=== PATIENT | male | born 1945 | race Caucasian/White ===

== ENCOUNTER 2018-11-05 07:47 | Day surgery (SDC) | payer OTHER ==
--- OUTSIDE RECORDS SUMMARY | 2018-11-05 07:50 | XMS REPORT | Clinical Summary ---
:1945 Author Organization [facility] Address [address] [place] [address] Care Team Providers Name Role Phone Provider, Unknown Primary Care Provider Allergies No Known Allergies Medications Medication Sig Dispensed Refills Start Date End Date Status aspirin (ADULT LOW Adult Low Dose 0 Active DOSE ASPIRIN) 81 MG Aspirin enteric coated tablet multivitamin with Take by mouth. 0 Active minerals tablet tamsulosin (FLOMAX) Take 0.4 mg by 1 05/06/2018 Active 0.4 mg capsule mouth daily. olmesartan-hydrochlo Take 1 tablet by 1 05/06/2018 Active rothiazide (BENICAR mouth daily. HCT) 20-12.5 mg per tablet metFORMIN Take 1,000 mg by 1 04/29/2018 Active (GLUCOPHAGE) 1,000 mouth 2 (two) mg tablet times a day. memantine (NAMENDA) Take 10 mg by 3 06/10/2018 Active 10 MG tablet mouth 2 (two) times a day. glipiZIDE glipizide 5 mg tablet 0 Active (GLUCOTROL) 5 MG Take 1 tablet twice a day by oral route. tablet finasteride finasteride 5 mg 0 Active (PROSCAR) 5 mg tablet tablet etodolac (LODINE) etodolac 500 mg 0 Active 500 MG tablet tablet donepezil (ARICEPT) Take 5 mg by mouth 0 04/16/2018 Active 5 MG tablet daily. donepezil (ARICEPT) Take 10 mg by 3 05/23/2018 Active 10 MG tablet mouth 2 (two) times a day. canagliflozin 300 mg Take 300 mg by 0 Active tablet mouth. aspirin 325 MG Take 325 mg by 0 Active tablet mouth. Ondot SystemsUCH ULTRA BLUE USE STRIPS TO 3 06/11/2018 Active TEST STRIP strip CHECK BLOOD test strips GLUCOSE 2 TIMES EVERYDAY cholecalciferol, Take 2,000 Units 0 Active vitamin D3, (VITAMIN by mouth daily. D3) 2,000 unit capsule capsule calcium acetate Take 1,334 mg by 0 Active (PHOSLO) 667 mg mouth 3 (three) capsule times a day with meals. levoFLOXacin Take 1 tablet (750 6 tablet 0 07/25/2018 07/31/2018 (LEVAQUIN) 750 MG mg total) by mouth tablet daily for 6 days. Hospital, Clinic, or Other Ordered Dose Route Frequency Start Date End Date Status Facility Administered Medication cefTRIAXone (ROCEPHIN) 1 g IM once 07/29/2018 07/29/2018 Ended injection 1 gIndications: Elevated prostate specific antigen (PSA) Active Problems No known active problems Encounters Date Type Specialty Care Team Description 08/13/2018 Telephone Urology Prasanth Gordon MD 08/12/2018 Telephone Urology Prasanht Gordon MD 08/05/2018 Telephone Urology Nimo Wilhelm 08/02/2018 Hospital Encounter Radiology Prasanth Gordon MD Gross hematuria 07/29/2018 Ancillary Procedure Urology Prasanth Gordon MD Elevated prostate specific antigen (PSA) 07/29/2018 Office Visit Urology Prasanth Gordon MD Elevated prostate specific antigen (PSA) (Primary Dx); Gross hematuria 07/25/2018 Transcribe Orders Urology Prasanth Gordon MD 07/25/2018 Telephone Prasanth Martinez MD 07/22/2018 Telephone UrologPrasanth Ibarra MD 07/01/2018 Office Visit Urology Prasanth Gordon MD Elevated prostate specific antigen (PSA) (Primary Dx) 06/26/2018 Telephone Urology Nimo Wilhelm 06/26/2018 Telephone Urology Prasanth Gordon MD after 11/04/2017 Social History Tobacco Use Types Packs/Day Years Used Date Never Assessed Sex Assigned at Date Recorded Not on file Job Start Date Occupation Industry Not on file Not on file Not on file Travel History Travel Start Travel End No recent travel history available. Last Filed Vital Signs Not on file Plan of Treatment Health Maintenance Due Date Last Done Comments COLON CANCER SCREENING 08/30/1997 SHINGLES VACCINES (#1) 08/30/1997 65+ PNEUMOCOCCAL VACCINE (2 of 2 - PPSV23) 08/30/2012 03/12/2016 PNEUMOCOCCAL POLYSACCHARIDE VACCINE AGE 65 AND OVER 08/30/2012 INFLUENZA VACCINE 01/23/2019 Procedures Procedure Name Priority Date/Time Associated Comments Diagnosis CT ABDOMEN W WO Routine 08/02/2018 12:24 PM Gross hematuria Results for this CONTRAST PELVIS W WO CRATING AND MOVING ESTIMATOR procedure are in CONTRAST the results section. ESTIMATED GFR STAT 08/02/2018 11:00 AM Results for this CRATING AND MOVING ESTIMATOR procedure are in the results section. CREATININE, WHOLE STAT 08/02/2018 11:00 AM Results for this BLOOD CRATING AND MOVING ESTIMATOR procedure are in the results section. US NEEDLE BIOPSY Routine 07/29/2018 9:36 AM Elevated prostate Results for this CRATING AND MOVING ESTIMATOR specific antigen procedure are in (PSA) the results section. POC URINALYSIS Routine 07/29/2018 9:27 AM Elevated prostate Results for this DIPSTICK CRATING AND MOVING ESTIMATOR specific antigen procedure are in (PSA) the results section. POC URINALYSIS Routine 07/01/2018 9:37 AM Elevated prostate Results for this DIPSTICK CRATING AND MOVING ESTIMATOR specific antigen procedure are in (PSA) the results section. after 11/04/[address] Abdomen W Wo Contrast Pelvis W Wo Contrast (08/02/2018 12:24 PM CRATING AND MOVING ESTIMATOR) Narrative Performed At EXAMINATION:CT ABDOMEN W WO CONTRAST PELVIS W WO CONTRAST HM RADIANT CLINICAL HISTORY:R31.0 Gross hematuria, gross hematuria TECHNIQUE:CT of the abdomen and pelvis was performed without contrast utilizing renal stone protocol. Subsequently, postcontrast CT of the abdomen and pelvis was obtained with multiphase renal mass and CT urogram protocol. CT imaging was performed with iterative reconstruction technique and/or automated exposure control to reduce radiation dose. COMPARISON:None FINDINGS: LUNG BASES: Partially visualized pacemaker lead tips in the right atrium and right ventricle. Scattered coronary calcifications. Right lower lobe subpleural well-circumscribed ovoid nodule measures 6 mm. Inferior lingular subpleural well-circumscribed ovoid nodule measures 4 mm. ABDOMEN: Liver: The liver is normal. No focal mass. Gallbladder: The gallbladder is normal. Spleen: The spleen is not enlarged. Pancreas: The pancreas is unremarkable. Adrenal Glands: The adrenal glands are unremarkable. Kidneys: No renal calculi. No hydronephrosis. There is an 8 mm hypodensity in the left interpolar region, too small to characterize but likely a cyst. Abdominal Aorta: Multifocal vascular calcifications. Nodes: No enlarged retroperitoneal or mesenteric lymphadenopathy. Bowel: No bowel obstruction or inflammatory changes. Ascites/fluid collections: No ascites or fluid collections. PELVIS: Marked hypertrophy of the median lobe of the prostate gland. Marked mass effect on the urinary bladder secondary to prostatic hypertrophy. Urinary bladder wall appears minimally circumferentially thickened, which partially resolves on delayed images, likely secondary to underdistention on the earlier images. MUSCULOSKELETAL: Mild spondylosis. IMPRESSION: 1.Marked prostatomegaly, particularly the median lobe, resulting in marked mass effect on the urinary bladder. 2.No suspicious renal abnormalities identified. 8 mm left interpolar hypodensity likely represents a cyst. 3.Bilateral pulmonary nodules measuring up to 6 mm likely represent pulmonary lymph nodes and/or granulomas. Recommend 12 month follow-up if patient has risk factors for lung cancer; otherwise, no follow-up is necessary. [facility]-[id number] Procedure Note Hm Interface, Radiology Results Incoming - 08/02/2018 1:21 PM CRATING AND MOVING ESTIMATOR EXAMINATION: CT ABDOMEN W WO CONTRAST PELVIS W WO CONTRAST CLINICAL HISTORY: R31.0 Gross hematuria, gross hematuria TECHNIQUE: CT of the abdomen and pelvis was performed without contrast utilizing renal stone protocol. Subsequently, postcontrast CT of the abdomen and pelvis was obtained with multiphase renal mass and CT urogram protocol. CT imaging was performed with iterative reconstruction technique and/or automated exposure control to reduce radiation dose. COMPARISON: None FINDINGS: LUNG BASES: Partially visualized pacemaker lead tips in the right atrium and right ventricle. Scattered coronary calcifications. Right lower lobe subpleural well- circumscribed ovoid nodule measures 6 mm. Inferior lingular subpleural well-circumscribed ovoid nodule measures 4 mm. ABDOMEN: Liver: The liver is normal. No focal mass. Gallbladder: The gallbladder is normal. Spleen: The spleen is not enlarged. Pancreas: The pancreas is unremarkable. Adrenal Glands: The adrenal glands are unremarkable. Kidneys: No renal calculi. No hydronephrosis. There is an 8 mm hypodensity in the left interpolar region, too small to characterize but likely a cyst. Abdominal Aorta: Multifocal vascular calcifications. Nodes: No enlarged retroperitoneal or mesenteric lymphadenopathy. Bowel: No bowel obstruction or inflammatory changes. Ascites/fluid collections: No ascites or fluid collections. PELVIS: Marked hypertrophy of the median lobe of the prostate gland. Marked mass effect on the urinary bladder secondary to prostatic hypertrophy. Urinary bladder wall appears minimally circumferentially thickened, which partially resolves on delayed images, likely secondary to underdistention on the earlier images. MUSCULOSKELETAL: Mild spondylosis. IMPRESSION: 1. Marked prostatomegaly, particularly the median lobe, resulting in marked mass effect on the urinary bladder. 2. No suspicious renal abnormalities identified. 8 mm left interpolar hypodensity likely represents a cyst. 3. Bilateral pulmonary nodules measuring up to 6 mm likely represent pulmonary lymph nodes and/or granulomas. Recommend 12 month follow-up if patient has risk factors for lung cancer; otherwise, no follow-up is necessary. [facility]-[id number] Performing Organization Address City/[facility]/Zipcode Phone Number [employer] [address] [place] [address] Estimated GFR (08/02/2018 11:00 AM CRATING AND MOVING ESTIMATOR) Estimated GFR 83 mL/min/1.73 m2 [facility] Comment: [facility] CatergoryUnitsInterpretation G1 >=90 Normal or high G2 60-89Mildly decreased [id number] to moderately decreased [id number] to severely decreased G4 15-29Severely decreased G5 <15Kidney failure The eGFR was calculated using the Chronic Kidney Disease Epidemiology Collaboration (CKD-EPI) equation. Interpretation is based on recommendations of the National Kidney Foundation-Kidney Disease Outcomes Quality Initiative (NKF-KDOQI) published in 2014. Specimen Plasma specimen Performing Organization Address [facility] Phone Number [facility] DEPARTMENT OF PATHOLOGY [address] [place] [address] Creatinine, whole blood (08/02/2018 11:00 AM CRATING AND MOVING ESTIMATOR) Creatinine, whole blood 0.92 0.70 - 1.20 mg/dL [facility] Specimen Plasma specimen Performing Organization Address [facility] Phone Number [facility] DEPARTMENT OF PATHOLOGY [address] [place] [address] US Needle Biopsy (07/29/2018 9:36 AM CRATING AND MOVING ESTIMATOR) Narrative Performed At Ultrasound guided Prostate Needle Biopsy [employer] DiagnosisElevated PSA PSA:7.5 PSAD:0.04 Findings: Prostate echogenicity: Heterogenous Calcifications: Small focal Measurements: Whole Gland AP Diamter:7.2 cm. Trasverse:6.7 cm. Length 8.0 cm. Total Hrahjm823 mL.With large median lobe Nodule None Ultrasound guided biopsies under local anesthesia: 12 Template Biopsies. 0 Additional Biopsies of. : Comments: U/S guided prostate needle BX was performed by and procedure was tolerated very well. Total 12 cores were taken under local anesthesia 2% lidocaine 5 cc on each side. Performing Organization Address City/State/Zipcode Phone Number [facility] [address] [place] [address] POC urinalysis dipstick (07/29/2018 9:27 AM CRATING AND MOVING ESTIMATOR)Only the most recent of2 resultswithin the time period is included. Color urine, POC Yellow Clarity urine, POC Clear Glucose urine, POC 3+ (A) Negative Bilirubin urine, POC Negative Negative Ketones urine, POC Negative Negative Specific gravity urine, POC 1.015 1.005 - 1.030 Blood urine, POC Trace (A) Negative pH urine, POC 5.5 5.0, 5.5, 6.0, 6.5, 7.0, 7.5, 8.0, 8.5 Protein urine, POC 3+ (A) Negative Urobilinogen urine, POC <2.0 <2.0 Nitrite urine, POC Negative Negative Leukocyte esterase urine, POC Negative Negative Specimen Urine after 11/04/2017 Insurance Payer Benefit Plan / Group Subscriber ID Type Phone Address AETNA MEDICARE AETNA MEDICARE HMO/PPO [facility] xxxxxxxx HMO Advance Directives Patient has advance care planning documents on file. For more information, please contact:[facility] [place] [phone]
--- OUTSIDE RECORDS SUMMARY | 2018-11-05 07:50 | XMS REPORT ---
:1945 [facility] Address [address] [place] [address] [address] [place] [address] Care Team Providers Name Role Phone Unavailable Unavailable Unavailable Problems This patient has no known problems. Allergies, Adverse Reactions, Alerts This patient has no known allergies or adverse reactions. Medications This patient has no known medications.
--- OUTSIDE RECORDS SUMMARY | 2018-11-05 07:50 | XMS REPORT | Summary of Care ---
:[address] [facility] Address [address] [place] [phone] Encounter HQ Marco A(DENG) [id number] Date(s): 01/09/17 - 01/09/[address] Discharge Disposition: Home or Self Care Attending Physician: Melania Pillai MD Referring Physician: Melania Pillai MD Vital Signs Most recent to oldest [Reference Range]: 1 Height 180.34 cm (01/09/17 11:43 AM) Blood Pressure [90-140/60-90 mmHg] 122/73 mmHg (01/09/17 11:43 AM) Respiratory Rate [14-20 BRMIN] 20 BRMIN (01/09/17 11:43 AM) Peripheral Pulse Rate [60-100 bpm] 86 bpm (01/09/17 11:43 AM) Weight 86.364 kg (01/09/17 11:43 AM) Body Mass Index 26.56 m2 (01/09/17 11:43 AM) Problem List Condition Effective Dates Status Health Status Informant BPH (benign prostatic Resolved hypertrophy)(Confirmed) CAD - Coronary artery Active disease(Confirmed) DM (diabetes mellitus)(Confirmed)1 Resolved Diabetes mellitus type 2(Confirmed) Active HTN (hypertension)(Confirmed) Resolved Sleep apnea(Confirmed)2 Resolved Syncope(Confirmed)3 Resolved 1type 22CPAP at [id number] had 3 syncopal episodes. Allergies, Adverse Reactions, Alerts Substance Reaction Severity Status iodine hives Active Medications No Known Medications Results No data available for this section Immunizations Given and Recorded Vaccine Date Status Refusal Reason pneumococcal 13-valent vaccine 03/12/16 Given Procedures Procedure Date Related Diagnosis Body Site Endoscopy1 Procedure2 Procedure3 Procedure4 1upper EF2rommx rotator cuff surgery.3Hernia repair.4removal of tumor in his right cheek.Patient states the result is benign. Social History Social History Type Response Substance Abuse Use: None. Alcohol Never Smoking Status Previous treatment: None; Ready to change: No; Concerns about tobacco use in household: No; Exposure to Tobacco Smoke None; Cigarette Smoking Last 365 Days No; Reg Smoking Cessation Counseling No; Never smoker Assessment and Plan No data available for this section
--- OUTSIDE RECORDS SUMMARY | 2018-11-05 07:50 | XMS REPORT | Summary of Care ---
:1945 Author Organization [facility] Address [address] [place] [phone] Encounter HQ Marco A(FIN) [id number] Date(s): 11/07/16 - 11/07/[address] [phone] Discharge Disposition: Home or Self Care Attending Physician: Melania Pillai MD Referring Physician: Melania Pillai MD Vital Signs Most recent to oldest [Reference Range]: 1 Height 180.34 cm (11/07/16 10:08 AM) Blood Pressure [90-140/60-90 mmHg] 133/66 mmHg (11/07/16 10:08 AM) Respiratory Rate [14-20 BRMIN] 20 BRMIN (11/07/16 10:08 AM) Peripheral Pulse Rate [60-100 bpm] 60 bpm (11/07/16 10:08 AM) Weight 86.818 kg (11/07/16 10:08 AM) Body Mass Index 26.69 m2 (11/07/16 10:08 AM) Problem List Condition Effective Dates Status Health Status Informant BPH (benign prostatic Resolved hypertrophy)(Confirmed) CAD - Coronary artery Active disease(Confirmed) DM (diabetes mellitus)(Confirmed)1 Resolved Diabetes mellitus type 2(Confirmed) Active HTN (hypertension)(Confirmed) Resolved Sleep apnea(Confirmed)2 Resolved Syncope(Confirmed)3 Resolved 1type 22CPAP at [id number] had 3 syncopal episodes. Allergies, Adverse Reactions, Alerts Substance Reaction Severity Status iodine hives Active Medications No Known Medications Results No data available for this section Immunizations Given and Recorded Vaccine Date Status Refusal Reason pneumococcal 13-valent vaccine 03/12/16 Given Procedures Procedure Date Related Diagnosis Body Site Endoscopy1 Procedure2 Procedure3 Procedure4 1upper GS3sacab rotator cuff surgery.3Hernia repair.4removal of tumor in his right cheek.Patient states the result is benign. Social History Social History Type Response Substance Abuse Use: None. Alcohol Never Smoking Status Never smoker; Previous treatment: None; Ready to change: No; Concerns about tobacco use in household: No; Exposure to Tobacco Smoke None; Cigarette Smoking Last 365 Days No; Reg Smoking Cessation Counseling No Assessment and Plan No data available for this section
--- OUTSIDE RECORDS SUMMARY | 2018-11-05 07:50 | XMS REPORT | Summary of Care ---
:[address] [facility] Address [address] [place] [phone] Encounter HQ Kit_nela(FIN) [id number] Date(s): 09/03/16 - 09/04/[address] Discharge Disposition: Home or Self Care Attending Physician: Melania Pillai MD Referring Physician: Melania Pillai MD Vital Signs No data available for this section Problem List Condition Effective Dates Status Health Status Informant BPH (benign prostatic Resolved hypertrophy)(Confirmed) CAD - Coronary artery Active disease(Confirmed) DM (diabetes mellitus)(Confirmed)1 Resolved HTN (hypertension)(Confirmed) Resolved Sleep apnea(Confirmed)2 Resolved Syncope(Confirmed)3 Resolved 1type 22CPAP at [id number] had 3 syncopal episodes. Allergies, Adverse Reactions, Alerts Substance Reaction Severity Status iodine hives Active Medications No data available for this section Results No data available for this section Immunizations Given and Recorded Vaccine Date Status Refusal Reason pneumococcal 13-valent vaccine 03/12/16 Given Procedures Procedure Date Related Diagnosis Body Site Endoscopy1 Procedure2 Procedure3 Procedure4 1upper AV3ahert rotator cuff surgery.3Hernia repair.4removal of tumor in [...]
--- OUTSIDE RECORDS SUMMARY | 2018-11-05 07:50 | XMS REPORT | Summary of Care ---
:1945 Author Organization [facility] Address [address] [place] [phone] Encounter HQ Marco A(FIN) [id number] Date(s): 08/16/16 - 08/17/[address] [address] [phone] Discharge Disposition: Home or Self Care Attending Physician: Physician, Non Associated MD Referring Physician: PCP, None MD Vital Signs No data available for this section Problem List Condition Effective Dates Status Health Status Informant BPH (benign prostatic Resolved hypertrophy)(Confirmed) CAD - Coronary artery Active disease(Confirmed) DM (diabetes mellitus)(Confirmed)1 Resolved HTN (hypertension)(Confirmed) Resolved Sleep apnea(Confirmed)2 Resolved Syncope(Confirmed)3 Resolved 1type 22CPAP at [id number] had 3 syncopal episodes. Allergies, Adverse Reactions, Alerts Substance Reaction Severity Status iodine hives Active Medications No data available for this section Results No data available for this section Immunizations Given and Recorded Vaccine Date Status Refusal Reason pneumococcal 13-valent vaccine 03/12/16 Given Procedures Procedure Date Related Diagnosis Body Site Endoscopy1 Procedure2 Procedure3 Procedure4 1upper ND1zolsy rotator cuff surgery.3Hernia repair.4removal of tumor in [...]
--- OUTSIDE RECORDS SUMMARY | 2018-11-05 07:50 | XMS REPORT | Continuity of Care Document ---
:1945 Author Organization Interface Problems Problem Status Onset Classification Date Comments Source Date Reported F/U 5 WKS Active [facility] 7 F/U 1 MONTH Active [facility] 7 MODERATE DAVID Active MH [facility] 7 DAVID Active [facility] 7 DAVID Active [facility] 7 BPH (<span Resolved Problem 01/12/2017 [facility] ID="[id number]">Confirmed</s vargas>) CAD - Coronary Active Problem 01/12/2017 [facility] artery disease DM (<span Resolved Problem 01/12/2017 type 2 [facility] ID="[id number]">Confirmed</s vargas>)<sup>1</sinclair p> Diabetes Active Problem 01/12/2017 [facility] mellitus type 2 HTN (<span Resolved Problem 01/12/2017 [facility] ID="[id number]">Confirmed</s vargas>) Sleep Resolved Problem 01/12/2017 CPAP at [facility] apnea<sup>2</sinclair bedtime p> Syncope<sup>3</ Resolved Problem 01/12/2017 recently [facility] sup> had 3 syncopal episodes. OBSTRUCTIVE Active [facility] SLEEP APNEA (ADULT) (PEDIATR Medications Medication Details Route Status Patient Ordering Order Source Instructions Provider Date Allergies, Adverse Reactions, Alerts Substance Category Reaction Severity Reaction Status Date Comments Source type Reported iodine Assertion hives Drug Active [facility] allergy Immunizations Immunization Date Given Site Status Last Comments Source Updated pneumococcal 03/12/2016 Left deltoid completed Celerio [facility] 13-valent vaccine Results Order Results Value Reference Date Interpretation Comments Source Name Range Vital Signs Vital Sign Value Date Comments Source BMI Calculated 26.56 01/09/2017 [facility] Weight 86.364 01/09/2017 [facility] Systolic (mm Hg) 122 01/09/2017 [facility] Diastolic (mm Hg) 73 01/09/2017 [facility] Heart Rate 86 01/09/2017 [facility] Respitory Rate 20 01/09/2017 [facility] Height 180.34 cm 01/09/2017 [facility] Height 180.34 cm 11/07/2016 [facility] BMI Calculated 26.69 11/07/2016 [facility] Weight 86.818 11/07/2016 [facility] Heart Rate 60 11/07/2016 [facility] Respitory Rate 20 11/07/2016 [facility] Systolic (mm Hg) 133 11/07/2016 [facility] Diastolic (mm Hg) 66 11/07/2016 [facility] Encounters Location Location Encounter Encounter Reason Attending ADM DC Status Source Details Type Number For Provider Date Date Visit Outpatient [id number] DORIE JOE 03/[address] [facility] [id number] KING 05/16 Formerly named [facility] [id number] Non 08/17 08/17 [facility]2016 [facility] [id number] [facility] 09/04 09/04 [facility] /2016 [place] [facility] [id number] [facility] 11/07 11/08 [facility]2016 [facility] Outpatient [id number] [facility] 01/09 01/10 [facility] /2016 [facility] Procedures Procedure Code Date Perfomer Comments Source Endoscopy<sup>1< [id number] upper GI [facility] /sup> Procedure<sup>2< [id number] right rotator [facility] /sup> cuff surgery. Procedure<sup>3< [id number] Hernia repair. [facility] /sup> Procedure<sup>4< [id number] removal of [facility] /sup> tumor in his right cheek.Patient states the result is benign.
[2018-11-05] MEDS ORDERED: NA CHLORIDE 0.9% 1,000 ML ONE (08:02)
[2018-11-05] MEDS ORDERED: LIDOCAINE 1% MPF 5 ML VIAL ONE (09:12)
[2018-11-05] MEDS ORDERED: PROPOFOL 200 MG/20 ML VIAL IV ONE (09:12)
--- NOTE | 2018-11-05 09:45 | ENDO RPT ---
[address], [address] COLONOSCOPY PROCEDURE REPORT EXAM DATE: 11/05/2018 PATIENT NAME: Negro Chavez MR #: [id number] BIRTHDATE: 1945 ATTENDING: Roger Sal Dr STATUS: outpatient JAVA FLEX DEVELOPER: Singh Giordano RN, Yuni Falcon RN, and Cherry Kennedy INDICATIONS: The patient is a 73 yr old Male here for a colonoscopy due to personal history of colon polyps PROCEDURE PERFORMED: Colonoscopy MEDICATIONS: Per Anesthesia. ESTIMATED BLOOD LOSS: None CONSENT: The patient understands the risks and benefits of the procedure and understands that these risks include, but are not limited to: sedation, allergic reaction, infection, perforation and/or bleeding. Alternative means of evaluation and treatment include, among others: physical exam, x-rays, and/or surgical intervention. The patient elects to proceed with this endoscopic procedure. DESCRIPTION OF PROCEDURE: During intra-op preparation period all mechanical medical equipment was checked for proper function. Hand hygiene and appropriate measures for infection prevention was taken. Procedure, possible complications, alternatives including, but not limited to possibility of bleeding, perforation, tear, infection, sepsis, need for surgery, need for blood transfusion, were explained to the patient. After the risks, benefits and alternatives of the procedure were thoroughly explained, Informed consent was verified, confirmed and timeout was successfully executed by the treatment team. The patient was placed in the left lateral position. A digital rectal exam was performed and revealed external hemorrhoids. After appropriate level of anesthesia, the scope was passed. The [id number] ([id number]) endoscope was introduced through the anus and advanced to the terminal ileum which was intubated for a short distance. The quality of the prep was good. The instrument was then slowly withdrawn as the colon was fully examined. Scope withdrawal time was 8 minutes. COLON FINDINGS: Mild diverticulosis was noted in the descending colon. No bleeding was noted from the diverticulosis. Moderate sized internal and external hemorrhoids were found. Retroflexed views revealed medium hemorrhoids. The scope was then completely withdrawn from the patient and the procedure terminated. ADVERSE EVENTS: There were no complications. IMPRESSIONS: 1. Mild diverticulosis in the descending colon 2. Moderate sized internal and external hemorrhoids 3. Intubation to terminal ileum RECOMMENDATIONS: fiber rich diet RECALL: Return in 3 year(s) for Colonoscopy. Roger Sal Dr eSigned: Roger Sal Dr 11/05/2018 9:45 AM cc: Luis King CPT CODES: ICD9 CODES: 455.5 External hemorrhoids with other complication PATIENT NAME: ChavezNegro MR#: [id number]
[2018-11-05 10:52] VITALS: BP 151/67; TEMP 98.4; O2SAT 99
== END 2018-11-05 10:18 | disposition home or self-care (01) ==
LOC: OR 07:47
PROVIDERS: ATTEND Internal Medicine Gastroenterology
PROC: 0DJD8ZZ Inspection of Lower Intestinal Tract, Via Natural or Artificial Opening Endoscopic (ICD-10-PCS; principal; 2018-11-05 10:00)
DX: Z12.11 Encounter for screening for malignant neoplasm of colon (principal); Z86.010 Personal history of colon polyps; K57.30 Diverticulosis of large intestine without perforation or abscess without bleeding; K64.8 Other hemorrhoids; K64.4 Residual hemorrhoidal skin tags; E11.9 Type 2 diabetes mellitus without complications; I10 Essential (primary) hypertension; Z79.84 Long term (current) use of oral hypoglycemic drugs; Z79.899 Other long term (current) drug therapy; Z95.0 Presence of cardiac pacemaker
CPT/HCPCS: 82962; 45378; J2704; J7030

== ENCOUNTER 2018-12-03 08:00 | Day surgery (SDC) | payer OTHER ==
--- OUTSIDE RECORDS SUMMARY | 2018-12-03 08:27 | XMS REPORT | Clinical Summary ---
:1945 Author Organization [facility] Address [address] [place] [address] Care Team Providers Name Role Phone Provider, Unknown Primary Care Provider Unavailable Allergies No Known Allergies Medications Medication Sig [...] 325 mg by 0 Active tablet mouth. ONETOUCH ULTRA BLUE USE STRIPS TO 3 06/11/2018 [...] Urology Prasanth Gordon MD 08/12/2018 Telephone Urology Prasanth Gordon MD 08/05/2018 Telephone Urology Nimo Wilhelm 08/02/2018 Hospital Encounter Radiology Prasanth Gordon MD Gross hematuria 07/29/2018 Ancillary Procedure Urology Prasanth Gordon MD Elevated prostate specific antigen (PSA) 07/29/2018 Office Visit Urology Prasanth Gordon MD Elevated prostate specific antigen (PSA) (Primary Dx); Gross hematuria 07/25/2018 Transcribe Orders UrologPrasanth Ibarra MD 07/25/2018 Telephone Prasanth Martinez MD 07/22/2018 Telephone UrologPrasanth Ibarra MD 07/01/2018 Office Visit UrologPrasanth Ibarra MD Elevated prostate specific antigen (PSA) (Primary Dx) 06/26/2018 Telephone Urology Nimo Wilhelm 06/26/2018 Telephone UrologPrasanth Ibarra MD after 12/02/2017 Social History Tobacco Use Types Packs/Day Years Used Date Never Assessed Sex Assigned at Date Recorded Not on file Job Start Date Occupation Industry Not on file Not on file Not on file Travel History Travel Start Travel End No recent travel history available. Last Filed Vital Signs Not on file Plan of Treatment Health Maintenance Due Date Last Done Comments COLONOSCOPY SCREENING 08/30/1997 SHINGLES VACCINES (#1) 08/30/1997 65+ PNEUMOCOCCAL VACCINE (2 of 2 - PPSV23) 08/30/2012 03/12/2016 INFLUENZA VACCINE 01/23/2019 Procedures Procedure Name Priority Date/Time Associated Comments Diagnosis CT ABDOMEN W WO Routine 08/02/2018 12:24 PM Gross hematuria Results for this CONTRAST PELVIS W WO TRAVELING BUYER procedure are in CONTRAST the results section. ESTIMATED GFR STAT 08/02/2018 11:00 AM Results for this TRAVELING BUYER procedure are in the results section. CREATININE, WHOLE STAT 08/02/2018 11:00 AM Results for this BLOOD TRAVELING BUYER procedure are in the results section. US NEEDLE BIOPSY Routine 07/29/2018 9:36 AM Elevated prostate Results for this TRAVELING BUYER specific antigen procedure are in (PSA) the results section. POC URINALYSIS Routine 07/29/2018 9:27 AM Elevated prostate Results for this DIPSTICK TRAVELING BUYER specific antigen procedure are in (PSA) the results section. POC URINALYSIS Routine 07/01/2018 9:37 AM Elevated prostate Results for this DIPSTICK TRAVELING BUYER specific antigen procedure are in (PSA) the results section. after 12/02/[address] Abdomen W Wo Contrast Pelvis W Wo Contrast (08/02/2018 12:24 PM TRAVELING BUYER) Specimen Narrative Performed At EXAMINATION:CT ABDOMEN W WO [...] lung cancer; otherwise, no follow-up is necessary. [facility]-[id number] Procedure Note Hm Interface, Radiology Results Incoming - 08/02/2018 1:21 PM TRAVELING BUYER EXAMINATION: CT ABDOMEN W WO CONTRAST PELVIS [...] lung cancer; otherwise, no follow-up is necessary. [facility]-[id number] Performing Organization Address City/[facility]/Zipcode Phone Number [facility] [address] [place] [address] Estimated GFR (08/02/2018 11:00 AM TRAVELING BUYER) Estimated GFR 83 mL/min/1.73 [facility] Comment: m2 GOSHEN CatergoryUnitsInterpretation [facility] G1 >=90 Normal or high G2 60-89Mildly decreased R2s26-03Ncthie to moderately decreased V4f85-95Dkdmoucjtc to severely decreased G4 15-29Severely decreased G5 <15Kidney failure The eGFR was calculated using the Chronic Kidney Disease Epidemiology Collaboration (CKD-EPI) equation. Interpretation is based on recommendations of the National Kidney Foundation-Kidney Disease Outcomes Quality Initiative (NKF-KDOQI) published in 2014. Specimen Plasma specimen Performing Organization Address [facility] Phone Number [facility] DEPARTMENT OF PATHOLOGY [phone] [place] [address] Creatinine, whole blood (08/02/2018 11:00 AM TRAVELING BUYER) Creatinine, whole 0.92 0.70 - 1.20 [facility] blood mg/dL [facility] Specimen Plasma specimen Performing Organization Address City/[facility]/Zipcode Phone Number [facility] DEPARTMENT OF PATHOLOGY [phone] [place] [address] US Needle Biopsy (07/29/2018 9:36 AM TRAVELING BUYER) Specimen Narrative Performed At Ultrasound guided Prostate Needle Biopsy [facility] DiagnosisElevated PSA PSA:7.5 PSAD:0.04 Findings: Prostate echogenicity: Heterogenous Calcifications: Small focal Measurements: Whole Gland AP Diamter:7.2 cm. Trasverse:6.7 cm. Length 8.0 cm. Total Tijwpr526 mL.With large median lobe Nodule None Ultrasound guided biopsies under local anesthesia: 12 Template Biopsies. 0 Additional Biopsies of. : Comments: U/S guided prostate needle BX was performed by and procedure was tolerated very well. Total 12 cores were taken under local anesthesia 2% lidocaine 5 cc on each side. Performing Organization Address City/State/Zipcode Phone Number [facility] [address] [place] [address] POC urinalysis dipstick (07/29/2018 9:27 AM TRAVELING BUYER)Only the most recent of2 resultswithin the time period is included. Color urine, POC Yellow Clarity urine, POC Clear Glucose urine, POC 3+ (A) Negative Bilirubin urine, POC Negative Negative Ketones urine, POC Negative Negative Specific gravity urine, 1.015 1.005 - 1.030 POC Blood urine, POC Trace (A) Negative pH urine, POC 5.5 5.0, 5.5, 6.0, 6.5, 7.0, 7.5, 8.0, 8.5 Protein urine, POC 3+ (A) Negative Urobilinogen urine, POC <2.0 <2.0 Nitrite urine, POC Negative Negative Leukocyte esterase Negative Negative urine, POC Specimen Urine after 12/02/2017 Advance Directives Patient has advance care planning documents on file. For more information, please contact:[facility] [place] [phone]
--- OUTSIDE RECORDS SUMMARY | 2018-12-03 08:28 | XMS REPORT ---
:1945 Author [facility] Address [address] [place] [address] [address]. [address] [place] [address] Care Team Providers Name Role Phone Unavailable Unavailable Unavailable Problems This patient has no known problems. Allergies, Adverse Reactions, Alerts This patient has no known allergies or adverse reactions. Medications This patient has no known medications.
--- OUTSIDE RECORDS SUMMARY | 2018-12-03 08:28 | XMS REPORT | Continuity of Care Document ---
:1945 Author Organization Interface Problems Problem Status Onset Classification Date Comments Source Date Reported F/U 5 WKS Active [facility] 7 F/U 1 MONTH Active [facility] 7 MODERATE DAVID Active MH [facility] 7 DAVID Active [facility] 7 DAVID Active [facility] 7 BPH (<span Resolved Problem 01/12/2017 [facility] ID="[id number]">Confirmed</s vargas>) CAD - Coronary Active Problem 01/12/2017 [facility] artery disease DM (<span Resolved Problem 01/12/2017 type 2 [facility] ID="[id number]">Confirmed</s vargas>)<sup>1</sinclair p> Diabetes Active Problem 01/12/2017 [facility] mellitus type 2 HTN (<span Resolved Problem 01/12/2017 [facility] ID="[id number]">Confirmed</s vargas>) Sleep Resolved Problem 01/12/2017 CPAP [...] Number For Provider Date Date Visit Outpatient [id number] DORIE JOE 03/27 [facility] [place] [facility] [id number] KING 05/16 [facility] [id number] Non 08/17 08/17 [facility] /2016 [place] [facility] Out[facility] [id number] [facility] 09/04 09/04 [facility] /2016 [place] [facility] Out[facility] [id number] [facility] 11/07 11/08 [facility] /2016 [facility] Outpatient [id number] [facility] 01/09 01/10 [facility] /2016 [facility] Procedures Procedure Code Date Perfomer Comments Source Endoscopy<sup>1< [id number] upper GI [facility] /sup> Procedure<sup>2< [id number] right rotator [facility] /sup> cuff surgery. Procedure<sup>3< [id number] Hernia repair. 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
[2018-12-03] MEDS ORDERED: NA CHLORIDE 0.9% 1,000 ML ONE (08:58)
[2018-12-03] MEDS ORDERED: LIDOCAINE 1% MPF 2 ML AMPULE ONE (10:01)
[2018-12-03] MEDS ORDERED: PROPOFOL 200 MG/20 ML VIAL IV ONE (10:01)
[2018-12-03 10:56] VITALS: TEMP 98; O2SAT 98
[2018-12-03 11:01] LABS: Absolute Lymphocytes (CBC) 1.5 K/uL (0.7-4.9); Basophils % 1.3 % (0-1.3); Eosinophils % 1.3 % (0-4.4); Hematocrit 42.8 % (39.6-49.0); Lymphocytes % 23.8 % (15.3-44.8); MPV 7.7 fL (7.6-11.3); Monocytes % 6.7 % (3.3-12.3); RBC Red Blood Cell Count 4.82 M/uL (4.33-5.43)
[2018-12-03 11:05] LABS: Protime INR 1.06
[2018-12-03 11:12] VITALS: BP 138/67
--- NOTE | 2018-12-03 11:21 | RAD REPORT ---
EXAM DESCRIPTION: RAD - Chest Pa And Lat (2 Views) - 12/03/2018 11:06 am CLINICAL HISTORY: Preprocedure chest examination, pending ETT, weight loss, pain, pacemaker COMPARISON: May 2016 TECHNIQUE: PA and lateral views of the chest were obtained. FINDINGS: The lungs are clear. Left subclavian pacemaker in place. Heart size is normal and central vasculature is within normal limits. No pleural effusion or pneumothorax seen. No acute bony findi ng noted. No aortic abnormality. No significant change from comparison. IMPRESSION: No acute cardiopulmonary process.
[2018-12-03 11:29] LABS: ALT/SGPT 15 U/L (12-78); AST/SGOT 10 U/L (15-37); Albumin 3.6 g/dL (3.4-5.0); Alkaline Phosphatase 46 U/L (45-117); BUN Blood Urea Nitrogen 15 mg/dL (7-18); Bicarbonate 31 mmol/L (21-32); Bilirubin Direct 0.2 mg/dL (0-0.2); Bilirubin Total 0.6 mg/dL (0.2-1.0); Glucose Level 118 mg/dL (74-106); Lipase 1403 U/L (73-393); Magnesium 2.1 mg/dL (1.8-2.4); Phosphorus 3.5 mg/dL (2.5-4.9); Potassium 3.9 mmol/L (3.5-5.1); Protein, Total 6.5 g/dL (6.4-8.2); Sodium Level 140 mmol/L (136-145)
[2018-12-03 11:34] LABS: Amylase Level 217 U/L (25-115)
--- NOTE | 2018-12-03 12:46 | RAD REPORT ---
EXAM DESCRIPTION: CT - Abdomen Pelvis Wo Contrast - 12/03/2018 12:32 pm CLINICAL HISTORY: Abdominal pain /weight loss COMPARISON: None TECHNIQUE: Computed axial tomography of the abdomen and pelvis was obtained. IV was not requested. O ral contrast was given. Coronal reconstructions performed. All CT scans are performed using dose optimization technique as appropriate and may include automated exposure control or mA/KV adjustment according to patient size. FINDINGS: The evaluation of solid organs and vessels is limited secondary to the lack of contrast a dministration. The liver, spleen, pancreas, adrenals and kidneys appear grossly normal. The wall of the transverse colon, left: And rectum appears mildly thickened. Pneumatosis intestinalis is not noted. No ascites. The prostate gland is markedly enlarged. Bladder wall is thickened. Small left inguinal hernia contains Normal appendix. No evidence of diverticulitis IMPRESSION: Mild thickening of the wall of the colon and rectum could either indicate colitis or be secondary to incomplete distention. Marked prostatic hypertrophy
--- NOTE | 2018-12-19 03:46 | ENDO RPT ---
[address], [address] EGD PROCEDURE REPORT EXAM DATE: 12/03/2018 PATIENT NAME: Negro Chavez MR#: [id number] BIRTHDATE: 1945 ATTENDING: Roger Sal Dr STATUS: outpatient GREASER AND OILER: Chely Bonilla RN, Cherry Kennedy, Singh Giordano RN, and Nancy Kennedy INDICATIONS: The patient is a 73 yr old Male here for an EGD due to mid epigastric abdominal pain and weight loss PROCEDURE PERFORMED: EGD with biopsy MEDICATIONS: Per Anesthesia. TOPICAL ANESTHETIC: none CONSENT: The patient understands the risks and benefits of the procedure and understands that these risks include, but are not limited to: sedation, allergic reaction, infection, perforation and/or bleeding. Alternative means of evaluation and treatment include, among others: physical exam, x-rays, and/or surgical intervention. The patient elects to proceed with this endoscopic procedure. DESCRIPTION OF PROCEDURE: During intra-op preparation period all mechanical medical equipment was checked for proper function. Hand hygiene and appropriate measures for infection prevention was taken. Procedure, possible complications, and alternatives including but not limited to the possibility of bleeding, perforation, tear, infection, sepsis, need for surgery, need for blood transfusion, and anesthesia related complications were explained to the patient. After the risks, benefits and alternatives of the procedure were thoroughly explained, Informed consent was verified, confirmed and timeout was successfully executed by the treatment team. The patient was placed in the left lateral position. The patient was anesthetized with topical anesthesia. Through the anesthetized oropharyngeal area, the scope was passed without any difficulty. The Pentax [id number] ([id number]) endoscope was introduced through the mouth and advanced to the third portion of the duodenum. Retroflexed views revealed a moderate sized hiatal hernia. The gastroscope was then slowly withdrawn and removed. A Schatzki's ring was found in the lower esophagus. A moderate sized hiatal hernia was found Mild Atrophic gastritis was found in the body and the antrum of the stomach. Multiple biopsies were obtained and sent to pathology. Duodenitis was found in the bulb of the duodenum. ADVERSE EVENTS: There were no complications. IMPRESSIONS: 1. Schatzki's ring in the lower esophagus (no history of dysphagia) 2. Moderate sized hiatal hernia 3. Mild atrophic gastritis in the body < the antrum of the stomach, s/p biopsies 4. Mild duodenitis with edema mild stenosis in the bulb of the duodenum RECOMMENDATIONS: 1. await biopsy results 2. acid suppression therapy REPEAT EXAM: Roger Sal Dr eSigned: Roger Sal Dr 12/03/2018 10:11 AM cc: Luis King CPT CODES: ICD9 CODES: PATIENT NAME: Negro Chavez MR#: [id number]
== END 2018-12-03 12:30 | disposition home or self-care (01) ==
LOC: OR 08:00
PROVIDERS: ATTEND Internal Medicine Gastroenterology
PROC: 0DB78ZX Excision of Stomach, Pylorus, Via Natural or Artificial Opening Endoscopic, Diagnostic (ICD-10-PCS; 2018-12-03)
PROC: 0DB68ZX Excision of Stomach, Via Natural or Artificial Opening Endoscopic, Diagnostic (ICD-10-PCS; principal; 2018-12-03 08:45)
DX: K29.50 Unspecified chronic gastritis without bleeding (principal); K22.2 Esophageal obstruction; K44.9 Diaphragmatic hernia without obstruction or gangrene; K29.80 Duodenitis without bleeding; K31.5 Obstruction of duodenum; E11.9 Type 2 diabetes mellitus without complications; I10 Essential (primary) hypertension; Z79.84 Long term (current) use of oral hypoglycemic drugs; Z79.899 Other long term (current) drug therapy
CPT/HCPCS: 43239; 85025; 80048; 36415; 82150; 83735; 88312; 83615; 84100; 85610; 82962; 80076; 88305; 85730; 83690; 86301; 74176; 71046; G0103; J2704; J2001; J7030; 88304

== ENCOUNTER 2022-01-20 15:22 | Emergency (ER) | payer OTHER ==
[2022-01-20] MEDS ORDERED: CEFTRIAXONE 1000 MG/VIAL ONE (16:32)
[2022-01-20] MEDS ORDERED: NA CHLORIDE 0.9% 1,000 ML ONE (16:32)
[2022-01-20 16:48] LABS: Absolute Lymphocytes (CBC) 0.6 K/uL (0.7-4.9); Lymphocytes % 11.3 % (15.3-44.8); MCV 88.3 fL (80-100); MPV 7.6 fL (7.6-11.3); RBC Red Blood Cell Count 4.53 M/uL (4.33-5.43)
[2022-01-20 16:49] LABS: Protime INR 1.05
[2022-01-20 17:00] LABS: SARS-CoV-2 Antigen Rapid Res Positive (Negative)
--- NOTE | 2022-01-20 17:07 | RAD REPORT ---
EXAM DESCRIPTION: CT - Head Brain Wo Cont - 01/20/2022 4:58 pm CLINICAL HISTORY: Mental status change, persistent or worsening COMPARISON: Ct Stroke Brain Wo Cont dated 03/11/2016; Head Brain Wo Cont dated 01/10/2016 TECHNIQUE: All CT scans are performed using dose optimization technique as appropriate and may inclu de automated exposure control or mA/KV adjustment according to patient size. FINDINGS: No intracranial hemorrhage, hydrocephalus or extra-axial fluid collection.Advanced brain a trophy.No areas of brain edema or evidence of midline shift. The paranasal sinuses and mastoids are clear. The calvarium is intact. IMPRESSION: No acute intracranial abnormality. Advanced brain atrophy.
[2022-01-20 17:08] LABS: ALT/SGPT 20 U/L (12-78); AST/SGOT 12 U/L (15-37); Albumin 3.5 g/dL (3.4-5.0); Alkaline Phosphatase 59 U/L (45-117); BUN Blood Urea Nitrogen 22 mg/dL (7-18); Bicarbonate 27 mmol/L (21-32); Bilirubin Total 0.3 mg/dL (0.2-1.0); Glomerular Filtration Rate 56 ml/min (=/>90); Glucose Level 182 mg/dL (74-106); Lipase 126 U/L (73-393); Magnesium 2.3 mg/dL (1.8-2.4); NT PRO-BNP 796 pg/mL (<125); Potassium 3.8 mmol/L (3.5-5.1); Protein, Total 6.8 g/dL (6.4-8.2); Sodium Level 138 mmol/L (136-145); Troponin High Sensitivity 10.8 pg/mL (<58.9)
--- NOTE | 2022-01-20 17:09 | RAD REPORT ---
EXAM DESCRIPTION: CT - Stone Protocol - 01/20/2022 4:58 pm CLINICAL HISTORY: Flank pain. flank pain COMPARISON: Abdomen Pelvis Wo Contrast dated 12/03/2018 TECHNIQUE: Axial images were obtained without oral or IV contrast. Lack of contrast limits solid org an and vascular assessment. The [id number] spans the entirety of the system partially obscuring uppermost abdomen and lung bases. Coronal reformatted images were obtained and reviewed. All CT scans are performed using dose optimization technique as appropriate and may include automated exposure control or mA/KV adjustment according to patient size. FINDINGS: The lower lung villalobos are clear. Pacemaker wires are noted. Imaged portions of the liver and spleen show no suspicious findings on non-contrast imaging. The panc reas and adrenal glands are normal. No pathologic lymphadenopathy in the abdomen or pelvis. No urinary tract stones or obstructive uropathy. No bowel obstruction, free air, free fluid or abscess. Nonvisualized appendix.Sigmoid diverticulosis is present without diverticulitis. Moderate stool is present throughout the colon. Moderate spondylosis L5-S1. IMPRESSION: No urinary tract stones or obstructive uropathy. Sigmoid diverticulosis coli without diverticulitis.
--- NOTE | 2022-01-20 17:10 | RAD REPORT ---
EXAM DESCRIPTION: RAD - Chest Single View - 01/20/2022 5:04 pm CLINICAL HISTORY: COUGH Chest pain. COMPARISON: Chest Pa And Lat (2 Views) dated 11/02/2020; Chest Pa And Lat (2 Views) dated 12/03/2018; Chest Pa And Lat (2 Views) dated 06/13/2016; Chest Single View dated 04/07/2016 FINDINGS: Portable technique limits examination quality. The lungs are grossly clear. The heart is normal in size. No displaced fractures.Dual lead pacer jesse ce. IMPRESSION: No acute intrathoracic process suspected.
[2022-01-20] MEDS ORDERED: FAMOTIDINE 20 MG/2 ML VIAL IV ONE (17:23)
[2022-01-20 17:24] LABS: Bilirubin Direct < 0.1 mg/dL (0-0.2)
[2022-01-20] MEDS ORDERED: BEBTELOVIMAB 175 MG/2 ML VIAL IV ONE (17:24)
[2022-01-20] MEDS ORDERED: AZITHROMYCIN 250 MG TAB ONE (17:25)
[2022-01-20 17:29] LABS: Urine Blood 2+ (Negative); Urine Glucose Trace (Negative); Urine Protein 3+ (Negative); Urine Specific Gravity >=1.030 (1.005-1.030); Urine pH 5.5 (5.0-7.0)
--- NOTE | 2022-01-20 17:53 | EDPHYS ---
Physician Documentation [facility] Name: Negro Chavez Age: 76 yrs Sex: Male : 1945 Arrival Date: 01/20/2022 Time: 15:24 Bed 7 Private MD: ED Physician Jameel Gore HPI: 01/20 16:24 This 76 yrs old Male presents to ER via Ambulatory with complaints of mary Weakness, Urinary Problem. 16:24 nausea , vomiting , diarrhea, ams. The patient presents with confusion. Onset: The mary symptoms/episode began/occurred yesterday. Possible causes: CVA or TIA, head injury, low blood sugar, sepsis. Associated signs and symptoms: Pertinent positives: diarrhea, nausea, vomiting. Onset: The symptoms/episode began/occurred 2 day(s) ago. Current symptoms: In the emergency department the patient's symptoms have improved, moderately. Patient's baseline: Neuro: alert and fully oriented. Severity of symptoms: At their worst the symptoms were mild in the emergency department the symptoms are unchanged. Historical: - Allergies: 15:52 Iodine; ll1 - PMHx: 15:52 BPH; Diabetes - NIDDM; Hypertension; ll1 - Immunization history:: Adult Immunizations up to date. - Social history:: Smoking status: Patient denies any tobacco usage or history of. - Family history:: not pertinent. ROS: 16:24 Constitutional: Negative for fever, chills, and weight loss, Eyes: Negative for injury, mary pain, redness, and discharge, ENT: Negative for injury, pain, and discharge, Neck: Negative for injury, pain, and swelling, Cardiovascular: Negative for chest pain, palpitations, and edema, Respiratory: Negative for shortness of breath, cough, wheezing, and pleuritic chest pain, Abdomen/GI: Negative for abdominal pain, nausea, vomiting, diarrhea, and constipation, Back: Negative for injury and pain, : Negative for injury, bleeding, discharge, and swelling, MS/Extremity: Negative for injury and deformity, Skin: Negative for injury, rash, and discoloration, Psych: Negative for depression, anxiety, suicide ideation, homicidal ideation, and hallucinations, Allergy/Immunology: Negative for hives, rash, and allergies, Endocrine: Negative for neck swelling, polydipsia, polyuria, polyphagia, and marked weight changes, Hematologic/Lymphatic: Negative for swollen nodes, abnormal bleeding, and unusual bruising. Exam: 16:24 Constitutional: This is a well developed, well nourished patient who is awake, alert, mary and in no acute distress. Head/Face: Normocephalic, atraumatic. Eyes: Pupils equal round and reactive to light, extra-ocular motions intact. Lids and lashes normal. Conjunctiva and sclera are non-icteric and not injected. Cornea within normal limits. Periorbital areas with no swelling, redness, or edema. ENT: Nares patent. No nasal discharge, no septal abnormalities noted. Tympanic membranes are normal and external auditory canals are clear. Oropharynx with no redness, swelling, or masses, exudates, or evidence of obstruction, uvula midline. Mucous membranes moist. Neck: Trachea midline, no thyromegaly or masses palpated, and no cervical lymphadenopathy. Supple, full range of motion without nuchal rigidity, or vertebral point tenderness. No Meningismus. Chest/axilla: Normal chest wall appearance and motion. Nontender with no deformity. No lesions are appreciated. Cardiovascular: Regular rate and rhythm with a normal S1 and S2. No gallops, murmurs, or rubs. Normal PMI, no JVD. No pulse deficits. Respiratory: Lungs have equal breath sounds bilaterally, clear to auscultation and percussion. No rales, rhonchi or wheezes noted. No increased work of breathing, no retractions or nasal flaring. Abdomen/GI: Soft, non-tender, with normal bowel sounds. No distension or tympany. No guarding or rebound. No evidence of tenderness throughout. Back: No spinal tenderness. No costovertebral tenderness. Full range of motion. Male : Normal genitalia with no discharge or lesions. Skin: Warm, dry with normal turgor. Normal color with no rashes, no lesions, and no evidence of cellulitis. MS/ Extremity: Pulses equal, no cyanosis. Neurovascular intact. Full, normal range of motion. Neuro: Awake and alert, GCS 15, oriented to person, place, time, and situation. Cranial nerves II-XII grossly intact. Motor strength 5/5 in all extremities. Sensory grossly intact. Cerebellar exam normal. Normal gait. Psych: Awake, alert, with orientation to person, place and time. Behavior, mood, and affect are within normal limits. 16:24 Neck: ROM/movement: is normal, no acute changes. 16:50 ECG was reviewed by the Attending Physician. [facility] Vital Signs: 15:51 BP 146 / 58; Pulse 67; Resp 17; Temp 98.2; Pulse Ox 99% ; ll1 17:35 BP 165 / 82; Pulse 72; Resp 16; Pulse Ox 100% on R/A; ll1 MDM: 15:56 Patient medically screened. [facility] 16:26 Differential Diagnosis altered mental status. Differential Diagnosis: electrolyte mary abnormality, hypoglycemia, intracranial bleed, meningitis, pneumonia, sepsis, TIA, UTI, volume depletion. Data reviewed: vital signs, nurses notes, lab test result(s), EKG, radiologic studies, CT scan, plain films. Data interpreted: residential monitor: rate is 67 beats/min, rhythm is regular, Pulse oximetry: on room air is 99 %. Test interpretation: by ED physician or midlevel provider: ECG, plain radiologic studies. Counseling: I had a detailed discussion with the patient and/or guardian regarding: the historical points, exam findings, and any diagnostic results supporting the discharge/admit diagnosis, lab results, radiology results. 01/20 16:00 Order name: Basic Metabolic Panel; Complete Time: 17:35 [facility] 01/20 16:00 Order name: CBC with Diff; Complete Time: 17:15 [facility] 01/20 16:00 Order name: LFT's; Complete Time: 17:35 [facility] 01/20 16:00 Order name: Magnesium; Complete Time: 17:35 [facility] 01/20 16:00 Order name: NT PRO-BNP; Complete Time: 17:35 [facility] 01/20 16:00 Order name: PT-INR; Complete Time: 16:55 [facility] 01/20 16:00 Order name: Troponin HS; Complete Time: 17:35 [facility] 01/20 16:00 Order name: XRAY Chest (1 view); Complete Time: 17:15 [facility] 01/20 16:00 Order name: Blood Culture Adult (2) [facility] 01/20 16:00 Order name: Lipase; Complete Time: 17:35 [facility] 01/20 16:00 Order name: Lactate; Complete Time: 17:35 [facility] 01/20 16:00 Order name: Urine Culture [facility] 01/20 16:00 Order name: SARS RAPID; Complete Time: 17:15 [facility] 01/20 17:29 Order name: Urine Dipstick-Ancillary; Complete Time: 17:35 [facility] 01/20 16:00 Order name: EKG; Complete Time: 16:03 [facility] 01/20 16:00 Order name: Cardiac monitoring; Complete Time: 16:44 [facility] 01/20 16:00 Order name: EKG - Nurse/Tech; Complete Time: 16:44 [facility] 01/20 16:00 Order name: IV Saline Lock; Complete Time: 16:29 [facility] 01/20 16:00 Order name: Labs collected and sent; Complete Time: 16:29 [facility] 01/20 16:00 Order name: O2 Per Protocol; Complete Time: 16:01 [facility] 01/20 16:00 Order name: O2 Sat Monitoring; Complete Time: 16:01 [facility] 01/20 16:00 Order name: Urine Dipstick-Ancillary (obtain specimen); Complete Time: 18:08 [facility] 01/20 16:17 Order name: CT Head Brain wo Cont; Complete Time: 17:15 [facility] 01/20 16:17 Order name: CT Stone Protocol; Complete Time: 17:15 [facility] 01/20 17:02 Order name: Misc. Order: bebtelovimab please; Complete Time: 17:40 [facility] 01/20 17:38 Order name: PO challenge; Complete Time: 17:41 [facility] EC:50 Rate is 63 beats/min. Rhythm is regular. QRS [place] is Normal. DC interval is normal. QRS mary interval is normal. QT interval is normal. No Q waves. T waves are Normal. No ST changes noted. Clinical impression: NSR w/ Non-specific ST/T Changes and No evidence of ischemia. Interpreted by me. Reviewed by me. Administered Medications: 16:33 Drug: NS 0.9% 1000 ml Route: IV; Rate: 1 bolus; Site: right antecubital; ll1 17:18 Follow up: Response: No adverse reaction; IV Status: Completed infusion; IV Intake: ll1 1000ml 16:40 Drug: Rocephin (cefTRIAXone) 1 grams Route: IV; Rate: per protocol; Site: right ll1 antecubital; 17:24 Follow up: Response: No adverse reaction; IV Status: Completed infusion; IV Intake: [id number] 17:23 Drug: Pepcid (famotidine) 20 mg Route: IVP; Site: right antecubital; ll1 17:41 Follow up: Response: No adverse reaction ll1 17:24 Drug: Zithromax (azithromycin) 500 mg Route: PO; ll1 17:41 Follow up: Response: No adverse reaction ll1 18:08 Not Given (Patient Refused): NS 0.9% 500 ml IV at bolus once ll1 Disposition Summary: 01/20/22 17:52 Discharge Ordered Location: Home mary Problem: new mary Symptoms: have improved mary Condition: Stable mary Diagnosis - Vomiting mary - Diarrhea, unspecified mary - Type 2 diabetes mellitus with hyperglycemia mary - Dementia in other diseases classified elsewhere without behavioral disturbance mary - Coronavirus infection, unspecified mary - SARS-associated coronavirus as the cause of diseases classified elsewhere mary - Unspecified kidney failure - renal insufficency mary Followup: mary - With: Private Physician - When: 2 - 3 days - Reason: Recheck today's complaints, Continuance of care, Re-evaluation by your physician Followup: mary - With: Iker Em MD - When: 2 - 3 days - Reason: Recheck today's complaints, Re-evaluation by your physician Discharge Instructions: - Discharge Summary Sheet mary - Food Choices to Help Relieve Diarrhea, Adult mary - Dementia mary - Diarrhea, Adult, [id number] mary - Viral Respiratory Infection, [id number] mary - Aspirin and Your Heart mary - Vomiting, Adult mary - COVID-19 mary - COVID-19 Frequently Asked Questions mary - Things to Know about the COVID-19 Pandemic - [facility] mary - 10 Things You Can Do to Manage Your COVID-19 Symptoms at Home - [facility] mary - COVID-19: Quarantine vs. Isolation - [facility] mary - Prevent the Spread of COVID-19 if You Are Sick - [facility] mary Forms: - Medication Reconciliation Form mary - Thank You Letter mary - Antibiotic Education mary - Prescription Opioid Use mary Prescriptions: - budesonide 180 mcg/actuation Inhalation aerosol powdr breath activated - inhale 1 puff by INHALATION route 2 times per day; 1 Pump; Refills: 0, Product mary Selection Permitted - Pepcid 20 mg Oral Tablet - take 1 tablet by ORAL route every 12 hours for 21 days; 42 tablet; Refills: 0, mary Product Selection Permitted - Zithromax Z-Lito 250 mg Oral Tablet - take 1 tablet by ORAL route as directed for 5 days Day 1 - take two (2) tablets mary one time. Day 2, 3, 4 , 5 take one (1) tablet once daily.; 6 tablet; Refills: 0, Product Selection Permitted Signatures: Dispatcher [employer] Jameel Francois MD MD cha Lewis, Lynsay RN RN ll1
--- NOTE | 2022-01-20 17:53 | ER ---
Nurse's Notes [facility] Name: Negro Chavez Age: 76 yrs Sex: Male : 1945 Arrival Date: 01/20/2022 Time: 15:24 Bed 7 Private MD: Diagnosis: Vomiting;Diarrhea, unspecified;Type 2 diabetes mellitus with hyperglycemia;Dementia in other diseases classified elsewhere without behavioral disturbance;Coronavirus infection, unspecified;SARS-associated coronavirus as the cause of diseases classified elsewhere;Unspecified kidney failure-renal insufficency Presentation: 01/20 15:50 Chief complaint: Spouse and/or significant other states: last night he had vomiting and iw diarrhea and he was disoriented and had strong urine smell, he has Alzheimer's. 15:51 Ebola Screen: Patient denies travel to an Ebola-affected area in the 21 days before ll1 illness onset. 15:51 Method Of Arrival: Ambulatory 1 15:51 Acuity: [id number] 3 ll1 15:54 Initial Sepsis Screen: Does the patient meet any 2 criteria? No. Patient's initial ll1 sepsis screen is negative. Does the patient have a suspected source of infection? Yes: Dysuria/Frequency/Urgency/UTI. Risk Assessment: Do you want to hurt yourself or someone else? Patient reports no desire to harm self or others. Onset of symptoms was January 19, 2022. 18:09 Coronavirus screen: Vaccine status: Patient reports receiving the 2nd dose of the covid ll1 vaccine. Client denies travel out of the [place] in the last 14 days. fatigue, headache, muscle pain, shortness of breath, Client presents with at least one sign or symptom that may indicate coronavirus-19. Standard/surgical mask placed on the client. Triage Assessment: 15:52 General: Appears uncomfortable, Behavior is calm, cooperative, appropriate for age. ll1 Pain: Denies pain. Neuro: Level of Consciousness is awake, alert, obeys commands, Weakness Gait is steady, Speech is normal, Facial symmetry appears normal. GI: Reports cramping, diarrhea, nausea, vomiting. Historical: - Allergies: 15:52 Iodine; ll1 - PMHx: 15:52 BPH; Diabetes - NIDDM; Hypertension; ll1 - Immunization history:: Adult Immunizations up to date. - Social history:: Smoking status: Patient denies any tobacco usage or history of. - Family history:: not pertinent. Screenin:53 Abuse screen: Denies threats or abuse. Nutritional screening: No deficits noted. ll1 Tuberculosis screening: No symptoms or risk factors identified. Fall Risk IV access (20 points). Gait- Weak (10 pts.). Total Sandhu Fall Scale indicates Low Risk Score (25-44 pts). Fall prevention measures have been instituted. Side Rails Up X 2 Placed close to Nursing Station Frequent Obs/Assesments occuring Family Present and informed to notify staff if they need to leave bedside As available Patient and Family Educated on Fall Prevention Program and strategies. Assessment: 16:45 Reassessment: No changes from previously documented assessment. Patient and/or family ll1 updated on plan of care and expected duration. Pain level reassessed. 17:35 Reassessment: No changes from previously documented assessment. Patient and/or family ll1 updated on plan of care and expected duration. Pain level reassessed. 18:08 Reassessment: No changes from previously documented assessment. Patient and/or family ll1 updated on plan of care and expected duration. Pain level reassessed. Vital Signs: 15:51 BP 146 / 58; Pulse 67; Resp 17; Temp 98.2; Pulse Ox 99% ; ll1 17:35 BP 165 / 82; Pulse 72; Resp 16; Pulse Ox 100% on R/A; ll1 ED Course: 15:24 Patient arrived in ED. rg4 15:45 Fidencio Sumner, RN is Primary Nurse. ll1 15:45 Arm band placed on Patient placed in an exam room, on a stretcher. ll1 15:45 Inserted saline lock: 20 gauge in right antecubital area, using aseptic technique. ll1 Blood collected. 15:52 Triage completed. ll1 15:54 Jameel Gore MD is Attending Physician. [facility] 15:54 Patient has correct armband on for positive identification. Bed in low position. Call ll1 light in reach. Side rails up X2. Client placed on continuous cardiac and pulse oximetry monitoring. NIBP monitoring applied. 16:59 CT Head Brain wo Cont In Process Unspecified. EDMS 16:59 CT Stone Protocol In Process Unspecified. EDMS 17:06 XRAY Chest (1 view) In Process Unspecified. EDMS 17:52 Iker Em MD is Referral Physician. mary 18:08 IV discontinued, intact, bleeding controlled, No redness/swelling at site. Pressure ll1 dressing applied. 18:09 No provider procedures requiring assistance completed. ll1 Administered Medications: 16:33 Drug: NS 0.9% 1000 ml Route: IV; Rate: 1 bolus; Site: right antecubital; ll1 17:18 Follow up: Response: No adverse reaction; IV Status: Completed infusion; IV Intake: ll1 1000ml 16:40 Drug: Rocephin (cefTRIAXone) 1 grams Route: IV; Rate: per protocol; Site: right ll1 antecubital; 17:24 Follow up: Response: No adverse reaction; IV Status: Completed infusion; IV Intake: [id number] 17:23 Drug: Pepcid (famotidine) 20 mg Route: IVP; Site: right antecubital; ll1 17:41 Follow up: Response: No adverse reaction ll1 17:24 Drug: Zithromax (azithromycin) 500 mg Route: PO; ll1 17:41 Follow up: Response: No adverse reaction ll1 18:08 Not Given (Patient Refused): NS 0.9% 500 ml IV at bolus once ll1 Medication: 17:36 VIS not applicable for this client. ll1 Intake: 17:18 IV: 1000ml; Total: 1000ml. ll1 17:24 IV: 20ml; Total: 1020ml. ll1 Outcome: 17:52 Discharge ordered by . mary 18:09 Discharged to home ambulatory. ll1 18:09 Condition: stable 18:09 Discharge instructions given to patient, family, Instructed on discharge instructions, follow up and referral plans. medication usage, Demonstrated understanding of instructions, follow-up care, medications, Prescriptions given X 3. 18:15 Patient left the ED. ll1 Signatures: Dispatcher [employer] Jameel Francois MD MD cha Williams, Irene, RN Kacie Wadsworth 4 Fidencio Sumner RN RN ll1
[2022-01-20 19:12] VITALS: TEMP 98.2
[2022-01-20 19:14] VITALS: BP 165/82; O2SAT 100
--- NOTE | 2022-01-22 16:58 | EKG ---
Test Date: 2022-01-20 Test Time: 16:44:24 Bilingual Interpreter: LASHAY MEASUREMENT RESULTS: Intervals: Rate: 63 MA: 166 QRSD: 86 QT: 378 QTc: 386 [place]: P: 50 MA: 166 QRS: -16 T: 6 INTERPRETIVE STATEMENTS: Normal sinus rhythm Cannot rule out Anterior infarct, age undetermined Abnormal ECG Compared to ECG 04/08/2016 06:40:59 Myocardial infarct finding now present Atrial-paced complex(es) or rhythm no longer present Electronically Signed On 01-22-22 16:57:15 CDT by Thai Chan
== END 2022-01-20 18:15 | disposition home or self-care (01) ==
LOC: ER 15:22
DX: U07.1 COVID-19 (principal); E11.65 Type 2 diabetes mellitus with hyperglycemia; N28.9 Disorder of kidney and ureter, unspecified; R19.7 Diarrhea, unspecified; F03.90 Unspecified dementia, unspecified severity, without behavioral disturbance, psychotic disturbance, mood disturbance, and anxiety; I10 Essential (primary) hypertension; Z91.048 Other nonmedicinal substance allergy status
CPT/HCPCS: 87040 ×2; 87088; 85025; 87086; 80048; 36415; 83735; 85610; 80076; 83605; 81003; 84484; 83690; 83880; 70450; 76377; 74176; 71045; 87811; J7030; J3490; 93005; 96365; 96375; 99284

== ENCOUNTER 2022-04-17 12:48 | Inpatient (IN) | payer OTHER ==
--- OUTSIDE RECORDS SUMMARY | 2022-04-17 12:52 | XMS REPORT | Continuity of Care Document ---
:1945 Author Organization [facility] t Address [address] [place] [address] Dr. Gardner [address] [place] [address] Care Team Providers Name Role Phone Luis King MD Primary Care Physician Casi Gordon MD Attending Clinician Monique Johnson MA Attending Clinician Unavailable Berna Bob MA Attending Clinician Unavailable Clarita JIMENEZ, Prosper Harrison Attending Clinician [phone] Lyndsay Kerr MD Attending Clinician CHASE GALLAGHER Attending Clinician Unavailable All Gomez MD Attending Clinician ALL GOMEZ Attending Clinician Unavailable MARY HONG Attending Clinician Unavailable Melania Pillai Attending Clinician Physician, Non Associated Attending Clinician Unavailable Payers Payer Name Policy Type Policy Number Effective Date Expiration Date S kim MEDICARE PLAN PPO [id number] - AETNA AETNA MEDICARE HMO [id number] 2020 POS PPO 00:00:00 Problems Condition Condition Condition Status Onset Resolution Last Treating Co mments Source Name Details Category Date Date Treatment Clinician Date Late onset Late onset Disease Active B yeimi Alzheimer' Alzheimer' 9-13 Co llege s disease s disease 00:00: of without without 00 Medicin behavioral behavioral e disturbanc disturbanc e (HCCode) e (HCCode) F/U 5 WKS F/U 5 WKS Diagnosis Active 2017-01-09 Memoria Active 11-13 11:00:00 l 11/13/2016 00:00: Paul snowden [facility] 00 F/U 1 F/U 1 Diagnosis Active 2016-11-07 Me moria MONTH MONTH 09-19 10:02:00 l Active 00:00: Wayne 09/19/2016 00 MH [facility] MODERATE MODERATE Diagnosis Active 2016-09-04 Memoria DAVID DAVID Active 08-24 09:00:00 l 08/24/2016 00:00: Paul snowden [facility] 00 DAVID DAVID Diagnosis Active 2016-08-17 Mem oria Active 08-08 08:28:00 l 08/08/2016 00:00: Paul snowden [facility] 00 No known No known Disease Metho di active active st problems problems Hospit a l Diabetes Diabetes Problem Resolve 2017-01-12 Memoria mellitus mellitus d 00:14:12 l (disorder) (disorder) He rmann Resolved Problem 01/12/2017 type 2 [facility] Hypertensi Hypertens Problem Resolve 2017-01-12 Memoria ve renate d 00:14:12 l disorder, disorder, Herm seth systemic systemic arterial arterial (disorder) (disorder) Resolved Problem 01/12/2017 [facility] Sleep Sleep Problem Resolve 2017-01-12 Yoav erasmo apnea apnea d 00:14:12 l (finding) (finding) Herm seth Resolved Problem 01/12/2017 CPAP at bedtime [facility] Syncope Syncope Problem Resolve 2017-01-12 M emoria (disorder) (disorder) d 00:14:12 l Resolved Axson Problem 01/12/2017 recently had 3 syncopal episodes. 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 00:14:12 l erosis erosis Ax[place] (disorder) (disorder) Active Problem 01/12/2017 MH [facility] Diabetes Diabetes Problem Active 2017-01-12 Memoria mellitus mellitus 00:14:12 l type 2 type 2 [place] (disorder) (disorder) Active Problem 01/12/2017 [facility] OBSTRUCTIV OBSTRUCTI Diagnosis Active 2016-11-07 Memoria E SLEEP VE SLEEP 10:02:00 l APNEA APNEA [place] (ADULT) (ADULT) (PEDIATR (PEDIATR Active [facility] Benign Benign Problem Resolve 2017-01-12 Mem oria prostatic prostatic d 00:14:12 l hyperplasi hyperplasi He rmann a a (disorder) (disorder) Resolved Problem 01/12/2017 [facility] Allergies, Adverse Reactions, Alerts Allergy Allergy Status Severity Reaction(s) Onset Inactive Treating Comm ents Source Name Type Date Date Clinician Statins- Drug Active Other [facility] All[facility] 6-15 reaction( [facility] Inhibito (Muscle rs Pain) STATINS- Allergy Active [facility] HMG-COA 6-15 REDUCTAS 00:00: E 00 INHIBITO RS Sulfa Drug Active Other [facility] (Sulfona Allergy 5-19 reaction( Luke s mide 00:00: s): Medical Antibiot [facility] ics) (Muscle Pain) SULFA Allergy Active SLE (SULFONA 5-19 MIDE 00:00: ANTIBIOT 00 ICS) Sulfa Propensi Active Other [facility] Antibiot ty to 5-19 reaction( Colle ge ics adverse 00:00: s): of reaction 00 Myalgias Medici n s to (Muscle e drug Pain) Iodine Drug Active Hives IV Iodine [facility] 10-13 - [facility] 00 [facility] Center allergic to shrimp but has had tests with iodine in the past without issues - 12/07/20 [place], RN IODINE Allergy Active High Hives [facility] 10-13 00:00: 00 Iodine Propensi Active [facility] ty to 10-13 College adverse 00:00: of reaction 00 Medicin s to e drug iodine iodine Active Memoria l Wayne NO KNOWN Allergy Active SLE ALLERGIE S Social History Social Habit Start Date Stop Date Quantity Comments Source Tobacco use and 2021-08-10 2021-08-10 Smokeless tobacco Me thodist exposure 00:00:00 00:00:00 non-user Hospital Alcohol intake 2021-03-07 2021-03-07 Current [facility] lege of 00:00:00 00:00:00 non-drinker of Medicine alcohol (finding) Social History 2016-03-12 2016-03-12 [facility] Elly hall 08:02:05 08:02:05 Sex [birth year] At [birth year] [facility] 00:[facility] 00:00:00 Hospital Smoking Status Start Date Stop Date Source Never smoked tobacco [facility] Medications Ordered Filled Start Stop Current Ordering Indication Dosage Frequency Signature Comments Components Source Medication Medication Date Date Medication? Clinician (SIG) Name Name gentamicin Yes [id number] 80mg Me thodi (GARAMYCIN) 02-14 st injection 20:15: Hospita 80 mg 00 l cefTRIAXone 2021- No [id number] 1g Methodi (ROCEPHIN) 02-14 st injection 1 20:15: 20:14 Hospi ta g 00 :00 l levoFLOXaci 2021- No 750mg QD Take 1 Me thodi n 02-10- tablet st (Levaquin) 00:00: 04:59 (750 mg Hos lauren 750 MG 00 :00 total) by l tablet mouth daily for 5 days. levoFLOXaci 2021- No 750mg QD Take 1 Me thodi n -17 11-[address] (Levaquin) 00:00: 04:59 (750 mg Hos lauren 750 MG 00 :00 total) by l tablet mouth daily for 5 days. cefTRIAXone 2021- No [id number] 1g Methodi (ROCEPHIN) 09-05-09 st injection 1 17:15: 17:14 Hospi ta g 00 :00 l sulfamethox 2021- No 1{tbl} Q.5D Take 1 M ethodi azole-trime 08-[address] thoprim 00:00: 05:59 mouth 2 Hospit a (BACTRIM 00 :00 (two) l DS) 800-160 times a mg per day for 5 tablet days. Start the day prior to biopsy. levoFLOXaci 2021- No 750mg QD Take 1 Me thodi n 2-15 08- tablet st (Levaquin) 00:00: 05:59 (750 mg Hos lauren 750 MG 00 :00 total) by l tablet mouth daily for 5 days. Take one tablet the night before procedure, then morning of procedure until gone. aspirin Yes Adult Low Metho di (ADULT LOW 2-[address] DOSE 13:29: Aspirin Hospita ASPIRIN) 81 13 l MG enteric coated tablet multivitami Yes Take by Met yasemin n with 2-[address] minerals 13:29: Hospita tablet 13 l glipiZIDE Yes glipizide Met hodi (GLUCOTROL) 2-[address] 5 MG tablet 13:29: tablet Hosp cleopatra 13 Take 1 l tablet twice a day by oral route. finasteride Yes finasterid Methodi (PROSCAR) 5 2-[address] mg tablet 13:29: tablet Hospit a 13 l etodolac Yes etodolac Metho di (LODINE) 2-[address] 500 MG 13:29: tablet Hospita tablet 13 l canaglifloz Yes 300mg Take 300 M ethodi in 300 mg 2-[address] tablet 13:29: mouth. Hospita 13 l aspirin 325 Yes 325mg Take 325 M ethodi MG tablet 2-[address] 13:29: mouth. Hospita 13 l cholecalcif Yes 2000U QD Take 2,000 Methodi leigh ann, 2-[address] vitamin D3, 13:29: mouth Hospi ta (VITAMIN 13 daily. l D3) 2,000 unit capsule capsule calcium Yes 1334mg Q.[id number] Take 1,334 Methodi acetate 2-[id number] (PHOSLO) 13:29: 3D mouth 3 Hospit a 667 mg 13 (three) l capsule times a day with meals. Red Yeast Yes Take by Renelo r Rice 500 9-13 mouth. College MG/0.5GM 09:27: of POWD 38 Medicin e Winslow-3 Yes Take by [facility] 1000 MG 9-13 mouth. College CAPS 09:27: of 38 Medicin e donepezil Yes 10mg Take 10 mg Ba ylor (ARICEPT) 9-13 by mouth Colleg e 10 MG 09:27: two times of tablet 38 daily. Medicin e memantine 0 Yes 10mg Take 10 mg Ba ylor (NAMENDA) 13 by mouth Colleg e 10 MG 09:27: two times of tablet 38 daily. Medicin e metformin 2020-0 Yes 1000mg Take 1,000 [facility] (GLUCOPHAGE 9-13 mg by [place] ) 1000 MG 09:27: mouth 2 of tablet 38 times Medicin daily e (with meals). olmesartan 2020-0 Yes 40mg Take 40 mg B aylor (BENICAR) 03-07 by mouth Colleg e 40 MG 09:27: daily. of tablet 38 Medicin e Insulin 0 Yes Inject [facility] NPH, 03-07 into the College Human,, 09:27: skin. of Isophane, 38 Medicin (NOVOLIN N e FLEXPEN) 100 UNIT/ML SUPN aspirin 325 0 Yes 325mg Take 325 B aylor mg tablet - mg by [place] 09:27: mouth of 38 daily. Medicin e Tamsulosin Yes Take by [facility] or HCl 0.4 MG 03-07 mouth. [place] CAPS 09:27: of 38 Medicin e Multiple Yes Take by [facility] Vitamins-Mi - mouth. Ricki e nerals 09:27: of (CARY MULTI 38 Medicin MEN OR) e Cyanocobala 0 Yes Take by [place] julius min 03-07 mouth. [place] (VITAMIN B 09:27: of 12 OR) 38 Medicin e Turmeric Yes Take by [facility] (QC TUMERIC - mouth. Colleg e COMPLEX) 09:27: of 500 MG CAPS 38 Medicin e Red Yeast 0 Yes Take by [facility] r Rice 500 - mouth. [place] MG/0.5GM 09:27: of POWD 38 Medicin e Winslow-3 0 Yes Take by [facility] 1000 MG - mouth. [place] CAPS 09:27: of 38 Medicin e donepezil 0 Yes 10mg Take 10 mg Ba [facility] (ARICEPT) 03-07 by mouth Colleg e 10 MG 09:27: two times of tablet 38 daily. Medicin e memantine 0 Yes 10mg Take 10 mg Ba ylor (NAMENDA) -13 by mouth Colleg e 10 MG 09:27: two times of tablet 38 daily. Medicin e metformin Yes 1000mg Take 1,000 [facility] (GLUCOPHAGE 9-13 mg by [place] ) 1000 MG 09:27: mouth 2 of tablet 38 times Medicin daily e (with meals). olmesartan Yes 40mg Take 40 mg B [facility] (BENICAR) 03-07 by mouth Colleg e 40 MG 09:27: daily. of tablet 38 Medicin e Insulin Yes Inject [facility] NPH, 03-07 into the [place] Human,, 09:27: skin. of Isophane, 38 Medicin (NOVOLIN N e FLEXPEN) 100 UNIT/ML SUPN aspirin 325 Yes 325mg Take 325 B a[facility]or mg tablet - mg by [place] 09:27: mouth of 38 daily. Medicin e Tamsulosin Yes Take by [facility] or HCl 0.4 MG 03-07 mouth. [place] CAPS 09:27: of 38 Medicin e Multiple Yes Take by [facility] Vitamins-Mi - mouth. Colleg e nerals 09:27: of (CARY MULTI 38 Medicin MEN OR) e Cyanocobala Yes Take by [facility] min 03-07 mouth. [place] (VITAMIN B 09:27: of 12 OR) 38 Medicin e Turmeric Yes Take by [facility] (QC TUMERIC 03-07 mouth. Colleg e COMPLEX) 09:27: of 500 MG CAPS 38 Medicin e sertraline Yes 1/2 tab PO B aylor (ZOLOFT) 50 9-13 daily x 2 Col lege MG tablet 00:00: weeks then of 00 increase Medicin to one tab e daily and continue sertraline Yes 1/2 tab PO B aylor (ZOLOFT) 50 9-13 daily x 2 Col lege MG tablet 00:00: weeks then of 00 increase Medicin to one tab e daily and continue ONETOUCH 2017-06 Yes USE STRIPS Met hodi ULTRA BLUE 2-[address] TEST STRIP 00:00: BLOOD Hospit a strip test 00 GLUCOSE 2 l strips TIMES EVERYDAY memantine 2017-06 Yes 10mg Q.5D Take 10 mg Me thodi (NAMENDA) 2-[address] 10 MG 00:00: (two) Hospita tablet 00 times a l day. donepezil 2017-06 Yes 10mg Q.5D Take 10 mg Me thodi (ARICEPT) 1-[address] 10 MG 00:00: (two) Hospita tablet 00 times a l day. tamsulosin 2017-06 Yes .4mg QD Take 0.4 Met hodi (FLOMAX) 1-[address] 0.4 mg 00:00: mouth Hospita capsule 00 daily. l olmesartan- 2017-06 Yes 1{tbl} QD Take 1 Me thodi hydrochloro 1-[address] thiazide 00:00: mouth Hospita (BENICAR 00 daily. l HCT) 20-12.5 mg per tablet metFORMIN 2017-06 Yes 1000mg Q.5D Take 1,000 Methodi (GLUCOPHAGE 1-[address] ) 1,000 mg 00:00: mouth 2 Hosp cleopatra tablet 00 (two) l times a day. donepezil 2017-06 Yes 5mg QD Take 5 mg Met hodi (ARICEPT) 5 0-[address] MG tablet 00:00: daily. Hospit a 00 l Immunizations Ordered Immunization Filled Immunization Date Status Commen ts Source Name Name pneumococcal 2016-03-12 Completed [facility] 13-valent vaccine 22:35:00 [facility] pneumococcal 2016-03-12 Completed [facility] 13-valent vaccine 22:35:00 [place] Vital Signs Vital Name Observation Time Observation Value Comments Source Systolic blood 2021-03-07 14:30:00 162 mm[Hg] [facility] of pressure Medicine Diastolic blood 2021-03-07 14:30:00 73 mm[Hg] [facility] of pressure Medicine Heart rate 2021-03-07 14:30:00 65 /min [facility] Body height 2021-03-07 14:26:00 180.3 cm [facility] Body weight 2021-03-07 14:26:00 85.276 kg [facility] BMI 2021-03-07 14:26:00 26.22 kg/m2 [facility] BMI Calculated 2017-01-09 16:43:00 Memori al [place] Weight 2017-01-09 16:43:00 [facility] [place] Systolic (mm Hg) 2017-01-09 16:43:00 Yoav rial [place] Diastolic (mm Hg) 2017-01-09 16:43:00 Mem orial [place] Heart Rate 2017-01-09 16:43:00 [facility] [place] Respitory Rate 2017-01-09 16:43:00 Memori al [place] Height 2017-01-09 16:43:00 180.34 cm [facility] Height 2016-11-07 15:08:00 180.34 cm [facility] BMI Calculated 2016-11-07 15:08:00 Memori al [place] Weight 2016-11-07 15:08:00 [facility] [place] Heart Rate 2016-11-07 15:08:00 [facility] [place] Respitory Rate 2016-11-07 15:08:00 Memori al [place] Systolic (mm Hg) 2016-11-07 15:08:00 Yoav rial [place] Diastolic (mm Hg) 2016-11-07 15:08:00 Mem orial [place] Procedures Procedure Date / Time Performed Performing Clinician [facility] e BIOPSY PROSTATE 2022-02-16 00:00:00 Casi Gordon spital POC URINALYSIS DIPSTICK 2022-02-14 20:09:25 Casi Gordon [facility] CYTOLOGY 2021-09-07 04:00:00 Casi Gordontal (NON-GYNECOLOGICAL) REQUEST POC URINALYSIS DIPSTICK 2021-09-05 17:19:00 Casi Gordon [facility] CT ABDOMEN W WO 2021-08-27 19:36:34 Prosper Otto spital CONTRAST PELVIS W WO Christy CONTRAST POC CREATININE 2021-08-27 18:39:00 Casi Gordon spital ESTIMATED GFR 2021-08-27 18:39:00 Casi Gordon spital 4K PSA TOTAL + FREE 2021-08-19 00:00:00 Prosper Otto [facility] REFLEX > 3.0 TO 4KSCORE Christy URINALYSIS SCREEN AND 2021-08-10 20:20:00 ClaritaProsper [facility]dr[facility] MICROSCOPY, WITH REFLEX Christy TO CULTURE [id number] 2021-08-10 20:19:00 Prosper Otto [facility] PROSTATE SCORE 4K 2021-08-10 20:15:00 Lydnsay Cheng [facility] (SERUM) URINE CULTURE 2021-08-10 20:09:00 [facility] URINALYS[facility] DIPSTICK 2021-08-10 20:08:00 [facility] Endoscopy<sup>1</sup> [facility] Procedure<sup>4</sup> [facility] Plan of Care Planned Activity Planned Date Details Comments Source Future Scheduled 2022-04-17 HEPATITIS B VACCINES Met [facility] Test 08:58:53 (1 of 3 - 3-dose series) [code = HEPATITIS B VACCINES (1 of 3 - 3-dose series)] Future Scheduled 2022-04-17 Hepatitis C screening [facility] Test 08:58:53 (procedure) [code = 817480391] Future Scheduled 2022-04-17 COLONOSCOPY SCREENING [facility] Test 08:58:53 [code = COLONOSCOPY SCREENING] Future Scheduled 2022-04-17 SHINGLES VACCINES (1 [facility] Test 08:58:53 of 2) [code = SHINGLES VACCINES (1 of 2)] Future Scheduled 2022-04-17 65+ P[facility]UMOCOCCAL [facility] Test 08:58:53 VACCINE (2 - PPSV23 if available, else PCV20) [code = 65+ PNEUMOCOCCAL VACCINE (2 - PPSV23 if available, else PCV20)] Future Scheduled 2022-04-17 COVID-19 VACCINE (3 - [facility] Test 08:58:53 Booster for Moderna series) [code = COVID-19 VACCINE (3 - Booster for Moderna series)] Future Scheduled 2022-04-17 INFLUENZA VACCINE Method [facility] Hospital Test 08:58:53 [code = INFLUENZA VACCINE] Future Scheduled 2022-02-23 INFLUENZA VACCINE (#1[facility] Test 00:[facility]00 [code = INFLUENZA Medical Ce nter VACCINE (#1)] Future Scheduled 2021-06-[address] [facility] Test 00:00:00 (12+) [code = Medical Center DEPRESSION SCREENING (12+)] Future Scheduled 2021-06-[address]K SCREENING [facility] Test 00:00:00 [code = FALLS RISK Medical C enter SCREENING] Future Scheduled 2021-03-07 Screening for [facility] Col lege of Test 09:26:59 malignant neoplasm of Medici ne colon (procedure) [code = 068480569] Future Scheduled 2021-03-07 COVID-19 Vaccine (1) [facility] of Test 09:26:59 [code = COVID-19 Medicine Vaccine (1)] Future Scheduled 2021-03-07 TETANUS SHOT (ADULT) [facility] of Test 09:26:59 [code = TETANUS SHOT Medicin e (ADULT)] Future Scheduled 2021-03-07 BMI FOLLOW UP PLAN [facility] of Test 09:26:59 [code = BMI FOLLOW UP Medici ne PLAN] Future Scheduled 2021-03-07 Hepatitis C screening [facility] of Test 09:26:59 (procedure) [code = Medicine [id number]] Future Scheduled 2021-03-07 ZOSTER VACCINE (1 of [facility] of Test 09:26:59 2) [code = ZOSTER Medicine VACCINE (1 of 2)] Future Scheduled 2021-03-07 FALL SCREEN [code = [facility] of Test 09:26:59 FALL SCREEN] Medicine Future Scheduled 2021-03-07 PNEUMOVAX >=65 [facility] Co llege of Test 09:26:59 (PPSV23) [code = Medicine PNEUMOVAX >=65 (PPSV23)] Future Scheduled 2021-03-07 MEDICARE AWV (Initial) [facility] of Test 09:26:59 [code = MEDICARE AWV Medicin e (Initial)] Future Scheduled 2021-03-07 FLU VACCINE > 6 MONTHS B [facility] of Test 09:26:59 [code = FLU VACCINE > Medici ne 6 MONTHS] Future Scheduled 2021-03-07 Screening for [facility] Col lege of Test 09:26:59 malignant neoplasm of Medici ne colon (procedure) [code = 356961911] Future Scheduled 2021-03-07 COVID-19 Vaccine (1) [facility] of Test 09:26:59 [code = COVID-19 Medicine Vaccine (1)] Future Scheduled 2021-03-07 TETANUS SHOT (ADULT) [facility] of Test 09:26:59 [code = TETANUS SHOT Medicin e (ADULT)] Future Scheduled 2021-03-[address] UP PLAN [facility] of Test 09:26:59 [code = BMI FOLLOW UP Medici ne PLAN] Future Scheduled 2021-03-07 Hepatitis C screening [facility] Test 09:26:59 (procedure) [code = Medicine [id number]] Future Scheduled 2021-03-07 ZOSTER VACCINE (1 of [facility] of Test 09:26:59 2) [code = ZOSTER Medicine VACCINE (1 of 2)] Future Scheduled 2021-03-07 FALL SCREEN [code = [facility] of Test 09:26:59 FALL SCREEN] Medicine Future Scheduled 2021-03-07 PNEUMOVAX >=65 [facility] llege of Test 09:26:59 (PPSV23) [code = Medicine PNEUMOVAX >=65 (PPSV23)] Future Scheduled 2021-03-07 MEDICARE AWV (Initial) B [facility] of Test 09:26:59 [code = MEDICARE AWV Medicin e (Initial)] Future Scheduled 2021-03-07 FLU VACCINE > 6 MONTHS B [facility] of Test 09:26:59 [code = FLU VACCINE > Medici ne 6 MONTHS] Future Scheduled 2014-06-[address] [facility] [facility] Test 00:00:00 WELLNESS (YEAR 2 or Medical Center FIRST YEAR if no IPPE) [code = MEDICARE ANNUAL WELLNESS (YEAR 2 or FIRST YEAR if no IPPE)] Future Scheduled 2012-08-30 PNEUMOCOCCAL 65+ YRS [facility] Test 00:00:00 (1 - PCV) [code = Medical Ce nter PNEUMOCOCCAL 65+ YRS (1 - PCV)] Future Scheduled 1997-08-30 SHINGLES VACCINES ([address] [facility] Test 00:00:00 of 2) [code = SHINGLES Medic al Center VACCINES (1 of 2)] Future Scheduled 1966-08-30 DTAP/TDAP/TD VACCINES [facility] Test 00:00:00 (1 - Tdap) [code = Medical C enter DTAP/TDAP/TD VACCINES (1 - Tdap)] Future Scheduled 1965-08-30 HEPATITIS C [facility]CREENING [facility] Test 00:00:00 [code = HEPATITIS C Medical Center SCREENING] Future Scheduled 1948-03-02 COVID-19 VACCINE (#1) [facility] Test 00:00:00 [code = COVID-[address] VACCINE (#1)] Future Scheduled [address] [facility] Test 00:[facility]:00 malignant neoplasm of Medica l Center colon (procedure) [code = 124697780] Future Scheduled 1945 Sigmoidoscopy [code = [facility] Test 00:00:00 Sigmoidoscopy] Medical Cente r Future Scheduled [address] [facility] Test 00:00:00 (combo) [code = CT Medical C enter Colonography (combo)] Future Scheduled [address] [facility] Test 00:00:00 malignant neoplasm of Medica l Center colon (procedure) [code = 106524879] Future Scheduled [address] [facility] Test 00:00:00 malignant neoplasm of Medica l Center colon (procedure) [code = 581622552] Future Scheduled [address] [facility] Test 00:00:00 malignant neoplasm of Medica l Center colon (procedure) [code = 111755588] Encounters Start End Encounter Admission Attending Care Care Encounter Source Date/Time Date/Time Type Type Clinicians Facility Department ID 2022-04-17 2022-04-17 Telephone Miles, 1.2.840.1 [id number] Methodi 00:00:00 00:00:[address] Casi [id number] 3.430.2.7 Hospit a .3.007554 l .8 2022-02-18 2022-02-18 Orders Miles, 1.2.840.1 [id number] Methodi 00:00:00 00:00:00 Only Casi Romero 89828.1.[address] 3.430.2.7 Hospit a .3.694137 l .8 2022-02-17 2022-02-17 Telephone Miles, 1.2.840.1 [id number] Methodi 00:00:00 00:00:[address] Casi Rom[address] 3.430.2.7 Hospit a .3.749274 l .8 2022-02-15 2022-02-15 Telephone Miles, 1.2.840.1 [id number] Methodi 00:00:00 00:00:[address] Casi [address] 3.430.2.7 Hospit a .3.879689 l .8 2022-02-14 2022-02-14 Office Miles, 1.2.840.1 [id number] Methodi 14:45:00 15:15:00 Visit Casi Romero 51818.1.[address] 3.430.2.7 Hospit a .3.318876 l .8 2022-02-14 2022-02-14 Travel 1.2.840.1 1.2.296.261 [id number] Methodi 00:00:00 00:00:[address] 3.430.2.7 0.2.7.3.698 Ho spita .3.426687 084.8 l .8 2022-02-14 2022-02-14 Outpatient MILES, [facility] [id number] [address] [place] [address] 00:00:00 00:00:[address] CASI [address] 2022-02-14 2022-02-14 Outpatient MILES, [facility] [id number] [address] [place] [address] 00:00:00 00:00:[address] CASI [address] 2022-02-10 2022-02-10 Orders Alex, 1.2.840.1 [id number] Methodi 00:00:00 00:00:00 Only Monique 60426.1.[address] 3.430.2.7 Hospit a .3.409084 l .8 2022-02-09 2022-02-09 Telephone Miles, 1.2.840.1 [id number] Methodi 00:00:00 00:00:00 Casi Romero [address].1.[address] 3.430.2.7 Hospit a .3.434523 l .8 2021-12-19 2021-12-19 Telephone Miles, 1.2.840.1 [id number] Methodi 00:00:00 00:00:00 Casi Romero [address] 3.430.2.7 Hospit a .3.384646 l .8 2021-12-06 2021-12-06 Telephone Miles, 1.2.840.1 [id number] Methodi 00:00:00 00:00:00 Casi [address] 3.430.2.7 Hospit a .3.367685 l .8 2021-10-18 2021-10-18 Telephone Johnson, 1.2.840.1 [id number] Methodi 00:00:00 00:00:[address] 3.430.2.7 Hospit a .3.228040 l .8 2021-10-10 2021-10-10 Ancillary Miles, 1.2.840.1 [id number] Methodi 11:00:00 11:30:00 Procedure Casi Romero 45456.1.1 [address] 3.430.2.7 Hospit a .3.697500 l .8 2021-10-10 2021-10-10 Outpatient MILES, [facility] [id number] [place] 00:00:00 00:00:00 CSAI [address] 2021-10-10 2021-10-10 Outpatient MILES, [facility] [id number] [place] 00:00:00 00:00:[address] CASI [address] 2021-10-10 2021-10-10 Travel 1.2.840.1 1.2.816.519 [id number] Methodi 00:00:00 00:00:[address] 3.430.2.7 0.2.7.3.698 Ho spita .3.535965 084.8 l .8 2021-09-05 2021-09-13 Procedure Miles, 1.2.840.1 [id number] Methodi 10:15:00 10:43:48 visit Casi Romero 56402.1.[address] 3.430.2.7 Hospit a .3.848956 l .8 2021-09-06 2021-09-06 [facility], 1.2.840.1 [id number] Methodi 14:55:00 15:00:00 Casi Romero [address] 3.430.2.7 Hospit a .3.013928 l .8 2021-09-06 2021-09-06 [facility] [id number] [place] 00:00:00 00:00:00 CASI [address] 2021-09-05 2021-09-05 Travel 1.2.840.1 1.2.266.997 [id number] Methodi 00:00:00 00:00:[address] 3.430.2.7 0.2.7.3.698 spita .3.371497 084.8 l .8 2021-09-05 2021-09-05 [facility] [id number] [place] 00:00:00 00:00:00 CASI [address] 2021 2021 Telephone Paulino, 1.2.840.1 [id number] Methodi 00:00:00 00:00:[address] 3.430.2.7 Hospit a .3.377342 l .8 2021-08-30 2021-08-30 Telephone Paulino 1.2.840.1 [id number] Methodi 00:00:00 00:00:[address] 3.430.2.7 Hospit a .3.655023 l .8 2021-08-27 2021-08-27 [facility], 1.2.840.1 [id number] Methodi 11:45:26 23:59:00 Encounter Casi Romero 35800.1.1 388 s t 3.430.2.7 Hospit a .3.891589 l .8 2021-08-27 2021-08-27 Travel 1.2.840.1 1.2.095.618 [id number] Methodi 00:00:00 00:00:[address] 3.430.2.7 0.2.7.3.698 Ho spita .3.832611 084.8 l .8 2021-08-27 2021-08-27 [facility] [id number] [place] 00:00:00 00:00:00 CASI [address] [facility] 2021-08-10 2021-08-19 Office EvanCasi. 1.2.840.1 [id number] Methodi 13:30:00 11:55:24 Visit Prosper Otto 38997.1.[address] 3.430.2.7 Hospit a .3.942909 l .8 2021-08-19 2021-08-19 Orders Clarita, 1.2.840.1 [id number] Methodi 00:00:00 00:00:00 Only Prosper 36818.1.[address] Christy 3.430.2.7 Hospit a .3.849841 l .8 2021-08-15 2021-08-15 Travel 1.2.840.1 1.2.222.948 [id number] Methodi 00:00:00 00:00:[address] 3.430.2.7 0.2.7.3.698 Ho spita .3.738651 084.8 l .8 2021-08-15 2021-08-15 Transcribe Evan, 1.2.840.1 [id number] Methodi 00:00:00 00:00:[address] 3.430.2.7 Hospit a .3.118771 l .8 2021-08-15 2021-08-15 Orders Clarita, 1.2.840.1 [id number] Methodi 00:00:00 00:00:00 Only Prosper 33724.1.[address] Christy 3.430.2.7 Hospit a .3.123299 l .8 2021-08-11 2021-08-11 Telephone Miles, 1.2.840.1 [id number] Methodi 00:00:00 00:00:[address] C[address] 3.430.2.7 Hospit a .3.488506 l .8 2021-08-10 2021-08-10 Orders Prosper, 1.2.840.1 [id number] Methodi 00:00:00 00:00:00 Only Lyndsay [address]286.1.[address] 3.430.2.7 Hospit a .3.162444 l .8 2021-08-10 2021-08-10 Travel 1.2.840.1 1.2.005.298 [id number] Methodi 00:00:00 00:00:[address] 3.430.2.7 0.2.7.3.698 Ho spita .3.753835 084.8 l .8 2021-08-10 2021-08-10 Outpatient [facility] [id number] [place] 00:00:00 00:00:[address] [facility] [address] 2021-07-28 2021-07-28 Telephone Miles, 1.2.840.1 [id number] Methodi 00:00:00 00:00:[address] 3.430.2.7 Hospit a .3.817965 l .8 2021-03-07 2021-03-07 Outpatient [facility] [id number] [facility] 09:23:05 16:11:08 Michelle Medicamanda israel 2021-03-07 2021-03-07 Office All Gomez [facility] 1.2.840.114 [id number] [facility] 09:22:13 09:52:13 Visit AMBULATOR 350.1.13.21 College Y 0.2.7.2.686 of [id number] Medi lia 850 e 2020-12-07 2020-12-07 Outpatient ALL ROSEN [facility] [id number] [facility] 00:00:00 00:00:00 2020-12-07 2020-12-07 Outpatient HAL [facility] [id number] SLE 00:00:00 00:00:00 MARY 2017-01-09 2017-01-10 Outpatient nullFlavo T[facility]R [id number] Memoria 15:53:00 04:59:00 r [facility] 03 [facility] 2017-01-09 2017-01-10 Outpatient nullFlavo [facility] [id number] Memoria 15:53:00 04:59:00 r [facility] 03 [facility] 2017-01-09 2017-01-09 Outpatient [facility] MHT[facility]R [id number] 10:53:00 23:59:00 a, Melania 03 Dain 2016-11-07 2016-11-08 Outpatient nullFlavo [facility] [id number] Memoria 14:54:00 04:59:00 r [facility] 02 [facility] 2016-11-07 2016-11-08 Outpatient nullFlavo [facility] [id number] Memoria 14:54:00 04:59:00 r [facility] 02 [facility] 2016-11-07 2016-11-07 Outpatient [facility] MHTIRR MHTIRR [id number] 09:54:00 23:59:00 a, Melania 02 Dain 2016-09-04 2016-09-04 Outpatient nullFlavo [facility] [id number] Memoria 01:00:00 13:00:00 r [facility] 01 [facility] 2016-09-04 2016-09-04 Outpatient nullFlavo [facility] [id number] Memoria 01:00:00 13:00:00 r [facility] 01 [facility] 2016-09-03 2016-09-04 Outpatient [facility] MHTIRR MHTIRR [id number] 20:00:00 08:00:00 a, Melania Dain 2016-08-17 2016-08-17 Outpatient nullFlavo [facility] [id number] Memoria 02:00:00 14:00:00 r [facility] 00 [facility] 2016-08-17 2016-08-17 Outpatient nullFlavo [facility] [id number] Memoria 02:00:00 14:00:00 r [facility] 00 gita Black [place] 2016-08-16 2016-08-17 Outpatient Physician, TIRR TIRR [id number] 20:00:00 08:00:00 Non 00 Associated 2016-05-16 2016-05-16 [facility] [id number] Memoria 14:00:00 14:00:00 01 l Axson 2016-05-16 2016-05-16 Outpatient [facility] [id number] Memoria 14:00:00 14:00:00 01 l [place] 2016-03-27 2016-03-27 Outpatient [facility] [id number] Memoria 14:15:00 14:15:00 00 gita [place] 2016-03-27 2016-03-27 Outpatient [facility] [id number] Memoria 14:15:00 14:15:00 00 gita Wayne Results Test Description Test Time Test Comments Results Result Comments Source POC urinalysis dipstick 2022-02-14 20:09:25 Test Item Value Reference Range Interpretation Comme nts Color urine, POC (test code = Yellow 0038317) Clarity urine, POC (test code = Clear 9702899) Glucose urine, POC (test code = Negative Negative 0095306) Bilirubin urine, POC (test code = Negative Negative 6104049) Ketones urine, POC (test code = Negative Negative 6930038) Specific gravity urine, POC (test >/=1.030 1.005-1.030 code = 3843830) Blood urine, POC (test code = Trace Negative A 1670921) pH urine, POC (test code = See_Comment [Automated message] The 8986730) system which ge nerated this result transmit imani reference range: 5.0, 5.5 , 6.0, 6.5, 7.0, 7.5, 8.0, 8.5. The reference range was not used to interpret th is result as normal/abnormal . Protein urine, POC (test code = 3+ Negative A >=781 4072529) Urobilinogen urine, POC (test <2.0 See_Comment [Automated message] The code = 9919602) system which generated this result transmit imani reference range: <=2.0. T he reference range was not u sed to interpret this result as normal/abnormal . Nitrite urine, POC (test code = Negative Negative 7147935) Leukocyte esterase urine, POC Negative Negative (test code = 2167676) Lab Interpretation (test code = Abnormal 18841-0) [facility] [id number] 19:37:24 Test Item Value Reference Range Interpretation Comments Case number (test code = [id number]) Cytology See link below for (non-gynecological) PDF Lab Report report (test code = 1178) Result status (test code This is Final Report = [id number]) for [id number] [facility] Prostate [facility] (Serum)2021-08-12 22:32:00 Test Item Value Reference Interpretation Comments Range PSA, total (test 16.73 ng/mL See_Comment H NOTE: NCCN code = 4197) Guidelines(2.20 21)recommend repeat testing every 2-4 years if PSA is <1 ng/mL and every 1-2 y ears if PSA is 1-3 ng/mL in men aged 45 to 75 years. A PSA value of 1.00 ng/mL sharon cts for the upper range of PSA values. Men who have a PSA above the median for their age group are at a higher risk for prostate ca ncer and for the aggressive form of the disease. The hi gher above the median, the greater the risk. NOTE: The PSA assay should not be t he only test used for diagno stic purposes. Addit ional evaluation usin g JORGE ALBERTO, ultrasound, TUR or similar procedures may be used for this purpose. P redictions of disease recu rrence should not be b ased solely upon values obt ained from serial PSA valu es obtained on the patient. NOTE: Values obtained with d ifferent assay methods o r kits cannot be used interchangeably .NOTE: Results cannot be interpreted as absolute evidence of the presence or absence of danial gnant disease. ASSAY INFORMATION: Method Electrochemilum inescence Immunoassay ([employer]) NO TE: This assay has no bi otin interference in serum concentrations up to 1200 ng/mL. [employer] kinetic studies have sh own that serum concentra tions of biotin can reac h up to 355 ng/mL within th e first hour after biotin in gestion for subjects consum ing supplements of 20 mg biotin per day and up to 1160 ng/mL for subje cts after a single dose of 300 mg biotin. [Automa imani message] The system [employer] generated this result tra nsmitted reference range : <=4.00. The reference r aric was not used to interpr et this result as mona l/abnormal. PSA, free (test 3.29 ng/mL Not Estab. NOTE: Result s cannot be code = 88724-5) interpreted as absolute evidence of the presence or absence of danial gnant disease. Values obtained with different assay methods or kits cannot be used interchang eably. ASSAY INFORMATION: Me thod Electrochemilum inescence Immunoassay ([employer]). N OTE: This assay has no bi otin interference in serum concentrations up to 1200 ng/mL. [employer] kinetic studies have sh own that serum concentra tions of biotin can reac h up to 355 ng/mL within th e first hour after biotin in gestion for subjects consum ing supplements of 20 mg biotin per day and up to 1160 ng/mL for subje cts after a single dose of 300 mg biotin. Free PSA BRLI 20 % See Below FREE PSA RISK ASSESSMENT (test code = 6005) The proba bility of prostate cancer for men with non-suspiciousD RE results, by age group, u sing PSA values between 4.000 and10.000 ng/mL and percent FREE PSA values is summarized in t hetable below: PROBABIL ITY OF CANCER* %free P SA (50-59 yrs) (60-69 yrs ) (>or=70 yrs) <or=10 49. 2% 57.5% 64.5% 11-18 26. 9% 33.9% 40.8% 19-25 18. 3% 23.9% 29.7% >25 9.1% 12.2% 15.8% *probability of finding prostate cancer by needle biopsy NOTE: Ca lculation of percent FREE PS A may not be possible when t he value for TOTAL PSA is in the low normal range. These guidelines are for assays performed using the youcalc E602 immunoassa y system.(01/2015; V8.0) 4K score (test 26 % A Evaluation: E LEVATED RISK code = 5999) This test was d eveloped and its performance characteristics were determined byPorphyrio. I t has not been cleared by the U.S.Food and Dr ug Administration. The FDA has determined that such clearance or ap proval is not necessary. This test isused for clin ical purposes. It sh ould not be regarded as inv estigational or for research .This lab has been approv ed by [facility] as a high complexity laboratoryand i s qualified to perform this test. NOTE: Results cannot be interpreted as absolute evidence of the presence or absence of danial gnant disease. NOTE: Biotin supplementation (>5 mg/day) may cause inter ference with assays that are components of the 4Kscore Test, and may impact the 4Kscore result.Digital Rectal Exam (JORGE ALBERTO): NO NODUL EPrior Biopsy Status: YES, NEGATIVE Lab Interpretation Abnormal (test code = 72308-1) [facility] HospitalUrine [id number] 00:51:35 Test Item Value Reference Range Interpretation Comments Urine culture (test SEE COMMENT Bacteriu erasmo screen code = 7846558) negative. [facility] BLADDER SCAN/[id number] 20:19:00 Test Item Value Reference Range Interpretation Comments PVR volume (test code = 5766) 3 ml [facility]MR, BRAIN, WITH IV [id number] 17:09:00Unlisted Reason for Exam - Click Yes and Enter Reason Below->YesUnlisted Reason for Exam- >B12 deficiency,Late onset Alzheimer's disease without behavioral [facility] : 1945 Sex: MFINAL REPORT Examination: MRI of the brain without contrast History: 75-year-old male with late onset Alzheimer disease without behavioral disturbance, B12 deficiency Comparison studies: None Technique: 3-D hernandez T1; axial DWI, T2 fat sat, T2 FLAIR, SWI. Intravenous contrast: None Findings: Structural lesions:No intra-or extra-axial masses. No hematomas. Brain sulci: Moderately prominent. Ventricles: Moderate compensatory dilatation. No hydrocephalus. Brain volume: There is moderategeneralized cerebral volume loss with moderate volume loss along the bilateral anteromedial temporallobes and volume loss and mild bilateral hippocampi. No other significant focal disproportionate lobar, brainstem or cerebellar atrophy. Jimenes matter: Cortex: No signal abnormalities. No encephalomalacia.Basal ganglia: No atrophy or signal abnormalities.Thalami: Chronic lacunar infarct present in the left paramedian thalamus. White matter signal intensity: A few scattered T2 FLAIR hyperintense foci inthe supratentorial white matter are nonspecific but are most compatible with chronic microvascular ischemic changes. Mild T2 FLAIR capping-containing present on the ventricular margins. Developmental venous anomaly is in the left frontal lobe.No acute or chronic cortical ischemic insults. Micro hemorrh ages:None. Extra axial spaces:No mass or fluid collection. Other:Calvarium: No bone marrow abnormalities.Suprasellar region: No abnormalities.Craniocervical junction: No abnormalities. Patent foramen magnum. No Chiari one malformation.Vessels: Normal flow-voids in the arteries and sinuses. Calcified atherosclerosis present in the carotid siphons and left intradural vertebral artery. Incidental: Bilateral intraocular lens replacementsSmall bilateral maxillary sinus retention cyst is as well as nonspecific T2 hyperintense inflammatory changes with mucosal thickening in the left middle and posterior et hmoid air cells. IMPRESSION: 1.Moderate generalized parenchymal volume loss with moderate volume loss along the bilateral anteromedial temporal lobes which can be seen with Alzheimer's dementia in the appropriate clinical setting. 2.Mild chronic microvascular ischemic changes with chronic left thalamic lacunar infarct Signed: [facility] Verified Date/Time: 12/08/2020 17:09:05 RAD, CHEST, 2 [id number] 14:30:00Reason for Exam:->Vitamin b12 deficiency (non anemic)Reason for Exam:->Late onset alzheimers disease without behavioral disturbanceNOR[facility]RID[facility] : 1945 Sex: MFINAL REPORT EXAMINATION: RAD, CHEST, 2 VIEWS INDICATION: Vitamin B12 deficiency, late onset Alzheimer's disease without behavioral disturbance COMPARISON: None FINDINGS: PA and lateral views TUBES and LINES: Left chest wall cardiac device with dual leads overlying the right atrium and right ventricle. LUNGS: Lungs are well inflated. Lungs are clear. There is no evidence of pneumoniaor pulmonary edema. PLEURA: No pleural effusion or pneumothorax. HEART AND MEDIASTINUM: The cardiomediastinal silhouette is unremarkable. BONES AND SOFT TISSUES: No acute osseous lesion. Soft tissues are unremarkable. UPPER ABDOMEN: No free air under the diaphragm. IMPRESSION: No acute thoracic radiogr aphic abnormality. Signed: Vannessa Wu Verified Date/Time: 12/07/2020 14:30:55 Reading Location: [facility] Reading Room [address] [place] [address] Electronically signed by: VANNESSA WU MD on12/07/2020 02:30 PM
[2022-04-17 13:50] LABS: Absolute Lymphocytes (CBC) 1.2 K/uL (0.7-4.9); Hematocrit 37.5 % (39.6-49.0); Lymphocytes % 14.4 % (15.3-44.8); MCV 88.2 fL (80-100); MPV 7.3 fL (7.6-11.3); RBC Red Blood Cell Count 4.26 M/uL (4.33-5.43)
[2022-04-17 13:58] LABS: Albumin 3.2 g/dL (3.4-5.0); Bilirubin Total 0.3 mg/dL (0.2-1.0); Potassium 3.9 mmol/L (3.5-5.1); Protein, Total 6.5 g/dL (6.4-8.2)
--- NOTE | 2022-04-17 14:05 | RAD REPORT ---
EXAM DESCRIPTION: CT - Abdomen Pelvis Wo Contrast - 04/17/2022 1:45 pm CLINICAL HISTORY: Hematuria COMPARISON: December 1021 TECHNIQUE: Computed axial tomography of the abdomen and pelvis was obtained. IV and oral contrast we re not requested. All CT scans are performed using dose optimization technique as appropriate and may include automated exposure control or mA/KV adjustment according to patient size. FINDINGS: The evaluation of solid organs, vessels and bowel is limited secondary to the lack of con trast administration. The liver, spleen, pancreas, adrenals and kidneys appear grossly normal. The appendix is normal. There is no evidence of diverticulitis. Marked prostatic enlargement. Duron catheter within the bladder. Small amount of increased density wi thin the bladder IMPRESSION: Marked prostatic enlargement Small amount of increased density within the bladder could either represent blood or IV contrast excr eted into the genitourinary system from a recent exam
[2022-04-17 14:09] LABS: Urine Blood 3+ (Negative); Urine Glucose Trace (Negative); Urine Protein 3+ (Negative)
[2022-04-17] MEDS ORDERED: NA CHLORIDE 0.9% 1,000 ML ONE (14:34)
[2022-04-17] MEDS ORDERED: CEFTRIAXONE 1000 MG/VIAL ONE (14:34)
[2022-04-17 14:37] LABS: Urine Bacteria <20 /HPF (<20); Urine Mucus 3+ /HPF (None Seen); Urine RBC >50 /HPF (None Seen)
[2022-04-17] MEDS ORDERED: LORazepam 2 MG/ML VIAL ONE (14:48)
--- NOTE | 2022-04-17 15:39 | ER ---
Nurse's Notes [facility] Name: Negro Chavez Age: 76 yrs Sex: Male : 1945 Arrival Date: 04/17/2022 Time: 12:50 Bed 8 Private MD: Luis King Diagnosis: UTI/ Urinary tract infection, site not specified Presentation: 04/17 13:17 Chief complaint: Spouse and/or significant other states: "We were at [facility] yesterday and they put a catheter in because he couldn't pee and ever since last night, now there is blood in it. I've been trying to get ahold of his Urologist at [facility], but Dr. King finally said to just come here.". Coronavirus screen: Client denies travel out of the [place] in the last 14 days. Ebola Screen: Patient denies exposure to infectious person. Patient denies travel to an Ebola-affected area in the 21 days before illness onset. Initial Sepsis Screen: Does the patient meet any 2 criteria? No. Patient's initial sepsis screen is negative. Does the patient have a suspected source of infection? No. Patient's initial sepsis screen is negative. Risk Assessment: Do you want to hurt yourself or someone else? Patient reports no desire to harm self or others. Onset of symptoms was April 16, 2022. 13:17 Method Of Arrival: Ambulatory ss 13:17 Acuity: YUSUF 3 ss Triage Assessment: 13:30 General: Appears distressed, unkempt, Behavior is agitated, anxious. Pain: Unable to bp use pain scale. Does not appear to understand pain scale. EENT: No deficits noted. Neuro: Level of Consciousness is confused, Oriented to none. Cardiovascular: No deficits noted. Respiratory: No deficits noted. GI: No signs and/or symptoms were reported involving the gastrointestinal system. : Low in place dyan blood. Derm: No deficits noted. Musculoskeletal: No deficits noted. Historical: - Allergies: 13:21 Iodine; ss - PMHx: 13:21 BPH; Diabetes - NIDDM; Hypertension; Dementia; ss - Immunization history:: Client reports receiving the 2nd dose of the Covid vaccine. - Social history:: Smoking status: Patient denies any tobacco usage or history of. Screenin:30 Abuse screen: Denies threats or abuse. Denies injuries from another. Nutritional bp screening: No deficits noted. Tuberculosis screening: No symptoms or risk factors identified. Fall Risk Fall in past 12 months (25 points). Secondary diagnosis (15 points) Alzheimer's, IV access (20 points). Ambulatory Aid- Crutches/Cane/Walker (15 pts). Gait- Weak (10 pts.). Mental Status- Overestimates/Forgets Limitations (15 pts.). Total Sandhu Fall Scale indicates High Risk Score (45 or more points). Fall prevention measures have been instituted. Side Rails Up X 2 Placed Close to Nursing Station Frequent Obs/Assessments Occuring Family Present and informed to notify staff if the need to leave the bedside As available patient and family educated on Fall Prevention Program and Strategies. Assessment: 13:30 General: SEE TRIAGE NOTE. bp 14:40 Reassessment: Walked into pt's room to answer call light, found pt sitting up at the aa5 foot of the bed, agitated and attempting to get out of bed, pt is confused. Pt's states "I had to hold him down because he was trying to leave and he has Alzheimer's". Verbal reassurance given to patient and pt assisted back in bed, pt now lying down in bed. Pt's remains at bedside. Provider at bedside, pt's asking for medication "to calm him down". . 15:04 Reassessment: Pt awake and appears less agitated than previous assessment, no longer aa5 attempting to get out of bed, equal and unlabored respirations, skin is pink/warm/dry. Pt's remains at bedside. . 15:30 Reassessment: PT PULLING MONITORING EQUIPMENT, ATTEMPTING TO EXIT BED AND ATTEMPTING TO bp PULL LOW CATH. PT NO RESPONDING TO VERBAL DIRECTION. PT AOx0, POOR SAFETY AWARENESS. RESTRAINTS PLACED FOR PT AND STAFF SAFETY. PT UNABLE TO ARTICULATE RESTRAINT RELEASE CRITERIA. Vital Signs: 13:17 BP 147 / 54; Pulse 67; Resp 17; Temp 98.3(O); Pulse Ox 98% on R/A; Weight 77.11 kg; ss Height 5 ft. 11 in. (180.34 cm); Pain 0/10; 14:40 BP 191 / 96; Pulse 72; Resp 22 S; Pulse Ox 99% on R/A; aa5 15:03 BP 173 / 70; Pulse 70; Resp 18 S; Pulse Ox 97% on R/A; aa5 16:00 BP 182 / 79; Pulse 82; Resp 21; Pulse Ox 100% ; bp 13:17 Body Mass Index 23.71 (77.11 kg, 180.34 cm) ED Course: 12:50 Patient arrived in ED. am2 12:51 Luis King MD is Private Physician. am2 12:56 Khoi Ramirez is PHCP. jl9 12:56 Jefferson Parada MD is Attending Physician. jl9 13:21 Triage completed. ss 13:21 Arm band placed on left wrist. ss 13:30 Patient has correct armband on for positive identification. Bed in low position. Call bp light in reach. Side rails up X2. Adult w/ patient. 13:34 Prasanth Magana, RN is Primary Nurse. bp 13:36 CBC with Diff Sent. mb9 13:36 CMP Sent. mb9 13:36 Lipase Sent. mb9 13:36 Inserted saline lock: 20 gauge in right forearm, using aseptic technique. Blood mb9 collected. 13:47 Abdomen In Process Unspecified. EDMS 15:38 Niko Harvey is Hospitalizing Provider. jl9 15:39 Hospitalizing Provider role handed off by Niko Harvey jl9 15:39 Yefri Robert MD is Hospitalizing Provider. jl9 17:27 No provider procedures requiring assistance completed. Patient admitted, IV remains in bp place. Restraints: 15:30 Non-Violent Restraint: Order obtained. Initiated on April 17, 2022 at 15:30 Unable to bp provide Restraint education. PT AOx0. Actions/Behavior observed: Confused/disoriented, has difficulty remembering/follow instructions, has impaired decision making, repeated attempts to get up from bed/chair w/o assistance, unable to follow instructions, repeated attempts to remove/tamper lines/tubes/IV med devices \\T\\ wound dressing, Less restrictive alternatives attempted: decrease environmental stimuli, 1:1 patient care, placed near Nurse station, reoriented to location, family at bedside, medications evaluated, medicated for pain/anxiety, lines/tubes covered, verbal de-escalation performed, Alternative interventions: Ineffective. Clinical justification for use: line protection, patient safety, Mental status: agitated/restless, confused, Cognition: poor judgement, poor safety awareness, impulsive, poor attention/concentration, unable to follow commands, Circulation: Within defined parameters (based on Cardiovascular assessment) Skin integrity: Within defined parameters (based on Integumentary assessment) Signs of injury related to restraint: No injuries noted. Range of Motion (ROM): declined. Hydration/Food: patient declined. Elimination/Hygiene: with urinary catheter, Restraint status: Soft wrist restraint (Right) Started. Soft wrist restraint (Left) Started. Criteria to discontinue Restraint not met. Restraint continued. Administered Medications: 14:30 Drug: NS 0.9% 1000 ml Route: IV; Rate: 1000 ml; Site: right forearm; bp 16:23 Follow up: IV Status: Completed infusion; IV Intake: 1000ml bp 14:30 Drug: Rocephin (cefTRIAXone) 1 grams Route: IV; Rate: calculated rate; Site: right bp forearm; 16:23 Follow up: IV Status: Completed infusion; IV Intake: 100ml bp 14:50 Drug: Ativan (LORazepam) 1 mg Route: IVP; Site: right forearm; aa5 16:23 Follow up: Response: No adverse reaction bp Intake: 16:23 IV: 100ml; Total: 100ml. bp 16:23 IV: 1000ml; Total: 1100ml. bp Outcome: 15:38 Decision to Hospitalize by Provider. milton 17:27 Admitted to Med/surg accompanied by tech, family with patient, via stretcher, room 403, bp with chart, Report called to KATHRYN CARBAJAL 17:27 Condition: stable 17:27 Instructed on the need for admit. 18:03 Patient left the ED. bp Signatures: Dispatcher [employer] EDPA Nathaly Flores, RN RN aa5 Fouzia Cano RN RN Kelly Bo Brian, RN RN Khoi Hartley9 Munira Lion, RN RN mb9
--- NOTE | 2022-04-17 15:39 | EDPHYS ---
Physician Documentation [facility] Name: Negro Chavez Age: 76 yrs Sex: Male : 1945 Arrival Date: 04/17/2022 Time: 12:50 Bed 8 Private MD: Lusi King ED Physician Jefferson Parada HPI: 04/17 15:29 This 76 yrs old Male presents to ER via Ambulatory with complaints of dysuria jl9 and hematuria. Patient was seen at [facility] yesterday and had a catheter placed. Patient was supposed to follow up with urology today but was unable to get in. . 15:29 Onset: The symptoms/episode began/occurred yesterday. Associated signs and symptoms: jl9 Pertinent positives: dysuria. Modifying factors: The patient symptoms are alleviated by nothing, the patient symptoms are aggravated by nothing. The patient has been recently seen by a physician:. Historical: - Allergies: 13:21 Iodine; ss - PMHx: 13:21 BPH; Diabetes - NIDDM; Hypertension; Dementia; ss - Immunization history:: Client reports receiving the 2nd dose of the Covid vaccine. - Social history:: Smoking status: Patient denies any tobacco usage or history of. ROS: 15:30 Constitutional: Negative for fever, chills, and weight loss, Eyes: Negative for injury, jl9 pain, redness, and discharge, ENT: Negative for injury, pain, and discharge, Neck: Negative for injury, pain, and swelling, Cardiovascular: Negative for chest pain, palpitations, and edema, Respiratory: Negative for shortness of breath, cough, wheezing, and pleuritic chest pain, Abdomen/GI: Negative for abdominal pain, nausea, vomiting, diarrhea, and constipation, Back: Negative for injury and pain. 15:30 MS/Extremity: Negative for injury and deformity, Skin: Negative for injury, rash, and discoloration, Neuro: Negative for headache, weakness, numbness, tingling, and seizure, Psych: Negative for depression, anxiety, suicide ideation, homicidal ideation, and hallucinations, Allergy/Immunology: Negative for hives, rash, and allergies, Endocrine: Negative for neck swelling, polydipsia, polyuria, polyphagia, and marked weight changes, Hematologic/Lymphatic: Negative for swollen nodes, abnormal bleeding, and unusual bruising. 15:30 : Positive for urinary symptoms, hematuria. Exam: 15:30 Constitutional: This is a well developed, well nourished patient who is awake, alert, jl9 and in no acute distress. Head/Face: Normocephalic, atraumatic. Eyes: Pupils equal round and reactive to light, extra-ocular motions intact. Lids and lashes normal. Conjunctiva and sclera are non-icteric and not injected. Cornea within normal limits. Periorbital areas with no swelling, redness, or edema. ENT: Mucous membranes moist. Neck: Trachea midline, no thyromegaly or masses palpated, and no cervical lymphadenopathy. Supple, full range of motion without nuchal rigidity, or vertebral point tenderness. No Meningismus. Chest/axilla: Normal chest wall appearance and motion. Nontender with no deformity. No lesions are appreciated. Cardiovascular: Regular rate and rhythm with a normal S1 and S2. No gallops, murmurs, or rubs. Normal PMI, no JVD. No pulse deficits. Respiratory: Lungs have equal breath sounds bilaterally, clear to auscultation and percussion. No rales, rhonchi or wheezes noted. No increased work of breathing, no retractions or nasal flaring. Abdomen/GI: Soft, non-tender, with normal bowel sounds. No distension or tympany. No guarding or rebound. No evidence of tenderness throughout. Back: No spinal tenderness. No costovertebral tenderness. Full range of motion. Skin: Warm, dry with normal turgor. Normal color with no rashes, no lesions, and no evidence of cellulitis. MS/ Extremity: Pulses equal, no cyanosis. Neurovascular intact. Full, normal range of motion. Neuro: Awake and alert, GCS 15, oriented to person, place, time, and situation. Cranial nerves II-XII grossly intact. Motor strength 5/5 in all extremities. Sensory grossly intact. Cerebellar exam normal. Normal gait. Psych: Awake, alert, with orientation to person, place and time. Behavior, mood, and affect are within normal limits. 15:30 : CVA tenderness, is absent, Male external genitalia: Bladder: is normal, a herron is noted. Vital Signs: 13:17 BP 147 / 54; Pulse 67; Resp 17; Temp 98.3(O); Pulse Ox 98% on R/A; Weight 77.11 kg; ss Height 5 ft. 11 in. (180.34 cm); Pain 0/10; 14:40 BP 191 / 96; Pulse 72; Resp 22 S; Pulse Ox 99% on R/A; aa5 15:03 BP 173 / 70; Pulse 70; Resp 18 S; Pulse Ox 97% on R/A; aa5 16:00 BP 182 / 79; Pulse 82; Resp 21; Pulse Ox 100% ; bp 13:17 Body Mass Index 23.71 (77.11 kg, 180.34 cm) ss MDM: 13:09 Patient medically screened. [facility] 15:31 Data reviewed: vital signs, nurses notes. Counseling: I had a detailed discussion with milton the patient and/or guardian regarding: the historical points, exam findings, and any diagnostic results supporting the discharge/admit diagnosis, lab results, radiology results, the need for further work-up and treatment in the hospital. 15:38 Physician consultation: Hospitalist to see patient. . 9 16:59 Physician consultation: Spoke to Dr. Rankin- Urology as per Dr. Robert request. Dr. milton Rankin states that this is not an emergent consult and that patient can follow up when he is discharged from the hospital. Dr. Rankin made aware of suspicion of bladder tumor per Dr. Robert. . 04/17 13:21 Order name: CBC with Diff; Complete Time: 14:02 04/17 13:21 Order name: CMP; Complete Time: 14:02 04/17 13:21 Order name: Lipase; Complete Time: 14:02 04/17 14:09 Order name: Urine Culture 04/17 14:09 Order name: Urine Microscopic Only; Complete Time: 14:40 04/17 14:10 Order name: Urine Dipstick-Ancillary; Complete Time: 14:10 EDHI 04/17 13:36 Order name: Abdomen ; Complete Time: 14:08 EDMS 04/17 15:28 Order name: SARS RAPID; Complete Time: 16:33 04/17 17:29 Order name: Phosphorus EDMS 04/17 17:29 Order name: NT PRO-BNP EDHI 04/17 17:29 Order name: Magnesium EDMS 04/17 13:16 Order name: Urine Dipstick-Ancillary (obtain specimen); Complete Time: 14:09 jl9 04/17 13:21 Order name: IV Saline Lock; Complete Time: 13:36 jl9 04/17 13:21 Order name: Labs collected and sent; Complete Time: 13:36 jl9 04/17 16:24 Order name: Restraint:Non-Violent; Complete Time: 16:24 bp 04/17 16:25 Order name: 60g Consistent Carbohydrate (ADA 1800/1999) EDMS Administered Medications: 14:30 Drug: NS 0.9% 1000 ml Route: IV; Rate: 1000 ml; Site: right forearm; bp 16:23 Follow up: IV Status: Completed infusion; IV Intake: 1000ml bp 14:30 Drug: Rocephin (cefTRIAXone) 1 grams Route: IV; Rate: calculated rate; Site: right bp forearm; 16:23 Follow up: IV Status: Completed infusion; IV Intake: 100ml bp 14:50 Drug: Ativan (LORazepam) 1 mg Route: IVP; Site: right forearm; aa5 16:23 Follow up: Response: No adverse reaction bp Disposition Summary: 04/17/22 15:38 Hospitalization Ordered Hospitalization Status: Observation jl9 Location: Telemetry/MedSurg (observation) jl9 Condition: Fair jl9 Problem: new jl9 Symptoms: are unchanged jl9 Bed/Room Type: Standard jl9 Provider: Yefri Robert(04/17/22 15:39) jl9 Room Assignment: 403(04/17/22 17:14) Diagnosis - UTI/ Urinary tract infection, site not specified jl9 Forms: - Medication Reconciliation Form jl9 - SBAR form jl9 Addendum: 04/20/2022 07:03 Co-signature as Attending Physician, Jefferson Parada MD. r n Signatures: Dispatcher [employer] EDMS Mirna Martel Diana, RN RN dw Jefferson Parada MD MD rn Calderon, Audri RN RN aa5 Fouzia Cano RN RN ss Peltier, Brian, RN RN Khoi Hartley jl9 Corrections: (The following items were deleted from the chart) 04/17 13:21 13:16 Bladder Scanner ordered. 9 9 13:36 13:25 Abdomen Pelvis W Con+CT.RAD.BRZ ordered. EDMS EDMS 15:39 15:38 Niko Harvey jl9 jl9 16:53 15:38 jl9 bd 17:14 16:53 424 bd dw
[2022-04-17 16:20] LABS: SARS-CoV-2 Antigen Rapid Res Negative (Negative)
[2022-04-17] MEDS ORDERED: HYDROCODONE/APAP 5/325 MG TAB PO PRN (16:23)
[2022-04-17] MEDS ORDERED: LORazepam 2 MG/ML VIAL IV PRN (16:25)
[2022-04-17] MEDS ORDERED: ACETAMINOPHEN 325 MG TABLET PO PRN (16:25)
[2022-04-17] MEDS: INSULIN -REGULAR HUMAN 50 UNIT/0.5 ML ML SQ SCH ×2 (16:38→21:00)
[2022-04-17] MEDS ORDERED: ONDANSETRON 4 MG/2 ML VIAL IV PRN (16:39)
--- NOTE | 2022-04-17 16:52 | P.HP ---
Certification for Inpatient Patient admitted to: Observation With expected LOS: <2 Midnights Patient will require the following post-hospital care: None Practitioner: I am a practitioner with admitting privileges, knowledge of patient current condition, hospital course, and medical plan of care. Services: Services provided to patient in accordance with Admission requirements found in Title 42 Section 412.3 of the Code of Federal Regulations <Silvina Hernandez Leatha - Last Filed: 04/18/22 02:27> Patient History Date of Service: 04/18/22 Reason for admission: Hematuria and Dysuria History of Present Illness: Patient is a 76-year-old male with a past medical history significant for BPH, DM 2, hypertension, Alzheimer's dementia who presents with complaint of hematuria and dysuria. Patient is disoriented x3 and unable to provide any history. Spouse reported that patient was unable to urinate yesterday and patient was seen at [facility] where he had a catheter placed. Spouse reported that patient initially started having blood clots after the catheter was placed but no further blood clots noted thereafter. Patient continued having hematuria and patient was discharged from [facility] to follow-up with his outpatient urologist. On getting home patient continued having dysuria and hematuria. Spouse attempted to call urologist multiple times but was not able to reach the urologists office staff to set up an appointment. Spouse called patient's PCP who advised patient to come to the hospital for medical evaluation. No other signs or symptoms reported. Symptoms are aggravated or relieved by nothing. Spouse decided to bring patient to the hospital as directed by his PCP. - Past Medical/Surgical History Diabetic: Yes -: htn -: bph/enlarged prostate -: dm -: Hx of mild strokes -: hernia repair -: right shoulder surgery - Family History Father -: Heart disease, Hypertension, Diabetes Notes: Mother -: Hypertension, Diabetes, Kidney disease - Social History Smoking Status: Never smoker Alcohol use: No CD- Drugs: No Caffeine use: Yes Place of Residence: Home <Silvina Hernandez - Last Filed: 04/18/22 02:27> Date of Service: 04/18/22 <Yefri Robert - Last Filed: 04/18/22 06:30> Allergies iodine Allergy (Unknown, Verified 01/10/16 10:08) UNKNOWN Home Medications: Donepezil HCl [Aricept] 10 mg PO BID 04/17/22 Insulin Aspart [Novolog Flexpen] 6 unit SQ TID 04/17/22 Memantine HCl [Namenda*] 10 mg PO BID 04/17/22 Quetiapine [Seroquel*] 25 mg PO DAILY 04/17/22 RX: Metformin HCl 1,000 mg PO BID 04/17/22 RX: Olmesartan/Hydrochlorothiazide [Benicar Hct 40-12.5 mg Tablet] 1 tab PO DAILY 04/17/22 RX: Tamsulosin [Flomax*] 0.4 mg PO BID 04/17/22 Review of Systems is unable to be obtained (Unable to assess. Demented) <Silvina Hernandez - Last Filed: 04/18/22 02:27> Physical Examination - Physical Exam General: Demented, Confused, Delirious HEENT: Atraumatic, Normocephalic, PERRLA, Sclerae nonicteric Neck: Supple, 2+ carotid pulse no bruit, JVD not distended, Without JVD or thyroid abnormality Respiratory: Clear to auscultation bilaterally, Normal air movement Cardiovascular: No edema, Normal pulses Capillary refill: <2 Seconds Gastrointestinal: Normal bowel sounds, Soft and benign Musculoskeletal: No clubbing, No swelling, No contractures, No erythema Integumentary: No rashes, No breakdown, No tenderness/swelling Neurological: Normal speech, Normal strength at 5/5 x4 extr, Sensation intact, Normal affect Lymphatics: No axilla or inguinal lymphadenopathy Urinary: Duron catheter - Studies Laboratory Data (last 24 hrs) 04/17/22 13:33: Sodium 140, Potassium 3.9, BUN 23 H, Creatinine 1.17, Glucose 161 H, Total Bilirubin 0.3, AST 10 L, ALT 18, Alkaline Phosphatase 58, Lipase 103 04/17/22 13:33: WBC 8.30, Hgb 12.3 L, Hct 37.5 L, Plt Count 320 <Silvina Hernandez - Last Filed: 04/18/22 02:27> - Studies Laboratory Data (last 24 hrs) 04/17/22 13:33: Phosphorus 7.8 H, Magnesium 2.4 04/17/22 13:33: Sodium 140, Potassium 3.9, BUN 23 H, Creatinine 1.17, Glucose 161 H, Total Bilirubin 0.3, AST 10 L, ALT 18, Alkaline Phosphatase 58, Lipase 103 04/17/22 13:33: WBC 8.30, Hgb 12.3 L, Hct 37.5 L, Plt Count 320 <Yefri Robert - Last Filed: 04/18/22 06:30> Assessment and Plan - Plan --Hematuria. CT imaging indicates marked prostatic enlargement with small amount of increased density within the bladder. Urology consulted. Spouse reported patient's allergy to iodine. H&H stable. We will continue to monitor hemoglobin. Will await further recommendations. --UTI POA. Continue antibiotics. Urine cultures pending. --Urinary retention. Continue Duron catheter care. Further management per urologist. --DM2. BS monitoring with sliding scale insulin. --Alzheimers Dementia. With superimposed delirium secondary to UTI. Continue home medications and supportive care. --Hypertension. Poorly controlled. Continue home medications and hydralazine prn --BPH. Continue Flomax. --CKD 2. Stable. Will continue to monitor renal functions --Blood loss Anemia. H\H stable. Will continue to monitor H\H and transfuse if less than 7.0 -- DVT prophylaxis with SCDs. Discharge Plan: Home Plan to discharge in: 48 Hours - Advance Directives Does patient have a Living Will: No Does patient have a Durable POA for Healthcare: No - Code Status/Comfort Care Code Status Assessed: Yes Physician Review: Patient Assessed, Agree with Above Assessment and Plan Critical Care: No <Silvina Hernandez - Last Filed: 04/18/22 02:27> Physician Review: Patient Assessed, Agree with Above Assessment and Plan <Yefri Robert - Last Filed: 04/18/22 06:30>
[2022-04-17 17:28] LABS: Magnesium 2.4 mg/dL (1.8-2.4); Phosphorus 7.8 mg/dL (2.5-4.9)
[2022-04-17 18:40] VITALS: BMI 23.7
[2022-04-17] MEDS ORDERED: WATER FOR INJ,STERILE 10 ML IM PRN (20:02)
[2022-04-17] MEDS ORDERED: ZIPRASIDONE MESYLA 20 MG/VIAL IM ONE (20:02)
[2022-04-17] MEDS: TAMSULOSIN 0.4 MG SR CAP PO SCH (20:35)
[2022-04-17] MEDS: MEMANTINE HCL 10 MG TABLET PO SCH (20:35)
[2022-04-17] MEDS: HOME MED 1 EA UNK (Donepezil Hcl [Aricept] 10 MG Tablet) PO SCH (21:00)
[2022-04-17 22:35] LABS: Hematocrit 33.3 % (39.6-49.0)
[2022-04-18] MEDS: MELATONIN 5 MG TABLET PO PRN ×2 (00:27→20:49)
[2022-04-18] MEDS ORDERED: WATER FOR INJ,STERILE 10 ML IM PRN ×2 (02:20→22:35)
[2022-04-18] MEDS ORDERED: ZIPRASIDONE MESYLA 20 MG/VIAL IM ONE ×2 (02:20→22:35)
[2022-04-18 06:41] LABS: Absolute Lymphocytes (CBC) 1.5 K/uL (0.7-4.9); Hematocrit 34.8 % (39.6-49.0); Lymphocytes % 19.8 % (15.3-44.8); MCV 86.6 fL (80-100); MPV 7.5 fL (7.6-11.3); RBC Red Blood Cell Count 4.02 M/uL (4.33-5.43)
[2022-04-18 06:57] LABS: Potassium 3.6 mmol/L (3.5-5.1)
[2022-04-18] MEDS: INSULIN -REGULAR HUMAN 50 UNIT/0.5 ML ML SQ SCH ×4 (07:30→20:55)
[2022-04-18] MEDS ORDERED: POTASSIUM CL SA 10 MEQ TAB PO ONE (07:44)
[2022-04-18] MEDS ORDERED: INFLUENZA VACCINE (for 6+ mo) 0.5 ML DOSE IMVAC ONE (08:00)
[2022-04-18] MEDS: TAMSULOSIN 0.4 MG SR CAP PO SCH ×2 (08:54→20:49)
[2022-04-18] MEDS: VALSARTAN 160 MG TAB PO SCH (08:54)
[2022-04-18] MEDS: MEMANTINE HCL 10 MG TABLET PO SCH ×2 (08:54→20:49)
[2022-04-18] MEDS ORDERED: ASPIRIN 325 MG TAB PO SCH (09:00)
[2022-04-18] MEDS ORDERED: hydroCHLOROthiazide 25 MG TAB PO SCH (09:00)
[2022-04-18] MEDS ORDERED: QUETIAPINE 25 MG TAB PO SCH (09:00)
[2022-04-18] MEDS: HOME MED 1 EA UNK (Donepezil Hcl [Aricept] 10 MG Tablet) PO SCH (09:00)
[2022-04-18] MEDS ORDERED: HOME MED 1 EA UNK (Valsartan/Hydrochlorothiazide [Valsartan-Hctz 320-25 Mg Tab] 1 EACH Tab PO SCH (09:00)
[2022-04-18] MEDS ORDERED: CEFTRIAXONE 1000 MG/VIAL ONE (09:04)
[2022-04-18] MEDS ORDERED: NA CHLORIDE 0.9% 50 ML ONE (09:05)
[2022-04-18] MEDS: CEFTRIAXONE 1,000 MG in NA CHLORIDE 0.9% 50 ML IVPB SCH (09:06)
--- NOTE | 2022-04-18 11:40 | RAD REPORT ---
EXAM DESCRIPTION: CT - Ct Stroke Brain Wo Cont - 04/18/2022 11:29 am CLINICAL HISTORY: code stroke, slurred speech COMPARISON: Head Brain Wo Cont dated 01/20/2022 TECHNIQUE: Axial 5 millimeter thick images of the head were obtained without IV contrast. All CT scans are performed using dose optimization technique as appropriate and may include automated exposure control or mA/KV adjustment according to patient size. FINDINGS: No intracranial hemorrhage, mass, or cerebral edema. No acute cortical based infarction id entifiable. There is no cortical edema or sulcal effacement. Patient has moderate severity atrophy pa ttern is not clearly different from December 2021 comparison. Ventricles are in proportion to the volume loss. Scattered cerebral white matter chronic ischemic change also matches the comparison. No extra-a xial fluid collections. Jimenes matter-white matter differentiation is preserved Visualized portions of the mastoid air cells, paranasal sinuses, and orbits are unremarkable. Findings telephoned to Michela 11:36 a.m. IMPRESSION: No CT evidence of acute intracranial process. Atrophy and chronic ischemic pattern match the December 2021 study.
[2022-04-18 11:59] LABS: Protime INR 0.87
[2022-04-18] MEDS ORDERED: NA CHLORIDE 0.9% 1,000 ML IV SCH (12:00)
[2022-04-18 12:01] LABS: Potassium 3.8 mmol/L (3.5-5.1)
--- NOTE | 2022-04-18 12:55 | P.PN ---
Subjective Date of Service: 04/18/22 Chief Complaint: Hematuria and Dysuria Overnight, he was agitated, requiring ziprasidone and restraints. This morning, he remains confused. Per his , this is not far from his baseline. She states that he has had progressively worsening Alzheimer's dementia, and that this is a progression of his baseline dementia. Review of Systems is unable to be obtained Physical Examination - Vital Signs Temperature: 98.5 F Blood Pressure: 159/72 Pulse: 59 Respirations: 18 Pulse Ox (%): 96 - Physical Exam General: Alert, Mild distress, Other (Oriented x 0) HEENT: Atraumatic, Mucous membr. moist/pink, Sclerae nonicteric Neck: Supple, JVD not distended Respiratory: Clear to auscultation bilaterally, Normal air movement Cardiovascular: No edema, Regular rate/rhythm, Normal S1 S2, No gallops, No rubs, No murmurs Capillary refill: <2 Seconds Gastrointestinal: Normal bowel sounds, Soft and benign, Non-distended, No tenderness, No rebound, No guarding Musculoskeletal: No clubbing Integumentary: No rashes Neurological: Dementia Urinary: Duron catheter (with gross hematuria) - Studies Laboratory Data (last 24 hrs) 04/17/22 13:33: Phosphorus 7.8 H, Magnesium 2.4 04/17/22 13:33: Sodium 140, Potassium 3.9, BUN 23 H, Creatinine 1.17, Glucose 161 H, Total Bilirubin 0.3, AST 10 L, ALT 18, Alkaline Phosphatase 58, Lipase 103 04/17/22 13:33: WBC 8.30, Hgb 12.3 L, Hct 37.5 L, Plt Count 320 Assessment And Plan - Plan # Urinary Tract Infection with Gross Hematuria # Benign Prostatic Hyperplasia complicated by Urinary Retention - Does not meet sepsis criteria - Consulted Urology and spoke with Dr. Rankin - he recommended outpatient follow-up with his primary urologist, Dr. Gordon. - commissioned sales associate Ginger, scheduled him an appointment with Prosper Otto NP on 04/24/2022 @ 10:00 AM - He will be discharged with Duron catheter - CT abdomen/pelvis = "Marked prostatic enlargement. Small amount of increased density within the bladder could either represent blood or IV contrast excreted into the genitourinary system from a recent exam." - Unable to obtain CT urogram given iodine allergy - Continue ceftriaxone - Continue tamsulosin # Alzheimer's Dementia with superimposed Delirium - He is agitated and combative with staff - For his and our staff's safety, he was placed in soft restraints - Consulted Psychiatry and spoke with Dr. Hernandez - recommendations appreciated - He has been started on quetiapine - Continue donepezil, memantine # Hypertension - Continue valsartan # Type II Diabetes Mellitus - Continue correction scale insulin Yefri Robert M.D.
--- NOTE | 2022-04-18 13:03 | P.PN ---
Date of Service: 04/18/22 Code Stroke called at 11:13 AM due to concern for slurred speech. I arrived at bedside shortly after. He displayed minimal slurring in his speech, but nothing extremely noticable. His neurologic examination is difficult to accurately assess given that he has advanced dementia, inability to follow commands reliably, and appears to be intermittently delirious. STAT CT head obtained per stroke protocol. Attempted to obtain CT angiogram head/neck, but was unable to complete due to iodine allergy. Per Dr. Em, MRA head/neck ordered. CT head returned with, "No CT evidence of acute intracranial process. Atrophy and chronic ischemic pattern match the December 2021 study." Reviewed case with Dr. Em (Neurology), who advised against tenecteplase given gross hematuria. PT/OT, Hgb A1c, TSH, and lipid panel ordered per stroke protocol. Initial NIH Stroke Scale (Extremely limited due to Dementia and baseline mental status) 1a. Level of consciousness: 1 - arouses to minor stimulation 1b. LOC questions: 1 - 1 question right 1c. LOC commands: 2 - performs 0 tasks 2. Best Gaze: 0 - Normal 3. Visual: 0 - unable to assess 4. Facial Palsy: 0 - Normal symmetry 5a. Motor left arm: 0 - unable to assess 5b. Motor right arm: 0 - unable to assess 6a. Motor left le - unable to assess 6b. Motor right le - unable to assess 7. Limb ataxia: 0 - unable to assess 8. Sensory: 0 - unable to assess 9. Best Language: 1 - mild-moderate aphasia: some obvious changes, without significant limitation 10. Dysarthria: 1 - mild-moderate dysarthria: slurring but can be understood 11. Extinction and Inattention: 0 - unable to assess 12. Distal motor function: 0 - No abnormality Total Score: 6 On follow-up, was notified by bedside RN, Gris, that his slurred speech had completely resolved and that he had returned to baseline per family. Yefri Robert M.D.
[2022-04-18] MEDS: HYDRALAZINE HCL 20 MG/ML VIAL IV PRN ×2 (17:15→23:45)
[2022-04-18] MEDS ORDERED: TRAZODONE 50 MG TABLET PO PRN (17:27)
--- NOTE | 2022-04-18 18:50 | CON ---
Reason For Consultation: Gross hematuria. History Of Present Illness: Mr. Chavez is a 76-year-old gentleman with Alzheimer dementia along with type 2 diabetes and hypertension, who presents with a medical history significant for a prostate biop sy performed presumably for elevated PSA. His speaking on behalf of the patient described that this occurred about 2 months ago, but about 5-6 months ago, he had a cystoscopy which apparently iden tified a suspicious lesion within his bladder. His urologist in [place], Dr. Prasanth Gordon, has perfor med the cystoscopy and the diagnostic prostate biopsy. Those results were not available for my revie w today. Unfortunately, despite apparently her attempt to seek follow up of the lesions seen cystosc opically, the described they were hold for that. He did not document in his note any abnormal f indings; so followup of the bladder lesion of suspicion has not been performed. This was a remnant i ssue in the back of her mind. On Sunday, the patient developed significant increase urinary frequenc y before going into dyan urinary retention and developing suprapubic discomfort as a result. He neo t to the Emergency Department at [facility] where a urethral catheter was placed, and at the [facility], some small clots did admit from within his bladder. He subsequently had further deterioration of his mental status after being discharged home that resulted in their presentation to [facility] Emergency Department yesterday. At that point, the gross hematuria was noted and a CT scan w as obtained as below. The patient is more now back to his baseline according to his , though he is always a degree altered due to his dementia. Past Medical History: Diabetes type 2, hypertension, Alzheimer disease, and BPH. Past Surgical History: Hernia repair, right shoulder surgery. Family History: Significant for heart disease, hypertension, and diabetes along with chronic kidney disease. Physical Examination: The patient is alert and awake, but clearly disoriented in no acute distress. There was no dyspnea o r sign of respiratory distress. He was secured to the bed using wrist straps, but able to move all e xtremities. He was communicative, but inappropriately so. His abdomen was soft, nontender, and nond istended. No masses were palpable. A urethral Duron catheter was in place and draining translucent light pink urine without any significant clots noted. He was circumcised with an orthotopic meatus. There were no Davis signs or calf tenderness noted. Laboratory Data: Review of his laboratory analyses was relatively unremarkable. CT abdomen and pelv is without contrast performed was found to be marked prostatic enlargement as well as a small amount of increased density within the bladder suspicious for either blood or IV contrast excreted from a re cent exam. Otherwise the liver, spleen, pancreas, adrenals, and kidneys appear grossly normal. Assessment And Recommendations: This is a 76-year-old gentleman with type 2 diabetes, hypertension, and Alzheimer dementia associated with a history of mild strokes apparently, who has undergone a rece nt prostate biopsy 2 months ago and prior cystoscopic evaluation with the region of suspicion seen in his bladder 6 months ago, now with acute urinary retention, gross hematuria, and radiographic change s within the bladder suspicious. I counseled the patient and his family that in the absence of significant gross hematuria requiring e mergency surgical intervention for bladder irrigation via CBI, outpatient evaluation via cystoscopy a long with upper tract imaging within the next 3 weeks is what would be recommended. His expressed that he had been cared for the last [address] Prasanth Gordon, and they h ad an appointment to see his PA or nurse practitioner this Sunday. They were hoping to see him back in followup. They did express that if they had excessive difficulty getting in to see him if they co uld, and be seen by me. I provided them with my contact information should that become a necessity a nd we would endeavor to get him in certainly within 3 weeks for cystoscopy and evaluation of his arian s hematuria. He also would benefit from at least voided cytology and fluorescence in situ hybridizat ion studies of his urine to rule out suspicion for upper tract urothelial malignancy if no bladder tu mor is noted. Given his allergy to iodinated contrast, this is what limited the administration of IV contrast at the time of his [place] [facility] admission. WR/MODL Voice ID: [id number] Report ID: [id number]
[2022-04-18] MEDS: DONEPEZIL HCL 5 MG TAB PO SCH (20:48)
[2022-04-18 23:09] VITALS: O2SAT 97
[2022-04-19 04:43] LABS: Absolute Lymphocytes (CBC) 1.5 K/uL (0.7-4.9); Hematocrit 39.5 % (39.6-49.0); Lymphocytes % 20.7 % (15.3-44.8); MCV 86.6 fL (80-100); MPV 7.4 fL (7.6-11.3); RBC Red Blood Cell Count 4.56 M/uL (4.33-5.43)
[2022-04-19 04:53] LABS: Potassium 3.5 mmol/L (3.5-5.1)
[2022-04-19 05:50] LABS: Phosphorus 3.1 mg/dL (2.5-4.9)
[2022-04-19] MEDS: HYDRALAZINE HCL 20 MG/ML VIAL IV PRN (07:00)
[2022-04-19] MEDS: INSULIN -REGULAR HUMAN 50 UNIT/0.5 ML ML SQ SCH ×2 (07:30→11:30)
[2022-04-19] MEDS ORDERED: CEFTRIAXONE 1000 MG/VIAL ONE (08:30)
[2022-04-19] MEDS ORDERED: NA CHLORIDE 0.9% 50 ML ONE (08:56)
[2022-04-19] MEDS ORDERED: POTASSIUM CL SA 10 MEQ TAB PO ONE (09:00)
[2022-04-19] MEDS: CEFTRIAXONE 1,000 MG in NA CHLORIDE 0.9% 50 ML IVPB SCH (09:16)
[2022-04-19] MEDS: DONEPEZIL HCL 5 MG TAB PO SCH (09:16)
[2022-04-19] MEDS: VALSARTAN 160 MG TAB PO SCH (09:16)
[2022-04-19] MEDS: MEMANTINE HCL 10 MG TABLET PO SCH (09:17)
[2022-04-19] MEDS: TAMSULOSIN 0.4 MG SR CAP PO SCH (09:17)
[2022-04-19 12:54] VITALS: BP 146/68; TEMP 97.9
--- NOTE | 2022-04-19 13:10 | EKG ---
Test Date: 2022-04-17 Test Time: 20:19:41 [place]: DEENA MEASUREMENT RESULTS: Intervals: Rate: 71 DC: 162 QRSD: 84 QT: 396 QTc: 430 [place]: P: 62 DC: 162 QRS: -14 T: 40 INTERPRETIVE STATEMENTS: Sinus rhythm with occasional premature ventricular complexes Septal infarct, age undetermined Abnormal ECG Compared to ECG 01/20/2022 16:44:24 Ventricular premature complex(es) now present Myocardial infarct finding still present Electronically Signed On 04-19-22 13:07:30 CDT by Thai Chan
--- NOTE | 2022-04-19 14:17 | CON ---
Date of Consultation: 04/18/2022 Reason For Psychiatric Consultation: Evaluate the patient with agitation and make recommendations. Chief Complaint: Agitation and combativeness. History Of Present Illness: Mr. Chavez is a 76-year-old male, who was seen on the medical u nit today with the present and also his two daughters. The patient is evaluated for severe agit ation and being combative. History was provided mostly by the , as the patient was unable to par ticipate in interview. History indicates a male with no psychiatric history of Alzheimer d ementia, was admitted via the ER and consulted for worsening confusion and agitation. On presentati on in the ER he was diagnosed with urinary tract infection, benign prostatic hyperplasia, diabetes me llitus type 2, and also has a history of hypertension. states that the patient was diagnosed wi th dementia approximately 5 years ago, he continued to decline in cognition. states that over t he years the patient was unable to perform his ADLs as his cognition declined, and hence he was alisha imani by her and his 2 daughters who live close by. A few days ago prior to his presentation the patie nt could not do that, he used the restroom almost 24 times and became . He was then brought to the ER due to . As stated, the patient has . The patient tends to be more active in the evening than during the day. . There is a history of dementia in patient's family as mom and dad both had dementia. No history of Parkinson like symptoms, such as s huffling gait or tremors. No history of head injuries. The patient worked as an executive in ____. Objective: Vital Signs: Blood pressure 194/93, pulse rate is 68, respiratory rate is 18, temperatur e is 98.3, O2 saturation is 99% on room air. Laboratory Data: Indicate evidence of UTI, also . Mental Status Examination: The patient is a very well-nourished male, . Impression: The patient is a 76-year-old male with diagnosis of dementia, also has comorbi dities such as benign prostatic hyperplasia, diabetes mellitus type 2, and hypertension, a nd altered mental status and urinary retention. . Diagnoses: 1. . 2.Dementia. 3.Anxiety, unspecified. Plan: 1.We will discontinue Ativan, and recommend the patient. 2.We will discontinue Seroquel. 3.We will start the patient on Haldol 2 mg p.o. b.i.d. for agitation. 4.We will trazodone 50 mg p.o. p.r.n. for sleep. . ENMA/NEREYDA Voice ID: [id number] Report ID: [id number]
--- NOTE | 2022-04-19 16:19 | P.DS ---
Admission Date: 04/17/22 Discharge Date: 04/19/22 Disposition: DC HOME/HOME HEALTH CARE Discharge Condition: GOOD Reason for Admission: Hematuria and Dysuria Consultations: 1. Urology 2. Neurology 3. Psychiatry Hospital Course: DIAGNOSES: # Urinary Tract Infection with Gross Hematuria # Benign Prostatic Hyperplasia complicated by Urinary Retention # Alzheimer's Dementia with superimposed Delirium # Hypertension # Type II Diabetes Mellitus HOSPITAL COURSE: Mr. Negro Chavez is a 76 year old male with a past medical history significant for Alzheimer's dementia, hypertension, benign prostatic hyperplasia with urinary retention, and type II diabetes mellitus who was admitted to the [facility] on 04/17/2022 for hematuria and dysuria. He was admitted to the Medicine service. Upon presentation, he displayed intermittent episodes of agitation and worsening confusion. The initial thought was worsening mental status due to a urinary tract infection; however, despite treatment with IV antibiotics, his episodes persisted. It seems more likely that he has delirium superimposed on his Alzheimer's dementia. I had an extensive dis cussion with his regarding home safety and recommended that he may benefit from placement in a memory care unit. She agreed to speak with a social media marketing manager regarding placement. After their meeting, his decided that she would rather go home with Home Health. She assured us that she has a lot of support at home and that he will be well taken care of at home. With the assistance of case management, this was arranged. In regards to his hematuria, Urology was consulted and he was seen by Dr. Rankin. Dr. Rankin recommended outpatient evaluation. On 04/19/2022, he was seen on morning rounds and deemed medically stable for discharge. He was discharged with instructions to schedule follow-up appointments with his PCP in 3-5 days, with Urology (Dr. Rankin) in 5-7 days, with Psychiatry (Dr. Hernandez), and with Neurology (Dr. Em). He was provided prescriptions for haloperidol, trazodone, and cefdinir. He and his family members were given the opportunity to ask questions and reported no further questions. Furthermore, all questions were answered to the best of my ability. A copy of this discharge summary will be sent to the above providers to facilitate continuity of care. Today, I personally spent 40 minutes on his case, of which greater than 50% of the time was spent in patient education, counseling, and coordination of care as described above. - Physical Exam General: Alert, Mild distress, Other (Oriented x 0) HEENT: Atraumatic, Mucous membr. moist/pink, Sclerae nonicteric Neck: Supple, JVD not distended Respiratory: Clear to auscultation bilaterally, Normal air movement Cardiovascular: No edema, Regular rate/rhythm, Normal S1 S2, No gallops, No rubs, No murmurs Capillary refill: <2 Seconds Gastrointestinal: Normal bowel sounds, Soft and benign, Non-distended, No tender ness, No rebound, No guarding Musculoskeletal: No clubbing Integumentary: No rashes Neurological: Dementia Urinary: Duron catheter (with gross hematuria) Vital Signs/Physical Exam: Temp Pulse Resp BP Pulse Ox 97.9 F 71 14 146/68 H 99 04/19/22 12:00 04/19/22 12:00 04/19/22 12:00 04/19/22 12:00 04/19/22 12:00 Laboratory Data at Discharge: WBC 7.10 K/uL (4.3-10.9) 04/19/22 04:13 Hgb 13.2 g/dL (13.6-17.9) L D 04/19/22 04:13 Hct 39.5 % (39.6-49.0) L 04/19/22 04:13 Plt Count 338 K/uL (152-406) 04/19/22 04:13 PT 10.4 SECONDS (9.2-12.8) 04/18/22 11:35 INR 0.87 04/18/22 11:35 APTT 32.7 SECONDS (21.7-34.4) 04/18/22 11:35 Sodium 138 mmol/L (136-145) 04/19/22 04:13 Potassium 3.5 mmol/L (3.5-5.1) 04/19/22 04:13 BUN 12 mg/dL (7-18) 04/19/22 04:13 Creatinine 0.94 mg/dL (0.55-1.3) 04/19/22 04:13 Glucose 152 mg/dL (74-106) H 04/19/22 04:13 Phosphorus 3.1 mg/dL (2.5-4.9) 04/19/22 04:13 Magnesium 2.0 mg/dL (1.8-2.4) 04/19/22 04:13 Total Bilirubin 0.3 mg/dL (0.2-1.0) 04/17/22 13:33 AST 10 U/L (15-37) L 04/17/22 13:33 ALT 18 U/L (12-78) 04/17/22 13:33 Alkaline Phosphatase 58 U/L (45-117) 04/17/22 13:33 Triglycerides 125 mg/dL (<150) 04/18/22 Unknown Cholesterol 202 mg/dL (<200) H 04/18/22 Unknown HDL Cholesterol 64 mg/dL (40-60) H 04/18/22 Unknown Cholesterol/HDL Ratio 3.16 04/18/22 Unknown Lipase 103 U/L (73-393) 04/17/22 13:33 Home Medications: Donepezil HCl [Aricept] 10 mg PO BID 04/17/22 Insulin Aspart [Novolog Flexpen] 6 unit SQ TID 04/17/22 Memantine HCl [Namenda*] 10 mg PO BID 04/17/22 Metformin HCl 1,000 mg PO BID 04/17/22 Olmesartan/Hydrochlorothiazide [Benicar Hct 40-12.5 mg Tablet] 1 tab PO DAILY 04/17/22 Tamsulosin [Flomax*] 0.4 mg PO BID 04/17/22 Cefdinir [Cefdinir*] 300 mg PO BID 7 Days #14 cap 04/19/22 Trazodone [Desyrel*] 50 mg PO BEDTIME PRN PRN #30 tab 04/19/22 haloperidoL [Haldol] 2 mg PO BID #120 tab 04/19/22 New Medications: Cefdinir [Cefdinir*] 300 mg PO BID 7 Days #14 cap Trazodone [Desyrel*] 50 mg PO BEDTIME PRN PRN #30 tab PRN Reason: Insomnia haloperidoL [Haldol] 2 mg PO BID #120 tab Physician Discharge Instructions: 1. Please schedule a follow-up with your PCP in 3-5 days 2. Please schedule a follow-up with Urology (Dr. Rankin) in 5-7 days - You will need to have the blood in your urine evaluated at this appointment - Your urinary catheter will likely be exchanged at this time 3. Please schedule a follow-up with Neurology (Dr. Em) in 1-2 weeks 4. Please schedule a follow-up with Psychiatrist (Dr. Hernandez) in 1-2 weeks Diet: Regular Activity: Fall precautions Followup: Iker Em MD [ASSOCIATE-ACTIVE - CAN ADMIT] - NONE,NONE [Primary Care Provider] - Jose Hernandez MD [OUTSIDE PHYSICIAN] - Rodo Rnakin [ACTIVE - CAN ADMIT] - Time spent managing pt's care (in minutes): 40
--- NOTE | 2022-04-19 21:05 | CON ---
Reason For Consultation: Consultation called because of a possible stroke after a code stroke was ca lled. History Of Present Illness: Mr. Negro Chavez is a 76-year-old right-handed patient with a dvanced Alzheimer disease, benign prostatic hypertrophy, diabetes mellitus type 2, and hypertension w ho comes to [facility] with dysuria and hematuria. His actually brought him because he had been unable to urinate as well. He does voluntarily. He was seen at [facility] prior to coming to [facility] where a catheter was placed and at that point, he started having blood clots and after the catheter was placed, no additional blood clots appeared, but later was discharged from [facility] to follow up outpatient, but he continued having more dysuria and hematuria. The patie nt was brought, after that by his to [facility] after his primary care physician advise d them come to the hospital for further evaluation. He has received his x-ray and blood work, which showed no significant abnormalities. BUN slightly elevated, glucose around 160. Liver function stud ies were unremarkable. No signs of infection with normal white blood cell count and hemoglobin is st able around 12-13. His urinalysis did show greater than 50 white blood cells, greater than 50 red bl ood cells, 3+ esterase, 3+ blood, budding yeast and protein. COVID testing was negative. A head CT scan showed no evidence of an acute intracranial process. He did have moderate severity atrophy thro ughout the brain with scattered white matter ischemic changes. The ventricles were expanded in propo rtion to the cerebral volume loss. His volume loss matched a brain CT scan done on January 20, 2022. T he patient's notes that he apparently seemed more disoriented than usual and a code stroke was c alled. The CT scan as mentioned, was done at the time of the code stroke; however, the patient did n ot have any apparent focal deficits. He was seen by the Urology Service and Psychiatric Services as well. Past Medical History: As noted, in addition to benign prostatic hypertrophy, lacunar strokes, right shoulder surgery, and hernia repair. Family History: Heart disease, hypertension, and diabetes in father who is and hypertension , diabetes, kidney disease in mother who is also . Social History: No alcohol, tobacco, or IV drug use. Patient lives with his , who is essentiall y the primary belt maker helper. Medications: At home are donepezil 10 mg twice daily, Namenda 10 mg twice daily, NovoLog FlexPen 6 u nits subcutaneous 3 times daily, Seroquel 25 mg daily, metformin 1000 mg twice daily, Flomax 0.4 mg t wice daily, and Benicar 40/12.5 daily. Review of Systems: Not reliable. The patient himself is unable to provide review of systems. His notes symptoms i ncluding the hematuria and dysuria; however, the patient is unable to articulate a consistent review of systems. Physical Examination: Vital Signs: Blood pressure 146/68, pulse 71, respiratory rate 14, temperature 97.9, oxygen saturati on 99%. Weight 170 pounds, height 5 feet 11 inches, BMI 23.7. General: Mr. Chavez is resting comfortably in bed. He appeared to recognize me when I walked in the room, extended his right hand for handshake. HEENT: He appears normocephalic, atraumatic. Sclerae anicteric. Oropharynx is pink and moist. Neck: Supple. Chest: Clear. Heart: Regular. Extremities: No significant edema, cyanosis, or clubbing. Neurological: He is alert and oriented to person, but not to place, situation, and time. He does fo llow simple commands with encouragement. On cranial nerves, no focal deficits noted there. On motor , no focal weakness in upper and lower extremities. Sensory exam difficult to assess, but appears to be symmetric. Coordination appears to be smooth in both upper and lower extremities. He was able t o move legs out of bed, but was max assist to go from supine to sit. He did become agitated when the physical therapist attempted to get him out of bed. He was able to actually ambulate later independ ently with no assistive device and did not lose his balance. He did then later ambulate over 250 fee t with a rolling walker, but because of his cognitive impairment he has poor judgment and requires sinclair pervision. Assessment: Mr. Chavez is a 76-year-old patient with advanced Alzheimer disease, diabetes mellitus, a nd hypertension who comes with a urinary tract infection and has been treated with antibiotics per Pr imary Team. He did receive Rocephin. He is on donepezil and Aricept for his dementia and Haldol for behavioral disturbances. He is on Flomax for prostate hypertrophy and Diovan for hypertension. He may be discharged home and follow up with Dr. Em as scheduled. Follow up with his other physic ians as appropriate. KAYLEE/NEREYDA Voice ID: [id number] Report ID: [id number]
== END 2022-04-19 16:33 | disposition home health service (06) | DRG 690 ==
LOC: ER 12:48 → ERHOLD 16:20 → 4TH 17:31 → OBSVTOIN 04-19 08:56
PROVIDERS: ADMIT Internal Medicine; ATTEND Internal Medicine
DX: N39.0 Urinary tract infection, site not specified (principal); F05 Delirium due to known physiological condition; G30.9 Alzheimer's disease, unspecified; I12.9 Hypertensive chronic kidney disease with stage 1 through stage 4 chronic kidney disease, or unspecified chronic kidney disease; N18.2 Chronic kidney disease, stage 2 (mild); E11.22 Type 2 diabetes mellitus with diabetic chronic kidney disease; D63.1 Anemia in chronic kidney disease; D50.0 Iron deficiency anemia secondary to blood loss (chronic); F02.80 Dementia in other diseases classified elsewhere, unspecified severity, without behavioral disturbance, psychotic disturbance, mood disturbance, and anxiety; N40.1 Benign prostatic hyperplasia with lower urinary tract symptoms; R33.8 Other retention of urine; R31.0 Gross hematuria; R47.81 Slurred speech; Z23 Encounter for immunization; Z78.1 Physical restraint status; Z88.8 Allergy status to other drugs, medicaments and biological substances; Z79.4 Long term (current) use of insulin; Z79.84 Long term (current) use of oral hypoglycemic drugs; Z79.899 Other long term (current) drug therapy; Z20.822 Contact with and (suspected) exposure to COVID-19
CPT/HCPCS: 36415; 70450; 74176; 80048; 80053; 80061; 81003; 81015; 82947; 83036; 83690; 83735; 83880; 84100; 84443; 85014; 85018; 85025; 85610; 85730; 87086; 87088; 87811; 90471; 93005; 94760; 96365; 96366; 96375; 97165; 97530; 99285; G0378; J0360; J3486; J7030; Q2035

== ENCOUNTER 2022-05-09 10:48 | Day surgery (SDC) | payer OTHER ==
[2022-05-09] MEDS ORDERED: NA CHLORIDE 0.9% 1,000 ML ONE (11:11)
[2022-05-09] MEDS ORDERED: CEFAZOLIN SODIUM 2 GM/VIAL ONE (11:11)
[2022-05-09] MEDS ORDERED: MIDAZOLAM HCL 2 MG/2 ML INJ ONE ×2 (14:31→15:04)
[2022-05-09] MEDS ORDERED: propofoL 200 MG/20 ML VIAL IV ONE (15:14)
[2022-05-09] MEDS ORDERED: FENTANYL CITR 100 MCG/2 ML ONE ×2 (15:14→16:40)
[2022-05-09] MEDS ORDERED: LIDOCAINE 1% MPF 5 ML VIAL ONE (15:15)
[2022-05-09] MEDS ORDERED: ONDANSETRON 4 MG/2 ML VIAL ONE (15:15)
[2022-05-09] MEDS ORDERED: GENTAMICIN 100 MG/100 ML BAG 200 ML IV ONE (15:48)
[2022-05-09 18:58] VITALS: O2SAT 100
[2022-05-09] MEDS ORDERED: PHENAZOPYRIDINE 100MG TAB PO ONE (19:32)
[2022-05-09] MEDS ORDERED: CODEINE 30MG/APAP 300MG TAB PO PRN (19:32)
[2022-05-09 20:07] VITALS: BP 170/82; TEMP 97.2
--- NOTE | 2022-05-10 08:30 | OP ---
Surgeon: ETHAN OCHOA Preoperative Diagnoses: 1.Acute urinary retention. 2.Gross hematuria. 3.Bladder mass. Postoperative Diagnoses: 1.Acute urinary retention. 2.Gross hematuria. 3.Bladder mass. 4.BPH with lower urinary obstruction. Principal Procedures: 1.Cystoscopy with bladder irrigation/washout and clot evacuation. 2.Channel transurethral resection of prostate/transurethral resection of bladder tumor. 3.Bilateral retrograde pyelography. Indication For Procedure: Mr. Chavez originally was admitted to [facility] for another condition with history of CVA and had associated acute urinary retention. He had an outside urologist in [place] that he was seeing and had previously undergone a biopsy of his prost ate. Those results were not available for my review. However, since his admission, a catheter had b een placed due to large volume retention. He underwent outpatient attempted cystoscopic evaluation, but we were unable to visualize things within his bladder sufficiently to make a diagnostic assessmen t due to the cloudiness of the urine and presence of gross hematuria. As a result, because of the im aging suspicious for a bladder mass, operative evaluation was recommended. Procedure In Detail: The patient via his family, because the patient has Alzheimer dementia and is l acking in capacity, was consented before being transferred to the operative suite where general anest hesia was induced. He was given Ancef 2 g and gentamicin 200 mg IV antimicrobial prophylaxis in tea tion to Levaquin oral antimicrobial therapy prescribed and started this morning. Pneumoboots were pr ovided for DVT prophylaxis. He was placed in the lithotomy position, padded and secured to the table appropriately. His genitalia were prepped with Hibiclens and draped in standard fashion. The case was begun using urethral sounds to dilate the meatus and fossa navicularis to 30-[place]er. Then, using the 26-[place]er resectoscope, I was able to use a visual obturator to navigate the urethra and into th e bladder with some difficulty encountered due to significant prostatic urethral obstruction that mad e identification of the true lumen difficult. Ultimately, the lumen was identified between massive i ntraluminally projecting lateral lobes that were interdigitating along with a significantly elevated median bar to identify a channel high anteriorly into his bladder. There was significant gross hemat uria and cloudiness of the urine and so this was irrigated using an Ellik evacuator and some clot was removed. Then with ongoing continuous bladder irrigation via the scope in place, I was able to surv ey the entirety of the bladder. No concerning papillary mucosal lesions were noted throughout. Ther e was some posterior erythematous mucosal change consistent with catheter trauma, but no suspicious r egions of mucosa were noted suspicious for the bladder mass or tumor seen on imaging. Instead, there was this massive intraluminally projecting median lobe of the prostate that was likely more than 6 o r 7 cm in diameter, completely obscuring any visualization of the ureteral orifices or the trigone an d in fact occupying approximately a fifth of the bladder volume. As a result, with no bladder tumor seen and inability to access the ureteral orifices to perform a retrograde pyelogram and rule out the upper tracts from having urothelial lesions, I broke scrub to go out and speak with the family, who provided consent for his procedure, and discuss with them the anatomy of what was observed. I explai romi that there was no bladder tumor seen and that the mass seen in the bladder was in fact coming fro m his prostate. As a result, I explained that given the difficulties we encountered just with bringелена alatorre him in through day surgery in terms of his dementia, to avoid having to go through that a second o ccasion, I recommended we go ahead and proceed today with a resection of that intraluminally projecti ng prostatic growth/median lobe and perform a channel TURP to the best of my ability. They agreed an d consented to the procedure and I then returned to the operative suite. Then, using the bipolar res ectoscope large loop, I began resecting this massive intravesical projecting median lobe/posterior bl adder mass. Nearly an hour of resection was required just to safely whittle this growth down to wher e the ureteral orifices were visible. Then with them in direct visualization, I continued the resect ion until the median lobe was even with the level of the bladder neck. I then continued resecting th e elevated median bar in parts, because the prostatic urethral length itself was about 6 or 7 cm in l ength, and resected this median bar all the way down to the level of the verumontanum. While there w as significant and massive lateral lobar intraluminal projection within the prostatic urethra and it was in fact interdigitating, while a small component of it needed to be resected at the bladder neck and posteriorly, I avoided trying to do a completion TURP on this occasion, recognizing his prostate was of such a large volume that he would likely have been better served with a suprapubic prostatecto my and had I had a sense of the extent of his anatomy preoperatively. So, my goal was to simply comp lete the channel TURP to give him the best opportunity to be able to void when the catheter was remov ed. Over 2 hours of resection was required to remove a significant volume of tissue and complete the channel TURP. Multiple rounds of irrigation and clot evacuation as well as prostatic chips were per formed before fulguration could be extensively completed and hemostasis achieved. I then turned my a ttention to the ureteral orifices, which were now visible easily upon entry into the bladder and clarisa ulated the right one to start using the tip of the Sensor wire and a 5-[place]er ureteral access cathete r. Because of the massive intraluminal projection of the prostate, there was some kinking at the lev el of the UVJ, which necessitated the Sensor wire just to gain access into the ureteral orifice on paulino th sides. Right retrograde pyelography: Using a 70:30 mixture of Omnipaque and saline, contrast was injected v ia the lumen of the 5-[place]er ureteral access catheter and did propagate up a slightly tortuous, but n ot ureteronephrotic ureter without evidence of filling defect before entering a nondilated renal pelv is with sharp calyces. Again, no filling defects were noted along the entirety of the course of the right ureter or within the collecting system. As a result, I removed the 5-[place]er ureteral access ca theter and again cannulated the left ureteral orifice using the tip of the Sensor wire and the 5-Fren ch ureteral access catheter. Left retrograde pyelography: Again, using that 70:30 mixture of Omnipaque and saline, contrast was i njected via the lumen of the 5-[place]er ureteral access catheter and did propagate up a nondilated dist al into the mid and proximal ureter on the left before entering a nondilated renal pelvis with sharp calyces. No filling defects were noted along the entirety of the course of the ureter or within the collecting system. There was no evidence of obstruction. As a result, I removed the 5-[place]er ureter al access cathete, having identified that the source of the gross hematuria definitively was simply c oming from the prostate itself and not from the bladder or the upper tracts. As a result, I again sinclair rveyed the prostatic fossa, which was hemostatic with the bladder decompressed and no fluid inflow; s o I removed the resectoscope and placed a 24-[place] 3-way Duron catheter into his bladder with ease a nd with 30 cc of sterile water in the balloon. The catheter was placed to moderate traction and a sl ow drip CBI and the efflux was very light pink. The patient was then taken out of the lithotomy posi tion, awakened from general anesthesia, transferred to a stretcher, and then transferred to the [facility] room in good condition. Complications: None. Discharge Disposition: He will be standard postoperative bipolar TURP pathway with anticipated disch arge tonight. He has a prescription for Levaquin that was sent yesterday evening for the next 7 days . An additional prescription for Tylenol with codeine will be sent for some pain control. Subsequen t followup should be established for next Sunday for catheter removal and voiding trial. Followup be yond that should be within the next 3 months to discuss the pathology of the resection and reassess h is PSA at that time. LORETTA/NEREYDA Voice ID: [id number] Report ID: [id number]
== END 2022-05-09 21:50 | disposition home or self-care (01) ==
LOC: OR 10:48
PROVIDERS: ATTEND Urology
PROC: 0VB08ZZ Excision of Prostate, Via Natural or Artificial Opening Endoscopic (ICD-10-PCS; principal; 2022-05-09 13:00)
DX: R33.9 Retention of urine, unspecified (principal); R31.0 Gross hematuria; N32.9 Bladder disorder, unspecified
CPT/HCPCS: 87088; 87086; 82947 ×2; 88305; 87077 ×2; 87186 ×2; 52601; J2704; J2001; J2250 ×2; J3010 ×2; J1580; J7030; J2405

== ENCOUNTER 2022-06-02 14:02 | Inpatient (IN) | payer OTHER ==
--- OUTSIDE RECORDS SUMMARY | 2022-06-02 14:07 | XMS REPORT | Continuity of Care Document ---
:1945 Author Organization [facility] t Address [address] [place] [address] [address] [place] [address] [place] [address] Care Team Providers Name Role Phone Luis King MD Primary Care Physician Luis King Attending Clinician Unavailable Casi Gordon MD Attending Clinician Monique Johnson MA Attending Clinician Unavailable Berna Bob MA Attending Clinician Unavailable Clarita JIMENEZ, Prosper Harrison Attending Clinician [phone] Lyndsay Cheng MD Attending Clinician CHASE GALLAGHER Attending Clinician Unavailable All Gomez MD Attending Clinician ALL GOMEZ Attending Clinician Unavailable MARY HONG Attending Clinician Unavailable Melania Pillai Attending Clinician [phone] Physician, Non Associated Attending Clinician Unavailable Payers Payer Name Policy Type Policy Number Effective Date Expiration Date S ource AETNA MEDICARE 53 [id number] Common S pirit PPO - [facility] MEDICARE PLAN [id number] PPO - AETNA AETNA MEDICARE [id number] HMO POS PPO 00:00:00 Problems Condition Condition Condition Status Onset Resolution Last Treating Co mments Source Name Details Category Date Date Treatment Clinician Date Late onset Late onset Disease Active [facility] Alzheimer' Alzheimer' 9-13 Co llege s disease s disease 00:00: of without without 00 Medicin behavioral behavioral e disturbanc disturbanc e (HCCode) e (HCCode) F/U 5 WKS F/U 5 WKS Diagnosis Active 2017-01-09 Memoria Active 11-13 11:00:00 l 11/13/2016 00:00: Pual snowden [facility] 00 F/U 1 F/U 1 Diagnosis Active 2016-11-07 Mem oria MONTH MONTH 09-19 10:02:00 l Active 00:00: Wayne 09/19/2016 00 MH [facility] MODERATE MODERATE Diagnosis Active 2016-09-04 Memoria DAVID DAVID Active 08-24 09:00:00 l 08/24/2016 00:00: Paul snowden [facility] 00 DAVID DAVID Diagnosis Active 2016-08-17 Mem oria Active 08-08 08:28:00 l 08/08/2016 00:00: Paul snowden T[facility] 00 [id number] Lesion of Problem Com mon bladder [facility] Disorder Bladder Problem Common of urinary disorder Spir it bladder [facility] [id number] S/P TURP Problem Comm on [facility] [id number] OAB Problem Common (overactiv Spirit e bladder) [facility] [id number] BPH loc w Problem Com mon urin Spirit obs/LUTS [facility] [id number] Gross Problem Common hematuria [facility] [id number] Postproced Problem C ommon 214[address] ural male Spirit urethral [facility] meatal [facility] [id number] Incomplete Problem Co mmon emptying Spirit of bladder [facility] [id number] Urinary Problem Commo n retention [facility] Diabetes Diabetes Problem Resolve 2017-01-12 Memoria mellitus mellitus d 00:14:12 l (disorder) (disorder) He rmann Resolved Problem 01/12/2017 type 2 MH [facility] Hypertensi Hypertens Problem Resolve 2017-01-12 Memoria ve renate d 00:14:12 l disorder, disorder, Herm seth systemic systemic arterial arterial (disorder) (disorder) Resolved Problem 01/12/2017 MH [facility] Sleep Sleep Problem Resolve 2017-01-12 Yoav erasmo apnea apnea d 00:14:12 l (finding) (finding) Herm seth Resolved Problem 01/12/2017 CPAP at bedtime MH [facility] No known No known Disease Metho di active active st problems problems Hospit a l Syncope Syncope Problem Resolve 2017-01-12 Memoria (disorder) (disorder) d 00:14:12 l Resolved [place] Problem 01/12/2017 recently had 3 syncopal episodes. 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 00:14:12 l erosis erosis [place] (disorder) (disorder) Active Problem 01/12/2017 MH [facility] Diabetes Diabetes Problem Active 2017-01-12 Memoria mellitus mellitus 00:14:12 l type 2 type 2 [place] (disorder) (disorder) Active Problem 01/12/2017 [facility] OBSTRUCTIV OBSTRUCTI Diagnosis Active 2016-11-07 Memoria E SLEEP VE SLEEP 10:02:00 l APNEA APNEA [place] (ADULT) (ADULT) (PEDIATR (PEDIATR Active [facility] Benign [...] [facility] Inhibito (Muscle rs Pain) Statins- Drug Active Other [facility] Allergy 6-15 reaction( [facility] Reductas [facility] s[facility] Medical e [facility] Inhibito (Muscle rs Pain) STATINS- Allergy Active [facility] HMG-COA 6-15 REDUCTAS 00:00: E 00 INHIBITO RS SULFA Allergy Active [facility] (SULFONA 5-19 MIDE 00:00: ANTIBIOT 00 ICS) Sulfa Drug Active Other [facility] (Sulfona Allergy 5-19 reaction( Luke s mide 00:00: s): Medical Antibiot [facility] ics) (Muscle Pain) Sulfa Propensi Active Other [facility] Antibiot ty to 5-19 reaction( Colle ge ics adverse 00:00: s): of reaction 00 Myalgias Medici n s to (Muscle e drug Pain) Sulfa Drug Active Other [facility] (Sulfona Allergy 5-19 reaction( Luke s mide 00:00: s): Medical Antibiot [facility] ics) (Muscle Pain) IODINE Allergy Active High Hives [facility] 10-13 00:00: 00 Iodine Drug Active Hives IV Iodine [facility] 10[facility]13 [facility] 00 [facility] Center allergic to shrimp but has had tests with iodine in the past without issues - 12/07/20 [place], RN Iodine Propensi Active [facility] ty to 10-13 College adverse 00:00: of reaction 00 Medicin s to e drug NO KNOWN Allergy Active [facility] ALLERGIE S 463 Drug Active Unknown Common allergy [facility] iodine iodine Active Keila Black Social History Social Habit Start Date Stop Date Quantity Comments Source History of Common Spirit - Tobacco Use [facility] Tobacco use and 2021-08-10 2021-08-10 Smokeless tobacco [facility] exposure 00:00:00 00:00:00 non-user Hospital Alcohol intake 2021-03-07 2021-03-07 Current [facility] Col lege of 00:00:00 00:00:00 non-drinker of Medicine alcohol (finding) Social History 2016-03-12 2016-03-12 Bria hall 08:02:05 08:02:05 Sex [birth year] At [birth year] [facility] 00:00:00 00:00:00 Hospital Smoking Status Start Date Stop Date Source Never Smoker [facility] Medications Ordered Filled Start Stop Current Ordering Indication Dosage Frequency Signature Comments Components Source Medication Medication Date Date Medication? Clinician (SIG) Name Name levoFLOXaci levoFLOXedgar 2021-06- No 1{table QD levoFLOXac n 500 MG n 500 MG 14 1121 t} in 500 MG 00:00: 00:00 00 :00 Trospium Trospium 2021-06- No 1{table BID Trospium Chloride 20 Chloride 20 008-22 t} Chloride MG MG 00:00: 00:00 20 MG 00 :00 Trospium Trospium 2021-06- No 1{table BID Trospium Chloride 20 Chloride 20 008-22 t} Chloride MG MG 00:00: 00:00 20 MG 00 :00 Trospium Trospium 2021-06- No 1{table BID Trospium Chloride 20 Chloride 20 008-22 t} Chloride MG MG 00:00: 00:00 20 MG 00 :00 Trospium Trospium 2021-06- No 1{table BID Trospium Chloride 20 Chloride 20 08-22 t} Chloride MG MG 00:00: 00:00 20 MG 00 :00 Trospium Trospium 2021-06- No 1{table BID Trospium Chloride 20 Chloride 20 008-22 t} Chloride MG MG 00:00: 00:00 20 MG 00 :00 Trospium Trospium 2021-06- No 1{table QD Trospium Chloride 20 Chloride 20 0-30 t_at_be Chloride MG MG 00:00: 00:00 dtime_o 20 MG 00 :00 n_an_em pty_sto mach} Trospium Trospium 2021-06- No 1{table QD Trospium Chloride 20 Chloride 20 0-30 t_at_be Chloride MG MG 00:00: 00:00 dtime_o 20 MG 00 :00 n_an_em pty_sto mach} gentamicin Yes [id number] 80mg Me thodi (GARAMYCIN) 8-23 st injection 20:15: Hospita 80 mg 00 l gentamicin Yes [id number] 80mg Me thodi (GARAMYCIN) 8-23 st injection 20:15: Hospita 80 mg 00 l cefTRIAXone 2021- No [id number] 1g [facility] (ROCEPHIN) 02-14 st injection 1 20:15: 20:14 Hospi ta g 00 :00 l cefTRIAXone 2021- No [id number] 1g [facility] (ROCEPHIN) 02-14 st injection 1 20:15: 20:14 Hospi ta g 00 :00 l levoFLOXaci 2021- No 750mg QD Take 1 Mt thodi n -10 02-[address] (Levaquin) 00:00: 04:59 (750 mg Hos lauren 750 MG 00 :00 total) by l tablet mouth daily for 5 days. levoFLOXaci 2021- No 750mg QD Take 1 Me thodi n -10 02- tablet st (Levaquin) 00:00: 04:59 (750 mg Hos lauren 750 MG 00 :00 total) by l tablet mouth daily for 5 days. levoFLOXaci 2021- No 750mg QD Take 1 Mt thodi n 10-18- tablet st (Levaquin) 00:00: 04:59 (750 mg Hos lauren 750 MG 00 :00 total) by l tablet mouth daily for 5 days. levoFLOXaci 2021- No 750mg QD Take 1 Mt thodi n -17 11- tablet st (Levaquin) 00:00: 04:59 (750 mg Hos lauren 750 MG 00 :00 total) by l tablet mouth daily for 5 days. cefTRIAXone 2021- No [id number] 1g [facility] (ROCEPHIN) 09-05 st injection 1 17:15: 17:14 Hospi ta g 00 :00 l cefTRIAXone 2021- No [id number] 1g [facility] (ROCEPHIN) 09-05- st injection 1 17:15: 17:14 Hospi ta g 00 :00 l sulfamethox 2021- No 1{tbl} Q.5D Take 1 M ethodi azole-trime 08-[address] thoprim 00:00: 05:59 mouth 2 Hospit a (BACTRIM 00 :00 (two) l DS) 800-160 times a mg per day for 5 tablet days. Start the day prior to biopsy. levoFLOXaci No 750mg QD Take 1 Me thodi n 08-[address] (Levaquin) 00:00: 05:59 (750 mg Hos lauren 750 MG 00 :00 total) by l tablet mouth daily for 5 days. Take one tablet the night before procedure, then morning of procedure until gone. sulfamethox 2021- No 1{tbl} Q.5D Take 1 M ethodi azole-trime 08-[address] thoprim 00:00: 05:59 mouth 2 Hospit a (BACTRIM 00 :00 (two) l DS) 800-160 times a mg per day for 5 tablet days. Start the day prior to biopsy. levoFLOXaci No 750mg QD Take 1 Me thodi n 08-[address] (Levaquin) 00:00: 05:59 (750 mg [...] tablet multivitami Yes Take by Met yasemin snowden with 2-[address] minerals 13:29: Hospita [...] st 13:29: mouth. Hospita 13 l cholecalcif 0 Yes 2000U QD Take 2,000 Methodi leigh ann, 2-[address] vitamin D3, 13:29: mouth Hospi ta (VITAMIN 13 daily. l D3) 2,000 unit capsule capsule calcium 0 Yes 1334mg Q.[id number] Take 1,334 [facility] acetate 2-[id number] (PHOSLO) 13:29: 3D mouth 3 Hospit a 667 mg 13 (three) l capsule times a day with meals. aspirin 0 Yes Adult Low Metho di (ADULT LOW 2-[address] DOSE 13:29: Aspirin Hospita ASPIRIN) 81 13 l MG enteric coated tablet multivitami Yes Take by Met hodi n with 2-[address] minerals 13:29: Hospita tablet 13 l glipiZIDE Yes glipizide Met hodi (GLUCOTROL) 2-[address] 5 MG tablet 13:29: tablet Hosp cleopatra 13 Take 1 l tablet twice a day by oral route. finasteride Yes finasterid [facility] (PROSCAR) 5 2-[address] mg tablet 13:29: tablet Hospit a 13 l etodolac 0 Yes etodolac Metho di (LODINE) 2-[address] 500 MG 13:29: tablet Hospita tablet 13 l canaglifloz 0 Yes 300mg Take 300 M ethodi in 300 mg 2-[address] tablet 13:29: mouth. Hospita 13 l aspirin 325 2021-0 Yes 325mg Take 325 M ethodi MG tablet 2-[address] 13:29: mouth. Hospita 13 l cholecalcif 0 Yes 2000U QD Take 2,000 Methodi leigh ann, 2-[address] vitamin D3, 13:29: mouth Hospi ta (VITAMIN 13 daily. l D3) 2,000 unit capsule capsule calcium 0 Yes 1334mg Q.[id number] Take 1,334 [facility] acetate 2-[id number] (PHOSLO) 13:29: 3D mouth 3 Hospit a 667 mg 13 (three) l capsule times a day with meals. Cyanocobala Yes Take by [facility] julius min 9-13 mouth. [place] (VITAMIN B 09:27: of 12 OR) 38 Medicin e Turmeric Yes Take by [facility] (QC TUMERIC - mouth. Colleg e COMPLEX) 09:27: of 500 MG CAPS 38 Medicin e Red Yeast 0 Yes Take by [facility] r [place] 500 - mouth. [place] MG/0.5GM 09:27: of POWD 38 Medicin e [place]-3 Yes Take by [facility] 1000 MG - mouth. [place] CAPS 09:27: of 38 Medicin e donepezil Yes 10mg Take 10 mg [facility] (ARICEPT) -13 by mouth Colleg e 10 MG 09:27: two times of tablet 38 daily. Medicin e memantine Yes 10mg Take 10 mg [facility] (NAMENDA) 03-07 by mouth Colleg e 10 MG 09:27: two times of tablet 38 daily. Medicin e metformin Yes 1000mg Take 1,000 [facility] (GLUCOPHAGE 9-13 mg by [place] ) 1000 MG 09:27: mouth 2 of tablet 38 times Medicin daily e (with meals). olmesartan Yes 40mg Take 40 mg [facility] (BENICAR) 03-07 by mouth Colleg e 40 MG 09:27: daily. of tablet 38 Medicin e Insulin Yes Inject [facility] NPH, 03-07 into the [place] Human,, 09:27: skin. of Isophane, 38 Medicin (NOVOLIN N e FLEXPEN) 100 UNIT/ML SUPN aspirin 325 Yes 325mg Take 325 B [facility]or mg tablet -13 mg by [place] 09:27: mouth of 38 daily. Medicin e Tamsulosin Yes Take by [facility] or HCl 0.4 MG - mouth. [place] CAPS 09:27: of 38 Medicin e Multiple 0 Yes Take by [facility] Vitamins-Mi - mouth. Colleg e nerals 09:27: of (CARY MULTI 38 Medicin MEN OR) e Cyanocobala 0 Yes Take by [facility] julius min -13 mouth. [place] (VITAMIN B 09:27: of 12 OR) 38 Medicin e Turmeric 2021-0 Yes Take by [facility] (QC TUMERIC - mouth. Colleg e COMPLEX) 09:27: of 500 MG CAPS 38 Medicin e Red Yeast Yes Take by [facility] r Rice 500 03-07 mouth. College MG/0.5GM 09:27: of POWD 38 Medicin e [place]-3 Yes Take by [facility] 1000 MG 03-07 mouth. [place] CAPS 09:27: of 38 Medicin e donepezil Yes 10mg Take 10 mg [facility] (ARICEPT) 03-07 by mouth Colleg e 10 MG 09:27: two times of tablet 38 daily. Medicin e memantine Yes 10mg Take 10 mg [facility] (NAMENDA) 03-07 by mouth Colleg e 10 MG 09:27: two times of tablet 38 daily. Medicin e metformin Yes 1000mg Take 1,000 [facility] (GLUCOPHAGE 9- mg by [place] ) 1000 MG 09:27: mouth 2 of tablet 38 times Medicin daily e (with meals). olmesartan Yes 40mg Take 40 mg [facility] (BENICAR) 03-07 by mouth Colleg e 40 MG 09:27: daily. of tablet 38 Medicin e Insulin Yes Inject [facility] NPH, 03-07 into the [place] Human,, 09:27: skin. of Isophane, 38 Medicin (NOVOLIN N e FLEXPEN) 100 UNIT/ML SUPN aspirin 325 Yes 325mg Take 325 [facility] mg tablet - mg by [place] 09:27: mouth of 38 daily. Medicin e Tamsulosin Yes Take by [facility] or HCl 0.4 MG 03-07 mouth. [place] CAPS 09:27: of 38 Medicin e Multiple Yes Take by [facility] Vitamins-Mi - mouth. [place] e nerals 09:27: of (CARY MULTI 38 Medicin MEN OR) e sertraline 0 Yes 1/2 tab PO [facility] (ZOLOFT) 50 9-13 daily x 2 Col lege MG tablet 00:00: weeks then of 00 increase Medicin to one tab e daily and continue sertraline 0 Yes 1/2 tab PO [facility] (ZOLOFT) 50 9-13 daily x 2 Col lege MG tablet 00:00: weeks increase Medicin to one tab e daily and continue ONETOUCH 2017-06 Yes USE STRIPS Met hodi ULTRA BLUE 2-[address] TEST STRIP 00:00: BLOOD Hospit a strip test 00 GLUCOSE 2 l strips TIMES EVERYDAY ONETOUCH 2017-06 Yes USE STRIPS Met hodi ULTRA BLUE 2-[address] TEST STRIP 00:00: BLOOD Hospit a strip test 00 GLUCOSE 2 l strips TIMES EVERYDAY memantine 2017-06 Yes 10mg Q.5D Take 10 mg Me thodi (NAMENDA) 2-[address] 10 MG 00:00: (two) Hospita tablet 00 times a l day. memantine 2017-06 Yes 10mg Q.5D Take 10 [...] daily. l HCT) 20-12.5 mg per tablet tamsulosin 2017-06 Yes .4mg QD Take 0.4 [...] tablet 00 (two) l times a day. metFORMIN 2017-06 Yes 1000mg Q.5D Take 1,000 [facility] (GLUCOPHAGE 1-[address] ) 1,000 mg 00:00: mouth 2 Hosp cleopatra tablet 00 (two) l times a day. donepezil 2017-06 Yes 5mg QD Take 5 mg Met hodi (ARICEPT) 5 0-[address] MG tablet 00:00: daily. Hospit a 00 l donepezil 2017-06 Yes 5mg QD Take 5 mg Met hodi (ARICEPT) 5 0-[address] MG tablet 00:00: daily. Hospit a 00 l Tamsulosin Tamsulosin No 1{capsu QD Tamsulosin HCl 0.4 MG HCl 0.4 MG le} HCl 0.4 MG Aspirin 325 Aspirin 325 No 1{table QD Aspirin MG MG t} 325 MG Memantine Memantine No 1{table QD Memantine HCl 10 MG HCl 10 MG t} HCl 10 MG Olmesartan Olmesartan No 1{table QD Olmesartan Medoxomil-H Medoxomil-H t} Medoxomil- CTZ 40-12.5 CTZ 40-12.5 HCTZ MG MG 40-12.5 MG Donepezil Donepezil No 1{table QD Donepezil HCl 23 MG HCl 23 MG t_at_be HCl 23 MG dtime} NovoLOG NovoLOG No NovoLOG Tamsulosin Tamsulosin No 1{capsu QD Tamsulosin HCl 0.4 MG HCl 0.4 MG le} HCl 0.4 MG Memantine Memantine No 1{table QD Memantine HCl 10 MG HCl 10 MG t} HCl 10 MG Olmesartan Olmesartan No 1{table QD Olmesartan Medoxomil-H Medoxomil-H t} Medoxomil- CTZ 40-12.5 CTZ 40-12.5 HCTZ MG MG 40-12.5 MG NovoLOG NovoLOG No NovoLOG Donepezil Donepezil No 1{table QD Donepezil HCl 23 MG HCl 23 MG t_at_be HCl 23 MG dtime} Aspirin 325 Aspirin 325 No 1{table QD Aspirin MG MG t} 325 MG Donepezil Donepezil No 1{table QD Donepezil HCl 23 MG HCl 23 MG t_at_be HCl 23 MG dtime} NovoLOG NovoLOG No NovoLOG Olmesartan Olmesartan No 1{table QD Olmesartan Medoxomil-H Medoxomil-H t} Medoxomil- CTZ 40-12.5 CTZ 40-12.5 HCTZ MG MG 40-12.5 MG Aspirin 325 Aspirin 325 No 1{table QD Aspirin MG MG t} 325 MG Memantine Memantine No 1{table QD Memantine HCl 10 MG HCl 10 MG t} HCl 10 MG Tamsulosin Tamsulosin No 1{capsu QD Tamsulosin HCl 0.4 MG HCl 0.4 MG le} HCl 0.4 MG Olmesartan Olmesartan No 1{table QD Olmesartan Medoxomil-H Medoxomil-H t} Medoxomil- CTZ 40-12.5 CTZ 40-12.5 HCTZ MG MG 40-12.5 MG Tamsulosin Tamsulosin No 1{capsu QD Tamsulosin HCl 0.4 MG HCl 0.4 MG le} HCl 0.4 MG Donepezil Donepezil No 1{table QD Donepezil HCl 23 MG HCl 23 MG t_at_be HCl 23 MG dtime} Memantine Memantine No 1{table QD Memantine HCl 10 MG HCl 10 MG t} HCl 10 MG Aspirin 325 Aspirin 325 No 1{table QD Aspirin MG MG t} 325 MG NovoLOG NovoLOG No NovoLOG Olmesartan Olmesartan No 1{table QD Olmesartan Medoxomil-H Medoxomil-H t} Medoxomil- CTZ 40-12.5 CTZ 40-12.5 HCTZ MG MG 40-12.5 MG Aspirin 325 Aspirin 325 No 1{table QD Aspirin MG MG t} 325 MG Donepezil Donepezil No 1{table QD Donepezil HCl 23 MG HCl 23 MG t_at_be HCl 23 MG dtime} Tamsulosin Tamsulosin No 1{capsu QD Tamsulosin HCl 0.4 MG HCl 0.4 MG le} HCl 0.4 MG NovoLOG NovoLOG No NovoLOG Memantine Memantine No 1{table QD Memantine HCl 10 MG HCl 10 MG t} HCl 10 MG Olmesartan Olmesartan No 1{table QD Olmesartan Medoxomil-H Medoxomil-H t} Medoxomil- CTZ 40-12.5 CTZ 40-12.5 HCTZ MG MG 40-12.5 MG Memantine Memantine No 1{table QD Memantine HCl 10 MG HCl 10 MG t} HCl 10 MG Aspirin 325 Aspirin 325 No 1{table QD Aspirin MG MG t} 325 MG Tamsulosin Tamsulosin No 1{capsu QD Tamsulosin HCl 0.4 MG HCl 0.4 MG le} HCl 0.4 MG Donepezil Donepezil No 1{table QD Donepezil HCl 23 MG HCl 23 MG t_at_be HCl 23 MG dtime} NovoLOG NovoLOG No NovoLOG Olmesartan Olmesartan No 1{table QD Olmesartan Medoxomil-H Medoxomil-H t} Medoxomil- CTZ 40-12.5 CTZ 40-12.5 HCTZ MG MG 40-12.5 MG Memantine Memantine No 1{table QD Memantine HCl 10 MG HCl 10 MG t} HCl 10 MG Aspirin 325 Aspirin 325 No 1{table QD Aspirin MG MG t} 325 MG Tamsulosin Tamsulosin No 1{capsu QD Tamsulosin HCl 0.4 MG HCl 0.4 MG le} HCl 0.4 MG Donepezil Donepezil No 1{table QD Donepezil HCl 23 MG HCl 23 MG t_at_be HCl 23 MG dtime} NovoLOG NovoLOG No NovoLOG Tamsulosin Tamsulosin No 1{capsu QD Tamsulosin HCl 0.4 MG HCl 0.4 MG le} HCl 0.4 MG Aspirin 325 Aspirin 325 No 1{table QD Aspirin MG MG t} 325 MG Memantine Memantine No 1{table QD Memantine HCl 10 MG HCl 10 MG t} HCl 10 MG Olmesartan Olmesartan No 1{table QD Olmesartan Medoxomil-H Medoxomil-H t} Medoxomil- CTZ 40-12.5 CTZ 40-12.5 HCTZ MG MG 40-12.5 MG Donepezil Donepezil No 1{table QD Donepezil HCl 23 MG HCl 23 MG t_at_be HCl 23 MG dtime} NovoLOG NovoLOG No NovoLOG Immunizations Ordered Immunization Filled Immunization Date Status Commen ts Source Name Name pneumococcal 2016-03-12 Completed [facility] 13-valent vaccine 22:35:00 [place] pneumococcal 2016-03-12 Completed [facility] 13-valent vaccine 22:35:00 [place] Vital Signs Vital Name Observation Time Observation Value Comments Source height 2022-05-26 12:45:00 71 [in_i] Common [facility] weight 2022-05-26 12:45:00 172.4 [lb_av] Common [facility] temperature 2022-05-26 12:45:00 98 [degF] [facility] bmi 2022-05-26 12:45:00 24.04 kg/m2 [facility] oximetry 2022-05-26 12:45:00 98 % [facility] respiratory rate 2022-05-26 12:45:00 16 /min Comm on [facility] blood pressure 2022-05-26 12:45:00 184 mm[Hg] Common [facility] - systolic [facility] blood pressure 2022-05-26 12:45:00 88 mm[Hg] [facility] diastolic [facility] height 2022-05-24 13:45:00 71 [in_i] Common [facility] weight 2022-05-24 13:45:00 171 [lb_av] Common [facility] temperature 2022-05-24 13:45:00 97.9 [degF] Common [facility] bmi 2022-05-24 13:45:00 23.85 kg/m2 [facility] oximetry 2022-05-24 13:45:00 99 % [facility] respiratory rate 2022-05-24 13:45:00 18 /min Comm on [facility] blood pressure 2022-05-24 13:45:00 181 mm[Hg] Common [facility] - systolic [facility] blood pressure 2022-05-24 13:45:00 77 mm[Hg] [facility] - diastolic [facility] height 2022-04-21 10:45:00 71 [in_i] [facility] weight 2022-04-21 10:45:00 177.4 [lb_av] Common [facility] - [facility] temperature 2022-04-21 10:45:00 98 [degF] Common [facility] bmi 2022-04-21 10:45:00 24.74 kg/m2 [facility] oximetry 2022-04-21 10:45:00 96 % [facility] respiratory rate 2022-04-21 10:45:00 18 /min Comm on [facility] blood pressure 2022-04-21 10:45:00 145 mm[Hg] Common [facility] - systolic [facility] blood pressure 2022-04-21 10:45:00 65 mm[Hg] Common [facility] - diastolic [facility] Systolic blood 2021-03-07 14:30:00 162 mm[Hg] [facility] pressure Medicine Diastolic blood 2021-03-07 14:30:00 73 mm[Hg] [facility] pressure Medicine Heart rate 2021-03-07 14:30:00 65 /min [facility] Body height 2021-03-07 14:26:00 180.3 cm [facility] Body weight 2021-03-07 14:26:00 85.276 kg [facility] BMI 2021-03-07 14:26:00 26.22 kg/m2 [facility] BMI Calculated 2017-01-09 16:43:00 Andrés Padilla Weight 2017-01-09 16:43:00 Bria Black Systolic (mm Hg) 2017-01-09 16:43:00 Yoav Black Diastolic (mm Hg) 2017-01-09 16:43:00 Hong Black Heart Rate 2017-01-09 16:43:00 Bria Black Respitory Rate 2017-01-09 16:43:00 Andrés Padilla Height 2017-01-09 16:43:00 180.34 cm [facility] Height 2016-11-07 15:08:00 180.34 cm [facility] BMI Calculated 2016-11-07 15:08:00 Andrés Padilla Weight 2016-11-07 15:08:00 [facility] Heart Rate 2016-11-07 15:08:00 [facility] Respitory Rate 2016-11-07 15:08:00 Andrés wharton [place] Systolic (mm Hg) 2016-11-07 15:08:00 Yoav guevara [place] Diastolic (mm Hg) 2016-11-07 15:08:00 Mem orial [place] Procedures Procedure Date / Time Performed Performing Clinician [facility] e BIOPSY PROSTATE 2022-02-16 00:00:00 Casi Gordon POC URINALYSIS DIPSTICK 2022-02-14 20:09:25 Casi Gordon [facility] CYTOLOGY 2021-09-07 04:00:00 Casi Gordon (NON-GYNECOLOGICAL) REQUEST POC URINALYSIS DIPSTICK 2021-09-05 17:19:00 Casi Gordon [facility] CT ABDOMEN W WO 2021-08-27 19:36:34 Prosper Otto CONTRAST PELVIS W WO Christy CONTRAST POC CREATININE 2021-08-27 18:39:00 Casi Gordon ESTIMATED GFR 2021-08-27 18:39:00 Casi Gordontal 4K PSA TOTAL + FREE 2021-08-19 00:00:[address] [place] [facility] REFLEX > 3.0 TO 4KSCORE Christy URINALYSIS SCREEN AND 2021-08-10 20:20:00 [facility] MICROSCOPY, WITH REFLEX Christy TO CULTURE [id number] 2021-08-10 20:19:00 Prosper Otto PROSTATE SCORE 4K 2021-08-10 20:15:[address] [place] [facility] (SERUM) URINE CULTURE 2021-08-10 20:09:00 Prosper Otto Christy POC URINALYSIS DIPSTICK 2021-08-10 20:08:[address] [facility] Endoscopy<sup>1</sup> [facility] isabel Procedure<sup>4</sup> [facility] Plan of Care Planned Activity Planned Date Details Comments Source Future Scheduled 2022-04-28 HEPATITIS B VACCINES Met [facility] Test 12:49:32 (1 of 3 - 3-dose series) [code = HEPATITIS B VACCINES (1 of 3 - 3-dose series)] Future Scheduled 2022-04-28 Hepatitis C screening [facility] Test 12:49:32 (procedure) [code = [id number]] Future Scheduled 2022-04-28 COLONOSCOPY SCREENING [facility] Test 12:49:32 [code = COLONOSCOPY SCREENING] Future Scheduled 2022-04-28 SHINGLES VACCINES (1 Met [facility] Test 12:49:32 of 2) [code = SHINGLES VACCINES (1 of 2)] Future Scheduled 2022-04-28 65[facility] VACCINE (2 - PPSV23 if available, else PCV20) [code = 65+ PNEUMOCOCCAL VACCINE (2 - PPSV23 if available, else PCV20)] Future Scheduled 2022-04-28 COVID-19 VACCINE (3 - [facility] Test 12:49:32 Booster for Moderna series) [code = COVID-19 VACCINE (3 - Booster for Moderna series)] Future Scheduled 2022-04-28 INFLUENZA VACCINE Method [facility] Test 12:49:32 [code = INFLUENZA VACCINE] Future Scheduled 2022-04-17 HEPATITIS B VACCINES Met [facility] Test 08:58:53 (1 of 3 - 3-dose series) [code = HEPATITIS B VACCINES (1 of 3 - 3-dose series)] Future Scheduled 2022-04-17 Hepatitis C screening [facility] Test 08:58:53 (procedure) [code = [id number]] Future Scheduled 2022-04-17 COLONOSCOPY SCREENING [facility] Test 08:58:53 [code = COLONOSCOPY SCREENING] Future Scheduled 2022-04-17 SHINGLES VACCINES (1 Met [facility] Test 08:58:53 of 2) [code = SHINGLES VACCINES (1 of 2)] Future Scheduled 2022-04-17 65[facility] 08:58:53 VACCINE (2 - PPSV23 if available, else PCV20) [code = 65+ PNEUMOCOCCAL VACCINE (2 - PPSV23 if available, else PCV20)] Future Scheduled 2022-04-17 COVID-19 VACCINE ([facility] - [facility] Test 08:58:53 Booster for Moderna series) [code = COVID-19 VACCINE (3 - Booster for Moderna series)] Future Scheduled 2022-04-17 INFLUENZA VACCINE [facility] Test 08:58:53 [code = INFLUENZA VACCINE] Future Scheduled 2022-02-23 INFLUENZA VACCINE (#1) [facility] 00:[facility]00 [code = INFLUENZA Medical Ce nter VACCINE (#1)] Future Scheduled 2022-02-23 INFLUENZA VACCINE (#1) [facility] Test 00:00:00 [code = INFLUENZA Medical Ce nter VACCINE (#1)] Future Scheduled 2021-06-[address] [facility] Test 00:00:00 (12+) [code = Medical Center DEPRESSION SCREENING (12+)] Future Scheduled 2021-06-25 FALLS RISK SCREENING [facility] Test 00:00:00 [code = FALLS RISK Medical C enter SCREENING] Future Scheduled 2021-06-[address] [facility] Test 00:00:00 (12+) [code = Medical Center DEPRESSION SCREENING (12+)] Future Scheduled 2021-06-25 FALLS RISK SCREENING [facility] Test 00:00:00 [code = FALLS RISK Medical C enter SCREENING] Future Scheduled 2021-03-07 Screening for [facility] of Test 09:26:59 malignant neoplasm of Medici ne colon (procedure) [code = [id number]] Future Scheduled 2021-03-07 COVID-19 Vaccine (1) [facility] of Test 09:26:59 [code = COVID-19 Medicine Vaccine (1)] Future Scheduled 2021-03-07 TETANUS SHOT (ADULT) [facility] Test 09:26:59 [code = TETANUS SHOT Medicin e (ADULT)] Future Scheduled 2021-03-07 BMI FOLLOW UP PLAN [facility] of Test 09:26:59 [code = BMI FOLLOW UP Medici ne PLAN] Future Scheduled 2021-03-07 Hepatitis C screening [facility] of Test 09:26:59 (procedure) [code = Medicine [id number]] Future Scheduled 2021-03-07 ZOSTER VACCINE (1 of [facility] of Test 09:26:59 2) [code = ZOSTER Medicine VACCINE (1 of 2)] Future Scheduled 2021-03-07 FALL SCREEN [code = [facility] of Test 09:26:59 FALL SCREEN] Medicine Future Scheduled 2021-03-07 PNEUMOVAX >=65 [facility] Test 09:26:59 (PPSV23) [code = Medicine PNEUMOVAX >=65 (PPSV23)] Future Scheduled 2021-03-07 MEDICARE AWV (Initial) B [facility] of Test 09:26:59 [code = MEDICARE AWV Medicin e (Initial)] Future Scheduled 2021-03-07 FLU VACCINE > 6 MONTHS B [facility] of Test 09:26:59 [code = FLU VACCINE > Medici ne 6 MONTHS] Future Scheduled 2021-03-07 Screening for [facility] of Test 09:26:59 malignant neoplasm of Medici ne colon (procedure) [code = [id number]] Future Scheduled 2021-03-07 COVID-19 Vaccine (1) [facility] of Test 09:26:59 [code = COVID-19 Medicine Vaccine (1)] Future Scheduled 2021-03-07 TETANUS SHOT (ADULT) [facility] Test 09:26:59 [code = TETANUS SHOT Medicin e (ADULT)] Future Scheduled 2021-03-07 BMI FOLLOW UP PLAN [facility] of Test 09:26:59 [code = BMI FOLLOW UP Medici ne PLAN] Future Scheduled 2021-03-07 Hepatitis C screening [facility] of Test 09:26:59 (procedure) [code = Medicine [id number]] Future Scheduled 2021-03-07 ZOSTER VACCINE (1 of [facility] of Test 09:26:59 2) [code = ZOSTER Medicine VACCINE (1 of 2)] Future Scheduled 2021-03-07 FALL SCREEN [code = [facility] of Test 09:26:59 FALL SCREEN] Medicine Future Scheduled 2021-03-07 PNEUMOVAX >=65 [facility] Test 09:26:59 (PPSV23) [code = Medicine PNEUMOVAX >=65 (PPSV23)] Future Scheduled 2021-03-07 MEDICARE AWV (Initial) B [facility] Test 09:26:59 [code = MEDICARE AWV Medicin e (Initial)] Future Scheduled 2021-03-07 FLU VACCINE > 6 MONTHS B [facility] Test 09:26:59 [code = FLU VACCINE > Medici ne 6 MONTHS] Future Scheduled 2014-06-[address] [facility] Test 00:00:00 WELLNESS (YEAR 2 or Medical Center FIRST YEAR if no IPPE) [code = MEDICARE ANNUAL WELLNESS (YEAR 2 or FIRST YEAR if no IPPE)] Future Scheduled 2014-06-[address] [facility] Test 00:00:00 WELLNESS (YEAR 2 or Medical Center FIRST YEAR if no IPPE) [code = MEDICARE ANNUAL WELLNESS (YEAR 2 or FIRST YEAR if no IPPE)] Future Scheduled 2012-08-30 PNEUMOCOCCAL 65+ YRS [facility] Test 00:00:00 (1 - PCV) [code = Medical Ce nter PNEUMOCOCCAL 65+ YRS (1 - PCV)] Future Scheduled 2012-08-30 PNEUMOCOCCAL 65+ YRS [facility] Test 00:00:00 (1 - PCV) [code = Medical Ce nter PNEUMOCOCCAL 65+ YRS (1 - PCV)] Future Scheduled 1997-08-30 SHINGLES VACCINES ([address] [facility] Test 00:00:00 of 2) [code = SHINGLES Medic al Center VACCINES (1 of 2)] Future Scheduled 1997-08-30 SHINGLES VACCINES ([address] [facility] Test 00:00:00 of 2) [code = SHINGLES Medic al Center VACCINES (1 of 2)] Future Scheduled 1966-08-30 DTAP/TDAP/TD [facility]ACCINES [facility] Test 00:00:00 (1 - Tdap) [code = Medical C enter DTAP/TDAP/TD VACCINES (1 - Tdap)] Future Scheduled 1966-08-30 DTAP/TDAP/TD [facility]ACCINES [facility] Test 00:00:00 (1 - Tdap) [code = Medical C enter DTAP/TDAP/TD VACCINES (1 - Tdap)] Future Scheduled 1965-08-30 HEPATITIS C [facility]CRE[facility]ING [facility] Test 00:00:00 [code = HEPATITIS C Medical Center SCREENING] Future Scheduled 1965-08-30 HEPATITIS C [facility]CRE[facility]ING [facility] Test 00:00:00 [code = HEPATITIS C Medical Center SCREENING] Future Scheduled [address] [facility] Test 00:00:00 Counseling and Medical Cente r Screening (12+) [code = Tobacco Cessation Counseling and Screening (12+)] Future Scheduled 1948-03-02 COVID-19 VACCINE (#1) [facility] Test 00:00:00 [code = COVID-[address] VACCINE (#1)] Future Scheduled 1948-03-02 COVID-19 VACCINE (#1) [facility] Test 00:00:00 [code = COVID-[address] VACCINE (#1)] Future Scheduled [address] [facility] Test 00:[facility]:00 malignant neoplasm of Medica l Center colon (procedure) [code = [id number]] Future Scheduled [address] [facility] Test 00:00:00 malignant neoplasm of Medica l Center colon (procedure) [code = 006423516] Future Scheduled [address] [facility] Test 00:00:00 malignant neoplasm of Medica l Center colon (procedure) [code = 586065721] Future Scheduled [address] [facility] Test 00:00:00 malignant neoplasm of Medica l Center colon (procedure) [code = 922532565] Future Scheduled 1947 Sigmoidoscopy [code = [facility] S[facility]oscopy] Medical Cente r Future Scheduled [address] [facility] Test 00:00:00 (combo) [code = CT Medical C enter Colonography (combo)] Future Scheduled [address] [facility] Test 00:00:00 malignant neoplasm of Medica l Center colon (procedure) [code = 294407315] Future Scheduled [address] [facility] Test 00:00:00 malignant neoplasm of Medica l Center colon (procedure) [code = 825619210] Future Scheduled [address] [facility] Test 00:00:00 malignant neoplasm of Medica l Center colon (procedure) [code = 549178204] Future Scheduled 1947 Sigmoidoscopy [facility]code = [facility] Test 00:[facility] Sigmoidoscopy] Medical Cente r Future Scheduled [address] [facility] Test 00:00:00 (combo) [code = CT Medical C enter Colonography (combo)] Future Scheduled [address] [facility] Test 00:00:00 malignant neoplasm of Medica l Center colon (procedure) [code = 768098251] Encounters Start End Encounter Admission Attending Care Care Encounter Source Date/Time Date/Time Type Type Clinicians Facility Department ID 2022-06-01 Outpatient Christine, STLMLC STLMLC [id number] 2 Common 10:39:08 Luis [facility] 2022-05-09 Outpatient Christine, STLMLC STLMLC [id number] 2 Common 08:34:02 Luis [facility] 2022-04-21 Outpatient Christine, STLMLC STLMLC [id number] 2 Common 10:14:04 Luis [facility] 2022-05-31 2022-05-31 OFFICE STLMLC STLMLC [id number] Co mmon 00:00:00 00:00:00 VISIT Spirit ESTAB PT - [facility] LEVEL 1 [facility] 2022-05-26 2022-05-26 OFFICE STLMLC STLMLC [id number] Co mmon 00:00:00 00:00:00 VISIT EST Spir it PT LEVEL 3 - [facility] 2022-05-24 2022-05-24 Postop STLMLC STLMLC [id number] Co mmon 00:00:00 00:00:00 visit Spirit - [facility] 2022-05-24 2022-05-24 (TEL) STLMLC STLMLC [id number] Co mmon 00:00:00 00:00:00 [facility] 2022-05-15 2022-05-15 Postop STLMLC STLMLC [id number] Co mmon 00:00:00 00:00:00 visit [facility] 2022-05-08 2022-05-08 (TEL) STLMLC STLMLC [id number] Co mmon 00:00:00 00:00:00 Spirit - [facility] 2022-04-24 2022-04-24 (TEL) STLMLC STLMLC [id number] Co mmon 00:00:00 00:00:00 Spirit - [facility] 2022-04-21 2022-04-21 OFFICE STLMLC STLMLC [id number] Co mmon 00:00:00 00:00:00 VISIT [facility] LEVEL 4 [facility] 2022-04-17 2022-04-17 Telephone Miles, 1.2.840.1 [id number] 2100 [id number] Methodi 00:00:00 00:00:[address] 3.430.2.7 Hospit a .3.641189 l .8 2022-04-17 2022-04-17 Telephone Miles, 1.2.840.1 [id number] 2100 871503 Methodi 00:00:00 00:00:[address] 3.430.2.7 Hospit a .3.050961 l .8 2022-02-18 2022-02-18 Orders Miles, 1.2.840.1 684504057 523735 6161 Methodi 00:00:00 00:00:00 Only Casi Romero 14890.1.[address] 3.430.2.7 Hospit a .3.886376 l .8 2022-02-18 2022-02-18 Orders Miles, 1.2.840.1 [id number] 836993 7928 Methodi 00:00:00 00:00:00 Only Casi Romero 69176.1.[address] 3.430.2.7 Hospit a .3.525129 l .8 2022-02-17 2022-02-17 Telephone Miles, 1.2.840.1 [id number] 2100 548601 Methodi 00:00:00 00:00:[address] 3.430.2.7 Hospit a .3.841307 l .8 2022-02-17 2022-02-17 Telephone Miles, 1.2.840.1 514626998 2100 201343 Methodi 00:00:00 00:00:[address] 3.430.2.7 Hospit a .3.828239 l .8 2022-02-15 2022-02-15 Telephone Miles, 1.2.840.1 [id number] 2099 967108 Methodi 00:00:00 00:00:[address] 3.430.2.7 Hospit a .3.873885 l .8 2022-02-15 2022-02-15 Telephone Miles, 1.2.840.1 [id number] 2099 009190 Methodi 00:00:00 00:00:[address] 3.430.2.7 Hospit a .3.418700 l .8 2022-02-14 2022-02-14 Office Miles, 1.2.840.1 [id number] 469869 5312 Methodi 14:45:00 15:15:00 Visit Casi Romero 47368.1.[address] 3.430.2.7 Hospit a .3.858873 l .8 2022-02-14 2022-02-14 Office Miles, 1.2.840.1 157050069 706533 5476 Methodi 14:45:00 15:15:00 Visit Casi Romero 77119.1.[address] 3.430.2.7 Hospit a .3.618574 l .8 2022-02-14 2022-02-14 Travel 1.2.840.1 1.2.661.648 5598 634448 Methodi 00:00:00 00:00:[address] 3.430.2.7 0.2.7.3.698 Ho spita .3.117711 084.8 l .8 2022-02-14 2022-02-14 Outpatient MILES, [facility] [id number] [address] [place] [address] 00:00:00 00:00:00 CASI Bernal Method i st 2022-02-14 2022-02-14 Travel 1.2.840.1 1.2.381.633 2384 480699 Methodi 00:00:00 00:00:[address] 3.430.2.7 0.2.7.3.698 Ho spita .3.059893 084.8 l .8 2022-02-10 2022-02-10 Orders Johnson, 1.2.840.1 [id number] 08523 Methodi 00:00:00 00:00:00 Only Monique 94387.1.[address] 3.430.2.7 Hospit a .3.475963 l .8 2022-02-10 2022-02-10 Orders Johnson, 1.2.840.1 [id number] 22041 Methodi 00:00:00 00:00:00 Only Monique 70166.1.[address] 3.430.2.7 Hospit a .3.374913 l .8 2022-02-09 2022-02-09 Telephone Miles, 1.2.840.1 [id number] 2099 631570 Methodi 00:00:00 00:00:[address] 3.430.2.7 Hospit a .3.781470 l .8 2022-02-09 2022-02-09 Telephone Miles, 1.2.840.1 [id number] 2099 574993 Methodi 00:00:00 00:00:[address] C[address] 3.430.2.7 Hospit a .3.749675 l .8 2021-12-19 2021-12-19 Telephone Miles, 1.2.840.1 109113684 2099 076668 Methodi 00:00:00 00:00:[address] 3.430.2.7 Hospit a .3.206438 l .8 2021-12-19 2021-12-19 Telephone Miles, 1.2.840.1 [id number] 2099 722838 Methodi 00:00:00 00:00:[address] 3.430.2.7 Hospit a .3.155563 l .8 2021-12-06 2021-12-06 Telephone Miles, 1.2.840.1 [id number] 2099 284616 Methodi 00:00:00 00:00:[address] 3.430.2.7 Hospit a .3.026753 l .8 2021-12-06 2021-12-06 Telephone Miles, 1.2.840.1 [id number] 2099 964876 Methodi 00:00:00 00:00:[address] 3.430.2.7 Hospit a .3.858653 l .8 2021-10-18 2021-10-18 Telephone Johnson, 1.2.840.1 [id number] 717 [id number] Methodi 00:00:00 00:00:[address] 3.430.2.7 Hospit a .3.806160 l .8 2021-10-18 2021-10-18 Telephone Johnson, 1.2.840.1 [id number] 567 [id number] Methodi 00:00:00 00:00:[address] 3.430.2.7 Hospit a .3.838584 l .8 2021-10-10 2021-10-10 Ancillary Miles, 1.2.840.1 [id number] 2099 839770 Methodi 11:00:00 11:30:00 Procedure Casi Romero 36961.1.1 268 [address] t 3.430.2.7 Hospit a .3.050044 l .8 2021-10-10 2021-10-10 Ancillary Miles, 1.2.840.1 [id number] 2099 568918 Methodi 11:00:00 11:30:00 Procedure Casi Romero 22257.1.1 268 s t 3.430.2.7 Hospit a .3.338741 l .8 2021-10-10 2021-10-10 [facility] [id number] [address] [place] [address] 00:00:00 00:00:00 CASI Fitzgerald Method i st 2021-10-10 2021-10-10 Travel 1.2.840.1 1.2.406.127 0197 584776 Methodi 00:00:00 00:00:[address] 3.430.2.7 0.2.7.3.698 Ho spita .3.068501 084.8 l .8 2021-10-10 2021-10-10 Travel 1.2.840.1 1.2.708.281 8203 755422 Methodi 00:00:00 00:00:[address] 3.430.2.7 0.2.7.3.698 Ho spita .3.290639 084.8 l .8 2021-09-05 2021-09-13 Procedure Miles, 1.2.840.1 [id number] 2099 315691 Methodi 10:15:00 10:43:48 visit Casi Romero 36464.1.[address] 3.430.2.7 Hospit a .3.282409 l .8 2021-09-05 2021-09-13 Procedure Miles, 1.2.840.1 563791569 2099 626327 Methodi 10:15:00 10:43:48 visit Casi Romero 19763.1.[address] 3.430.2.7 Hospit a .3.447472 l .8 2021-09-06 2021-09-06 Lab Miles, 1.2.840.1 488346951 447237 3078 Methodi 14:55:00 15:00:00 C[address] 3.430.2.7 Hospit a .3.306367 l .8 2021-09-06 2021-09-06 Lab Miles, 1.2.840.1 783642883 492722 0125 Methodi 14:55:00 15:00:[address] 3.430.2.7 Hospit a .3.643112 l .8 2021-09-05 2021-09-05 Travel 1.2.840.1 1.2.099.265 4103 058873 Methodi 00:00:00 00:00:[address] 3.430.2.7 0.2.7.3.698 Ho spita .3.970422 084.8 l .8 2021-09-05 2021-09-05 Travel 1.2.840.1 1.2.691.757 7614 969135 Methodi 00:00:00 00:00:[address] 3.430.2.7 0.2.7.3.698 Ho spita .3.774953 084.8 l .8 2021 2021 Telephone Paulino, 1.2.840.1 [id number] 842 8587834 Methodi 00:00:00 00:00:[address] 3.430.2.7 Hospit a .3.431916 l .8 2021 2021 Telephone Paulino, 1.2.840.1 [id number] 127 [id number] Methodi 00:00:00 00:00:[address] 3.430.2.7 Hospit a .3.720065 l .8 2021-08-30 2021-08-30 Telephone Paulino, 1.2.840.1 [id number] 087 8464545 Methodi 00:00:00 00:00:[address] 3.430.2.7 Hospit a .3.353007 l .8 2021-08-30 2021-08-30 Telephone Paulino, 1.2.840.1 [id number] 295 [id number] Methodi 00:00:00 00:00:[address] 3.430.2.7 Hospit a .3.577335 l .8 2021-08-27 2021-08-27 [facility] 1.2.840.1 [id number] Methodi 11:45:26 23:59:00 Encounter Casi Romero 98263.1.1 388 [address] t 3.430.2.7 Hospit a .3.290947 l .8 2021-08-27 2021-08-27 [facility], 1.2.840.1 [id number] Methodi 11:45:26 23:59:00 Encounter Casi Romero 02266.1.1 388 s t 3.430.2.7 Hospit a .3.313638 l .8 2021-08-27 2021-08-27 Travel 1.2.840.1 1.2.568.121 4293 348032 Methodi 00:00:00 00:00:[address] 3.430.2.7 0.2.7.3.698 Ho spita .3.310528 084.8 l .8 2021-08-27 2021-08-27 Travel 1.2.840.1 1.2.058.255 8239 862855 Methodi 00:00:00 00:00:[address] 3.430.2.7 0.2.7.3.698 Ho spita .3.664379 084.8 l .8 2021-08-10 2021-08-19 [facility] Casi Gordon 1.2.840.1 [id number] 4 [id number] Methodi 13:30:00 11:55:24 Visit Prosper Otto 21446.1.[address] 3.430.2.7 Hospit a .3.048904 l .8 2021-08-10 2021-08-19 [facility] Casi Gordon 1.2.840.1 76392767 4 [id number] Methodi 13:30:00 11:55:24 Visit Prosper Otto 04053.1.[address] 3.430.2.7 Hospit a .3.445403 l .8 2021-08-19 2021-08-19 [facility] Chencho Otto.2.840.1 [id number] Methodi 00:00:00 00:00:00 Only Prosper 52068.1.[address] Christy 3.430.2.7 Hospit a .3.527516 l .8 2021-08-19 2021-08-19 Orders [place], 1.2.840.1 [id number] Methodi 00:00:00 00:00:00 Only Prosper 04502.1.[address] Chirsty 3.430.2.7 Hospit a .3.420968 l .8 2021-08-15 2021-08-15 Travel 1.2.840.1 1.2.867.349 9416 762239 Methodi 00:00:00 00:00:[address] 3.430.2.7 0.2.7.3.698 Ho spita .3.194954 084.8 l .8 2021-08-15 2021-08-15 Transcribe Ferris, 1.2.840.1 [id number] 499 5449232 Methodi 00:00:00 00:00:00 Orders Casi Romero 72831.1.[address] 3.430.2.7 Hospit a .3.381367 l .8 2021-08-15 2021-08-15 Orders [place], 1.2.840.1 [id number] Methodi 00:00:00 00:00:00 Only Prosper 57751.1.[address] Christy 3.430.2.7 Hospit a .3.735379 l .8 2021-08-15 2021-08-15 Travel 1.2.840.1 1.2.917.479 8942 056433 Methodi 00:00:00 00:00:[address] 3.430.2.7 0.2.7.3.698 Ho spita .3.885103 084.8 l .8 2021-08-15 2021-08-15 Transcribe [place]is, 1.2.840.1 [id number] 924 [id number] Methodi 00:00:00 00:00:00 Orders Casi Romero 21009.1.[address] 3.430.2.7 Hospit a .3.668545 l .8 2021-08-15 2021-08-15 Orders [place], 1.2.840.1 [id number] Methodi 00:00:00 00:00:00 Only Prosper 36390.1.[address] Christy 3.430.2.7 Hospit a .3.055769 l .8 2021-08-11 2021-08-11 Telephone Miles, 1.2.840.1 [id number] 2099 334745 Methodi 00:00:00 00:00:00 Casi Romero [address].1.[address] 3.430.2.7 Hospit a .3.617660 l .8 2021-08-11 2021-08-11 Telephone Miles, 1.2.840.1 [id number] 2099 602479 Methodi 00:00:00 00:00:00 Casi Romero [address].1.[address] 3.430.2.7 Hospit a .3.862883 l .8 2021-08-10 2021-08-10 Murtaza Cheng, 1.2.840.1 [id number] 629722 0395 Methodi 00:00:00 00:00:00 Only Lyndsay 68909.1.[address] 3.430.2.7 Hospit a .3.824755 l .8 2021-08-10 2021-08-10 Travel 1.2.840.1 1.2.058.836 3795 766338 Methodi 00:00:00 00:00:[address] 3.430.2.7 0.2.7.3.698 Ho spita .3.198779 084.8 l .8 2021-08-10 2021-08-10 Murtaza Cheng, 1.2.840.1 [id number] 639470 3722 Methodi 00:00:00 00:00:00 Only Lyndsay 73793.1.[address] 3.430.2.7 Hospit a .3.875468 l .8 2021-08-10 2021-08-10 Travel 1.2.840.1 1.2.754.540 1232 586891 Methodi 00:00:00 00:00:[address] 3.430.2.7 0.2.7.3.698 Ho spita .3.345106 084.8 l .8 2021-07-28 2021-07-28 Telephone Miles, 1.2.840.1 [id number] 2100 757629 Methodi 00:00:00 00:00:[address] 3.430.2.7 Hospit a .3.639678 l .8 2021-07-28 2021-07-28 Telephone Miles, 1.2.840.1 [id number] 2100 801753 Methodi 00:00:00 00:00:[address] C[address]iz[address] 02302.1.[address] 3.430.2.7 Hospit a .3.743250 l .8 2021-03-07 2021-03-07 Outpatient CHASE GALLAGHER [facility] [id number] [facility] 09:23:05 16:11:08 Ole 2021-03-07 2021-03-07 Office All Gomez [facility] 1.2.840.114 [id number] [facility] 09:22:13 09:52:13 Visit AMBULATOR [id number] College Y [id number] [facility] lia 850 e 2020-12-07 2020-12-07 Outpatient ALL ROSEN [facility] [id number] [facility] 00:00:00 00:00:00 2020-12-07 2020-12-07 Outpatient JANES HONG [id number] [facility] 00:00:00 00:00:00 MARY 2017-01-09 2017-01-10 Outpatient nullFlavo [facility] [id number] [facility] 15:53:00 04:59:00 coni Lopez l [facility] 2017-01-09 2017-01-10 Outpatient nullFlavo [facility] [id number] [facility] 15:53:00 04:59:00 r [facility] 03 [facility] 2017-01-09 2017-01-09 [facility] [id number] 10:53:00 23:59:00 a, Melania 03 Dain 2016-11-07 2016-11-08 Outpatient nullFlavo [facility] [id number] [facility] 14:54:00 04:59:00 r [facility] 02 [facility] 2016-11-07 2016-11-08 Outpatient nullFlavo [facility] [id number] [facility] 14:54:00 04:59:00 r [facility] 02 [facility] 2016-11-07 2016-11-07 [id number] 09:54:00 23:59:00 a, Melaina 02 Dain 2016-09-04 2016-09-04 Outpatient nullFlavo [facility] [id number] [facility] 01:00:00 13:00:00 r [facility] [address] [facility] 2016-09-04 2016-09-04 Outpatient nullFlavo [facility] [id number] [facility] 01:00:00 13:00:00 r [facility] [address] [facility] 2016-09-03 2016-09-04 [facility] [id number] 20:00:00 08:00:00 a, Melania Dain 2016-08-17 2016-08-17 Outpatient nullFlavo [facility] [id number] [facility] 02:00:00 14:00:00 r [facility] [address] [facility] 2016-08-17 2016-08-17 Outpatient nullFlavo [facility] [id number] [facility] 02:00:00 14:00:00 r [facility] [address] [facility] 2016-08-16 2016-08-17 Outpatient Physician, MHTIRR MHT[facility]R [id number] 20:00:00 08:00:00 Non 00 Associated 2016-05-16 2016-05-16 Outpatient [facility] [id number] [facility] 14:00:00 14:00:00 Josep Black 2016-05-16 2016-05-16 Outpatient [facility] MHIE [id number] [facility] 14:00:00 14:00:00 01 gita Wayne 2016-03-27 2016-03-27 Outpatient [facility] [id number] [facility] 14:15:00 14:15:00 00 gita Wayne 2016-03-27 2016-03-27 Outpatient [facility] [id number] [facility] 14:15:00 14:15:00 00 gita Wayne Results Test Description Test Time Test Comments Results Result Comments Source POC urinalysis dipstick 2022-02-14 20:09:25 Test Item Value Reference Range Interpretation Comme nts Color urine, POC (test code = Yellow 0160317) Clarity urine, POC (test code = Clear 5326959) Glucose urine, POC (test code = Negative Negative 7580255) Bilirubin urine, POC (test code = Negative Negative 0647023) Ketones urine, POC (test code = Negative Negative 3938852) Specific gravity urine, POC (test >/=1.030 1.005-1.030 code = 2520951) Blood urine, POC (test code = Trace Negative A 3272046) pH urine, POC (test code = See_Comment [Automated message] The 9250065) system which ge nerated this result transmit imani reference range: 5.0, 5.5 , 6.0, 6.5, 7.0, 7.5, 8.0, 8.5. The reference range was not used to interpret th is result as normal/abnormal . Protein urine, POC (test code = 3+ Negative A >=312 9142042) Urobilinogen urine, POC (test <2.0 See_Comment [Automated message] The code = 4981731) system which generated this result transmit imani reference range: <=2.0. T he reference range was not u sed to interpret this result as normal/abnormal . Nitrite urine, POC (test code = Negative Negative 9650811) Leukocyte esterase urine, POC Negative Negative (test code = 3187231) Lab Interpretation (test code = Abnormal 31030-5) [facility] urinalysis [id number] 20:09:25 Test Item Value Reference Range Interpretation Comments Color urine, POC (test Yellow code = 4935963) Clarity urine, POC (test Clear code = 6602670) Glucose urine, POC (test Negative Negative code = 1837018) Bilirubin urine, POC Negative Negative (test code = 9660868) Ketones urine, POC (test Negative Negative code = 1560370) Specific gravity urine, >/=1.030 1.005-1.030 POC (test code = 9960771) Blood urine, POC (test Trace Negative A code = 7652223) pH urine, POC (test code See_Comment [A utomated message] = 2586880) The system Estify h generated this result transmitted ref erence range: 5.0, 5.5 , 6.0, 6.5, 7.0, 7.5, 8.0, 8.5. The refere nce range was not u sed to interpret this result as normal/abnor mal. Protein urine, POC (test 3+ Negative A >=3 00 code = 6765685) Urobilinogen urine, POC <2.0 See_Comment [Au tomated message] (test code = 2168483) The sy stem which generated this result transmitted ref erence range: <=2.0. T he reference range was not used to int erpret this result as normal/abnormal . Nitrite urine, POC (test Negative Negative code = 2003407) Leukocyte esterase Negative Negative urine, POC (test code = 8277332) Lab Interpretation (test Abnormal code = 21112-8) [facility] [id number] 19:37:24 Test Item Value Reference Range Interpretation Comments Case number (test code = [id number]) Cytology See link below for (non-gynecological) PDF Lab Report report (test code = 1178) Result status (test code This is Final Report = [id number]) for [id number] [facility] [id number] 19:37:24 Test Item Value Reference Range Interpretation Comments Case number (test code = [id number]) Cytology See link below for (non-gynecological) PDF Lab Report report (test code = 1178) Result status (test code This is Final Report = [id number]) for [id number] Prostate Score (Serum)2021-08-12 22:32:00 Test Item Value [...] disease. ASSAY INFORMATION: Method Electrochemilum inescence Immunoassay (Wickr) NO TE: This assay has no bi [...] mg biotin. [Automa imani message] The system When You Wish generated this result tra nsmitted reference range : <=4.00. The reference r aric was not used to interpr et this result as mona l/abnormal. PSA, free (test 3.29 ng/mL Not Estab. NOTE: Result s cannot be code = 00671-0) interpreted as absolute evidence of the presence or absence of danial gnant disease. Values obtained with different assay methods or kits cannot be used interchan geably. ASSAY INFORMATI ON: Method Electrochemilum inescence Immunoassay (Wickr). N OTE: This assay has no bi [...] PSA is in the low normal range. T hese guidelines are for assays performed using the Marty E602 immunoassa y system.(01/2015; V8.0) 4K score (test 26 % A Evaluation: E LEVATED RISK code = 5999) This test was d eveloped and its performance characteristics were determined byRegenesis Biomedical. I t has not been cleared by the U.S.Food and Dr ug Administration. The FDA has determined that such clearance or ap proval is not necessary. This test isused for clin ical purposes. It sh ould not be regarded as inv estigational or for research .This lab has been approv ed by [facility] and justin diallo as a high complexity laboratoryand i [...] NEGATIVE Lab Interpretation Abnormal (test code = 75782-2) [facility] Prostate Score (Serum)2021-08-12 22:32:00 Test Item Value [...] disease. ASSAY INFORMATION: Method Electrochemilum inescence Immunoassay ([facility] [employer]) NO TE: This assay has no [...] mg biotin. [Automa imani message] The system When You Wish generated this result tra nsmitted reference range : <=4.00. The reference r aric was not used to interpr et this result as mona l/abnormal. PSA, free (test 3.29 ng/mL Not Estab. NOTE: Result s cannot be code = 84451-1) interpreted as absolute evidence of the presence or absence of danial gnant disease. Values obtained with different assay methods or kits cannot be used interchang eably. ASSAY INFORMATION: Me thod Electrochemilum inescence Immunoassay (Wickr). N OTE: This assay has no bi [...] PSA is in the low normal range. T hese guidelines are for assays performed using the Marty E602 immunoassa y system.(01/2015; V8.0) 4K score (test 26 % A Evaluation: E LEVATED RISK code = 5999) This test was d baronoped and its performance characteristics were determined byRegenesis [employer]. I t has not been cleared by the U.S.Food and Dr ug Administration. The FDA has determined that such clearance or ap proval is not necessary. This test isused for clin ical purposes. It sh ould not be regarded as inv estigational or for research .This lab has been approv ed by [facility] and justin diallo as a high complexity laboratoryand i [...] NEGATIVE Lab Interpretation Abnormal (test code = 55759-5) [facility] [id number] 00:51:35 Test Item Value Reference Range Interpretation Comments Urine culture (test SEE COMMENT Bacteriu erasmo screen code = 0664011) negative. [facility] [id number] 00:51:35 Test Item Value Reference Range Interpretation Comments Urine culture (test SEE COMMENT Bacteriu erasmo screen code = 3891117) negative. [facility] BLADDER SCAN/[id number] 20:19:00 Test Item Value Reference Range Interpretation Comments PVR volume (test code = 5766) 3 ml [facility] BLADDER SCAN/[id number] 20:19:00 Test Item Value Reference Range Interpretation Comments PVR volume (test code = 5766) 3 ml [facility], BRAIN, WITH IV [id number] 17:09:00Unlisted Reason for Exam - Click Yes and Enter Reason Below->YesUnlisted Reason for Exam- >B12 deficiency,Late onset Alzheimer's disease without behavioral [facility] : 1945 Sex: MFINAL REPORT Examination: MRI [...] left thalamic lacunar infarct Signed: Mary Hong [facility] ([place], [place]) Verified Date/Time: 12/08/2020 17:09:05 RAD, CHEST, 2 [id number] 14:30:00Reason for Exam:->Vitamin b12 deficiency (non anemic)Reason for Exam:->Late onset alzheimers disease without behavioral disturbanceS[facility]: [facility] : 1945 Sex: MFINAL [...] thoracic radiogr aphic abnormality. Signed: Vannessa Wu [facility] ([place], [place]) Verified Date/Time: 12/07/2020 14:30:55 Reading Location: [facility] Reading Room [address] [place] [address] Electronically signed by: VANNESSA WU MD on12/07/2020 02:30 PM
[2022-06-02] MEDS ORDERED: ZIPRASIDONE MESYLA 20 MG/VIAL IM ONE (14:16)
[2022-06-02] MEDS ORDERED: WATER FOR INJ,STERILE 10 ML ONE (14:17)
[2022-06-02 14:50] LABS: Protime INR 0.96
[2022-06-02 15:01] LABS: Absolute Lymphocytes (CBC) 2.7 K/uL (0.7-4.9); Hematocrit 31.7 % (39.6-49.0); Lymphocytes % 28.4 % (15.3-44.8); MCV 85.3 fL (80-100); MPV 7.9 fL (7.6-11.3); RBC Red Blood Cell Count 3.72 M/uL (4.33-5.43)
[2022-06-02 15:05] LABS: Albumin 3.2 g/dL (3.4-5.0); Bilirubin Total 0.3 mg/dL (0.2-1.0); Potassium 3.7 mmol/L (3.5-5.1); Protein, Total 6.9 g/dL (6.4-8.2)
[2022-06-02] MEDS ORDERED: LIDOCAINE JELLY 2% 5 ML SYRINGE TOP ONE (15:07)
[2022-06-02] MEDS ORDERED: NACL 0.9% IRR SOLN 2,000 ML IRR ONE ×2 (15:27→17:00)
[2022-06-02] MEDS ORDERED: NACL 0.9% IRR SOLN 4,000 ML IRR ONE ×2 (15:45→18:22)
[2022-06-02] MEDS: Gentamicin Inj 160 MG in NA CHLORIDE 0.9% 100 ML IVPB SCH (18:00)
[2022-06-02] MEDS: AMPICILLIN SODIUM 2 GM in NA CHLORIDE 0.9% 100 ML IVPB SCH (18:00)
[2022-06-02] MEDS ORDERED: LIDOCAINE 1% MPF 5 ML VIAL ONE (18:15)
[2022-06-02] MEDS ORDERED: propofoL 200 MG/20 ML VIAL IV ONE (18:15)
--- NOTE | 2022-06-02 18:24 | EDPHYS ---
Physician Documentation [facility] Name: Negro Chavez Age: 76 yrs Sex: Male : 1945 Arrival Date: 06/02/2022 Time: 14:04 Bed 19 Private MD: ED Physician Gideon Mendoza HPI: 06/02 17:04 This 76 yrs old Male presents to ER via Ambulatory with complaints of Urinary Problem. rt 17:04 Onset: The symptoms/episode began/occurred this morning. Context: the patient is post rt surgical. Modifying factors:. Patient had a prostate surgery performed on Sunday. The catheter was subsequently removed. The patient developed bleeding today. History is limited due to the patient's baseline dementia, history most obtained per patient's family. The patient large amount of clots. Denies other acute complaints at this time, symptoms are moderate severity, no other aggravating or alleviating factors.. Historical: - Allergies: 14:35 Iodine; in shrimp; no reaction with IV iodine; jl7 - PMHx: 14:35 BPH; Dementia; Diabetes - NIDDM; Hypertension; jl7 - Immunization history:: Adult Immunizations unknown. - Social history:: Smoking status: Patient denies any tobacco usage or history of. ROS: 17:04 Unable to obtain ROS due to baseline dementia. rt Exam: 15:29 ECG was reviewed by the Attending Physician. rt 17:04 Constitutional: This is a well developed, well nourished patient who is awake, alert, rt and in no acute distress. Head/Face: Normocephalic, atraumatic. Eyes: Pupils equal round and reactive to light, extra-ocular motions intact. Lids and lashes normal. Conjunctiva and sclera are non-icteric and not injected. Cornea within normal limits. Periorbital areas with no swelling, redness, or edema. Chest/axilla: Normal chest wall appearance and motion. Nontender with no deformity. No lesions are appreciated. Cardiovascular: Regular rate and rhythm with a normal S1 and S2. No gallops, murmurs, or rubs. Normal PMI, no JVD. No pulse deficits. Respiratory: Lungs have equal breath sounds bilaterally, clear to auscultation and percussion. No rales, rhonchi or wheezes noted. No increased work of breathing, no retractions or nasal flaring. Abdomen/GI: Soft, non-tender, with normal bowel sounds. No distension or tympany. No guarding or rebound. No evidence of tenderness throughout. MS/ Extremity: Pulses equal, no cyanosis. Neurovascular intact. Full, normal range of motion. 17:04 : Large amount of clot at the urethral meatus, moderate amount of active bleeding.. Vital Signs: 14:04 BP 144 / 89; Pulse 103; Resp 19; Temp 97.9; Pulse Ox 100% ; jl7 15:15 BP 162 / 77; Pulse 83; Resp 15; Pulse Ox 100% ; Weight 78.02 kg; Height 5 ft. 10 in. jl7 (177.80 cm); 15:45 BP 108 / 51; Pulse 60; Resp 14; Pulse Ox 100% ; jl7 16:45 BP 145 / 72; Pulse 89; Resp 16; Pulse Ox 100% ; jl7 17:15 BP 160 / 80; Pulse 84; Resp 15; Pulse Ox 100% ; jl7 18:00 BP 144 / 106; Pulse 111; Resp 19; Pulse Ox 99% ; jl7 15:15 Body Mass Index 24.68 (78.02 kg, 177.80 cm) jl7 MDM: 14:07 Patient medically screened. rt 17:04 Differential diagnosis: Active bleeding, arterial bleed, urinary retention. Data rt reviewed: vital signs, nurses notes, old medical records, lab test result(s). ED course: She presents to the ED with postsurgical bleeding. The patient was somewhat agitated, received Geodon. I discussed case with Dr. Rankin who placed a three-way catheter, recommend CBI as well as admission to the hospital. He states that he will be available to manage the patient's urologic issues over the weekend.. 06/02 14:21 Order name: CBC with Diff; Complete Time: 16:03 rt 06/02 14:21 Order name: CMP; Complete Time: 16:03 rt 06/02 14:21 Order name: PT-INR; Complete Time: 16:03 rt 06/02 14:21 Order name: Ptt, Activated; Complete Time: 16:03 rt 06/02 14:22 Order name: Type And Screen; Complete Time: 16:03 rt 06/02 16:26 Order name: BUN Blood Urea Nitrogen EDMS 06/02 16:26 Order name: BUN Blood Urea Nitrogen EDMS 06/02 16:26 Order name: Creatinine EDMS 06/02 16:26 Order name: Creatinine EDMS 06/02 17:37 Order name: Gentamicin Level, Trough EDMS 06/02 17:38 Order name: Gentamicin Level, Peak EDMS 06/02 17:46 Order name: Gentamicin Level, Peak EDMS 06/02 18:03 Order name: SARS RAPID eb 06/02 14:36 Order name: EKG - Nurse/Tech; Complete Time: 14:36 jl7 06/02 14:36 Order name: EKG; Complete Time: 14:36 jl7 EC:29 Rate is 110 beats/min. Rhythm is regular, Sinus tachycardia with Occasional PVCs. DC rt interval is normal. QRS interval is normal. QT interval is normal. No Q waves. Interpreted by me. Administered Medications: 14:25 Drug: Geodon (ziprasidone) 10 mg Route: IM; Site: right deltoid; [facility] 14:50 Follow up: Response: No adverse reaction; No change in condition jl7 18:31 Not Given (pt to OR): Geodon (ziprasidone) 10 mg IM once jl7 Disposition Summary: 06/02/22 18:23 Hospitalization Ordered Hospitalization Status: Inpatient Admission rt Provider: Hira Barker rt Location: Operating Room rt Condition: Serious rt Problem: an ongoing problem rt Symptoms: are unchanged rt Bed/Room Type: Standard rt Room Assignment: rt Diagnosis - Gross hematuria rt Discharge Instructions: - Discharge Summary Sheet eb Forms: - SBAR form eb - Medication Reconciliation Form rt Signatures: Dispatcher [employer] EDND Jameel Hanson PA PA cp Leal, Jahala, RN RN jl7 Gideon Mendoza MD MD rt
--- NOTE | 2022-06-02 18:24 | ER ---
Nurse's Notes [facility] Name: Negro Chavez Age: 76 yrs Sex: Male : 1945 Arrival Date: 06/02/2022 Time: 14:04 Bed 19 Private MD: Diagnosis: Gross hematuria Presentation: 06/02 14:04 Chief complaint: Patient's son or daughter states: Proctectomy 2 weeks ago, bleeding jl7 with large blood clots today. 14:04 Coronavirus screen: At this time, the client does not indicate any symptoms associated jl7 with coronavirus-19. Ebola Screen: No symptoms or risks identified at this time. Initial Sepsis Screen: Does the patient meet any 2 criteria? No. Patient's initial sepsis screen is negative. Does the patient have a suspected source of infection? No. Patient's initial sepsis screen is negative. Risk Assessment: Do you want to hurt yourself or someone else? Patient reports no desire to harm self or others. Onset of symptoms was June 02, 2022. 14:04 Method Of Arrival: Ambulatory jl7 14:04 Acuity: YUSUF 2 jl7 Historical: - Allergies: 14:35 Iodine; in shrimp; no reaction with IV iodine; jl7 - PMHx: 14:35 BPH; Dementia; Diabetes - NIDDM; Hypertension; jl7 - Immunization history:: Adult Immunizations unknown. - Social history:: Smoking status: Patient denies any tobacco usage or history of. Screenin:00 Abuse screen: Denies threats or abuse. Denies injuries from another. Nutritional jl7 screening: No deficits noted. Tuberculosis screening: No symptoms or risk factors identified. Fall Risk Total Sandhu Fall Scale indicates High Risk Score (45 or more points). Fall prevention measures have been instituted. Side Rails Up X 2 Placed Close to Nursing Station Frequent Obs/Assessments Occuring Family Present and informed to notify staff if the need to leave the bedside As available patient and family educated on Fall Prevention Program and Strategies. Assessment: 14:10 General: Pt agitated and attempting to get out of bed; Vineet blood and large clots jl7 noted from meat, Dr. Mendoza at bedside and notified Dr. Rankin, VO to hold Duron until Dr. Rankin arrives.. 14:45 General: Dr. Rankin at bedside for 3 way Duron insertion and bladder irrigation. jl7 Vital Signs: 14:04 BP 144 / 89; Pulse 103; Resp 19; Temp 97.9; Pulse Ox 100% ; jl7 15:15 BP 162 / 77; Pulse 83; Resp 15; Pulse Ox 100% ; Weight 78.02 kg; Height 5 ft. 10 in. jl7 (177.80 cm); 15:45 BP 108 / 51; Pulse 60; Resp 14; Pulse Ox 100% ; jl7 16:45 BP 145 / 72; Pulse 89; Resp 16; Pulse Ox 100% ; jl7 17:15 BP 160 / 80; Pulse 84; Resp 15; Pulse Ox 100% ; jl7 18:00 BP 144 / 106; Pulse 111; Resp 19; Pulse Ox 99% ; jl7 15:15 Body Mass Index 24.68 (78.02 kg, 177.80 cm) jl7 ED Course: 14:04 Patient arrived in ED. jl7 14:05 Gideon Mendoza MD is Attending Physician. rt 14:32 Type And Screen Sent. em1 14:32 PT-INR Sent. em1 14:32 Ptt, Activated Sent. em1 14:32 CMP Sent. em1 14:32 CBC with Diff Sent. em1 14:33 Ramona Ruggiero, SOLOMON is Primary Nurse. jl7 14:33 Initial lab(s) drawn, by me, sent to lab. Inserted saline lock: 20 gauge in right em1 antecubital area, using aseptic technique. Blood collected. 14:35 Triage completed. jl7 14:35 Arm band placed on right wrist. jl7 14:45 Dr. Asif at bedside, placed 3 way Duron and bladder irrigation with NS. jl7 15:00 Patient has correct armband on for positive identification. Bed in low position. Call [facility] light in reach. Side rails up X2. Adult w/ patient. Client placed on continuous cardiac and pulse oximetry monitoring. NIBP monitoring applied. 18:21 Hira Barker MD is Hospitalizing Provider. rt 18:36 Patient admitted, IV remains in place. intact, No redness/swelling at site. jl7 Administered Medications: 14:25 Drug: Geodon (ziprasidone) 10 mg Route: IM; Site: right deltoid; jl7 14:50 Follow up: Response: No adverse reaction; No change in condition jl7 18:31 Not Given (pt to OR): Geodon (ziprasidone) 10 mg IM once jl7 Medication: 18:00 VIS not applicable for this client. jl7 Outcome: 18:23 Decision to Hospitalize by Provider. rt 18:33 Admitted to OR accompanied by nurse, family with patient, via stretcher. jl7 18:33 Condition: stable 18:33 Discharge instructions given to family, Instructed on the need for admit, Demonstrated understanding of instructions. 18:36 Patient left the ED. jl7 Signatures: Bryon Sanchez em1 Ramona Ruggiero, RN RN jl7 Gideon Mendoza MD MD rt
[2022-06-02] MEDS ORDERED: NA CHLORIDE 0.9% 1,000 ML ONE (18:29)
[2022-06-02] MEDS: AMPICILLIN SODIUM 2 GM/VIAL VIAL ONE ×2 (18:50→18:52)
[2022-06-02 18:53] LABS: SARS-CoV-2 Antigen Rapid Res Negative (Negative)
[2022-06-02] MEDS ORDERED: dexAMETHasone 10 MG/ML VIAL ONE (19:01)
[2022-06-02] MEDS ORDERED: ONDANSETRON 4 MG/2 ML VIAL ONE (19:01)
[2022-06-02] MEDS ORDERED: KETOROLAC 30 MG/ML INJ ONE (19:01)
[2022-06-02] MEDS ORDERED: FENTANYL CITR 100 MCG/2 ML ONE ×2 (19:03→19:58)
[2022-06-02] MEDS ORDERED: Phenylephrine HCl 10 MG/ML 1 ML VIAL ONE (19:46)
[2022-06-02] MEDS: NA CHLORIDE 0.9% 1,000 ML ONE ×2 (20:01→20:17)
--- NOTE | 2022-06-02 20:12 | CON ---
Reason For Consultation: Gross urethral bleeding/gross hematuria. History Of Present Illness: Mr. Chavez is a 76-year-old gentleman with Alzheimer dementia, who presen imani initially to the Urology Clinic for outpatient evaluation, having been seen previously in the [facility] with acute urinary retention requiring a catheter. A bladder mass was observed on an imaging p erformed with that initial admission and inability to visualize within his bladder cystoscopically as an outpatient, necessitated operative evaluation. This was performed on 05/09/2022, and upon operat renate evaluation and clot evacuation, we realized that there was a massive intravesically projecting me kimberly lobe, which was causing obstruction and likely the gross hematuria as no other bladder tumors or stones were identified. As a result, he underwent simultaneous bipolar transurethral resection of t he intraluminally projecting bladder tumor/prostate median lobe, and postoperatively had the urethral Duron catheter removed. He was able to void initially well, but was having some urinary frequency. He subsequently became more agitated, unable to communicate the nature of the problem, and his brought him in for outpatient evaluation, where I discovered the degree of meatal stenosis, complicat ion from the prior TURP procedure, and dilated the meatus and placed a urethral Duron catheter. The catheter was subsequently removed several days later the following week, and the patient was able to void. He was since discharged home in good condition, but over the past 2-3 days, his has notic ed him to become more agitated again. Today, she found him in the bathroom and there was significant bloody fluid and blood all over the toilet and the shelley of the bathroom. They thus brought the pat ient to the emergency room for evaluation. Physical Examination: The patient was seen to be very agitated, consistent with prior episodes of acute urinary retention. His bladder was palpably distended in the infrapubic midline. There was a gross urethral bleeding ob served with clot and bloody hematuria emanating from the urethra in a manner consistent with overflow incontinence. As a result, I began promptly setting in up for placement of a 24-Maldivian urethral Duron catheter. Urethral catheterization, bladder irrigation/clot evacuation, and CBI initiation. Procedure Note: While supine on the procedure table with the nurses assisting by holding the patient 's arms and keeping him supine, I prepped the patient's genitalia and draped them in standard fashion before applying a lidocaine Uro-Jet for local anesthesia. There was no significant meatal stenosis observed at this point with easy passage of the Uro-Jet tip into the meatus. The meatus was at least 22-Maldivian. I then had some difficulty passing the 24-Maldivian very blunt-tipped catheter into the zayra tus and fossa navicularis, but was able to do so with significant pressure applied. I was then able to navigate the catheter all the way into his bladder with ease, at which point, some bloody urine di d admit into the catheter tubing. I then irrigated his bladder copiously with a liter of normal sali ne using a 60 cc catheter tip syringe and was able to remove a modest volume of clot burden from with in. The urine remained light pink at this point; so I connected the catheter to CBI using normal lazaro ine and observed it. At this point, the patient was much more calm, with his bladder having been dec ompressed, and I was able to titrate down the CBI to slow drip with the urine remaining light pink to clear. Laboratory Analysis: 06/02/2022, WBC 9.5, H/H 10.6/31.7, platelets 437, INR 0.96, creatinine 1.21, s odium 130, albumin 3.2. Assessment And Recommendations: This is a 76-year-old gentleman with Alzheimer dementia and history of gross hematuria and bladder mass found to be secondary to massive intravesical projecting median l obe of his prostate, benign prostate tissue only identified pathology pathologically, status post TUR P 04/08/2022 with a postprocedural meatal stenosis developing causing retention of urine, now voiding , but with recurrent gross hematuria and clot retention on CBI with normal saline. We will observe him over the next several hours on CBI, attempting to titrate the CBI to off. If we are able to successfully discontinue the CBI, the patient may be discharged home with a prescription for an antimicrobial, either Bactrim or Cipro would be perfectly reasonable for the next 5-7 days, wh ile he is home with the catheter. Subsequent follow up will be established in the Urology Clinic to perform urodynamics evaluation and assess his bladder function and determine the underlying cause of his voiding dysfunction and recurrent episodes of urinary retention. LORETTA/JIMMYL Voice ID: [id number] Report ID: [id number]
[2022-06-02] MEDS ORDERED: ACETAMINOPHEN 325 MG TABLET PO PRN (20:53)
[2022-06-02] MEDS ORDERED: ONDANSETRON 4 MG/2 ML VIAL IV PRN (20:53)
[2022-06-02] MEDS: INSULIN -REGULAR HUMAN 50 UNIT/0.5 ML ML SQ SCH (21:00)
--- NOTE | 2022-06-02 21:01 | P.HP ---
Certification for Inpatient Patient admitted to: Inpatient Practitioner: I am a practitioner with admitting privileges, knowledge of patient current condition, hospital course, and medical plan of care. Services: Services provided to patient in accordance with Admission requirements found in Title 42 Section 412.3 of the Code of Federal Regulations Patient History Date of Service: 06/03/22 Reason for admission: Hematuria History of Present Illness: 76-year-old male patient with medical history significant for dementia, hypertension, hyperlipidemia, diabetes type 2, who was evaluated in the ER for episode of bleeding from the the private part and he does have a history of BPH. He was evaluated by urology and was deemed to be in need of urgent intervention and he was taken to the OR. Approximately 80 mL of clot was evacuated from the bladder and he also had fulguration of the vascular bed in the prostate done. He is on bladder irrigation presently and he has been admitted for inpatient care. Allergies iodine Allergy (Verified 06/03/22 00:39) Hives shrimp Allergy (Verified 05/09/22 11:54) Hives/Throat Swelling Home Medications: Donepezil HCl [Aricept] 10 mg PO BID 04/17/22 Insulin Aspart [Novolog Flexpen] 6 unit SQ TID 04/17/22 Memantine HCl [Namenda*] 10 mg PO BID 04/17/22 Metformin HCl 1,000 mg PO BID 04/17/22 Olmesartan/Hydrochlorothiazide [Benicar Hct 40-12.5 mg Tablet] 1 tab PO DAILY 04/17/22 Tamsulosin [Flomax*] 0.4 mg PO BID 04/17/22 Trazodone [Desyrel*] 50 mg PO BEDTIME PRN PRN #30 tab 04/19/22 Aspirin [Aspirin EC 325 MG] 325 mg PO DAILY 05/02/22 Codeine/APAP [Tylenol W/Codeine #3 tab] 1 tab PO Q6HR PRN 06/03/22 - Past Medical/Surgical History Diabetic: Yes -: htn -: bph/enlarged prostate -: dm -: Hx of mild strokes -: hernia repair -: right shoulder surgery - Family History Father -: Heart disease, Hypertension, Diabetes Notes: Mother -: Hypertension, Diabetes, Kidney disease Notes: Alzheimers - Social History Alcohol use: No CD- Drugs: No Caffeine use: Yes Review of Systems is unable to be obtained (dementia.) Physical Examination - Physical Exam General: Alert HEENT: Atraumatic, Normocephalic Neck: Supple Respiratory: Normal air movement Cardiovascular: Regular rate/rhythm, Normal S1 S2 Gastrointestinal: Soft and benign Musculoskeletal: No swelling Neurological: Normal strength at 5/5 x4 extr - Studies Laboratory Data (last 24 hrs) 06/02/22 14:30: PT 10.6, INR 0.96, APTT 31.9 06/02/22 14:30: Sodium 130 L, Potassium 3.7, BUN 17, Creatinine 1.21, Glucose 166 H, Total Bilirubin 0.3, AST 13 L, ALT 19, Alkaline Phosphatase 83 06/02/22 14:30: WBC 9.50, Hgb 10.6 L, Hct 31.7 L, Plt Count 437 H Assessment and Plan - Plan Hematuria: Deemed secondary to bleed from prostate. Urology has evaluated patient and has done prostate fulguration. Will continue bladder irrigation as per urology recommendation. Will monitor H&H closely. Dementia: Continue supportive care and antidementia meds. Hypertension: Monitor vital signs per unit protocol and continue antihypertensive medications as prescribed outpatient. Diabetes type 2: Will monitor blood sugar before meals and at bedtime and continue patient on carb restricted diet. We will continue sliding scale insulin for glucose control. Prophylaxis: SCDs for DVT prophylaxis due to present urogenital bleed. CODE STATUS: Full code. Disposition: Patient to be discharged once bladder pathology and hematuria is in fully stabilized. - Advance Directives Does patient have a Living Will: No Does patient have a Durable POA for Healthcare: No
[2022-06-02 21:10] LABS: Absolute Lymphocytes (CBC) 0.6 K/uL (0.7-4.9); Hematocrit 24.2 % (39.6-49.0); Lymphocytes % 4.5 % (15.3-44.8); MCV 84.7 fL (80-100); MPV 7.5 fL (7.6-11.3); RBC Red Blood Cell Count 2.86 M/uL (4.33-5.43)
[2022-06-02 21:48] LABS: Blood Morphology Comment NOT SEEN (NOT SEEN); Platelet Estimate ADEQ
[2022-06-02 22:22] LABS: Potassium 4.9 mmol/L (3.5-5.1)
[2022-06-02] MEDS ORDERED: CODEINE 30MG/APAP 300MG TAB PO PRN (22:42)
[2022-06-02] MEDS ORDERED: NACL 0.9% IRR PRN (22:42)
[2022-06-02] MEDS ORDERED: IRR IRR PRN (22:42)
[2022-06-02] MEDS: NA CHLORIDE 0.9% 1,000 ML IV SCH (23:23)
[2022-06-03 00:07] VITALS: BMI 24.7
[2022-06-03] MEDS: AMPICILLIN SODIUM 2 GM in NA CHLORIDE 0.9% 100 ML IVPB SCH ×4 (01:23→18:25)
[2022-06-03] MEDS ORDERED: NACL 0.9% IRR SOLN 4,000 ML IRR ONE (01:33)
[2022-06-03] MEDS: Gentamicin Inj 160 MG in NA CHLORIDE 0.9% 100 ML IVPB SCH ×3 (02:06→18:00)
[2022-06-03] MEDS ORDERED: NACL 0.9% IRR SOLN 6,000 ML IRR ONE (02:16)
[2022-06-03] MEDS ORDERED: NACL 0.9% IRR SOLN 2,000 ML IRR ONE ×5 (03:16→14:35)
[2022-06-03] MEDS ORDERED: LORazepam 2 MG/ML VIAL IV ONE (04:35)
[2022-06-03] MEDS ORDERED: WATER FOR INJ,STERILE 10 ML IM PRN (04:51)
[2022-06-03] MEDS ORDERED: ZIPRASIDONE MESYLA 20 MG/VIAL IM ONE (04:51)
[2022-06-03 04:58] LABS: Absolute Lymphocytes (CBC) 0.6 K/uL (0.7-4.9); Lymphocytes % 4.3 % (15.3-44.8); MCV 85.1 fL (80-100); MPV 7.7 fL (7.6-11.3); RBC Red Blood Cell Count 3.05 M/uL (4.33-5.43)
[2022-06-03] MEDS ORDERED: NA CHLORIDE 0.9% 100 ML ONE (06:23)
[2022-06-03] MEDS: NA CHLORIDE 0.9% 1,000 ML IV SCH ×2 (07:00→17:00)
[2022-06-03] MEDS: INSULIN -REGULAR HUMAN 50 UNIT/0.5 ML ML SQ SCH ×3 (10:32→16:30)
[2022-06-03 12:15] VITALS: O2SAT 94
[2022-06-03] MEDS ORDERED: HALOPERIDOL LACT 5 MG/ML INJ IV PRN (15:08)
--- NOTE | 2022-06-03 15:36 | P.PN ---
Date of Service: 06/03/22 76-year-old gentleman type II diabetic with pacemaker and Alzheimer's dementia, agitated, POD#1 following operative cystoscopy with clot evacuation and bipolar TURP with fulguration to stop prostatic urethral bleeding and relieve obstruction due to large volume clot urinary retention and severely enlarged BPH. He has been maintained/treated currently with ampicillin, for Enterococcus previously seen on urine culture, and gentamicin, for Pseudomonas seen on prior urine culture. After several 100 cc of clot removed from his bladder and a decline in his hematocrit, his hematocrit has stabilized and increased with subsequent assessments. CBI was discontinued overnight, and the urine drainage from the catheter was light pink. The patient remained quite agitated, trying to climb out of the bed, and he had to be restrained. Bladder irrigation procedure note: I the catheter from the floor bag and utilized a 60 cc catheter tip syringe and normal saline to irrigate the catheter with ease. I irrigated with approximately 250 cc of fluid, and no clots were identified, and the catheter did irrigate nicely. In the end, the fluid drainage was light pink to clear. Recommendation: -Discharge patient with Augmentin 875 mg tablets twice daily for the next 7 days -Follow-up in the urology clinic on Sunday for voiding trial -Catheter care and maintenance in the meantime -If he fails voiding trial, urodynamics evaluation will be required -Social work consult in place for family support given his agitated dementia
[2022-06-03 16:53] VITALS: BP 163/76; TEMP 99
--- NOTE | 2022-06-03 17:00 | P.DS ---
Admission Date: 06/02/22 Discharge Date: 06/03/22 Disposition: ROUTINE DISCHARGE Discharge Condition: GOOD Reason for Admission: Hematuria Consultations: Urology - Dr. Rankin Brief History of Present Illness: 76-year-old male patient with medical history significant for dementia, hypertension, hyperlipidemia, diabetes type 2, who was evaluated in the ER for episode of bleeding from the the private part and he does have a history of BPH. He was evaluated by urology and was deemed to be in need of urgent intervention and he was taken to the OR. Approximately 80 mL of clot was evacuated from the bladder and he also had fulguration of the vascular bed in the prostate done. He is on bladder irrigation presently and he has been admitted for inpatient care. Hospital Course: Problem List Hematuria secondary to intravesically projecting lobe of prostate, now s/p TURP & fulguration HTN NIDDM2 Benign Prostatic Hyperplasia complicated by Urinary Retention Alzheimer's Dementia with superimposed Delirium Patient was seen by Urology in the ED and taken to OR for cystoscopy and bladder irrigation, where a large intravesically projecting median lobe of the prostate was noted to be causing obstruction. Patient underwent TURP and fulguration of the prostate by Dr. Rankin. Patient was continued on bladder irrigation and herron with improvement of hematuria. Patient was seen on day of discharge by Urology and deemed stable for discharge home. Family reported difficulty managing patient's confusion and occasional outbursts. manager of creative services / Case management were consulted and discussed different potential options with family at length. Ultimately, the patient's decided it would be best for the patient to be discharged home, where patient is more comfortable and hopefully he will calm down. They will discuss further with his PCP to work on possible placement vs further assistance at home if needed. Discharged with antibiotics by Dr. Rankin. Vital Signs/Physical Exam: Temp Pulse Resp BP Pulse Ox 99.0 F 82 16 163/76 H 94 06/03/22 16:00 06/03/22 16:00 06/03/22 16:00 06/03/22 16:00 06/03/22 16:00 General: Oriented x1, Demented, Confused HEENT: EOMI, Sclerae nonicteric Respiratory: Clear to auscultation bilaterally, Normal air movement Cardiovascular: No edema, Regular rate/rhythm Gastrointestinal: Soft and benign, No tenderness Musculoskeletal: No contractures, No tenderness Integumentary: No rashes, No significant lesion Neurological: Normal strength at 5/5 x4 extr, Dementia Urinary: Herron catheter Laboratory Data at Discharge: WBC 12.90 K/uL (4.3-10.9) H 06/03/22 04:22 Hgb 8.7 g/dL (13.6-17.9) L D 06/03/22 04:22 Hct 26.0 % (39.6-49.0) L 06/03/22 04:22 Plt Count 329 K/uL (152-406) 06/03/22 04:22 PT 10.6 SECONDS (9.5-12.5) 06/02/22 14:30 INR 0.96 06/02/22 14:30 APTT 31.9 SECONDS (24.3-36.9) 06/02/22 14:30 Sodium 134 mmol/L (136-145) L D 06/02/22 21:50 Potassium 4.2 mmol/L (3.5-5.1) D 06/03/22 04:26 BUN 19 mg/dL (7-18) H 06/03/22 04:22 Creatinine 1.12 mg/dL (0.70-1.30) 06/03/22 04:22 Glucose 244 mg/dL (74-106) H 06/02/22 21:50 Magnesium 2.0 mg/dL (1.6-2.4) 06/03/22 04:22 Total Bilirubin 0.3 mg/dL (0.2-1.0) 06/02/22 14:30 AST 13 U/L (15-37) L 06/02/22 14:30 ALT 19 U/L (16-61) 06/02/22 14:30 Alkaline Phosphatase 83 U/L (45-117) 06/02/22 14:30 Home Medications: Donepezil HCl [Aricept] 10 mg PO BID 04/17/22 Insulin Aspart [Novolog Flexpen] 6 unit SQ TID 04/17/22 Memantine HCl [Namenda*] 10 mg PO BID 04/17/22 Metformin HCl 1,000 mg PO BID 04/17/22 Olmesartan/Hydrochlorothiazide [Benicar Hct 40-12.5 mg Tablet] 1 tab PO DAILY 04/17/22 Tamsulosin [Flomax*] 0.4 mg PO BID 04/17/22 Trazodone [Desyrel*] 50 mg PO BEDTIME PRN PRN #30 tab 04/19/22 Aspirin [Aspirin EC 325 MG] 325 mg PO DAILY 05/02/22 Acetaminophen [Tylenol*] 650 mg PO Q4HP PRN tab 06/03/22 Amox/Clavulanate [Augmentin 875-125 Tab] 875 mg PO BID #14 tab 06/03/22 Codeine/APAP [Tylenol #3*] 1 tab PO Q4H PRN tab 06/03/22 Codeine/APAP [Tylenol #3*] 1 tab PO Q6HR PRN 06/03/22 New Medications: Amox/Clavulanate [Augmentin 875-125 Tab] 875 mg PO BID #14 tab Physician Discharge Instructions: Patient may ambulate with the urethral Herron catheter secured to his thigh using a leg bag, but when sleeping at night, recommend the catheter be connected to a floor bag. Cleanse the connection sites using alcohol or soap and water between exchanges. Cleanse around the catheter insertion site into the penis meatus (pee hole) twice daily using hydrogen peroxide or gentle soap and water. Afterward, apply Neosporin/bacitracin/triple antibiotic ointment right around the pee hole where the catheter goes in to keep it nicely lubricated. This will decrease the risk of scar formation after the catheter comes out. I have sent a prescription for amoxicillin clavulanic acid/Augmentin to your pharmacy for him to take for the next 7 days. Contact my office Sunday to arrange a time to come in and have us remove the catheter and ensure he is able to urinate normally. If he is unable to urinate normally at this point, additional testing will be required via urodynamic studies, as I previously mentioned to you in the emergency department. You may also take plain Tylenol (up to 1000 mg every 6 hours maximum) every 4 hours with Motrin/ibuprofen (up to 800 mg every 8 hours maximum) if he complains of pain. Plan to go ahead and take a dose of a baby aspirin (81 mg) on Sunday prior to the catheter being removed. Notify me if he develops any fever (temperature greater than 100.4 Fahrenheit), intractable nausea or vomiting, signs of increasing pain uncontrolled by pain medications, or failure for the catheter to routinely drain urine into the bag suggestive of obstruction of the catheter drainage. Also notify me if he develops bright red and thick/nontranslucent blood in the urine that appears like tomato juice, especially if with clots. All the best! WBR Diet: ADA Activity: Ad chris Followup: Rodo Rankin [Primary Care Provider] - (call sunday to arrange for a time to have them remove the catheter. ) Time spent managing pt's care (in minutes): 45
--- NOTE | 2022-06-05 14:28 | OP ---
Surgeon: ETHAN OCHOA Preoperative Diagnoses: 1.Gross hematuria. 2.Clot urinary retention. 3.Status post cystoscopy and resection of intravesically projecting mass/median lobe of the prostate . Postoperative Diagnoses: 1.Gross hematuria. 2.Clot urinary retention. 3.Status post cystoscopy and resection of intravesically projecting mass/median lobe of the prostate . 4.Chronic prostatitis. Procedures: 1.Cystoscopy with clot evacuation and bladder irrigation. 2.Bipolar transurethral resection of the prostate. 3.Bipolar fulguration of the prostate. Indication For Procedure: Mr. Chavez underwent operative cystoscopy, clot evacuation on 05/09/2022 be cause of gross hematuria and urinary retention. A bladder mass had been identified on CT and because of the gross hematuria, we were unable to assess adequately in an outpatient cystoscopic session. A s a result, he underwent operative cystoscopic evaluation, which did not reveal a bladder tumor, but instead a massively intravesically projecting median lobe of the prostate amidst significant residual lateral lobar hypertrophy causing obstruction. As a result, at that time, instead of aborting the p rocedure simply with the diagnostic information, I spoke to the family who then gave permission to pr oceed with resection of the intraluminally projecting bladder mass/median lobe of the prostate. This was done successfully and the patient was discharged home and eventually had the catheter removed. He subsequently experienced urinary retention a few days later and presented to the Urology Clinic mo re agitated in the setting of his Alzheimer dementia. At that time, a catheter was placed and it was discovered he had some meatal stenosis, which occurred as a complication of the prior transurethral procedure. This was dilated and a catheter was placed and he was discharged with the catheter for ab out a week. The catheter was removed subsequently and he was able to void. He then became agitated again at home with his and this morning, they found him in the bathroom with bloody urine all ov er the bathroom and the shelley. As a result, he was brought to the Emergency Department where I evalu ated him and placed a catheter and evacuated a significant quantity of clot, placing him on CBI with continued pink urine. He remained consistently agitated despite what appeared to be adequate irrigat ion with CBI and his urine would become progressively pink with his agitation so because he had a neville p in his hematocrit associated with the initial bleeding episode from 11 to 12 down to 10, I recommen ded operative evaluation and management. Procedure In Detail: The patient's family rather consented on his behalf before he was taken to the operating room and placed under general anesthesia. Ampicillin 2 g and gentamicin 160 mg IV antimicr obial therapy was provided given his prior history of enterococcus in the urine sensitive to ampicill in and pseudomonas sensitive to gentamicin. The case was begun by dilating the meatus and fossa terrell cularis to 30[place] and then I placed the 26[place] resectoscope via his urethra into his bladder wi th ease using the visual obturator. Upon entry into the prostatic urethra and bladder, there was sig nificant clot burden, which required multiple rounds of Ellik evacuation to remove. Over 500 to 750 cc of clot easily was removed from within his bladder. Once this was done, it was clear that there w as significant oozing from all surfaces of the prostate, from the posterior trough that was initially resected in the process of resecting the median lobe as well as from the lateral lobar tissue. It w as clear that there was fibrinous change to the tissue, potentially associated with the bleeding, but also likely associated with a degree of chronic prostatitis that may have been resistant to the Bact rim antimicrobial that he had been given. As a result, efforts to fulgurate the base of the resectio n site alone after removal of the clot was unsuccessful at coiling the bleeding. As a result, I had to resect deeper into the tissues in order to get to fresh non fibrinous/necrotic tissue such that I would identify a discrete vessel to fulgurate. This was required throughout the base as well as the lateral lobes of the prostate occupying the entire region from the 3 o'clock position on the prostate face to the 9 o'clock position. However, with resection of that tissue to get to the base in order to fulgurate, additional significant lateral lobar hypertrophy and intrusion of the tissue of course did occur and made it impossible to discretely fulgurate the vessel and achieve complete hemostasis. As a result, I had to continue resecting the lateral lobar tissue until a virtual complete TURP was performed in order to achieve a modicum of success fulgurating. Continued resection as necessary was performed until I was able to fulgurate each vessel distinctly and achieve near complete hemostasis. Because there was still ongoing ooze at this point, I switched from the bipolar loop that I had bee n using throughout the entirety of the initial 2 hours of resection to a bipolar rolling ball to cont inue full duration of the remaining tissue. At this point, I inquired of our anesthesiologist berto newberry there were any concerns about the patient's condition from an anesthetic perspective, and he expres sed that there may have been some subtle ST changes. As a result, I spent the remainder of the time with the roller ball, carefully fulgurating and ensuring complete hemostasis before completing the ca se about 15 minutes later. In the end, with the bladder decompressed and all prostate chips and bloo d removed from within, the prostatic fossa was completely hemostatic; so I backfilled the bladder and removed the scope before placing a 24-[place] 3-way Duron catheter with ease. 30 cc of sterile water was placed into the balloon and the catheter was placed to moderate traction. Slow drip CBI was ini tiated and the efflux was completely clear. The patient was then transferred to a stretcher and then transferred to the recovery room in guarded condition. EKG obtained in the recovery room showed no acute ST changes. There may have been [address] elevation in lead 1 and T-wave inversion in lead 3 of uncertain significance. CBC checked after the majority of the bleeding had been stopped, during the point of the rollerball fulguration, revealed a hemoglobin in the 8 range reflective of a 2 point drop in his hemoglobin consistent with the amount of blood removed from within his bladder. As a re sult, the patient was given continuous IV fluids in order to provide added resuscitation having been given 1400 cc of crystalloid during the procedure. Complications: None. Discharge Disposition: He will be admitted and observed overnight on the Hospitalist Service and we will request Cardiology consultation to determine if any concerns with the EKG changes seen potential ly associated with a degree of ischemia. Troponins will also be sent to rule out ischemia. He shoul d be managed overnight and continued on IV ampicillin and gentamicin 1-2 mg/kg q.8 hours overnight fo r presumptive infection with the enterococcus and pseudomonas previously observed during preoperative evaluation before his first surgery back on May 09. CBI may be weaned and clamped, discontin ued tomorrow morning if the urine remains essentially clear or light pink. Discharge antimicrobial will be Augmentin. WR/MODL Voice ID: [id number] Report ID: [id number]
--- NOTE | 2022-06-05 15:03 | EKG ---
Test Date: 2022-06-02 Test Time: 21:20:33 Hospice Educator: PORTER MEASUREMENT RESULTS: Intervals: Rate: 60 [place]: 126 QRSD: 84 QT: 470 QTc: 470 [place]: P: 53 [place]: 126 QRS: -10 T: 12 INTERPRETIVE STATEMENTS: Electronic atrial pacemaker ST & Marked T wave abnormality, consider anterolateral ischemia Prolonged QT Abnormal ECG Compared to ECG 06/02/2022 14:20:29 T-wave abnormality now present Possible ischemia now present Prolonged QT interval now present Sinus tachycardia no longer present Fusion complex(es) no longer present Ventricular premature complex(es) no longer present Myocardial infarct finding no longer present Electronically Signed On 06-05-22 14:57:42 WELDER EXPLOSION by Thai Chan
--- NOTE | 2022-06-05 15:05 | EKG ---
Test Date: 2022-06-02 Test Time: 14:20:29 Spring Former Machine: HIMA MEASUREMENT RESULTS: Intervals: Rate: 110 DC: 142 QRSD: 82 QT: 328 QTc: 443 [place]: P: 52 DC: 142 QRS: -25 T: 58 INTERPRETIVE STATEMENTS: Sinus tachycardia Cannot rule out Anterior infarct, age undetermined Abnormal ECG Compared to ECG 04/17/2022 20:19:41 Sinus rhythm no longer present Myocardial infarct finding still present Electronically Signed On 06-05-22 14:58:33 SHADE CLOTH FINISHER by Thai Chan
== END 2022-06-03 18:46 | disposition home or self-care (01) | DRG 988 ==
LOC: ER 14:02 → ERHOLD 20:53 → 4TH 22:55
PROVIDERS: ADMIT Internal Medicine Nephrology; ATTEND Hospitalist
PROC: 0V508ZZ Destruction of Prostate, Via Natural or Artificial Opening Endoscopic (ICD-10-PCS; 2022-06-02)
PROC: 0T9B8ZZ Drainage of Bladder, Via Natural or Artificial Opening Endoscopic (ICD-10-PCS; 2022-06-02)
PROC: 0VT08ZZ Resection of Prostate, Via Natural or Artificial Opening Endoscopic (ICD-10-PCS; principal; 2022-06-02 18:00)
DX: N99.820 Postprocedural hemorrhage of a genitourinary system organ or structure following a genitourinary system procedure (principal); F05 Delirium due to known physiological condition; E11.9 Type 2 diabetes mellitus without complications; I10 Essential (primary) hypertension; G30.9 Alzheimer's disease, unspecified; F02.80 Dementia in other diseases classified elsewhere, unspecified severity, without behavioral disturbance, psychotic disturbance, mood disturbance, and anxiety; E78.5 Hyperlipidemia, unspecified; N41.1 Chronic prostatitis; N40.1 Benign prostatic hyperplasia with lower urinary tract symptoms; R33.8 Other retention of urine; R31.9 Hematuria, unspecified; Z79.4 Long term (current) use of insulin; Z78.1 Physical restraint status; Z95.0 Presence of cardiac pacemaker; Z79.84 Long term (current) use of oral hypoglycemic drugs; Z86.73 Personal history of transient ischemic attack (TIA), and cerebral infarction without residual deficits; Z79.82 Long term (current) use of aspirin; Z79.899 Other long term (current) drug therapy; Z91.048 Other nonmedicinal substance allergy status; Z20.822 Contact with and (suspected) exposure to COVID-19
CPT/HCPCS: 36415; 80048; 80053; 80170; 82565; 82947; 83735; 84132; 84484; 84520; 85025; 85610; 85730; 86850; 86900; 86901; 87811; 88305; 93005; 96372; 99285; J0290; J1100; J1580; J1630; J1815; J2001; J2370; J2405; J2704; J3010; J3486; J7030

== ENCOUNTER 2022-07-27 15:57 | Emergency (ER) | payer OTHER ==
--- OUTSIDE RECORDS SUMMARY | 2022-07-27 16:04 | XMS REPORT | Continuity of Care Document ---
:1945 Author Organization [facility] t Address [address] [place] [address] Care Team Providers Name Role Phone Luis King MD Primary Care Physician Luis King Attending Clinician Unavailable Casi Gordon MD Attending Clinician Monique Johnson MA Attending Clinician Unavailable Berna Bob MA Attending Clinician Unavailable Prosper Otto NP Attending Clinician [phone] Lyndsay Kerr MD Attending Clinician CHASE GALLAGHER Attending Clinician Unavailable All Gomez MD Attending Clinician ALL GOMEZ Attending Clinician Unavailable MARY HONG Attending Clinician Unavailable Melania Pillai Attending Clinician Physician, Non Associated Attending Clinician Unavailable Payers Payer Name Policy Type Policy Number Effective Date Expiration Date S ource AETNA MEDICARE 53 [id number] 2021 Common S pirit 00:00:00 - [facility] AETNA MEDICARE 53 [id number] Common S pirit PPO - [facility] MEDICARE PLAN [id number] PPO - AETNA AETNA MEDICARE [id number] 2020 HMO POS PPO 00:00:00 Problems Condition Condition Condition Status Onset Resolution Last Treating Co mments Source Name Details Category Date Date Treatment Clinician Date Late onset Late onset Disease Active B [facility] Alzheimer' Alzheimer' 9[facility] [employer] l[employer] s disease s disease 00:00: of without without 00 Medicin behavioral behavioral e disturbanc disturbanc e (HCCode) e (HCCode) F/U 5 WKS F/U 5 WKS Diagnosis Active 2017-01-09 Memoria Active 11-13 11:00:00 l 11/13/2016 00:00: Paul snowden [facility] 00 F/U 1 F/U 1 Diagnosis Active 2016-11-07 Mem oria MONTH MONTH - 10:02:00 l Active 00:00: [place] 09/19/2016 00 MH [facility] MODERATE MODERATE Diagnosis Active 2016-09-04 Memoria DAVID DAVID Active 08-24 09:00:00 l 08/24/2016 00:00: Paul snowden [facility] 00 DAVID DAVID Diagnosis Active 2016-08-17 Mem oria Active 08-08 08:28:00 l 08/08/2016 00:00: Paul RUSH [facility] 00 Diabetes Diabetes Problem Resolve 2017-01-12 Memoria mellitus mellitus d 00:14:12 l (disorder) (disorder) He rmann Resolved Problem 01/12/2017 type 2 MH [facility] Hypertensi Hypertens Problem Resolve 2017-01-12 Memoria ve renate d 00:14:12 l disorder, disorder, Herm seth systemic systemic arterial arterial (disorder) (disorder) Resolved Problem 01/12/2017 MH [facility] No known No known Disease Metho di active active st problems problems Hospit a l Sleep Sleep Problem Resolve 2017-01-12 Yoav erasmo apnea apnea d 00:14:12 l (finding) (finding) Sosa ann Resolved Problem 01/12/2017 CPAP at bedtime MH [facility] Syncope Syncope Problem Resolve 2017-01-12 M emoria (disorder) (disorder) d 00:14:12 l Resolved [place] Problem 01/12/2017 recently had 3 syncopal episodes. 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 00:14:12 l erosis erosis [place] (disorder) (disorder) Active Problem 01/12/2017 [facility] Diabetes Diabetes Problem Active 2017-01-12 Memoria mellitus mellitus 00:14:12 l type 2 type 2 [place] (disorder) (disorder) Active Problem 01/12/2017 [facility] OBSTRUCTIV OBSTRUCTI Diagnosis Active 2016-11-07 Memoria E SLEEP VE SLEEP 10:02:00 l APNEA APNEA [place] (ADULT) (ADULT) (PEDIATR (PEDIATR Active [facility] Benign Benign Problem Resolve 2017-01-12 Mem oria prostatic prostatic d 00:14:12 l hyperplasi hyperplasi He rmann a a (disorder) (disorder) Resolved Problem 01/12/2017 [facility] [id number] Lesion of Problem Com mon bladder [facility] [id number] Acute Problem Common cystitis [facility] with [facility] hematuria [facility] Disorder Bladder Problem Common of urinary disorder Spir it bladder [facility] [id number] Postproced Problem Co mmon ural male Spirit fossa [facility] naviculari [facility] [id number] S/P TURP Problem Comm on [facility] [id number] OAB Problem Common (overactiv Spirit e bladder) [facility] [id number] BPH loc w Problem Com mon urin Spirit obs/LUTS [facility] [id number] Gross Problem Common hematuria [facility] [id number] Postproced Problem C ommon 37737 ural male Spirit urethral [facility] meatal [facility] [id number] Incomplete Problem Co mmon emptying Spirit of bladder [facility] [id number] Urinary Problem Commo n retention [facility] Allergies, Adverse Reactions, Alerts Allergy Allergy Status Severity Reaction(s) Onset Inactive Treating Comm ents Source Name Type Date Date Clinician STATINS- Allergy Active [facility] HMG-COA 6-15 REDUCTAS 00:00: E 00 INHIBITO RS Statins- Drug Active Other [facility] Allergy 6-15 reaction( [facility] Inhibito (Muscle rs Pain) Statins- Drug Active [facility] Allergy 6-15 reaction( [facility] Reductas 00:00: s): Medical e [facility] Inhibito (Muscle rs Pain) SULFA Allergy Active [facility] (SULFONA 5-19 MIDE 00:00: ANTIBIOT 00 ICS) Sulfa Drug Active Other [facility] (Sulfona Allergy 5-19 reaction( Luke s mide 00:00: s): Medical Antibiot [facility] ics) (Muscle Pain) Sulfa Drug Active Other [facility] (Sulfona Allergy 5-19 reaction( Luke s mide 00:00: s): Medical Antibiot [facility] ics) (Muscle Pain) Sulfa Propensi Active Other [facility] Antibiot ty to 5-19 reaction( Colle ge ics adverse 00:00: s): of reaction 00 Myalgias Medici n s to (Muscle e drug Pain) IODINE Allergy Active High Hives [facility] 10-13 00:00: 00 Iodine Drug Active Hives IV Iodine [facility] 10-13 - [facility] 00 [facility] Center allergic to shrimp but has had tests with iodine in the past without issues - 12/07/20 [place], RN Iodine Propensi Active [facility] ty to 10-13 College adverse 00:00: of reaction 00 Medicin s to e drug NO KNOWN Allergy Active [facility] ALLERGIE S 463 Drug Active Unknown Common allergy Spirit - [facility] iodine iodine Active Keila Black Social History Social Habit Start Date Stop Date Quantity Comments Source History of Common Spirit - Tobacco Use [facility] Tobacco use and 2021-08-10 2021-08-10 Smokeless tobacco Me thodist exposure 00:00:00 00:00:00 non-user Hospital Alcohol intake 2021-03-07 2021-03-07 Current [facility] Col lege of 00:00:00 00:00:00 non-drinker of Medicine alcohol (finding) Social History 2016-03-12 2016-03-12 [facility] Elly hall 08:02:05 08:02:05 Sex [birth year] At [birth year] Caodaism 00:00:00 00:00:00 Hospital Smoking Status Start Date Stop Date Source Never Smoker [facility] Medications Ordered Filled Start Stop Current Ordering Indication Dosage Frequency Signature Comments Components Source Medication Medication Date Date Medication? Clinician (SIG) Name Name Cefpodoxime Cefpodoxime 2021-06- No 1{table BID Cefpodoxim Proxetil Proxetil 2-30 06-30 t_with_ e Proxetil 200 MG 200 MG 00:00: 00:00 food} 200 MG 00 :00 Cefpodoxime Cefpodoxime 2021-06- No 1{table BID Cefpodoxim Proxetil Proxetil 2-06-30 t_with_ e Proxetil 200 MG 200 MG 00:00: 00:00 food} 200 MG 00 :00 Cefpodoxime Cefpodoxime 2021-06- No 1{table BID Cefpodoxim Proxetil Proxetil -06-30 t_with_ e Proxetil 200 MG 200 MG 00:00: 00:00 food} 200 MG 00 :00 Cefpodoxime Cefpodoxime 2021-06- No 1{table BID Cefpodoxim Proxetil Proxetil 2-30 06-30 t_with_ e Proxetil 200 MG 200 MG 00:00: 00:00 food} 200 MG 00 :00 Cefpodoxime Cefpodoxime 2021-06- No 1{table BID Cefpodoxim Proxetil Proxetil 2-06-30 t_with_ e Proxetil 200 MG 200 MG 00:00: 00:00 food} 200 MG 00 :00 levoFLOXaci levoFLOXaci 2021-06- No 1{table QD levoFLOXac n 500 MG n 500 MG 07-08 t} in 500 MG 00:00: 00:00 00 :00 Trospium Trospium 2021-06- No 1{table BID Trospium Chloride 20 Chloride 20 08-22 t} Chloride MG MG 00:00: 00:00 20 MG 00 :00 Trospium Trospium 2022-1 2023- No 1{table BID Trospium Chloride 20 Chloride 20 0-31 -28 t} Chloride MG MG 00:00: 00:00 20 MG 00 :00 Trospium Trospium 2022-1 2023- No 1{table BID Trospium Chloride 20 Chloride 20 0-31 -28 t} Chloride MG MG 00:00: 00:00 20 MG 00 :00 Trospium Trospium 2022-1 2023- No 1{table BID Trospium Chloride 20 Chloride 20 0-31 -28 t} Chloride MG MG 00:00: 00:00 20 MG 00 :00 Trospium Trospium 2022-1 2023- No 1{table BID Trospium Chloride 20 Chloride 20 0--28 t} Chloride MG MG 00:00: 00:00 20 MG 00 :00 Trospium Trospium 2022-1 2023- No 1{table BID Trospium Chloride 20 Chloride 20 0-28 t} Chloride MG MG 00:00: 00:00 20 MG 00 :00 Trospium Trospium 2022-1 2023- No 1{table BID Trospium Chloride 20 Chloride 20 0-28 t} Chloride MG MG 00:00: 00:00 20 MG 00 :00 Trospium Trospium 2022-1 2023- No 1{table BID Trospium Chloride 20 Chloride 20 0-31 -28 t} Chloride MG MG 00:00: 00:00 20 MG 00 :00 Trospium Trospium 2022-1 2023- No 1{table BID Trospium Chloride 20 Chloride 20 0-31 -28 t} Chloride MG MG 00:00: 00:00 20 MG 00 :00 Trospium Trospium 2022-1 2023- No 1{table BID Trospium Chloride 20 Chloride 20 0-31 -28 t} Chloride MG MG 00:00: 00:00 20 MG 00 :00 Trospium Trospium 2022-1 2022- No 1{table QD Trospium Chloride 20 Chloride 20 0-31 12-30 t_at_be Chloride MG MG 00:00: 00:00 dtime_o 20 MG 00 :00 n_an_em pty_sto mach} Trospium Trospium 2021-06- No 1{table QD Trospium Chloride 20 Chloride 20 0-31 12-30 t_at_be Chloride MG MG 00:00: 00:00 dtime_o 20 MG 00 :00 n_an_em pty_sto mach} gentamicin Yes [id number] 80mg Me [facility] (GARAMYCIN) 02-14 st injection 20:15: Hospita 80 mg 00 l gentamicin Yes [id number] 80mg Me [facility]odi (GARAMYCIN) 02-14 st injection 20:15: Hospita 80 mg 00 l gentamicin Yes [id number] 80mg Me [facility]odi (GARAMYCIN) 02-14 st injection 20:15: Hospita 80 mg 00 l cefTRIAXone 2021- No [id number] 1g [facility] (ROCEPHIN) 02-1418 st injection 1 20:15: 20:14 Hospi ta g 00 :00 l cefTRIAXone 2021- No [id number] 1g [facility] (ROCEPHIN) 02-1418 st injection 1 20:15: 20:14 Hospi ta g 00 :00 l cefTRIAXone 2021- No [id number] 1g [facility] (ROCEPHIN) 02-14 st injection 1 20:15: 20:14 Hospi ta g 00 :00 l levoFLOXaci 2021- No 750mg QD Take 1 Me thodi n 02-[address] (Levaquin) 00:00: 04:59 (750 mg Hos lauren 750 MG 00 :00 total) by l tablet mouth daily for 5 days. levoFLOXaci 2021- No 750mg QD Take 1 Me thodi n 02-10 08-[address] (Levaquin) 00:00: 04:59 (750 mg Hos lauren 750 MG 00 :00 total) by l tablet mouth daily for 5 days. levoFLOXaci 2021- No 750mg QD Take 1 Me thodi n 02-10-[address] (Levaquin) 00:00: 04:59 (750 mg Hos lauren 750 MG 00 :00 total) by l tablet mouth daily for 5 days. levoFLOXaci 2021- No 750mg QD Take 1 Me thodi n 4-17 11- tablet st (Levaquin) 00:00: 04:59 (750 mg Hos lauren 750 MG 00 :00 total) by l tablet mouth daily for 5 days. levoFLOXaci 2021- No 750mg QD Take 1 Me thodi n -17 11- tablet st (Levaquin) 00:00: 04:59 (750 mg Hos lauren 750 MG 00 :00 total) by l tablet mouth daily for 5 days. levoFLOXaci No 750mg QD Take 1 Me thodi n -10-[address] (Levaquin) 00:00: 04:59 (750 mg Hos lauren 750 MG 00 :00 total) by l tablet mouth daily for 5 days. cefTRIAXone 2021- No [id number] 1g [facility] (ROCEPHIN) 09-05 st injection 1 17:15: 17:14 Hospi ta g 00 :00 l cefTRIAXone 2021- No [id number] 1g [facility] (ROCEPHIN) 09-05 st injection 1 17:15: 17:14 Hospi ta g 00 :00 l cefTRIAXone 2021- No [id number] 1g [facility] (ROCEPHIN) 09-05 st injection 1 [...] 750mg QD Take 1 Me thodi n -08-[address] (Levaquin) 00:00: 05:59 (750 mg [...] then morning of procedure until gone. sulfamethox No 1{tbl} Q.5D Take 1 M ethodi [...] 13:29: tablet Hospita tablet 13 l canaglifloz 2022-0 Yes 300mg Take 300 M ethodi in [...] unit capsule capsule calcium 0 Yes 1334mg Q.[id number] Take 1,334 [facility] acetate 2-[id number] (PHOSLO) 13:29: 3D mouth 3 Hospit a 667 mg 13 (three) l capsule times a day with meals. aspirin 0 Yes Adult Low Metho di (ADULT LOW 2-[address] DOSE 13:29: Aspirin Hospita ASPIRIN) 81 13 l MG enteric coated tablet multivitami Yes Take by Met hodi n with 2-[address] minerals 13:29: Hospita tablet 13 l glipiZIDE 0 Yes glipizide Met hodi (GLUCOTROL) 2-16 5 [...] st 13:29: mouth. Hospita 13 l cholecalcif 2021-0 Yes 2000U QD Take 2,000 Methodi leigh ann, 2-[address] vitamin D3, 13:29: mouth Hospi ta (VITAMIN 13 daily. l D3) 2,000 unit capsule capsule calcium 2021-0 Yes 1334mg Q.[id number] Take 1,334 [facility] acetate 2-[id number] (PHOSLO) 13:29: 3D mouth [...] 13:29: mouth. Hospita 13 l aspirin 325 0 Yes 325mg Take 325 M ethodi MG tablet 2-[address] 13:29: mouth. Hospita 13 l cholecalcif 0 Yes 2000U QD Take 2,000 Methodi leigh ann, 2-[address] vitamin D3, 13:29: mouth Hospi ta (VITAMIN 13 daily. l D3) 2,000 unit capsule capsule calcium 0 Yes 1334mg Q.[id number] Take 1,334 [facility] acetate 2-[id number] (PHOSLO) 13:29: 3D mouth 3 Hospit a 667 mg 13 (three) l capsule times a day with meals. Insulin Yes Inject [facility] NPH, 9-13 into the [employer],, 09:27: skin. of [place], 38 Medicin (NOVOLIN N e FLEXPEN) 100 UNIT/ML SUPN aspirin 325 0 Yes 325mg Take 325 B aylor mg tablet 9-13 mg by [place] 09:27: mouth of 38 daily. Medicin e Tamsulosin Yes Take by [place] or HCl 0.4 MG - mouth. [place] CAPS 09:27: of 38 Medicin e Multiple Yes Take by [facility] Vitamins-Mi - mouth. Colleg e nerals 09:27: of (CARY MULTI 38 Medicin MEN OR) e Cyanocobala 0 Yes Take by [place] julius min - mouth. [place] (VITAMIN B 09:27: of 12 OR) 38 Medicin e Turmeric 0 Yes Take by [facility] (QC TUMERIC - mouth. Colleg e COMPLEX) 09:27: of 500 MG CAPS 38 Medicin e Red Yeast Yes Take by [facility] r [place] 500 - mouth. [place] MG/0.5GM 09:27: of POWD 38 Medicin e [place]-3 Yes Take by [facility] 1000 MG - mouth. [place] CAPS 09:27: of 38 Medicin e donepezil 0 Yes 10mg Take 10 mg Ba ylor (ARICEPT) 13 by mouth Colleg e 10 MG 09:27: two times of tablet 38 daily. Medicin e memantine 0 Yes 10mg Take 10 mg [facility] (NAMENDA) - by mouth Colleg e 10 MG 09:27: two times of tablet 38 daily. Medicin e metformin 0 Yes 1000mg Take 1,000 Dougie (GLUCOPHAGE 9-13 mg by [place] ) 1000 MG 09:27: mouth 2 of tablet 38 times Medicin daily e (with meals). olmesartan 0 Yes 40mg Take 40 mg B [facility] (BENICAR) -13 by mouth Colleg e 40 MG 09:27: daily. of tablet 38 Medicin e Insulin 0 Yes Inject [facility] NPH, - into the [place] Human,, 09:27: skin. of [place], 38 Medicin (NOVOLIN N e FLEXPEN) 100 UNIT/ML SUPN aspirin 325 0 Yes 325mg Take 325 B aylor mg tablet 9-13 mg by [place] 09:27: mouth of 38 daily. Medicin e Tamsulosin 0 Yes Take by [place] or HCl 0.4 MG -13 mouth. [place] CAPS 09:27: of 38 Medicin e Multiple Yes Take by [facility] Vitamins-Mi 9-13 mouth. Colleg e nerals 09:27: of (CARY MULTI 38 Medicin MEN OR) e Cyanocobala Yes Take by [place] julius min - mouth. [place] (VITAMIN B 09:27: of 12 OR) 38 Medicin e Turmeric Yes Take by [facility] (QC TUMERIC 9-13 mouth. Colleg e COMPLEX) 09:27: of 500 MG CAPS 38 Medicin e Red Yeast Yes Take by [facility] r [place] 500 -13 mouth. [place] MG/0.5GM 09:27: of POWD 38 Medicin e [place]-3 Yes Take by [facility] 1000 MG - mouth. [place] CAPS 09:27: of 38 Medicin e donepezil Yes 10mg Take 10 mg [facility] (ARICEPT) 9-13 by mouth Colleg e 10 MG 09:27: two times of tablet 38 daily. Medicin e memantine Yes 10mg Take 10 mg [facility] (NAMENDA) 9-13 by mouth Colleg e 10 MG 09:27: two times of tablet 38 daily. Medicin e metformin Yes 1000mg Take 1,000 [facility] (GLUCOPHAGE 9-13 mg by [place] ) 1000 MG 09:27: mouth 2 of tablet 38 times Medicin daily e (with meals). olmesartan Yes 40mg Take 40 mg [facility] (BENICAR) 9-13 by mouth Colleg e 40 MG 09:27: daily. of tablet 38 Medicin e sertraline Yes 1/2 tab PO B aylor (ZOLOFT) 50 9-13 daily x 2 Col lege MG tablet 00:00: weeks then increase Medicin to one tab e daily and continue sertraline 0 Yes 1/2 tab PO B aylor (ZOLOFT) 50 9-13 daily x 2 Col lege MG tablet 00:00: weeks then increase Medicin to one tab e daily [...] 23 MG t_at_be HCl 23 MG dtime} Donepezil Donepezil No 1{table QD Donepezil HCl 23 MG HCl 23 MG t_at_be HCl 23 MG dtime} NovoLOG NovoLOG No NovoLOG Olmesartan Olmesartan No 1{table QD Olmesartan Medoxomil-H Medoxomil-H t} Medoxomil- CTZ 40-12.5 CTZ 40-12.5 HCTZ MG MG 40-12.5 MG Aspirin 325 Aspirin 325 No 1{table QD Aspirin MG MG t} 325 MG NovoLOG NovoLOG No NovoLOG Memantine Memantine [...] QD Aspirin MG MG t} 325 MG Olmesartan Olmesartan No 1{table QD Olmesartan [...] QD Aspirin MG MG t} 325 MG Aspirin 325 Aspirin 325 No 1{table [...] MG 40-12.5 MG NovoLOG NovoLOG No NovoLOG Aspirin 325 Aspirin 325 No 1{table QD [...] pneumococcal 2016-03-12 Completed [facility] 13-valent vaccine 22:35:00 [place] pneumococcal 2016-03-12 Completed [facility] 13-valent vaccine 22:35:00 [place] Vital Signs Vital Name Observation Time Observation Value Comments Source height 2022-06-28 13:30:00 71 [in_i] [facility] weight 2022-06-28 13:30:00 171 [lb_av] [facility] temperature 2022-06-28 13:30:00 98.0 [degF] [facility] bmi 2022-06-28 13:30:00 23.85 kg/m2 [facility] oximetry 2022-06-28 13:30:00 96 % [facility] respiratory rate 2022-06-28 13:30:00 18 /min Comm on [facility] blood pressure 2022-06-28 13:30:00 142 mm[Hg] Common [facility] - systolic [facility] blood pressure 2022-06-28 13:30:00 68 mm[Hg] Common [facility] - diastolic [facility] height 2022-05-26 12:45:00 71 [in_i] Common [facility] weight 2022-05-26 12:45:00 172.4 [lb_av] [facility] temperature 2022-05-26 12:45:00 98 [degF] Common S pirit - [facility] bmi 2022-05-26 12:45:00 24.04 kg/m2 Common S pirit [facility] oximetry 2022-05-26 12:45:00 98 % [facility] rate 2022-05-26 12:45:00 16 /min Comm on [facility] blood pressure 2022-05-26 12:45:00 184 mm[Hg] Common [facility] - systolic [facility] blood pressure 2022-05-26 12:45:00 88 mm[Hg] [facility] - diastolic [facility] height 2022-05-24 13:45:00 71 [in_i] [facility] weight 2022-05-24 13:45:00 171 [facility] temperature 2022-05-24 13:45:00 97.9 [degF] Common S pirit [facility] bmi 2022-05-24 13:45:00 23.85 kg/m2 [facility] S [facility] oximetry 2022-05-24 13:45:00 99 % Common [facility] respiratory rate 2022-05-24 13:45:00 18 /min Comm on [facility] blood pressure 2022-05-24 13:45:00 181 mm[Hg] Common [facility] - systolic [facility] blood pressure 2022-05-24 13:45:00 77 mm[Hg] [facility] - diastolic [facility] height 2022-04-21 10:45:00 71 [in_i] [facility] weight 2022-04-21 10:45:00 177.4 [lb_av] Common [facility] temperature 2022-04-21 10:45:00 98 [degF] Common S pirit [facility] bmi 2022-04-21 10:45:00 24.74 kg/m2 [facility] oximetry 2022-04-21 10:45:00 96 % Common S pirit - [facility] respiratory rate 2022-04-21 10:45:00 18 /min Comm on [facility] blood pressure 2022-04-21 10:45:00 145 mm[Hg] [facility] - systolic [facility] blood pressure 2022-04-21 10:45:00 65 mm[Hg] [facility] - diastolic [facility] Systolic blood 2021-03-07 14:30:00 162 mm[Hg] [facility] Medicine Diastolic blood 2021-03-07 14:30:00 73 mm[Hg] [facility] Medicine Heart rate 2021-03-07 14:30:00 65 /min [facility] Body height 2021-03-07 14:26:00 180.3 cm [facility] Body weight 2021-03-07 14:26:00 85.276 kg [facility] BMI 2021-03-07 14:26:00 26.22 kg/m2 [facility] Weight 2017-01-09 16:43:00 [facility] [place] Systolic (mm Hg) 2017-01-09 16:43:00 Yoav rial [place] Diastolic (mm Hg) 2017-01-09 16:43:00 Mem orial [place] Heart Rate 2017-01-09 16:43:00 [facility] [place] Respitory Rate 2017-01-09 16:43:00 Memori al [place] Height 2017-01-09 16:43:00 180.34 cm [facility] [place] BMI Calculated 2017-01-09 16:43:00 Memori al [place] Height 2016-11-07 15:08:00 180.34 cm [facility] [place] BMI Calculated 2016-11-07 15:08:00 Memori al [place] Weight 2016-11-07 15:08:00 [facility] [place] Heart Rate 2016-11-07 15:08:00 [facility] [place] Respitory Rate 2016-11-07 15:08:00 Memori al [place] Systolic (mm Hg) 2016-11-07 15:08:00 Yoav rial [place] Diastolic (mm Hg) 2016-11-07 15:08:00 Mem orial [place] Procedures Procedure Date / Time Performed Performing Clinician [facility] e BIOPSY PROSTATE 2022-02-16 00:00:00 Casi Gordon spicristi POC URINALYSIS DIPSTICK 2022-02-14 20:09:25 Casi Gordon [facility] CYTOLOGY 2021-09-07 04:00:00 Casi Gordontal (NON-GYNECOLOGICAL) REQUEST POC URINALYSIS DIPSTICK 2021-09-05 17:19:00 Casi Gordon [facility] CT ABDOMEN W WO 2021-08-27 19:36:34 SayreProspertal CONTRAST PELVIS W WO Christy CONTRAST POC CREATININE 2021-08-27 18:39:00 Casi Gordon spital ESTIMATED GFR 2021-08-27 18:39:00 Casi Gordon spital 4K PSA TOTAL + FREE 2021-08-19 00:00:00 [facility] REFLEX > 3.0 TO 4KSCORE Christy URINALYSIS SCREEN AND 2021-08-10 20:20:00 [facility] MICROSCOPY, WITH REFLEX Christy TO CULTURE [id number] 2021-08-10 20:19:00 [facility] omar Christy PROSTATE SCORE 4K 2021-08-10 20:15:00 [facility] (SERUM) URINE CULTURE 2021-08-10 20:09:00 [facility] spital Christy POC URINALYSIS DIPSTICK 2021-08-10 20:08:00 [facility] Christy Endoscopy<sup>1</sup> [facility] Procedure<sup>4</sup> [facility] Plan of Care Planned Activity Planned Date Details Comments Source Future Scheduled 2022-07-27 Hepatitis C screening [facility] Test 16:01:09 (procedure) [code = [id number]] Future Scheduled 2022-07-27 COLONOSCOPY SCREENING [facility] Test 16:01:09 [code = COLONOSCOPY SCREENING] Future Scheduled 2022-07-27 SHINGLES VACCINES (1 [facility] Test 16:01:09 of 2) [code = SHINGLES VACCINES (1 of 2)] Future Scheduled 2022-07-27 65+ P[facility]OCOCCAL [facility] Test 16:01:09 VACCINE (2 - PPSV23 if available, else PCV20) [code = 65+ PNEUMOCOCCAL VACCINE (2 - PPSV23 if available, else PCV20)] Future Scheduled 2022-07-27 COVID-19 VACCINE (3 - [facility] Hospital Test 16:01:09 Booster for Moderna series) [code = COVID-19 VACCINE (3 - Booster for Moderna series)] Future Scheduled 2022-07-27 INFLUENZA VACCINE [facility] Hospital Test 16:01:09 [code = INFLUENZA VACCINE] Future Scheduled 2022-06-[address] [facility] Test 00:00:00 (12+) [code = Medical Center DEPRESSION SCREENING (12+)] Future Scheduled 2022-06-25 FALLS RISK SCREENING [facility] Test 00:00:00 [code = FALLS RISK Medical C enter SCREENING] Future Scheduled 2022-04-28 HEPATITIS B VACCINES Met [facility] Test 12:49:32 (1 of 3 - 3-dose series) [code = HEPATITIS B VACCINES (1 of 3 - 3-dose series)] Future Scheduled 2022-04-28 Hepatitis C screening [facility] Test 12:49:32 (procedure) [code = [id number]] Future Scheduled 2022-04-28 COLONOSCOPY SCREENING [facility] Test 12:49:32 [code = COLONOSCOPY SCREENING] Future Scheduled 2022-04-28 SHINGLES VACCINES (1 Met [facility] Test 12:49:32 of 2) [code = SHINGLES VACCINES (1 of 2)] Future Scheduled 2022-04-28 65+ [facility] 12:[facility]:32 VACCINE (2 - PPSV23 if available, else PCV20) [code = 65+ PNEUMOCOCCAL VACCINE (2 - PPSV23 if available, else PCV20)] Future Scheduled 2022-04-28 COVID-19 VACCINE (3 - [facility] Hospital Test 12:49:32 Booster for Moderna series) [code = COVID-19 VACCINE (3 - Booster for Moderna series)] Future Scheduled 2022-04-28 INFLUENZA VACCINE Method [facility] Hospital Test 12:49:32 [code = INFLUENZA VACCINE] Future Scheduled 2022-04-17 HEPATITIS B VACCINES Met [facility] Test 08:58:53 (1 of 3 - 3-dose series) [code = HEPATITIS B VACCINES (1 of 3 - 3-dose series)] Future Scheduled 2022-04-17 Hepatitis C screening [facility] Test 08:58:53 (procedure) [code = 161088518] Future Scheduled 2022-04-17 COLONOSCOPY SCREENING [facility] Test 08:58:53 [code = COLONOSCOPY SCREENING] Future Scheduled 2022-04-17 SHINGLES VACCINES (1 Met [facility] Hospital Test 08:58:53 of 2) [code = SHINGLES VACCINES (1 of 2)] Future Scheduled 2022-04-17 65+ [facility] 08:58:53 VACCINE (2 - PPSV23 if available, else PCV20) [code = 65+ PNEUMOCOCCAL VACCINE (2 - PPSV23 if available, else PCV20)] Future Scheduled 2022-04-17 COVID-19 VACCINE (3 - [facility] Test 08:58:53 Booster for Moderna series) [...] enter SCREENING] Future Scheduled 2021-03-07 Screening for [facility] of Test 09:26:59 malignant neoplasm of Medici ne colon (procedure) [code = 856839861] Future Scheduled 2021-03-07 COVID-19 Vaccine (1) [facility] of Test 09:26:59 [code = COVID-19 Medicine Vaccine (1)] Future Scheduled 2021-03-07 TETANUS SHOT (ADULT) [facility] of Test 09:26:59 [code = TETANUS SHOT Medicin e (ADULT)] Future Scheduled 2021-03-07 BMI FOLLOW UP PLAN [facility] of Test 09:26:59 [code = BMI FOLLOW UP Medici ne PLAN] Future Scheduled 2021-03-07 Hepatitis C screening [facility] of Test 09:26:59 (procedure) [code = Medicine 760958073] Future Scheduled 2021-03-07 ZOSTER VACCINE (1 of [facility] of Test 09:26:59 2) [code = ZOSTER Medicine VACCINE (1 of 2)] Future Scheduled 2021-03-07 FALL SCREEN [code = [facility] of Test 09:26:59 FALL SCREEN] Medicine Future Scheduled 2021-03-07 PNEUMOVAX >=65 [facility] of Test 09:26:59 (PPSV23) [code = Medicine PNEUMOVAX >=65 (PPSV23)] Future Scheduled 2021-03-07 MEDICARE AWV (Initial) B [facility] of Test 09:26:59 [code = MEDICARE AWV Medicin e (Initial)] Future Scheduled 2021-03-07 FLU VACCINE > 6 MONTHS B [facility] of Test 09:26:59 [code = FLU VACCINE > Medici ne 6 MONTHS] Future Scheduled 2021-03-07 Screening for [facility] of Test 09:26:59 malignant neoplasm of Medici ne colon (procedure) [code = 820408848] Future Scheduled 2021-03-07 COVID-19 Vaccine (1) [facility] of Test 09:26:59 [code = COVID-19 Medicine Vaccine (1)] Future Scheduled 2021-03-07 TETANUS SHOT (ADULT) [facility] of Test 09:26:59 [code = TETANUS SHOT Medicin e (ADULT)] Future Scheduled 2021-03-07 BMI FOLLOW UP PLAN [employer] of Test 09:26:59 [code = BMI FOLLOW UP Medici ne PLAN] Future Scheduled 2021-03-07 Hepatitis C screening [facility] Test 09:26:59 (procedure) [code = Medicine [id number]] Future Scheduled 2021-03-07 ZOSTER VACCINE (1 of [facility] of Test 09:26:59 2) [code = ZOSTER Medicine VACCINE (1 of 2)] Future Scheduled 2021-03-07 FALL SCREEN [code = [facility] of Test 09:26:59 FALL SCREEN] Medicine Future Scheduled 2021-03-07 PNEUMOVAX >=65 [facility] of Test 09:26:59 (PPSV23) [code = Medicine PNEUMOVAX >=65 (PPSV23)] Future Scheduled 2021-03-07 MEDICARE AWV (Initial) B [facility] Test 09:26:59 [code = MEDICARE AWV Medicin e (Initial)] Future Scheduled 2021-03-07 FLU VACCINE > 6 MONTHS B [facility] Test 09:26:59 [code = FLU VACCINE > [...] Cessation Counseling and Screening (12+)] Future Scheduled [address] [address] [facility] Medica l Center colon (procedure) [code = 968321400] Future Scheduled 1947 Sigmoidoscopy [facility]code [facility] Test [facility]] Medical Cent[facility] r Future Scheduled [address] [facility] Test 00:00:00 (combo) [code = CT Medical C enter Colonography (combo)] Future Scheduled [address] [facility] Test 00:[facility]:00 malignant neoplasm of Medica l Center colon (procedure) [code = 378855945] Future Scheduled [address] [facility] Test 00:00:00 malignant neoplasm of Medica l Center colon (procedure) [code = 345899819] Future Scheduled [address] [facility] Test 00:00:00 malignant neoplasm of Medica l Center colon (procedure) [code = 195124052] Future Scheduled [address] [facility] Test 00:00:00 malignant neoplasm of Medica l Center colon (procedure) [code = 435194686] Future Scheduled [address] [facility] Test 00:00:00 malignant neoplasm of Medica l Center colon (procedure) [code = 198282237] Future Scheduled [address] [facility] Test 00:00:00 malignant neoplasm of Medica l Center colon (procedure) [code = 608775824] Future Scheduled 1947 Sigmoidoscopy [facility]code [facility] Test 00:[facility]oscopy] Medical Cente r Future Scheduled [address] [facility] Test 00:00:00 (combo) [code = CT Medical C enter Colonography (combo)] Future Scheduled [address] [facility] Test 00:00:00 malignant neoplasm of Medica l Center colon (procedure) [code = 692649872] Future Scheduled [address] [facility] Test 00:00:00 malignant neoplasm of Medica l Center colon (procedure) [code = 184482735] Future Scheduled [address] [facility] Test 00:00:00 malignant neoplasm of Medica l Center colon (procedure) [code = 162372487] Future Scheduled [address] [facility] Test 00:00:00 malignant neoplasm of Medica l Center colon (procedure) [code = 201546020] Future Scheduled 1947 Sigmoidoscopy [facility]code [facility] Test [facility]] Medical [facility] r Future Scheduled [address] [facility] Test 00:00:00 (combo) [code = CT Medical C enter Colonography (combo)] Future Scheduled [address] [facility] Test 00:00:00 malignant neoplasm of Medica l Center colon (procedure) [code = 186177689] Encounters Start End Encounter Admission Attending Care Care Encounter Source Date/Time Date/Time Type Type Clinicians Facility Department ID 2022-06-01 Outpatient Christine, STLMLC STLC [id number] 2 Common 10:39:08 Luis [facility] 2022-05-09 Outpatient Christine, STLMLC STLMLC [id number] 2 Common 08:34:02 Luis [facility] 2022-04-21 Outpatient Christine, STLMLC STLMLC [id number] 2 Common 10:14:04 Luis [facility] 2022-06-28 2022-06-28 [facility] [id number] Co mmon 00:00:00 00:00:00 VISIT EST Spir it PT LEVEL 3 - [facility] 2022-06-23 2022-06-23 (TEL) STLMLC STLMLC [id number] Co mmon 00:00:00 00:00:00 [facility] 2022-06-23 2022-06-23 (ESTPT) STLMLC STLMLC [id number] Co mmon 00:00:00 00:00:00 Establishe Candy song [facility] 2022-06-23 2022-06-23 (TEL) STLMLC STLMLC [id number] Co mmon 00:00:00 00:00:00 [facility] 2022-06-05 2022-06-05 Postop STLMLC STLMLC [id number] Co mmon 00:00:00 00:00:00 visit [facility] 2022-05-31 2022-05-31 OFFICE STLMLC STLMLC [id number] Co mmon 00:00:00 00:00:00 VISIT Spirit ESTAB PT - CHI LEVEL 1 [facility] 2022-05-26 2022-05-26 OFFICE STLMLC STLMLC [id number] Co mmon 00:00:00 00:00:00 VISIT EST Spir it PT LEVEL 3 - [facility] 2022-05-24 2022-05-24 Postop STLMLC STLMLC [id number] Co mmon 00:00:00 00:00:00 visit [facility] 2022-05-24 2022-05-24 (TEL) STLMLC STLMLC [id number] Co mmon 00:00:00 00:00:00 [facility] 2022-05-15 2022-05-15 Postop STLMLC STLMLC [id number] Co mmon 00:00:00 00:00:00 visit [facility] 2022-05-08 2022-05-08 (TEL) STLMLC STLMLC [id number] Co mmon 00:00:00 00:00:00 [facility] 2022-04-24 2022-04-24 (TEL) STLMLC STLMLC [id number] Co mmon 00:00:00 00:00:00 Spirit - CHI [facility] 2022-04-21 2022-04-21 OFFICE [facility] [id number] Co mmon 00:00:00 00:00:00 VISIT Yassine FUENTES PT - CHI LEVEL 4 [facility] 2022-04-17 2022-04-17 Telephone Miles, 1.2.840.1 [id number] 2100 232919 Methodi 00:00:00 00:00:[address] 3.430.2.7 Hospit a .3.353543 l .8 2022-04-17 2022-04-17 Telephone Miles, 1.2.840.1 [id number] 2100 519055 Methodi 00:00:00 00:00:[address] 3.430.2.7 Hospit a .3.783828 l .8 2022-02-18 2022-02-18 Orders Miles, 1.2.840.1 959952647 629345 0117 Methodi 00:00:00 00:00:00 Only Casi Romero 03194.1.[address] 3.430.2.7 Hospit a .3.316273 l .8 2022-02-18 2022-02-18 Orders Miles, 1.2.840.1 360321323 566196 3809 Methodi 00:00:00 00:00:00 Only Casi Romero 29663.1.[address] 3.430.2.7 Hospit a .3.959302 l .8 2022-02-17 2022-02-17 Telephone Miles, 1.2.840.1 017380730 2100 786040 Methodi 00:00:00 00:00:[address] 3.430.2.7 Hospit a .3.425994 l .8 2022-02-17 2022-02-17 Telephone Miles, 1.2.840.1 289893571 2100 157455 Methodi 00:00:00 00:00:[address] 3.430.2.7 Hospit a .3.071639 l .8 2022-02-15 2022-02-15 Telephone Miles, 1.2.840.1 [id number] 2099 857378 Methodi 00:00:00 00:00:[address] 3.430.2.7 Hospit a .3.511626 l .8 2022-02-15 2022-02-15 Telephone Miles, 1.2.840.1 [id number] 2099 009473 Methodi 00:00:00 00:00:00 Casi Jose AlfredoFlorinda 68382.1.[address] 3.430.2.7 Hospit a .3.345931 l .8 2022-02-14 2022-02-14 Office Miles, 1.2.840.1 379853602 778067 1600 Methodi 14:45:00 15:15:00 Visit Casi Jose AlfredoFlorinda 04586.1.[address] 3.430.2.7 Hospit a .3.462007 l .8 2022-02-14 2022-02-14 Office Miles, 1.2.840.1 912042146 247945 9985 Methodi 14:45:00 15:15:00 Visit Casi Jose AlfredoFlorinda 31796.1.[address] 3.430.2.7 Hospit a .3.140108 l .8 2022-02-14 2022-02-14 Outpatient MILES, [facility] [id number] [address] [place] [address] 00:00:00 00:00:00 CASI Bernal Method i st 2022-02-14 2022-02-14 Travel 1.2.840.1 1.2.270.245 2592 667271 Methodi 00:00:00 00:00:[address] 3.430.2.7 0.2.7.3.698 Ho spita .3.882083 084.8 l .8 2022-02-14 2022-02-14 Travel 1.2.840.1 1.2.689.609 4364 756032 Methodi 00:00:00 00:00:[address] 3.430.2.7 0.2.7.3.698 Ho spita .3.492046 084.8 l .8 2022-02-10 2022-02-10 Orders Johnson, 1.2.840.1 [id number] 92303 Methodi 00:00:00 00:00:00 Only Monique 30257.1.[address] 3.430.2.7 Hospit a .3.689869 l .8 2022-02-10 2022-02-10 Orders Johnson, 1.2.840.1 [id number] 66467 Methodi 00:00:00 00:00:00 Only Monique 30994.1.[address] 3.430.2.7 Hospit a .3.620867 l .8 2022-02-09 2022-02-09 Telephone Miles, 1.2.840.1 [id number] 2099 448054 Methodi 00:00:00 00:00:[address] C[address] 3.430.2.7 Hospit a .3.896761 l .8 2022-02-09 2022-02-09 Telephone Miles, 1.2.840.1 403449723 2099 785107 Methodi 00:00:00 00:00:[address] C[address] 3.430.2.7 Hospit a .3.400032 l .8 2021-12-19 2021-12-19 Telephone Miles, 1.2.840.1 374408490 2099 400854 Methodi 00:00:00 00:00:[address] 3.430.2.7 Hospit a .3.240398 l .8 2021-12-19 2021-12-19 Telephone Miles, 1.2.840.1 480579501 2099 537330 Methodi 00:00:00 00:00:[address] 3.430.2.7 Hospit a .3.218399 l .8 2021-12-06 2021-12-06 Telephone Miles, 1.2.840.1 150967258 2099 720478 Methodi 00:00:00 00:00:[address] 3.430.2.7 Hospit a .3.204008 l .8 2021-12-06 2021-12-06 Telephone Miles, 1.2.840.1 205102978 2099 952538 Methodi 00:00:00 00:00:[address] 3.430.2.7 Hospit a .3.021798 l .8 2021-10-18 2021-10-18 Telephone Johnson, 1.2.840.1 831473907 847 0075420 Methodi 00:00:00 00:00:[address] 3.430.2.7 Hospit a .3.344323 l .8 2021-10-18 2021-10-18 Telephone Johnson, 1.2.840.1 [id number] 953 5080220 Methodi 00:00:00 00:00:[address] 3.430.2.7 Hospit a .3.782748 l .8 2021-10-10 2021-10-10 Ancillary Miles, 1.2.840.1 831871987 2099 822734 Methodi 11:00:00 11:30:00 Procedure Casi Romero 03106.1.1 268 [address] t 3.430.2.7 Hospit a .3.628361 l .8 2021-10-10 2021-10-10 Ancillary Miles, 1.2.840.1 731449905 2099 154846 Methodi 11:00:00 11:30:00 Procedure Casi Romero 74730.1.1 268 s t 3.430.2.7 Hospit a .3.131592 l .8 2021-10-10 2021-10-10 Outpatient MILES, [facility] [id number] [address] [place] 00:00:00 00:00:00 CASI Fitzgerald Method i st 2021-10-10 2021-10-10 Travel 1.2.840.1 1.2.347.621 0070 103601 Methodi 00:00:00 00:00:[address] 3.430.2.7 0.2.7.3.698 Ho spita .3.279045 084.8 l .8 2021-10-10 2021-10-10 Travel 1.2.840.1 1.2.523.520 8166 088592 Methodi 00:00:00 00:00:[address] 3.430.2.7 0.2.7.3.698 Ho spita .3.725754 084.8 l .8 2021-09-05 2021-09-13 Procedure Miles, 1.2.840.1 604470644 2099 353998 Methodi 10:15:00 10:43:48 visit Casi Romero 17326.1.[address] 3.430.2.7 Hospit a .3.160233 l .8 2021-09-05 2021-09-13 Procedure Miles, 1.2.840.1 370432610 2099 356149 Methodi 10:15:00 10:43:48 visit Casi Romero 37744.1.[address] 3.430.2.7 Hospit a .3.835488 l .8 2021-09-06 2021-09-06 Lab Miles, 1.2.840.1 546816534 461605 3107 Methodi 14:55:00 15:00:00 [address] 3.430.2.7 Hospit a .3.569657 l .8 2021-09-06 2021-09-06 Lab Miles, 1.2.840.1 259087448 957068 5392 Methodi 14:55:00 15:00:[address] 3.430.2.7 Hospit a .3.093046 l .8 2021-09-05 2021-09-05 Travel 1.2.840.1 1.2.552.589 3833 112185 Methodi 00:00:00 00:00:[address] 3.430.2.7 0.2.7.3.698 Ho spita .3.185459 084.8 l .8 2021-09-05 2021-09-05 Travel 1.2.840.1 1.2.233.210 8576 197010 Methodi 00:00:00 00:00:[address] 3.430.2.7 0.2.7.3.698 Ho spita .3.275869 084.8 l .8 2021 2021 Telephone Paulino, 1.2.840.1 [id number] 502 5259893 Methodi 00:00:00 00:00:[address] 3.430.2.7 Hospit a .3.012704 l .8 2021 2021 Telephone Paulino, 1.2.840.1 [id number] 095 0615358 Methodi 00:00:00 00:00:[address] 3.430.2.7 Hospit a .3.290025 l .8 2021-08-30 2021-08-30 Telephone Paulino, 1.2.840.1 [id number] 763 8075611 Methodi 00:00:00 00:00:[address] 3.430.2.7 Hospit a .3.767571 l .8 2021-08-30 2021-08-30 Telephone Paulino 1.2.840.1 [id number] 149 0409867 Methodi 00:00:00 00:00:[address] 3.430.2.7 Hospit a .3.017476 l .8 2021-08-27 2021-08-27 [facility] Evan, 1.2.840.1 [id number] 36192 99479 Methodi 11:45:26 23:59:00 [facility] Casi Romero 84519.1.1 388 s t 3.430.2.7 Hospit a .3.793088 l .8 2021-08-27 2021-08-27 [facility], 1.2.840.1 [id number] 74311 Methodi 11:45:26 23:59:00 Encounter Casi Romero 33078.1.1 388 s t 3.430.2.7 Hospit a .3.188927 l .8 2021-08-27 2021-08-27 Travel 1.2.840.1 1.2.851.569 1270 035910 Methodi 00:00:00 00:00:[address] 3.430.2.7 0.2.7.3.698 Ho spita .3.660658 084.8 l .8 2021-08-27 2021-08-27 Travel 1.2.840.1 1.2.740.177 7099 006871 Methodi 00:00:00 00:00:[address] 3.430.2.7 0.2.7.3.698 Ho spita .3.730732 084.8 l .8 2021-08-10 2021-08-19 [facility] Casi Gordon 1.2.840.1 [id number] 4 [id number] Methodi 13:30:00 11:55:24 Visit Prosper Otto 20399.1.[address] 3.430.2.7 Hospit a .3.520110 l .8 2021-08-10 2021-08-19 [facility] Casi Gordon 1.2.840.1 08653589 4 [id number] Methodi 13:30:00 11:55:24 Visit Prosper Otto 38386.1.[address] 3.430.2.7 Hospit a .3.465793 l .8 2021-08-19 2021-08-19 [facility] Chencho Otto.2.840.1 [id number] Methodi 00:00:00 00:00:00 Only Prosper 19913.1.[address] Christy 3.430.2.7 Hospit a .3.217226 l .8 2021-08-19 2021-08-19 Orders Sayre, 1.2.840.1 105255613 Methodi 00:00:00 00:00:00 Only Prosper 29964.1.[address] Christy 3.430.2.7 Hospit a .3.914036 l .8 2021-08-15 2021-08-15 Travel 1.2.840.1 1.2.380.247 4847 299620 Methodi 00:00:00 00:00:[address] 3.430.2.7 0.2.7.3.698 Ho spita .3.623802 084.8 l .8 2021-08-15 2021-08-15 Transcribe [facility] 1.2.840.1 [id number] 218 1945832 Methodi 00:00:00 00:00:00 Orders Casi Romero 12490.1.[address] 3.430.2.7 Hospit a .3.234253 l .8 2021-08-15 2021-08-15 Orders Clarita, 1.2.840.1 [id number] Methodi 00:00:00 00:00:00 Only Prosper 37452.1.[address] Christy 3.430.2.7 Hospit a .3.520633 l .8 2021-08-15 2021-08-15 Travel 1.2.840.1 1.2.510.730 1304 731203 Methodi 00:00:00 00:00:[address] 3.430.2.7 0.2.7.3.698 Ho spita .3.307933 084.8 l .8 2021-08-15 2021-08-15 Transcribe [facility] 1.2.840.1 [id number] 194 [id number] Methodi 00:00:00 00:00:00 Orders Casi Romero 54408.1.[address] 3.430.2.7 Hospit a .3.874862 l .8 2021-08-15 2021-08-15 Orders Clarita, 1.2.840.1 [id number] Methodi 00:00:00 00:00:00 Only Prosper 28942.1.[address] Christy 3.430.2.7 Hospit a .3.689856 l .8 2021-08-11 2021-08-11 Telephone Miles, 1.2.840.1 [id number] 2099358 Methodi 00:00:00 00:00:[address] Casi [address] 3.430.2.7 Hospit a .3.032571 l .8 2021-08-11 2021-08-11 Telephone Miles, 1.2.840.1 640446411 2099358 Methodi 00:00:00 00:00:[address] 3.430.2.7 Hospit a .3.903705 l .8 2021-08-10 2021-08-10 Murtaza Cheng, 1.2.840.1 [id number] 536405 3200 Methodi 00:00:00 00:00:00 Only Lyndsay 22245.1.[address] 3.430.2.7 Hospit a .3.180999 l .8 2021-08-10 2021-08-10 Travel 1.2.840.1 1.2.863.674 6683 566419 Methodi 00:00:00 00:00:[address] 3.430.2.7 0.2.7.3.698 Ho spita .3.842098 084.8 l .8 2021-08-10 2021-08-10 Murtaza Cheng, 1.2.840.1 834376136 587131 2084 Methodi 00:00:00 00:00:00 Only Lyndsay 30491.1.[address] 3.430.2.7 Hospit a .3.460692 l .8 2021-08-10 2021-08-10 Travel 1.2.840.1 1.2.395.202 9781 953992 Methodi 00:00:00 00:00:[address] 3.430.2.7 0.2.7.3.698 Ho spita .3.944915 084.8 l .8 2021-07-28 2021-07-28 Telephone Miles, 1.2.840.1 [id number] 2099 352037 Methodi 00:00:00 00:00:00 C[address] JFlorinda 80918.1.[address] 3.430.2.7 Hospit a .3.651065 l .8 2021-07-28 2021-07-28 Telephone Miles, 1.2.840.1 [id number] 2099 344986 Methodi 00:00:00 00:00:00 Casi Romero 00577.1.[address] 3.430.2.7 Hospit a .3.196858 l .8 2021-03-07 2021-03-07 Outpatient CHASE GALLAGHER [facility] [id number] [facility] 09:23:05 16:11:08 Ricki israel of Medicin e 2021-03-07 2021-03-07 Office All Gomez [facility] 1.2.840.114 [id number] [facility] 09:22:13 09:52:13 Visit AMBULATOR 350.1.13.21 [employer] 0.2.7.2.686 of 203.9851376 Medi lia 850 e 2020-12-07 2020-12-07 Outpatient ALL ROSEN [facility] [id number] SLE 00:00:00 00:00:00 2020-12-07 2020-12-07 Outpatient JANES HONG [facility] [id number] SLE 00:00:00 00:00:00 MARY 2017-01-09 2017-01-10 Outpatient nullFlavo [facility] [id number] Memoria 15:53:00 04:59:[address] 2017-01-09 2017-01-10 Outpatient nullFlavo [facility] [id number] Memoria 15:53:00 04:59:[address] 2017-01-09 2017-01-09 Outpatient [facility] MHTIRR MHTIRR [id number] 10:53:00 23:59:00 a, Melania 03 Dain 2016-11-07 2016-11-08 Outpatient nullFlavo [facility] [id number] Memoria 14:54:00 04:59:00 r [facility] 02 [facility] 2016-11-07 2016-11-08 Outpatient nullFlavo [facility] [id number] Memoria 14:54:00 04:59:00 r [facility] 02 [facility] 2016-11-07 2016-11-07 Outpatient [facility] MHTIRR MHTIRR [id number] 09:54:00 23:59:00 a, Melania Dain 2016-09-04 2016-09-04 Outpatient nullFlavo [facility] [id number] Memoria 01:00:00 13:00:00 r Memorial 01 [facility] 2016-09-04 2016-09-04 Outpatient nullFlavo [facility] [id number] Memoria 01:00:00 13:00:00 r Memorial 01 [facility] 2016-09-03 2016-09-04 Outpatient [facility] MHTIRR MHTIRR [id number] 20:00:00 08:00:00 a, Melania Dain 2016-08-17 2016-08-17 Outpatient nullFlavo [facility] [id number] Memoria 02:00:00 14:00:00 r Memorial 00 [facility] 2016-08-17 2016-08-17 Outpatient nullFlavo [facility] [id number] Memoria 02:00:00 14:00:00 r Memorial 00 [facility] 2016-08-16 2016-08-17 Outpatient Physician, MHTIRR MHTIRR [id number] 20:00:00 08:00:00 Non 00 Associated 2016-05-16 2016-05-16 Outpatient MHIE MHIE [id number] Memoria 14:00:00 14:00:00 01 gita Black 2016-05-16 2016-05-16 Outpatient MHIE MHIE [id number] Memoria 14:00:00 14:00:00 gita Black 2016-03-27 2016-03-27 Outpatient MHIE MHIE [id number] [facility] 14:15:00 14:15:00 00 gita Black 2016-03-27 2016-03-27 Outpatient [facility] [id number] [facility] 14:15:00 14:15:00 00 gita Black Results Test Description Test Time Test Comments Results Result Comments Source POC urinalysis dipstick 2022-02-14 20:09:25 Test Item Value Reference Range Interpretation Comme nts Color urine, POC (test code = Yellow 3931384) Clarity urine, POC (test code = Clear 9106892) Glucose urine, POC (test code = Negative Negative 1475846) Bilirubin urine, POC (test code = Negative Negative 6195503) Ketones urine, POC (test code = Negative Negative 3183580) Specific gravity urine, POC (test >/=1.030 1.005-1.030 code = 7602383) Blood urine, POC (test code = Trace Negative A 6677921) pH urine, POC (test code = See_Comment [Automated message] The 4978161) system which ge nerated this result transmit imani reference range: 5.0, 5.5 , 6.0, 6.5, 7.0, 7.5, 8.0, 8.5. The reference range was not used to interpret th is result as normal/abnormal . Protein urine, POC (test code = 3+ Negative A >=817 8643155) Urobilinogen urine, POC (test <2.0 See_Comment [Automated message] The code = 3258449) system which generated this result transmit imani reference range: <=2.0. T he reference range was not u sed to interpret this result as normal/abnormal . Nitrite urine, POC (test code = Negative Negative 8958712) Leukocyte esterase urine, POC Negative Negative (test code = 0376162) Lab Interpretation (test code = Abnormal 13781-4) [facility] urinalysis [id number] 20:09:25 Test Item Value Reference Range Interpretation Comments Color urine, POC (test Yellow code = 4380609) Clarity urine, POC (test Clear code = 2644017) Glucose urine, POC (test Negative Negative code = 9193623) Bilirubin urine, POC Negative Negative (test code = 0056716) Ketones urine, POC (test Negative Negative code = 7727494) Specific gravity urine, >/=1.030 1.005-1.030 POC (test code = 2795989) Blood urine, POC (test Trace Negative A code = 2589737) pH urine, POC (test code See_Comment [A utomated message] = 0066180) The system [place] generated this result transmitted ref erence range: 5.0, 5.5 , 6.0, 6.5, 7.0, 7.5, 8.0, 8.5. The refere nce range was not u sed to interpret this result as normal/abnor mal. Protein urine, POC (test 3+ Negative A >=3 00 code = 4218324) Urobilinogen urine, POC <2.0 See_Comment [Au tomated message] (test code = 8852938) The sy stem which generated this result transmitted ref erence range: <=2.0. T he reference range was not used to int erpret this result as normal/abnormal . Nitrite urine, POC (test Negative Negative code = 0227845) Leukocyte esterase Negative Negative urine, POC (test code = 5074340) Lab Interpretation (test Abnormal code = 08457-6) [facility] urinalysis [id number] 20:09:25 Test Item Value Reference Range Interpretation Comments Color urine, POC (test Yellow code = 9265405) Clarity urine, POC (test Clear code = 1473836) Glucose urine, POC (test Negative Negative code = 6470207) Bilirubin urine, POC Negative Negative (test code = 0967449) Ketones urine, POC (test Negative Negative code = 4444586) Specific gravity urine, >/=1.030 1.005-1.030 POC (test code = 9406454) Blood urine, POC (test Trace Negative A code = 3526071) pH urine, POC (test code 5.5 See_Comment [A utomated message] = 2023764) The system [place] generated this result transmitted ref erence range: 5.0, 5.5 , 6.0, 6.5, 7.0, 7.5, 8.0, 8.5. The refere nce range was not u sed to interpret this result as normal/abnor mal. Protein urine, POC (test 3+ Negative A >=3 00 code = 6371018) Urobilinogen urine, POC <2.0 <=2.0 (test code = 8894851) Nitrite urine, POC (test Negative Negative code = 3884693) Leukocyte esterase Negative Negative urine, POC (test code = 5315510) Lab Interpretation (test Abnormal code = 81941-6) [facility] (non-gynecological) [id number] 19:37:24 Test Item Value Reference Range Interpretation Comments Case number (test code = [id number]) Cytology See link below for (non-gynecological) PDF Lab Report report (test code = 1178) Result status (test code This is Final Report = [id number]) for [id number] [facility] (non-gynecological) [id number] 19:37:24 Test Item Value Reference Range Interpretation Comments Case number (test code = [id number]) Cytology See link below for (non-gynecological) PDF Lab Report report (test code = 1178) Result status (test code This is Final Report = 3673904) for [id number] [facility] (non-gynecological) [id number] 19:37:24 Test Item Value Reference Range Interpretation Comments Case number (test code = [id number]) Cytology See link below for (non-gynecological) PDF Lab Report report (test code = 1178) Result status (test code This is Final Report = 9076217) for [id number] Prostate Score (Serum)2021-08-12 22:32:00 Test Item [...] disease. ASSAY INFORMATION: Method Electrochemilum inescence Immunoassay (Ro ScaleGrid) NO TE: This assay has no bi otin interference in serum concentrations up to 1200 ng/mL. Pharmaco kinetic studies have sh own that serum concentra tions of biotin can reac h up to 355 ng/mL within t he first hour after biot in ingestion for subjects co nsuming supplements of 20 mg biotin per day and up to 1160 ng/mL for subje cts after a single dose of 300 mg biotin. [Automa imani message] The system [place] generated this result tra nsmitted reference range : <=4.00. The reference r aric was not used to interpr et this result as mona l/abnormal. PSA, free (test 3.29 ng/mL Not Estab. NOTE: Result s cannot be code = 61325-6) interpreted as absolute evidence of the presence or absence of danial gnant disease. Values obtained with different assay methods or kits cannot be used interchang eably. ASSAY INFORMATION: Me thod Electrochemilum inescence Immunoassay (R Managed Systems). N OTE: This assay has no bi [...] values is summarized in t hetable below: PROBABI LITY OF CANCER* %free P SA (50-59 yrs) [...] code = 5999) This test was d feliciad and its performance characteristics were determined byLeho. I t has not been cleared by [...] NEGATIVE Lab Interpretation Abnormal (test code = 81505-4) [facility] Prostate Score (Serum)2021-08-12 22:32:00 Test Item Value [...] cannot be interpreted as absolute evidence of th e presence or absence of m alignant disease. ASSAY INFORMATION: Method Electrochemilum inescence Immunoassay (Integrated Media Measurement (IMMI)) NO TE: This assay has no bi [...] mg biotin. [Automa imani message] The system [place] generated this result tra nsmitted reference range : <=4.00. The reference r aric was not used to interpr et this result as mona l/abnormal. PSA, free (test 3.29 ng/mL Not Estab. NOTE: Result s cannot be code = 36364-5) interpreted as absolute evidence of the presence or absence of danial gnant disease. Values obtained with different assay methods or kits cannot be used interchang eably. ASSAY INFORMATION: Me thod Electrochemilum inescence Immunoassay (Integrated Media Measurement (IMMI)). N OTE: This assay has no bi [...] hetable below: PROBABIL ITY OF CANCER* %free PSA (50-59 yrs) (60-69 yrs ) (>or=70 yrs) [...] guidelines are for assays performed using the Mob[employer] E602 immunoassa y system.(01/2015; V8.0) 4K score (test 26 % A Evaluation: E LEVATED RISK code = 5999) This test was d celi and its performance characteristics were determined byLeho. I t has not been cleared by [...] NEGATIVE Lab Interpretation Abnormal (test code = 97534-1) [facility] Prostate Score (Serum)2021-08-12 22:32:00 Test Item Value Reference Interpretation Comments Range PSA, total (test 16.73 ng/mL <=4.00 H NOTE: NCCN code = 4197) Guidelines(2.20 [...] disease. ASSAY INFORMATION: Method Electrochemilum inescence Immunoassay (Integrated Media Measurement (IMMI)) NO TE: This assay has no bi [...] a single dose of 300 mg biotin. PSA, free (test 3.29 ng/mL Not Estab. NOTE: Result s cannot be code = 71452-1) interpreted as absolute evidence of the presence or absence of danial gnant disease. Values obtained with different assay methods or kits cannot be used interchang eably. ASSAY INFORMATION: Me thod Electrochemilum inescence Immunoassay (Integrated Media Measurement (IMMI)). N OTE: This assay has no bi [...] guidelines are for assays performed using the [employer] E602 immunoassa y system.(01/2015; V8.0) 4K score (test 26 % A Evaluation: E LEVATED RISK code = 5999) This test was d eveloped and its performance characteristics were determined byLeho. I t has not been cleared by [...] NEGATIVE Lab Interpretation Abnormal (test code = 80798-0) [facility] [id number] 00:51:35 Test Item Value Reference Range Interpretation Comments Urine culture (test SEE COMMENT Bacteriu erasmo screen code = 8504520) negative. [facility] [id number] 00:51:35 Test Item Value Reference Range Interpretation Comments Urine culture (test SEE COMMENT Bacteriu erasmo screen code = 4932884) negative. [facility] [id number] 00:51:35 Test Item Value Reference Range Interpretation Comments Urine culture (test SEE COMMENT Bacteriu erasmo screen code = 1091151) negative. [facility] BLADDER SCAN/[id number] 20:19:00 Test Item Value Reference Range Interpretation Comments PVR volume (test code = 5766) 3 ml [facility] BLADDER SCAN/[id number] 20:19:00 Test Item Value Reference Range Interpretation Comments PVR volume (test code = 5766) 3 ml [facility] BLADDER SCAN/[id number] 20:19:00 Test Item Value Reference Range Interpretation Comments PVR volume (test code = 5766) 3 ml [facility], BRAIN, WITH IV [id number] 17:09:00Unlisted Reason for Exam - Click Yes and Enter Reason Below->YesUnlisted Reason for Exam- >B12 deficiency,Late onset Alzheimer's disease without [facility] 1945 Sex: MFINAL REPORT Examination: MRI [...] left thalamic lacunar infarct Signed: Mary Hong MDReport Verified Date/Time: 12/08/2020 17:09:05 RAD, CHEST, 2 [id number] 14:30:00Reason for Exam:->Vitamin b12 deficiency (non anemic)Reason for Exam:->Late onset alzheimers disease without behavioral disturbanceC[facility] : 1945 Sex: MFINAL REPORT [...] Wu Verified Date/Time: 12/07/2020 14:30:55 Reading Location: [facility] Reading Room [address] [place] [address] Electronically signed by: VANNESSA WU MD on12/07/2020 02:30 PM
[2022-07-27 17:17] LABS: Absolute Lymphocytes (CBC) 1.7 K/uL (0.7-4.9); Hematocrit 27.4 % (39.6-49.0); Lymphocytes % 26.8 % (15.3-44.8); MCV 75.1 fL (80-100); MPV 7.1 fL (7.6-11.3); RBC Red Blood Cell Count 3.65 M/uL (4.33-5.43)
[2022-07-27 17:21] LABS: Urine Blood 3+ (Negative); Urine Glucose 1+ (Negative); Urine Protein 3+ (Negative); Urine Specific Gravity >=1.030 (1.005-1.030); Urine pH 5.5 (5.0-7.0)
[2022-07-27 17:32] LABS: Potassium 3.6 mmol/L (3.5-5.1)
[2022-07-27 17:55] LABS: Urine Bacteria 20-50 /HPF (<20); Urine RBC >50 /HPF (None Seen); Urine WBC Clump Moderate /HPF (None Seen)
--- NOTE | 2022-07-27 18:24 | ER ---
Nurse's Notes [facility] Name: Negro Chavez Age: 76 yrs Sex: Male : 1945 Arrival Date: 07/27/2022 Time: 15:59 Bed 5 Private MD: Diagnosis: UTI/ Urinary tract infection, site not specified;Hematuria, unspecified;Anemia, unspecified Presentation: 07/27 16:00 Ebola Screen: Patient denies travel to an Ebola-affected area in the 21 days before ll1 illness onset. Risk Assessment: Do you want to hurt yourself or someone else? Patient reports no desire to harm self or others. 16:00 Method Of Arrival: Ambulatory ll1 16:00 Acuity: YUSUF 3 ll1 16:01 Coronavirus screen: Vaccine status: Patient reports receiving the 2nd dose of the covid ll1 vaccine. Client denies travel out of the [place] in the last 14 days. At this time, the client does not indicate any symptoms associated with coronavirus-19. Initial Sepsis Screen: Does the patient meet any 2 criteria? No. Patient's initial sepsis screen is negative. Does the patient have a suspected source of infection? Yes: Dysuria/Frequency/Urgency/UTI. 16:01 Chief complaint: Patient states: Blood in urine for 1 day. History of prostate ll1 blockage. Onset of symptoms was July 27, 2022. Triage Assessment: 17:11 General: Appears in no apparent distress. Behavior is calm, cooperative. Pain: Denies ap3 pain. Neuro: Level of Consciousness is awake, alert, obeys commands, Oriented to person, place, time, situation. Neuro: patient is oriented at this time. family member at this time reports the patient does have hx of dementia, and has "sun downers". Cardiovascular: Patient's skin is warm and dry. Respiratory: Airway is patent Respiratory effort is even, unlabored, Respiratory pattern is regular, symmetrical. : Parent/caregiver report the patient having urinary frequency urgency blood in urination. Historical: - Allergies: 16:00 Iodine; in shrimp; no reaction with IV iodine; ll1 - PMHx: 16:00 BPH; Dementia; Diabetes - NIDDM; Hypertension; ll1 - Immunization history:: Client reports receiving the 2nd dose of the Covid vaccine. - Social history:: Smoking status: Patient denies any tobacco usage or history of. Screenin:11 [facility] ED Fall Risk Assessment (Adult) History of falling in the last 3 months, ap3 including since admission Yes- single mechanical fall (1 pt). Abuse screen: Denies threats or abuse. Nutritional screening: No deficits noted. Tuberculosis screening: No symptoms or risk factors identified. Assessment: 18:08 General: provider notified of patients vital signs. ap3 Vital Signs: 16:01 BP 192 / 75; Pulse 67; Resp 17; Temp 97.3; Pulse Ox 98% ; Weight 78.02 kg; Height 5 ft. ll1 11 in. (180.34 cm); 18:09 BP 210 / 103; Pulse 72; Pulse Ox 100% on R/A; ap3 18:15 BP 185 / 115; Pulse 72; Pulse Ox 100% on R/A; ap3 16:01 Body Mass Index 23.99 (78.02 kg, 180.34 cm) ll1 ED Course: 15:59 Patient arrived in ED. as 16:00 Triage completed. ll1 16:00 Arm band placed on. ll1 16:11 Real Jc NP is PHCP. pm1 16:11 Tee Salmeron DO is Attending Physician. pm1 16:24 Kelly Wen, SOLOMON is Primary Nurse. ap3 17:10 Bladder scan completed. 52ml. Inserted saline lock: 20 gauge in right antecubital area, ap3 using aseptic technique. Blood collected. 17:11 BMP Sent. ap3 17:11 CBC with Diff Sent. ap3 17:13 Patient has correct armband on for positive identification. Bed in low position. Call ap3 light in reach. Side rails up X2. Adult w/ patient. Pulse ox on. NIBP on. Door closed. Noise minimized. Warm blanket given. 18:23 Luis King MD is Referral Physician. ms3 18:23 Rodo Rankin MD is Referral Physician. ms3 18:35 No provider procedures requiring assistance completed. IV discontinued, intact, ap3 bleeding controlled, No redness/swelling at site. Pressure dressing applied. Administered Medications: 18:35 Drug: Rocephin (cefTRIAXone) 1 grams Route: IM; Site: Other; ap3 Medication: 17:13 VIS not applicable for this client. ap3 Outcome: 18:23 Discharge ordered by . ms3 18:35 Discharged to home ambulatory, with family. ap3 18:35 Condition: good 18:35 Discharge instructions given to patient, family, Instructed on discharge instructions, follow up and referral plans. Demonstrated understanding of instructions, follow-up care, medications, Prescriptions given X 1. 18:36 Patient left the ED. ap3 Signatures: Dianna Sanchez Patrick, BARBARA [employer] pm1 Kelly Wen RN RN ap3 Fidencio Sumnre RN RN ll1 Tee Salmeron DO DO ms3 Corrections: (The following items were deleted from the chart) 17:11 17:11 UA MICROSCOPIC+U.LAB.BRZ drawn and sent. ap3 EDMS
--- NOTE | 2022-07-27 18:24 | EDPHYS ---
Physician Documentation [facility] Name: Negro Chavez Age: 76 yrs Sex: Male : 1945 Arrival Date: 07/27/2022 Time: 15:59 Bed 5 Private MD: ED Physician Tee Salmeron HPI: 07/27 16:19 This 76 yrs old Male presents to ER via Ambulatory with complaints of Urinary Problem. pm1 16:21 The patient presents with urinary symptoms, hematuria. Onset: The symptoms/episode pm1 began/occurred today. Modifying factors: The symptoms are alleviated by nothing, the symptoms are aggravated by nothing. Associated signs and symptoms: Pertinent negatives: abdominal pain, fever. Severity of symptoms: in the emergency department the symptoms are unchanged. The patient has experienced similar episodes in the past, a few times, today's symptoms are similar, but not as bad as prior admissions for hematuria. The patient has been recently seen by a physician: the patient's primary care provider, was contacted today and informed that he was anemic, does not know the values. 16:56 Patient last urinated prior to leaving the house at 3-3:30. Per good stream and pm1 normal duration of urination. Historical: - Allergies: 16:00 Iodine; in shrimp; no reaction with IV iodine; ll1 - PMHx: 16:00 BPH; Dementia; Diabetes - NIDDM; Hypertension; ll1 - Immunization history:: Client reports receiving the 2nd dose of the Covid vaccine. - Social history:: Smoking status: Patient denies any tobacco usage or history of. ROS: 16:21 Constitutional: Negative for fever, chills, and weight loss, Cardiovascular: Negative pm1 for chest pain, palpitations, and edema, Respiratory: Negative for shortness of breath, cough, wheezing, and pleuritic chest pain, Abdomen/GI: Negative for abdominal pain, nausea, vomiting, diarrhea, and constipation. 16:21 MS/Extremity: Negative for injury and deformity, Skin: Negative for injury, rash, and discoloration. 16:21 Neuro: Negative for headache, weakness, numbness, tingling, and seizure. 16:21 : Positive for hematuria, Negative for burning with urination, difficulty urinating. 16:21 All other systems are negative. Exam: 16:21 Constitutional: This is a well developed, well nourished patient who is awake, alert, pm1 and in no acute distress. Head/Face: Normocephalic, atraumatic. 16:21 Back: No spinal tenderness. No costovertebral tenderness. Full range of motion. Skin: Warm, dry with normal turgor. Normal color with no rashes, no lesions, and no evidence of cellulitis. MS/ Extremity: Pulses equal, no cyanosis. Neurovascular intact. Full, normal range of motion. 16:21 Cardiovascular: Exam negative for acute changes, Rate: normal, Rhythm: regular, Pulses: no pulse deficits are appreciated. 16:21 Respiratory: Exam negative for acute changes, respiratory distress, shortness of breath. 16:21 Abdomen/GI: Inspection: abdomen appears normal, Palpation: abdomen is soft and non-tender, in all quadrants. 16:21 Neuro: Exam negative for acute changes. Vital Signs: 16:01 BP 192 / 75; Pulse 67; Resp 17; Temp 97.3; Pulse Ox 98% ; Weight 78.02 kg; Height 5 ft. ll1 11 in. (180.34 cm); 18:09 BP 210 / 103; Pulse 72; Pulse Ox 100% on R/A; ap3 18:15 BP 185 / 115; Pulse 72; Pulse Ox 100% on R/A; ap3 16:01 Body Mass Index 23.99 (78.02 kg, 180.34 cm) ll1 MDM: 16:25 Data reviewed: vital signs. pm1 16:26 Patient medically screened. pm1 17:00 Transition of care: Care assumed from Real Jc NP. ms3 18:19 Differential diagnosis: UTI, urinary retention, urethritis. I considered the following ms3 discharge prescriptions or medication management in the emergency department Medications were administered in the Emergency Department. See MAR. Historians other than the Patient: Spouse/Significant Other: Patient's . Care significantly affected by the following chronic conditions: Diabetes, Hypertension, Dementia. Counseling: I had a detailed discussion with the patient and/or guardian regarding: the historical points, exam findings, and any diagnostic results supporting the discharge/admit diagnosis, lab results, the need for outpatient follow up, to return to the emergency department if symptoms worsen or persist or if there are any questions or concerns that arise at home. ED course: Discussed labs with patient's . Patient to follow-up with Dr. Pineda and Dr. King in 2 to 3 days. Patient's understands and agrees with plan. All questions were answered. Return precautions discussed include fever, vomiting, worsening symptoms, or any other concerns. On reevaluation patient is alert, in no apparent distress, nontoxic appearing.. 07/27 16:18 Order name: CBC with Diff; Complete Time: 18:13 pm1 07/27 16:18 Order name: BMP; Complete Time: 18:13 pm1 07/27 16:18 Order name: Urine Microscopic Only; Complete Time: 18:13 pm1 07/27 17:21 Order name: Urine Dipstick-Ancillary; Complete Time: 18:13 EDMS 07/27 17:58 Order name: Urine Culture EDMS 07/27 16:18 Order name: Urine Dipstick-Ancillary (obtain specimen); Complete Time: 17:21 pm1 07/27 16:18 Order name: Bladder Scanner; Complete Time: 17:11 pm1 Administered Medications: 18:35 Drug: Rocephin (cefTRIAXone) 1 grams Route: IM; Site: Other; ap3 Disposition: 18:19 Co-signature as Attending Physician, Tee Salmeron DO. ms3 Disposition Summary: 07/27/22 18:23 Discharge Ordered Location: Home ms3 Condition: Stable ms3 Diagnosis - UTI/ Urinary tract infection, site not specified ms3 - Hematuria, unspecified ms3 - Anemia, unspecified ms3 Followup: ms3 - With: Luis King MD - When: 2 - 3 days - Reason: Recheck today's complaints Followup: ms3 - With: Rodo Rankin MD - When: 2 - 3 days - Reason: Recheck today's complaints Discharge Instructions: - Discharge Summary Sheet ms3 - Anemia ms3 - Hematuria, Adult ms3 - Urinary Tract Infection, Adult ms3 Forms: - Medication Reconciliation Form ms3 - Thank You Letter ms3 - Antibiotic Education ms3 - Prescription Opioid Use ms3 Prescriptions: - cefpodoxime 200 mg Oral Tablet - take 1 tablet by ORAL route every 12 hours with food; 14 tablet; Refills: 0, ms3 Product Selection Permitted Signatures: Dispatcher [employer] EDMS Real Jc, [employer] pm1 Kelly Wen RN RN ap3 Fidencio Sumner RN RN ll1 Tee Salmeron, DO TOMAS ms3 Corrections: (The following items were deleted from the chart) 17:11 16:[address] [facility]+U.LAB.ROGELIO ordered. EDMS EDMS
[2022-07-27] MEDS ORDERED: CEFTRIAXONE 1000 MG/VIAL ONE (18:30)
[2022-07-27 19:01] VITALS: TEMP 97.3
[2022-07-27 19:02] VITALS: O2SAT 100
[2022-07-27 19:03] VITALS: BP 185/115
== END 2022-07-27 18:36 | disposition home or self-care (01) ==
LOC: ER 15:57
DX: N39.0 Urinary tract infection, site not specified (principal); D64.9 Anemia, unspecified; I10 Essential (primary) hypertension; F03.90 Unspecified dementia, unspecified severity, without behavioral disturbance, psychotic disturbance, mood disturbance, and anxiety; Z91.013 Allergy to seafood
CPT/HCPCS: 36415; 80048; 81003; 81015; 85025; 87077; 87086; 87088; 87186; 96372; 99284

== ENCOUNTER 2022-08-03 10:12 | Emergency (ER) | payer OTHER ==
--- OUTSIDE RECORDS SUMMARY | 2022-08-03 10:18 | XMS REPORT | Continuity of Care Document ---
:1945 Author Organization [facility] t Address [address] [place] [address] Care Team Providers Name Role Phone Luis King MD Primary Care Physician Luis King Attending Clinician Unavailable Casi Gordon MD Attending Clinician Monique Johnson MA Attending Clinician Unavailable Berna Bob MA Attending Clinician Unavailable Prosper Otto NP Attending Clinician [phone] Lyndsay Kerr MD Attending Clinician CHASE GALLAGHER Attending Clinician Unavailable All Gomez MD Attending Clinician ALL GOMEZ Attending Clinician Unavailable MARY HONG Attending Clinician Unavailable Melania Pillai Attending Clinician [phone] Physician, Non Associated Attending Clinician Unavailable Payers Payer Name Policy Type Policy Number Effective Date Expiration Date S ource AETNA MEDICARE 53 [id number] 2021 Common S pirit 00:00:00 - [facility] AETNA MEDICARE 53 [id number] Common S pirit PPO - [facility] MEDICARE PLAN [id number] PPO - AETNA AETNA MEDICARE [id number] HMO POS PPO 00:00:00 Problems Condition [...] l 08/08/2016 00:00: Paul snowden [facility] 00 Diabetes Diabetes Problem Resolve 2017-01-12 [...] apnea d 00:14:12 l (finding) (finding) Sosa seth Resolved Problem 01/12/2017 CPAP at bedtime [facility] Syncope Syncope Problem Resolve 2017-01-12 M emoria (disorder) (disorder) d 00:14:12 l Resolved [place] Problem 01/12/2017 recently had 3 syncopal episodes. MH [facility] Coronary Coronary Problem Active 2017-01-12 Memoria [...] a (disorder) (disorder) Resolved Problem 01/12/2017 [facility] [id number] Lesion of Problem Com mon bladder [facility] [id number] Acute Problem Common cystitis Spirit with - [facility] hematuria [facility] Disorder Bladder Problem Common of urinary disorder Spir it bladder [facility] [id number] Postproced Problem Co mmon ural male Spirit fossa [facility] naviculari [facility] Nephropath Nephropath Problem C ommon y, y, Spirit obstructiv obstructiv - [facility] e e [facility] Lower Benign Problem Common urinary localized Spirit tract hyperplasi - [facility] symptoms a of St due to prostate [facility] benign with [facility] prostatic urinary Center hypertroph retention y [id number] S/P TURP Problem Comm on [facility] [id number] OAB Problem Common (overactiv Spirit e bladder) [facility] [id number] BPH loc w Problem Com mon urin Spirit obs/LUTS [facility] [id number] Gross Problem Common hematuria [facility] [id number] Postproced Problem C ommon 38899 ural male Spirit urethral - [facility] meatal [facility] [id number] Incomplete Problem Co mmon emptying Spirit of bladder [facility] [id number] Urinary Problem Commo n retention [facility] No known No known Disease Metho di active active st problems problems Hospit a l Allergies, Adverse Reactions, Alerts Allergy Allergy Status [...] 00 [facility] Inhibito (Muscle rs Pain) Sulfa Propensi Active Other [facility] Antibiot ty to 5-19 reaction( Colle ge ics adverse 00:00: s): of reaction 00 Myalgias Medici n s to (Muscle e drug Pain) SULFA Allergy Active [facility] (SULFONA 5-19 MIDE 00:00: ANTIBIOT 00 ICS) Sulfa Drug Active Other [facility] (Sulfona Allergy 5-19 reaction( Luke s mide 00:00: s): Medical Antibiot 00 [facility] ics) (Muscle Pain) Sulfa Drug Active Other [facility] (Sulfona Allergy 5-19 reaction( Luke s mide 00:00: s): Medical Antibiot 00 [facility] ics) (Muscle Pain) Iodine Propensi Active [facility] ty to 4-21 College adverse 00:00: of reaction 00 Medicin s to e drug IODINE Allergy Active High Hives [facility] 4-21 00:00: 00 Iodine Drug Active Hives IV Iodine [facility] Allergy 10-13 - [facility] 00:[facility]: states pt Medical 00 is Center allergic to shrimp but has had tests with iodine in the past without issues - 12/07/20 [place], RN 463 Drug Active Unknown Common allergy Spirit - [facility] NO KNOWN Allergy Active [facility] ALLERGIE S iodine iodine Active Keila Black Social History Social Habit Start Date Stop Date Quantity Comments Source History of Common Spirit - Tobacco Use [facility] Tobacco use and 2021-08-10 2021-08-10 Smokeless tobacco Me [facility] exposure 00:00:00 00:00:00 non-user Hospital Alcohol intake 2021-03-07 2021-03-07 Current Day [facility] lege of 00:00:00 00:00:00 non-drinker of Medicine alcohol (finding) Social History 2016-03-12 2016-03-12 [facility] Elly hall 08:02:05 08:02:05 Sex [birth year] At [birth year] Bahai 00:00:00 00:00:00 Hospital Smoking Status Start Date Stop Date Source Never Smoker [facility] - [facility] Medications Ordered Filled Start Stop Current Ordering Indication Dosage Frequency Signature Comments Components Source Medication Medication Date Date Medication? Clinician (SIG) Name Name Cefpodoxime Cefpodoxime 2021-06 No 1{table BID Cefpodoxim Proxetil Proxetil -06-30 [...] 2021-06- No 1{table BID Cefpodoxim Proxetil Proxetil -30 06-30 t_with_ e Proxetil 200 MG 200 MG 00:00: 00:00 food} 200 MG 00 :00 Cefpodoxime Cefpodoxime 2021-06- No 1{table BID Cefpodoxim Proxetil Proxetil -06-30 t_with_ e Proxetil 200 MG 200 MG 00:00: 00:00 food} 200 MG 00 :00 levoFLOXaci levoFLOXaci 2021-06- No 1{table QD levoFLOXac n 500 MG n 500 MG 1-14 11-21 t} in 500 MG 00:00: 00:00 00 :00 Trospium Trospium 2022-1 2023- No [...] BID Trospium Chloride 20 Chloride 20 0-31 02-28 t} Chloride MG MG 00:00: 00:00 20 [...] 00 :00 n_an_em pty_sto mach} gentamicin Yes [id number] 80mg Me thodi (GARAMYCIN) 02-14 st injection 20:15: Hospita 80 mg 00 l gentamicin Yes [id number] 80mg Me thodi (GARAMYCIN) 02-14 st injection 20:15: Hospita 80 mg 00 l gentamicin Yes [id number] 80mg Me thodi (GARAMYCIN) 02-14 st injection 20:15: Hospita 80 mg 00 l gentamicin Yes [id number] 80mg Me thodi (GARAMYCIN) 02-14 st injection 20:15: Hospita 80 mg 00 l cefTRIAXone 2021- No [id number] 1g Methodi (ROCEPHIN) 02-14 st injection 1 20:15: 20:14 Hospi ta g 00 :00 l cefTRIAXone 2021- No [id number] 1g [facility]i (ROCEPHIN) 02-1418 st injection 1 20:15: 20:14 Hospi ta g 00 :00 l cefTRIAXone 2021- No [id number] 1g [facility] (ROCEPHIN) 02-1418 st injection 1 20:15: 20:14 Hospi ta g 00 :00 l cefTRIAXone 2021- No [id number] 1g Methodi (ROCEPHIN) 02-1418 st injection 1 20:15: 20:14 Hospi ta g 00 :00 l levoFLOXaci 2021- No 750mg QD Take 1 Me thodi n 8- 08-[address] (Levaquin) 00:00: 04:59 (750 mg Hos lauren 750 MG 00 :00 total) by l tablet mouth daily for 5 days. levoFLOXaci 2021- No 750mg QD Take 1 Me normodi n 8- 08-[address] (Levaquin) 00:00: 04:59 (750 mg Hos lauren 750 MG 00 :00 total) by l tablet mouth daily for 5 days. levoFLOXaci 2021- No 750mg QD Take 1 Me normodi n 8-10 02-[address] (Levaquin) 00:00: 04:59 (750 mg Hos lauren 750 MG 00 :00 total) by l tablet mouth daily for 5 days. levoFLOXaci 2021- No 750mg QD Take 1 Me normodi n -10 02-[address] (Levaquin) 00:00: 04:59 (750 mg Hos lauren 750 MG 00 :00 total) by l tablet mouth daily for 5 days. levoFLOXaci 2021- No 750mg QD Take 1 Me normodi n 10-18 05- tablet st (Levaquin) 00:00: 04:59 (750 mg Hos lauren 750 MG 00 :00 total) by l tablet mouth daily for 5 days. levoFLOXaci 2021- No 750mg QD Take 1 Me normodi n 10-18-[address] (Levaquin) 00:00: 04:59 (750 mg Hos lauren 750 MG 00 :00 total) by l tablet mouth daily for 5 days. levoFLOXaci 2021- No 750mg QD Take 1 Me normodi n - 05-[address] (Levaquin) 00:00: 04:59 (750 mg Hos lauren 750 MG 00 :00 total) by l tablet mouth daily for 5 days. levoFLOXaci 2021- No 750mg QD Take 1 Me thodi n 4- 05-[address] (Levaquin) 00:00: 04:59 (750 mg Hos lauren 750 MG 00 :00 total) by l tablet mouth daily for 5 days. cefTRIAXone 2021- No [id number] 1g Methodi (ROCEPHIN) 09-05 st injection 1 17:15: 17:14 Hospi ta g 00 :00 l cefTRIAXone 2021-2021- No [id number] 1g [facility] (ROCEPHIN) 09-05 st injection 1 17:15: 17:14 Hospi ta g 00 :00 l cefTRIAXone 2021-0 2021- No [id number] 1g Method[facility] (ROCEPHIN) 09-05 st injection 1 17:15: 17:14 Hospi ta g 00 :00 l cefTRIAXone 2021-0 2021- No [id number] 1g [facility] (ROCEPHIN) 09-05 st injection 1 [...] coated tablet multivitami Yes Take by Met hazel n with 2-[address] minerals 13:29: [...] unit capsule capsule calcium 0 Yes 1334mg Q.[id number] Take 1,334 Methodi acetate 2-[id number] (PHOSLO) 13:29: 3D mouth [...] 13:29: tablet Hospit a 13 l etodolac 2021-0 Yes etodolac Metho di (LODINE) 2-[address] 500 MG 13:29: tablet Hospita tablet 13 l canaglifloz 2021-0 Yes 300mg Take 300 M ethodi in [...] unit capsule capsule calcium 0 Yes 1334mg Q.[id number] Take 1,334 Methodi acetate 2-[id number] (PHOSLO) 13:29: 3D mouth 3 Hospit a 667 mg 13 (three) l capsule times a day with meals. aspirin 0 Yes Adult Low Metho di (ADULT LOW 2-[address] DOSE 13:29: Aspirin Hospita ASPIRIN) 81 13 l MG enteric coated tablet multivitami 0 Yes Take by Met hodi n with [...] unit capsule capsule calcium 0 Yes 1334mg Q.[id number] Take 1,334 Methodi acetate 2-[id number] (PHOSLO) 13:29: 3D mouth 3 Hospit a 667 mg 13 (three) l capsule times a day with meals. aspirin 0 Yes Adult Low Metho di (ADULT LOW 2-[address] DOSE 13:29: Aspirin Hospita ASPIRIN) 81 13 l MG enteric coated tablet multivitami 0 Yes Take by Met hodi n with [...] 2,000 Methodi leigh ann, 2-16 Units by vitamin D3, 13:29: mouth Hospi ta (VITAMIN 13 daily. l D3) 2,000 unit capsule capsule calcium Yes 1334mg Q.[id number] Take 1,334 Methodi acetate 2-16 [id number] mg by (PHOSLO) 13:29: 3D mouth 3 Hospit a 667 mg 13 (three) l capsule times a day with meals. aspirin 325 Yes 325mg Take 325 B [facility] mg tablet 9-13 mg by [place] 09:27: mouth of 38 daily. Medicin e Tamsulosin Yes Take by [facility] or HCl 0.4 MG - mouth. [place] CAPS 09:27: of 38 Medicin e Multiple Yes Take by [facility] Vitamins-Mi 9- mouth. Fredg e nerals 09:27: of (CARY MULTI 38 Medicin MEN OR) e Cyanocobala Yes Take by [facility] min - mouth. [place] (VITAMIN B 09:27: of 12 OR) 38 Medicin e Turmeric Yes Take by [facility] (QC TUMERIC - mouth. Colleg e COMPLEX) 09:27: of 500 MG CAPS 38 Medicin e Red Yeast 2021-0 Yes Take by [facility] 500 - mouth. [place] MG/0.5GM 09:27: of POWD 38 Medicin e Quap[place]-3 0 Yes Take by Dougie 1000 MG - mouth. [place] CAPS 09:27: of 38 Medicin e donepezil [...] e metformin 0 Yes 1000mg Take 1,000 [facility] (GLUCOPHAGE 9-13 mg by [place] ) 1000 MG 09:27: mouth 2 of tablet 38 times Medicin daily e (with meals). olmesartan 0 Yes 40mg Take 40 mg B a[facility]or (BENICAR) 03-07 by mouth Colleg e 40 MG 09:27: daily. of tablet 38 Medicin e Insulin Yes Inject [facility] NPH, 03-07 into the [place] Human,, 09:27: skin. of Isophane, 38 Medicin (NOVOLIN N e FLEXPEN) 100 UNIT/ML SUPN aspirin 325 0 Yes 325mg Take 325 B [facility] mg tablet -13 mg by [place] 09:27: mouth of 38 daily. Medicin e Tamsulosin Yes Take by [place] julius HCl 0.4 MG 03-07 mouth. [place] CAPS 09:27: of 38 Medicin e Multiple Yes Take by [facility] Vitamins-Mi - mouth. Colleg e nerals 09:27: of (CARY MULTI 38 Medicin MEN OR) e Cyanocobala 0 Yes Take by [place] julius min - mouth. [place] (VITAMIN B 09:27: of 12 OR) 38 Medicin e Turmeric 0 Yes Take by [facility] (QC TUMERIC - mouth. Colleg e COMPLEX) 09:27: of 500 MG CAPS 38 Medicin e Red Yeast 0 Yes Take by [facility] r Rice 500 - mouth. [place] MG/0.5GM 09:27: of POWD 38 Medicin e [place]-3 Yes Take by [place]ie 1000 MG 03-07 mouth. College CAPS 09:27: of 38 Medicin [...] metformin Yes 1000mg Take 1,000 Dougie (GLUCOPHAGE 9-13 mg by [place] ) 1000 MG 09:27: mouth 2 of tablet 38 times Medicin daily e (with meals). olmesartan Yes 40mg Take 40 mg B [facility] (BENICAR) 03-07 by mouth Colleg e 40 MG 09:27: daily. of tablet 38 Medicin e Insulin Yes Inject [facility] NPH, 03-07 into the [place] Human,, 09:27: skin. of Isophane, 38 Medicin (NOVOLIN N e FLEXPEN) 100 UNIT/ML SUPN sertraline Yes 1/2 tab PO B aylor (ZOLOFT) 50 9-13 daily x 2 Col lege MG tablet 00:00: weeks then of 00 increase Medicin to one tab e daily and continue sertraline Yes 1/2 tab PO B [facility] (ZOLOFT) 50 9-13 daily x 2 Col lege MG tablet 00:00: weeks then 00 increase Medicin to one tab e [...] l HCT) 20-12.5 mg per tablet tamsulosin 2018-1 Yes .4mg QD Take 0.4 Met hodi [...] st MG tablet 00:00: daily. Hospit a l donepezil 2017-06 Yes 5mg QD Take 5 mg Met hodi (ARICEPT) 5 0-[address] MG tablet 00:00: daily. Hospit a l donepezil 2017-06 Yes 5mg QD Take 5 mg Met hodi (ARICEPT) 5 0-[address] MG tablet 00:00: daily. Hospit a l donepezil 2017-06 Yes 5mg QD Take 5 mg Met hodi (ARICEPT) 5 0-[address] MG tablet 00:00: daily. Hospit a l Tamsulosin Tamsulosin No 1{capsu QD Tamsulosin [...] HCl 10 MG t} HCl 10 MG NovoLOG NovoLOG No NovoLOG Aspirin 325 [...] pneumococcal 2016-03-12 Completed [facility] 13-valent vaccine 22:35:00 [place] pneumococcal 2016-03-12 Completed [facility] 13-valent vaccine 22:35:00 [place] pneumococcal 2016-03-12 Completed [facility] 13-valent vaccine 22:35:00 [place] pneumococcal 2016-03-12 Completed [facility] 13-valent vaccine 22:35:00 [place] Vital Signs Vital Name Observation Time Observation Value Comments Source height 2022-06-28 13:30:00 71 [in_i] [facility] weight 2022-06-28 13:30:00 171 [lb_av] [facility] temperature 2022-06-28 13:30:00 98.0 [degF] [facility] bmi 2022-06-28 13:30:00 23.85 kg/m2 [facility] oximetry 2022-06-28 13:30:00 96 % [facility] respiratory rate 2022-06-28 13:30:00 18 /min Comm on [facility] blood pressure 2022-06-28 13:30:00 142 mm[Hg] [facility] systolic [facility] blood pressure 2022-06-28 13:30:00 68 mm[Hg] [facility] diastolic [facility] height 2022-05-26 12:45:00 71 [in_i] [facility] weight 2022-05-26 12:45:00 172.4 [lb_av] [facility] temperature 2022-05-26 12:45:00 98 [degF] [facility] bmi 2022-05-26 12:45:00 24.04 kg/m2 [facility] oximetry 2022-05-26 12:45:00 98 % [facility] respiratory rate 2022-05-26 12:45:00 16 /min Comm on [facility] blood pressure 2022-05-26 12:45:00 184 mm[Hg] Common [facility] - systolic [facility] blood pressure 2022-05-26 12:45:00 88 mm[Hg] [facility] - diastolic [facility] height 2022-05-24 13:45:00 71 [in_i] Common S pirit [facility] weight 2022-05-24 13:45:00 171 [lb_av[facility] temperature 2022-05-24 13:45:00 97.9 [degF] Common S pirit [facility] bmi 2022-05-24 13:45:00 23.85 kg/m2 [facility] oximetry 2022-05-24 13:45:00 99 % [facility] respiratory rate 2022-05-24 13:45:00 18 /min Comm on [facility] blood pressure 2022-05-24 13:45:00 181 mm[Hg] Common [facility] - systolic [facility] blood pressure 2022-05-24 13:45:00 77 mm[Hg] [facility] - diastolic [facility] height 2022-04-21 10:45:00 71 [in_i] Common S [facility] weight 2022-04-21 10:45:00 177.4 [lb_av] [facility] temperature 2022-04-21 10:45:00 98 [degF] Common S pirit [facility] bmi 2022-04-21 10:45:00 24.74 kg/m2 Common S pirit [facility] oximetry 2022-04-21 10:45:00 96 % Common S [facility] respiratory rate 2022-04-21 10:45:00 18 /min Comm on [facility] blood pressure 2022-04-21 10:45:00 145 mm[Hg] Common [facility] - systolic [facility] blood pressure 2022-04-21 10:45:00 65 mm[Hg] Common [facility] - diastolic [facility] Systolic blood 2021-03-07 14:30:00 162 mm[Hg] [facility] pressure Medicine Diastolic blood 2021-03-07 14:30:00 73 mm[Hg] [facility] Medicine Heart rate 2021-03-07 14:30:00 65 /min [facility] Body height 2021-03-07 14:26:00 180.3 cm [facility] Body weight 2021-03-07 14:26:00 85.276 kg [facility] BMI 2021-03-07 14:26:00 26.22 kg/m2 [facility] Weight 2017-01-09 16:43:00 [facility] Systolic (mm Hg) 2017-01-09 16:43:00 Yoav rial [facility] Diastolic (mm Hg) 2017-01-09 16:43:00 Mem orial [facility] Heart Rate 2017-01-09 16:43:00 [facility] Respitory Rate 2017-01-09 16:43:00 Memori al [place] Height 2017-01-09 16:43:00 180.34 cm [facility] BMI Calculated 2017-01-09 16:43:00 Memori al [place] Height 2016-11-07 15:08:00 180.34 cm [facility] [place] BMI Calculated 2016-11-07 15:08:00 Memori al [place] Weight 2016-11-07 15:08:00 [facility] Heart Rate 2016-11-07 15:08:00 [facility] [place] Respitory Rate 2016-11-07 15:08:00 Memori al [place] Systolic (mm Hg) 2016-11-07 15:08:00 Yoav rial [place] Diastolic (mm Hg) 2016-11-07 15:08:00 Mem orial [place] Procedures Procedure Date / Time Performed Performing Clinician [facility] e BIOPSY PROSTATE 2022-02-16 00:00:00 Casi Gordon POC URINALYSIS DIPSTICK 2022-02-14 20:09:[address] [facility] CYTOLOGY 2021-09-07 04:00:00 Casi Gordon (NON-GYNECOLOGICAL) REQUEST POC URINALYSIS DIPSTICK 2021-09-05 17:19:[address] [facility] CT ABDOMEN W WO 2021-08-27 19:36:34 Prosper Otto spital CONTRAST PELVIS W WO Christy CONTRAST POC CREATININE 2021-08-27 18:39:00 Casi Gordon spital ESTIMATED GFR 2021-08-27 18:39:00 Casi Gordon spital 4K PSA TOTAL + FREE 2021-08-19 00:00:00 [facility] REFLEX > 3.0 TO 4KSCORE Christy URINALYSIS SCREEN AND 2021-08-10 20:20:00 [facility] MICROSCOPY, WITH REFLEX Christy TO CULTURE [id number] 2021-08-10 20:19:00 [facility] omar [facility] PROSTATE SCORE 4K 2021-08-10 20:15:00 [facility] (SERUM) URINE CULTURE 2021-08-10 20:09:00 [facility] spital Christy POC URINALYSIS DIPSTICK 2021-08-10 20:08:00 [facility] Christy Endoscopy<sup>1</sup> [facility] Procedure<sup>4</sup> [facility] Plan of Care Planned Activity Planned Date Details Comments Source Future Scheduled 2022-07-[address] [facility] Test 16:01:09 (procedure) [code = 090422033] Future Scheduled 2022-07-[address] [facility] Test 16:01:09 [code = COLONOSCOPY SCREENING] Future Scheduled 2022-07-27 SHINGLES VACCINES (1 [facility] Test 16:01:09 of 2) [code = SHINGLES VACCINES (1 of 2)] Future Scheduled 2022-07-27 65+ PNEUMOCOCCAL [facility] Test 16:01:09 VACCINE (2 - PPSV23 if available, else PCV20) [code = 65+ PNEUMOCOCCAL VACCINE (2 - PPSV23 if available, else PCV20)] Future Scheduled 2022-07-27 COVID-19 VACCINE (3 - [facility] Test 16:01:09 Booster for Moderna series) [code = COVID-19 VACCINE (3 - Booster for Moderna series)] Future Scheduled 2022-07-27 INFLUENZA VACCINE Method [facility] Hospital Test 16:01:09 [code = INFLUENZA VACCINE] Future Scheduled 2022-07-[address] [facility] Test 16:01:09 (procedure) [code = [id number]] Future Scheduled 2022-07-[address] [facility] Test 16:01:09 [code = COLONOSCOPY SCREENING] Future Scheduled 2022-07-27 SHINGLES VACCINES (1 Met [facility] Test 16:01:09 of 2) [code = SHINGLES VACCINES (1 of 2)] Future Scheduled 2022-07-27 65+ PNEUMOCOCCAL Methodi [facility] Test 16:01:09 VACCINE (2 - PPSV23 if available, else PCV20) [code = 65+ PNEUMOCOCCAL VACCINE (2 - PPSV23 if available, else PCV20)] Future Scheduled 2022-07-27 COVID-19 VACCINE (3 - [facility] Test 16:01:09 Booster for Moderna series) [code = COVID-19 VACCINE (3 - Booster for Moderna series)] Future Scheduled 2022-07-27 INFLUENZA VACCINE [facility] Hospital Test 16:01:09 [code = INFLUENZA VACCINE] Future Scheduled 2022-06-[address] [facility] Test 00:00:00 (12+) [code = Medical Center DEPRESSION SCREENING (12+)] Future Scheduled 2022-06-25 FALLS RISK SCREENING [facility] Test 00:00:00 [code = FALLS RISK Medical C enter SCREENING] Future Scheduled 2022-06-[address] [facility] Test 00:00:00 (12+) [code = Medical Center DEPRESSION SCREENING (12+)] Future Scheduled 2022-06-25 FALLS RISK SCREENING [facility] Test 00:00:00 [code = FALLS RISK Medical C enter SCREENING] Future Scheduled 2022-04-28 HEPATITIS B VACCINES Met [facility] Test 12:49:32 (1 of 3 - 3-dose series) [code = HEPATITIS B VACCINES (1 of 3 - 3-dose series)] Future Scheduled 2022-04-[address] [facility] Test 12:49:32 (procedure) [code = [id number]] Future Scheduled 2022-04-[address] [facility] Test 12:49:32 [code = COLONOSCOPY SCREENING] Future Scheduled 2022-04-28 SHINGLES VACCINES (1 Met [facility] Hospital Test 12:49:32 of 2) [code = SHINGLES VACCINES (1 of 2)] Future Scheduled 2022-04-28 65+ PNEUMOCOCCAL Methodi Hospital Test 12:49:32 VACCINE (2 - PPSV23 if available, else PCV20) [code = 65+ PNEUMOCOCCAL VACCINE (2 - PPSV23 if available, else PCV20)] Future Scheduled 2022-04-28 COVID-19 VACCINE (3 - Me [facility] Hospital Test 12:49:32 Booster for Moderna series) [code = COVID-19 VACCINE (3 - Booster for Moderna series)] Future Scheduled 2022-04-28 INFLUENZA VACCINE Method ist Hospital Test 12:49:32 [code = INFLUENZA VACCINE] Future Scheduled 2022-04-17 HEPATITIS B VACCINES Met [facility] Test 08:58:53 (1 of 3 - 3-dose series) [code = HEPATITIS B VACCINES (1 of 3 - 3-dose series)] Future Scheduled 2022-04-17 Hepatitis C screening [facility] Test 08:58:53 (procedure) [code = [id number]] Future Scheduled 2022-04-17 COLONOSCOPY SCREENING [facility] Test 08:58:53 [code = COLONOSCOPY SCREENING] Future Scheduled 2022-04-17 SHINGLES VACCINES (1 Met [facility] Hospital Test 08:58:53 of 2) [code = SHINGLES VACCINES (1 of 2)] Future Scheduled 2022-04-17 65+ PNEUMOCOCCAL Methodi Hospital Test 08:58:53 VACCINE (2 - PPSV23 if available, else PCV20) [code = 65+ PNEUMOCOCCAL VACCINE (2 - PPSV23 if available, else PCV20)] Future Scheduled 2022-04-17 COVID-19 VACCINE (3 - Me odi Hospital Test 08:58:53 Booster for Moderna series) [code = COVID-19 VACCINE (3 - Booster for Moderna series)] Future Scheduled 2022-04-17 INFLUENZA VACCINE Method ist Hospital Test 08:58:53 [code = INFLUENZA VACCINE] Future Scheduled 2022-02-23 INFLUENZA VACCINE (#1) [facility] Test 00:00:00 [code = INFLUENZA Medical Ce [...] enter SCREENING] Future Scheduled 2021-03-07 Screening for [facility] Col lege of Test 09:26:59 malignant neoplasm of Medici ne colon (procedure) [code = [id number]] Future Scheduled 2021-03-07 COVID-19 Vaccine (1) [facility] of Test 09:26:59 [code = COVID-19 Medicine Vaccine (1)] Future Scheduled 2021-03-07 TETANUS SHOT (ADULT) [facility] of Test 09:26:59 [code = TETANUS SHOT Medicin e (ADULT)] Future Scheduled 2021-03-07 BMI FOLLOW UP PLAN [facility] 09:26:59 [code = BMI FOLLOW UP Medici ne PLAN] Future Scheduled 2021-03-07 Hepatitis C screening [facility] 09:26:59 (procedure) [code = Medicine 273961231] Future Scheduled 2021-03-07 ZOSTER VACCINE (1 of [facility] 09:26:59 2) [code = ZOSTER Medicine VACCINE (1 of 2)] Future Scheduled 2021-03-07 FALL SCREEN [code = [facility] 09:26:59 FALL SCREEN] Medicine Future Scheduled 2021-03-07 PNEUMOVAX >=65 [facility] 09:26:59 (PPSV23) [code = Medicine PNEUMOVAX >=65 (PPSV23)] Future Scheduled 2021-03-07 MEDICARE AWV (Initial) B [facility] 09:26:59 [code = MEDICARE AWV Medicin e (Initial)] Future Scheduled 2021-03-07 FLU VACCINE > 6 MONTHS B [facility] 09:26:59 [code = FLU VACCINE > Medici ne 6 MONTHS] Future Scheduled 2021-03-07 Screening for [facility] Test 09:26:59 malignant neoplasm of Medici ne colon (procedure) [code = 859414784] Future Scheduled 2021-03-07 COVID-19 Vaccine (1) [facility] 09:26:59 [code = COVID-19 Medicine Vaccine (1)] Future Scheduled 2021-03-07 TETANUS SHOT (ADULT) [facility] 09:26:59 [code = TETANUS SHOT Medicin e (ADULT)] Future Scheduled 2021-03-07 BMI FOLLOW UP PLAN [facility] 09:26:59 [code = BMI FOLLOW UP Medici ne PLAN] Future Scheduled 2021-03-07 Hepatitis C screening [facility] 09:26:59 (procedure) [code = Medicine 252074516] Future Scheduled 2021-03-07 ZOSTER VACCINE (1 of [facility] 09:26:59 2) [code = ZOSTER Medicine VACCINE (1 of 2)] Future Scheduled 2021-03-07 FALL SCREEN [code = [facility] 09:26:59 FALL SCREEN] Medicine Future Scheduled 2021-03-07 PNEUMOVAX >=65 [facility] 09:26:59 (PPSV23) [code [...] Medica l Center colon (procedure) [code = 713115696] Future Scheduled 1947 Sigmoidoscopy [facility] = [facility]] Medical Cent[facility] r Future Scheduled [address] [facility] 00:[facility]:00 (combo) [code = CT Medical C enter Colonography (combo)] Future Scheduled [address] [facility] 00:[facility]:00 malignant neoplasm of Medica l Center colon (procedure) [code = 129919419] Future Scheduled [address] [facility] 00:[facility]:00 malignant neoplasm of [facility] Center colon (procedure) [code = 894648646] Future Scheduled [address] [facility] 00:[facility]:00 malignant neoplasm of [facility] Center colon (procedure) [code = 839765532] Future Scheduled [address] [facility] 00:[facility]:00 malignant neoplasm of [facility]ica [facility] Center colon (procedure) [code = 701356635] Future Scheduled [address] [facility] 00:[facility]:00 malignant neoplasm of [facility] Center colon (procedure) [code = 433457525] Future Scheduled [address] [facility] 00:00:00 malignant neoplasm of Medica l Center colon (procedure) [code = 886792233] Future Scheduled 1947 Sigmoidoscopy [facility]code = [facility] 00:[facility]] Medical Cente r Future Scheduled [address] [facility] 00:00:00 (combo) [code = CT Medical C enter Colonography (combo)] Future Scheduled [address] [facility] 00:00:00 malignant neoplasm of Medica l Center colon (procedure) [code = 386334449] Future Scheduled [address] [facility] 00:00:00 malignant neoplasm of Medica [facility] Center colon (procedure) [code = 103919301] Future Scheduled [address] [facility] 00:00:00 malignant neoplasm of Medica [facility] Center colon (procedure) [code = 650671829] Future Scheduled [address] [facility] 00:00:00 malignant neoplasm of Medica l Center colon (procedure) [code = 862934603] Future Scheduled 1947 Sigmoidoscopy [code = [facility]] Medical Cente r Future Scheduled [address] [facility] 00:00:00 (combo) [code = CT Medical C enter Colonography (combo)] Future Scheduled [address] [facility] 00:[facility]:00 malignant neoplasm of Medica l Center colon (procedure) [code = 709290435] Future Scheduled [address] [facility] 00:00:00 malignant neoplasm of Medica l Center colon (procedure) [code = 931413265] Future Scheduled [address] [facility] 00:00:00 malignant neoplasm of Medica l Center colon (procedure) [code = 249172067] Future Scheduled [address] [facility] 00:00:00 malignant neoplasm of Medica l Center colon (procedure) [code = 349700824] Future Scheduled 1947 Sigmoidoscopy [code = [facility] 00:[facility]] Medical Cente r Future Scheduled [address] [facility] 00:00:00 (combo) [code = CT Medical C enter Colonography (combo)] Future Scheduled 1947 Screening for [facility] 00:00:00 malignant neoplasm of Medica l Center colon (procedure) [code = 258392970] Encounters Start End Encounter Admission Attending Care Care Encounter Source Date/Time Date/Time Type Type Clinicians Facility Department ID 2022-06-01 Outpatient Christine, STLMLC STLMLC [id number] 2 Common 10:39:08 Luis 36016 [facility] 2022-05-09 Outpatient Chritsine, STLMLC STLMLC [id number] 2 Common 08:34:02 Luis [id number] [facility] 2022-04-21 Outpatient Christine, STLMLC STLMLC [id number] 2 Common 10:14:04 Luis [id number] [facility] 2022-07-31 2022-07-31 (TEL) STLMLC STLMLC [id number] Co mmon 00:00:00 00:00:00 [facility] 2022-06-28 2022-06-28 OFFICE STLMLC STLMLC [id number] Co mmon 00:00:00 00:00:00 VISIT EST Spir it PT LEVEL 3 - [facility] 2022-06-23 2022-06-23 (TEL) STLMLC STLMLC [id number] Co mmon 00:00:00 00:00:00 [facility] 2022-06-23 2022-06-23 (ESTPT) STLMLC STLMLC [id number] Co mmon 00:00:00 00:00:00 Establishe Candy rit d Patient - [facility] 2022-06-23 2022-06-23 (TEL) STLMLC STLMLC [id number] Co mmon 00:00:00 00:00:00 [facility] 2022-06-05 2022-06-05 Postop STLMLC STLMLC [id number] Co mmon 00:00:00 00:00:00 visit Spirit - [facility] 2022-05-31 2022-05-31 OFFICE STLMLC STLMLC [id number] Co mmon 00:00:00 00:00:00 VISIT Spirit ESTAB PT - CHI LEVEL 1 [facility] 2022-05-26 2022-05-26 OFFICE STLMLC STLMLC [id number] Co mmon 00:00:00 00:00:00 VISIT EST Spir it PT LEVEL 3 - CHI [facility] 2022-05-24 2022-05-24 Postop STLMLC STLMLC [id number] Co mmon 00:00:00 00:00:00 visit [facility] 2022-05-24 2022-05-24 (TEL) STLMLC STLMLC [id number] Co mmon 00:00:00 00:00:00 [facility] 2022-05-15 2022-05-15 Postop STLMLC STLMLC [id number] Co mmon 00:00:00 00:00:00 visit [facility] 2022-05-08 2022-05-08 (TEL) STLMLC STLMLC [id number] Co mmon 00:00:00 00:00:00 [facility] 2022-04-24 2022-04-24 (TEL) STLMLC STLMLC [id number] Co mmon 00:00:00 00:00:00 [facility] 2022-04-21 2022-04-21 OFFICE STLMLC STLMLC [id number] Co mmon 00:00:00 00:00:00 VISIT [facility] PT - CHI LEVEL 4 [facility] 2022-04-17 2022-04-17 Telephone Miles, 1.2.840.1 [id number] 2100 644674 Methodi 00:00:00 00:00:[address] 3.430.2.7 Hospit a .3.494006 l .8 2022-04-17 2022-04-17 Telephone Miles, 1.2.840.1 662269706 2100 634904 Methodi 00:00:00 00:00:[address] 3.430.2.7 Hospit a .3.089631 l .8 2022-02-18 2022-02-18 Orders Miles, 1.2.840.1 218693107 962855 2098 Methodi 00:00:00 00:00:00 Only Casi Romero 08862.1.[address] 3.430.2.7 Hospit a .3.380542 l .8 2022-02-18 2022-02-18 Orders Miles, 1.2.840.1 311088461 890293 9489 Methodi 00:00:00 00:00:00 Only Casi Romero 50463.1.[address] 3.430.2.7 Hospit a .3.016338 l .8 2022-02-17 2022-02-17 Telephone Miles, 1.2.840.1 958414655 13200729 Methodi 00:00:00 00:00:[address] 3.430.2.7 Hospit a .3.281392 l .8 2022-02-17 2022-02-17 Telephone Miles, 1.2.840.1 303214313 2099124 Methodi 00:00:00 00:00:[address] 3.430.2.7 Hospit a .3.171579 l .8 2022-02-15 2022-02-15 Telephone Miles, 1.2.840.1 [id number] 2099977 Methodi 00:00:00 00:00:[address] 3.430.2.7 Hospit a .3.864269 l .8 2022-02-15 2022-02-15 Telephone Miles, 1.2.840.1 [id number] 2099977 Methodi 00:00:00 00:00:[address] 3.430.2.7 Hospit a .3.360767 l .8 2022-02-14 2022-02-14 Office Miles, 1.2.840.1 825699719 478002 9956 Methodi 14:45:00 15:15:00 Visit Casi Romero 04712.1.[address] 3.430.2.7 Hospit a .3.075886 l .8 2022-02-14 2022-02-14 Office [place], 1.2.840.1 578542023 670398 0832 Methodi 14:45:00 15:15:00 Visit Casi Romero 36498.1.[address] 3.430.2.7 Hospit a .3.115274 l .8 2022-02-14 2022-02-14 Outpatient MILES, [facility] [id number] [address] [place] [address] 00:00:00 00:00:00 CASIGLENNA Bernal Method i [facility] 2022-02-14 2022-02-14 Travel 1.2.840.1 1.2.199.712 3153 695624 Methodi 00:00:00 00:00:[address] 3.430.2.7 0.2.7.3.698 Ho spita .3.496205 084.8 l .8 2022-02-14 2022-02-14 Travel 1.2.840.1 1.2.688.888 6470 723423 Methodi 00:00:00 00:00:[address] 3.430.2.7 0.2.7.3.698 Ho spita .3.216956 084.8 l .8 2022-02-10 2022-02-10 Orders Johnson, 1.2.840.1 346118719 19359 73602 Methodi 00:00:00 00:00:00 Only Monique 19421.1.[address] 3.430.2.7 Hospit a .3.188526 l .8 2022-02-10 2022-02-10 Orders Jhonson, 1.2.840.1 951730143 28710 46161 Methodi 00:00:00 00:00:00 Only Monique 67401.1.[address] 3.430.2.7 Hospit a .3.860221 l .8 2022-02-09 2022-02-09 Telephone Miles, 1.2.840.1 221397833 2099 393985 Methodi 00:00:00 00:00:[address] 3.430.2.7 Hospit a .3.228369 l .8 2022-02-09 2022-02-09 Telephone Miles, 1.2.840.1 535002944 2099 017032 Methodi 00:00:00 00:00:[address] 3.430.2.7 Hospit a .3.109495 l .8 2021-12-19 2021-12-19 Telephone Miles, 1.2.840.1 850331315 2099 784500 Methodi 00:00:00 00:00:[address] 3.430.2.7 Hospit a .3.374315 l .8 2021-12-19 2021-12-19 Telephone Miles, 1.2.840.1 512450274 2099 440274 Methodi 00:00:00 00:00:[address] 3.430.2.7 Hospit a .3.090163 l .8 2021-12-06 2021-12-06 Telephone Miles, 1.2.840.1 059898295 2099 845584 Methodi 00:00:00 00:00:[address] 3.430.2.7 Hospit a .3.402573 l .8 2021-12-06 2021-12-06 Telephone Miles, 1.2.840.1 063622347 2099 625002 Methodi 00:00:00 00:00:[address] 3.430.2.7 Hospit a .3.461212 l .8 2021-10-18 2021-10-18 Telephone Johnson, 1.2.840.1 251474247 120 1722414 Methodi 00:00:00 00:00:[address] 3.430.2.7 Hospit a .3.838288 l .8 2021-10-18 2021-10-18 Telephone Johnson, 1.2.840.1 064327785 429 7466086 Methodi 00:00:00 00:00:[address] 3.430.2.7 Hospit a .3.089475 l .8 2021-10-10 2021-10-10 Ancillary Miles, 1.2.840.1 084214836 2099 148022 Methodi 11:00:00 11:30:00 Procedure Casi Romero 35880.1.1 [address] 3.430.2.7 Hospit a .3.038144 l .8 2021-10-10 2021-10-10 Ancillary Miles, 1.2.840.1 202460287 2099571 Methodi 11:00:00 11:30:00 Procedure Casi Romero 37339.1.1 268 s t 3.430.2.7 Hospit a .3.150804 l .8 2021-10-10 2021-10-10 Outpatient MILES, [facility] [id number] [place] 00:00:00 00:00:[address] CASI [address] 2021-10-10 2021-10-10 Travel 1.2.840.1 1.2.128.335 1647 864159 Methodi 00:00:00 00:00:[address] 3.430.2.7 0.2.7.3.698 Ho spita .3.897333 084.8 l .8 2021-10-10 2021-10-10 Travel 1.2.840.1 1.2.561.311 5929 934628 Methodi 00:00:00 00:00:[address] 3.430.2.7 0.2.7.3.698 Ho spita .3.627132 084.8 l .8 2021-09-05 2021-09-13 Procedure Miles, 1.2.840.1 [id number] 2099 008688 Methodi 10:15:00 10:43:48 visit Casi Romero 23979.1.[address] 3.430.2.7 Hospit a .3.880108 l .8 2021-09-05 2021-09-13 Procedure Miles, 1.2.840.1 857099917 2099 115297 Methodi 10:15:00 10:43:48 visit Casi Romero 61330.1.[address] 3.430.2.7 Hospit a .3.947398 l .8 2021-09-06 2021-09-06 Lab Miles, 1.2.840.1 107511607 546952 3025 Methodi 14:55:00 15:00:[address] 3.430.2.7 Hospit a .3.741722 l .8 2021-09-06 2021-09-06 Lab Miles, 1.2.840.1 927383321 836076 0707 Methodi 14:55:00 15:00:[address] 3.430.2.7 Hospit a .3.474314 l .8 2021-09-05 2021-09-05 Travel 1.2.840.1 1.2.878.881 5761 450566 Methodi 00:00:00 00:00:[address] 3.430.2.7 0.2.7.3.698 Ho spita .3.438299 084.8 l .8 2021-09-05 2021-09-05 Travel 1.2.840.1 1.2.946.515 1621 192218 Methodi 00:00:00 00:00:[address] 3.430.2.7 0.2.7.3.698 Ho spita .3.948999 084.8 l .8 2021 2021 Cecilia Bob, 1.2.840.1 517504114 613 9414419 Methodi 00:00:00 00:00:[address] 3.430.2.7 Hospit a .3.283045 l .8 2021 2021 Telephone Paulino, 1.2.840.1 [id number] 863 9040590 Methodi 00:00:00 00:00:[address] 3.430.2.7 Hospit a .3.467899 l .8 2021-08-30 2021-08-30 Telephone Paulino, 1.2.840.1 873075170 378 2428944 Methodi 00:00:00 00:00:[address] 3.430.2.7 Hospit a .3.595902 l .8 2021-08-30 2021-08-30 Telephone Paulino, 1.2.840.1 [id number] 357 2701065 Methodi 00:00:00 00:00:[address] 3.430.2.7 Hospit a .3.842621 l .8 2021-08-27 2021-08-27 [facility], 1.2.840.1 [id number] Methodi 11:45:26 23:59:00 Encounter Casi Romero 93239.1.1 388 [address] t 3.430.2.7 Hospit a .3.762478 l .8 2021-08-27 2021-08-27 [place] 41331.2.840.1 711844976 Methodi 11:45:26 23:59:00 Encounter Casi Romero 23570.1.1 388 s t 3.430.2.7 Hospit a .3.183040 l .8 2021-08-27 2021-08-[address]1 1.2.878.065 3153 674042 Methodi 00:00:00 00:00:[address] 3.430.2.7 0.2.7.3.698 Ho spita .3.607369 084.8 l .8 2021-08-27 2021-08-27 Travel 1.2.840.1 1.2.363.730 5168 346099 Methodi 00:00:00 00:00:[address] 3.430.2.7 0.2.7.3.698 Ho spita .3.262111 084.8 l .8 2021-08-10 2021-08-19 Casi Hannah. 1.2.840.1 20791843 4 7197878384 Methodi 13:30:00 11:55:24 Visit Prosper Otto 40552.1.[address] 3.430.2.7 Hospit a .3.338137 l .8 2021-08-10 2021-08-19 Casi Hannah 1.2.840.1 92054352 4 [id number] Methodi 13:30:00 11:55:24 Visit Prosper Otto 59254.1.[address] 3.430.2.7 Hospit a .3.595939 l .8 2021-08-19 2021-08-19 Orders Clarita, 1.2.840.1 [id number] Methodi 00:00:00 00:00:00 Only Prosper 89366.1.[address] Christy 3.430.2.7 Hospit a .3.467262 l .8 2021-08-19 2021-08-19 Orders Clarita, 1.2.840.1 844541555 Methodi 00:00:00 00:00:00 Only Prosper 77330.1.[address] Christy 3.430.2.7 Hospit a .3.752611 l .8 2021-08-15 2021-08-15 Travel 1.2.840.1 1.2.220.631 1608 306682 Methodi 00:00:00 00:00:[address] 3.430.2.7 0.2.7.3.698 Ho spita .3.341339 084.8 l .8 2021-08-15 2021-08-15 Transcribe Miles, 1.2.840.1 883058468 707 6050174 Methodi 00:00:00 00:00:00 Orders Casi Romero 58126.1.[address] 3.430.2.7 Hospit a .3.238743 l .8 2021-08-15 2021-08-15 Orders Clarita, 1.2.840.1 [id number] Methodi 00:00:00 00:00:00 Only Prosper 36814.1.[address] Christy 3.430.2.7 Hospit a .3.138600 l .8 2021-08-15 2021-08-15 Travel 1.2.840.1 1.2.806.740 1345 826419 Methodi 00:00:00 00:00:[address] 3.430.2.7 0.2.7.3.698 Ho spita .3.203175 084.8 l .8 2021-08-15 2021-08-15 Transcribe Miles, 1.2.840.1 383976970 509 9529153 Methodi 00:00:00 00:00:00 Orders Casi Romero 61847.1.[address] 3.430.2.7 Hospit a .3.312954 l .8 2021-08-15 2021-08-15 Orders [place], 1.2.840.1 433357332 Methodi 00:00:00 00:00:00 Only Prosper 33427.1.[address] Christy 3.430.2.7 Hospit a .3.310135 l .8 2021-08-11 2021-08-11 Telephone Miles, 1.2.840.1 168669393 2099358 Methodi 00:00:00 00:00:[address] Casi [address] 3.430.2.7 Hospit a .3.564878 l .8 2021-08-11 2021-08-11 Telephone Miles, 1.2.840.1 861120069 2099358 Methodi 00:00:00 00:00:[address] 3.430.2.7 Hospit a .3.023888 l .8 2021-08-10 2021-08-10 Murtaza Cheng, 1.2.840.1 381988364 786812 4473 Methodi 00:00:00 00:00:00 Only Lyndsay 72189.1.[address] 3.430.2.7 Hospit a .3.854192 l .8 2021-08-10 2021-08-10 Travel 1.2.840.1 1.2.498.777 2911 817531 Methodi 00:00:00 00:00:[address] 3.430.2.7 0.2.7.3.698 Ho spita .3.561264 084.8 l .8 2021-08-10 2021-08-10 Murtaza Cheng, 1.2.840.1 497537370 985749 7892 Methodi 00:00:00 00:00:00 Only Lyndsay 22629.1.[address] 3.430.2.7 Hospit a .3.084642 l .8 2021-08-10 2021-08-10 Travel 1.2.840.1 1.2.302.980 0820 677803 Methodi 00:00:00 00:00:[address] 3.430.2.7 0.2.7.3.698 Ho spita .3.914868 084.8 l .8 2021-07-28 2021-07-28 [facility], 1.2.840.1 [id number] 2099 852189 Methodi 00:00:00 00:00:[address] Casi [address] 3.430.2.7 Hospit a .3.835518 l .8 2021-03-07 2021-03-07 Outpatient CHASE GALLAGHER [facility] [id number] [facility] 09:23:05 16:11:08 Ole 2021-03-07 2021-03-07 Office All Gomez [facility] 1.2.840.114 [id number] [facility] 09:22:13 09:52:13 Visit AMBULATOR 350.1.13.21 College Y 0.2.7.2.686 of 759.0816755 Medi lia 850 e 2020-12-07 2020-12-07 Outpatient ALL [facility]EN [facility] [id number] SLE 00:00:00 00:00:00 2020-12-07 2020-12-07 Outpatient HAL [facility] [id number] [facility]H 00:00:00 00:00:00 MARY 2017-01-09 2017-01-10 Outpatient nullFlavo [facility] [id number] Memoria 15:53:00 04:59:00 r [facility] 03 [facility] 2017-01-09 2017-01-10 Outpatient nullFlavo [facility] [id number] Memoria 15:53:00 04:59:00 r [facility] 03 [facility] 2017-01-09 2017-01-[address] [facility] M[facility] [id number] 10:53:00 23:59:00 a, Melania 03 Dain 2016-11-07 2016-11-08 Outpatient nullFlavo [facility] [id number] Memoria 14:54:00 04:59:00 r [facility] 02 [facility] 2016-11-07 2016-11-08 Outpatient nullFlavo [facility] [id number] Memoria 14:54:00 04:59:00 r [facility] 02 [facility] 2016-11-07 2016-11-07 Outpatient Tallavajl [facility] M[facility] [id number] 09:54:00 23:59:00 a, Melania 02 Dain 2016-09-04 2016-09-04 Outpatient nullFlavo [facility] [id number] Memoria 01:00:00 13:00:00 r [facility] 01 [facility] 2016-09-04 2016-09-04 Outpatient nullFlavo [facility] [id number] Memoria 01:00:00 13:00:00 r [facility] 01 [facility] 2016-09-03 2016-09-04 [facility] [id number] 20:00:00 08:00:00 Melania obando 2016-08-17 2016-08-17 Outpatient nullFlavo [facility] [id number] Memoria 02:00:00 14:00:00 [facility] l Wayne Black 2016-08-17 2016-08-17 Outpatient nullFlavo [facility] [id number] Memoria 02:00:00 14:00:00 r [facility] 00 l Wayne Black 2016-08-16 2016-08-17 Outpatient Phys[facility], [facility] [id number] 20:00:00 08:00:00 Non 00 Associated 2016-05-16 2016-05-16 Outpatient [facility] [id number] Memoria 14:00:00 14:00:00 01 gita Black 2016-05-16 2016-05-16 Outpatient [facility] [id number] Memoria 14:00:00 14:00:00 01 gita Black 2016-03-27 2016-03-27 Outpatient [facility] [id number] Memoria 14:15:00 14:15:00 00 gita Black 2016-03-27 2016-03-27 Outpatient [facility] [id number] Memoria 14:15:00 14:15:00 00 gita Black Results Test Description Test Time Test Comments Results Result Comments Source POC urinalysis dipstick 2022-02-14 20:09:25 Test Item Value Reference Range Interpretation Comme nts Color urine, POC (test code = Yellow 6103920) Clarity urine, POC (test code = Clear 4288716) Glucose urine, POC (test code = Negative Negative 1396268) Bilirubin urine, POC (test code = Negative Negative 9782221) Ketones urine, POC (test code = Negative Negative 3169197) Specific gravity urine, POC (test >/=1.030 1.005-1.030 code = 7610047) Blood urine, POC (test code = Trace Negative A 1957075) pH urine, POC (test code = See_Comment [Automated message] The 3595567) system which ge nerated this result transmit imani reference range: 5.0, 5.5 , 6.0, 6.5, 7.0, 7.5, 8.0, 8.5. The reference range was not used to interpret th is result as normal/abnormal . Protein urine, POC (test code = 3+ Negative A >=162 6663463) Urobilinogen urine, POC (test <2.0 See_Comment [Automated message] The code = 2768544) system which generated this result transmit imani reference range: <=2.0. T he reference range was not u sed to interpret this result as normal/abnormal . Nitrite urine, POC (test code = Negative Negative 6693146) Leukocyte esterase urine, POC Negative Negative (test code = 1480009) Lab Interpretation (test code = Abnormal 93739-4) [facility] urinalysis [id number] 20:09:25 Test Item Value Reference Range Interpretation Comments Color urine, POC (test Yellow code = 3265683) Clarity urine, POC (test Clear code = 6508404) Glucose urine, POC (test Negative Negative code = 9382650) Bilirubin urine, POC Negative Negative (test code = 6662901) Ketones urine, POC (test Negative Negative code = 0558975) Specific gravity urine, >/=1.030 1.005-1.030 POC (test code = 1294391) Blood urine, POC (test Trace Negative A code = 5573363) pH urine, POC (test code 5.5 See_Comment [A utomated message] = 9149104) The system [employer] generated this result transmitted ref erence range: 5.0, 5.5 , 6.0, 6.5, 7.0, 7.5, 8.0, 8.5. The refere nce range was not u sed to interpret this result as normal/abnor mal. Protein urine, POC (test 3+ Negative A >=3 00 code = 0092496) Urobilinogen urine, POC <2.0 <=2.0 (test code = 7156546) Nitrite urine, POC (test Negative Negative code = 5858397) Leukocyte esterase Negative Negative urine, POC (test code = 1345182) Lab Interpretation (test Abnormal code = 97496-7) [facility] urinalysis [id number] 20:09:25 Test Item Value Reference Range Interpretation Comments Color urine, POC (test Yellow code = 4086437) Clarity urine, POC (test Clear code = 9391571) Glucose urine, POC (test Negative Negative code = 8000700) Bilirubin urine, POC Negative Negative (test code = 9049581) Ketones urine, POC (test Negative Negative code = 0127710) Specific gravity urine, >/=1.030 1.005-1.030 POC (test code = 9976334) Blood urine, POC (test Trace Negative A code = 4266264) pH urine, POC (test code See_Comment [A utomated message] = 6871919) The system [employer] generated this result transmitted ref erence range: 5.0, 5.5 , 6.0, 6.5, 7.0, 7.5, 8.0, 8.5. The refere nce range was not u sed to interpret this result as normal/abnor mal. Protein urine, POC (test 3+ Negative A >=3 00 code = 0738982) Urobilinogen urine, POC <2.0 See_Comment [Au tomated message] (test code = 5884809) The sy stem which generated this result transmitted ref erence range: <=2.0. T he reference range was not used to int erpret this result as normal/abnormal . Nitrite urine, POC (test Negative Negative code = 9128603) Leukocyte esterase Negative Negative urine, POC (test code = 3507997) Lab Interpretation (test Abnormal code = 42809-6) [facility] urinalysis [id number] 20:09:25 Test Item Value Reference Range Interpretation Comments Color urine, POC (test Yellow code = 6060479) Clarity urine, POC (test Clear code = 7312078) Glucose urine, POC (test Negative Negative code = 3369571) Bilirubin urine, POC Negative Negative (test code = 6128081) Ketones urine, POC (test Negative Negative code = 7645812) Specific gravity urine, >/=1.030 1.005-1.030 POC (test code = 7833010) Blood urine, POC (test Trace Negative A code = 6810459) pH urine, POC (test code 5.5 See_Comment [A utomated message] = 8680007) The system [employer] generated this result transmitted ref erence range: 5.0, 5.5 , 6.0, 6.5, 7.0, 7.5, 8.0, 8.5. The refere nce range was not u sed to interpret this result as normal/abnor mal. Protein urine, POC (test 3+ Negative A >=3 00 code = 7320582) Urobilinogen urine, POC <2.0 <=2.0 (test code = 1590187) Nitrite urine, POC (test Negative Negative code = 4271274) Leukocyte esterase Negative Negative urine, POC (test code = 6383821) Lab Interpretation (test Abnormal code = 87091-8) [facility] [id number] 19:37:24 Test Item Value Reference Range Interpretation Comments Case number (test code = [id number]) Cytology See link below for (non-gynecological) PDF Lab Report report (test code = 1178) Result status (test code This is Final Report = [id number]) for [id number] [facility] [id number] 19:37:24 Test Item Value Reference Range Interpretation Comments Case number (test code = [id number]) Cytology See link below for (non-gynecological) PDF Lab Report report (test code = 1178) Result status (test code This is Final Report = [id number]) for [id number] [facility] [id number] 19:37:24 Test Item Value Reference Range Interpretation Comments Case number (test code = [id number]) Cytology See link below for (non-gynecological) PDF Lab Report report (test code = 1178) Result status (test code This is Final Report = [id number]) for [id number] [facility] [id number] 19:37:24 Test Item Value Reference Range Interpretation Comments Case number (test code = [id number]) Cytology See link below for (non-gynecological) PDF Lab Report report (test code = 1178) Result status (test code This is Final Report = [id number]) for [id number] Prostate Score (Serum)2021-08-12 22:32:00 Test Item [...] disease. ASSAY INFORMATION: Method Electrochemilum inescence Immunoassay ([employer] system) NO TE: This assay has no bi [...] mg biotin. [Automa imani message] The system [employer] generated this result tra nsmitted reference range : <=4.00. The reference r aric was not used to interpr et this result as mona l/abnormal. PSA, free (test 3.29 ng/mL Not Estab. NOTE: Result s cannot be code = 40672-9) interpreted as absolute evidence of the presence or absence of danial gnant disease. Values obtained with different assay methods or kits cannot be used interchang eably. ASSAY INFORMATION: Me thod Electrochemilum inescence Immunoassay ([employer] system). N OTE: This assay has no bi [...] eveloped and its performance characteristics were determined byLocation Based Technologies. I t has not been cleared by [...] NEGATIVE Lab Interpretation Abnormal (test code = 13785-0) [facility] Prostate Score (Serum)2021-08-12 22:32:00 Test Item Value [...] disease. ASSAY INFORMATION: Method Electrochemilum inescence Immunoassay ([employer] system) NO TE: This assay has no bi [...] NOTE: Result s cannot be code = 60509-2) interpreted as absolute evidence of the presence or absence of danial gnant disease. Values obtained with different assay methods or kits cannot be used interchang eably. ASSAY INFORMATION: Me thod Electrochemilum inescence Immunoassay ([employer] system). N OTE: This assay has no bi [...] eveloped and its performance characteristics were determined byLocation [employer]. I t has not been cleared by [...] NEGATIVE Lab Interpretation Abnormal (test code = 08588-6) [address] Prostate Score (Serum)2021-08-12 22:32:00 Test Item [...] disease. ASSAY INFORMATION: Method Electrochemilum inescence Immunoassay ([employer]) NO TE: This assay has no [...] mg biotin. [Automa imani message] The system [employer] generated this result tra nsmitted reference range : <=4.00. The reference r aric was not used to interpr et this result as mona l/abnormal. PSA, free (test 3.29 ng/mL Not Estab. NOTE: Result s cannot be code = 59281-6) interpreted as absolute evidence of the presence or absence of danial gnant disease. Values obtained with different assay methods or kits cannot be used interchang eably. ASSAY INFORMATION: Me thod Electrochemilum inescence Immunoassay ([employer] system). N OTE: This assay has no bi [...] eveloped and its performance characteristics were determined by[employer]. I t has not been cleared by the U.S.Food and Dr ug Administration. The FDA has determined that such clearance or ap proval is not necessary. This test isused for clin ical purposes. It sh ould not be regarded as inv estigational or for research .This lab has been approv ed by [facility] and justin diallo as a high [...] NEGATIVE Lab Interpretation Abnormal (test code = 11958-3) [facility] Prostate Score (Serum)2021-08-12 22:32:00 Test Item Value [...] disease. ASSAY INFORMATION: Method Electrochemilum inescence Immunoassay ([employer] system) NO TE: This assay has no bi [...] NOTE: Result s cannot be code = 20275-1) interpreted as absolute evidence of the presence or absence of danial gnant disease. Values obtained with different assay methods or kits cannot be used interchang eably. ASSAY INFORMATION: Me thod Electrochemilum inescence Immunoassay ([employer] system). N OTE: This assay has no bi [...] code = 5999) This test was d loeloped and its performance characteristics were determined byLocation Based [employer]. I t has not been cleared by [...] NEGATIVE Lab Interpretation Abnormal (test code = 17674-0) [facility] [id number] 00:51:35 Test Item Value Reference Range Interpretation Comments Urine culture (test SEE COMMENT Bacteriu erasmo screen code = 4842896) negative. [facility] [id number] 00:51:35 Test Item Value Reference Range Interpretation Comments Urine culture (test SEE COMMENT Bacteriu erasmo screen code = 2294406) negative. [facility] [id number] 00:51:35 Test Item Value Reference Range Interpretation Comments Urine culture (test SEE COMMENT Bacteriu erasmo screen code = 2573030) negative. [facility] [id number] 00:51:35 Test Item Value Reference Range Interpretation Comments Urine culture (test SEE COMMENT Bacteriu erasmo screen code = 5661845) negative. [facility] BLADDER SCAN/[id number] 20:19:00 Test Item Value Reference Range Interpretation Comments PVR volume (test code = 5766) 3 ml [facility]/[id number] 20:19:00 Test Item Value Reference Range Interpretation Comments PVR volume (test code = 5766) 3 ml [facility] BLAD[facility]/[id number] 20:19:00 Test Item Value Reference Range Interpretation Comments PVR volume (test code = 5766) 3 ml [facility] BLADDER SCAN/[id number] 20:19:00 Test Item Value Reference Range Interpretation Comments PVR volume (test code = 5766) 3 ml [facility], BRAIN, WITH IV [id number] 17:09:00Unlisted Reason for Exam - Click Yes and Enter Reason Below->YesUnlisted Reason for Exam- >B12 deficiency,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
[2022-08-03 11:04] LABS: Urine Blood 3+ (Negative); Urine Glucose 1+ (Negative); Urine Protein 3+ (Negative)
[2022-08-03 11:14] LABS: Absolute Lymphocytes (CBC) 1.2 K/uL (0.7-4.9); Hematocrit 28.3 % (39.6-49.0); Lymphocytes % 20.2 % (15.3-44.8); MCV 73.7 fL (80-100); RBC Red Blood Cell Count 3.84 M/uL (4.33-5.43)
[2022-08-03 11:17] LABS: Urine Bacteria 20-50 /HPF (<20); Urine RBC >50 /HPF (None Seen)
[2022-08-03 11:18] LABS: Protime INR 1.01
[2022-08-03] MEDS ORDERED: NACL 0.9% IRR SOLN 4,000 ML IRR ONE (11:27)
[2022-08-03 11:31] LABS: Magnesium 2.3 mg/dL (1.6-2.4); Potassium 3.6 mmol/L (3.5-5.1)
[2022-08-03] MEDS ORDERED: LIDOCAINE VISCOUS 2% SOLN 15 ML UDC ONE (11:43)
[2022-08-03] MEDS ORDERED: NITROFURAN MACRO 100 MG CAP PO ONE (13:33)
[2022-08-03] MEDS ORDERED: NA CHLORIDE 0.9% 50 ML ONE (13:34)
[2022-08-03] MEDS ORDERED: CEFTRIAXONE 2000 MG/VIAL ONE (13:34)
--- NOTE | 2022-08-03 14:15 | ER ---
Nurse's Notes [facility] Name: Negro Chavez Age: 76 yrs Sex: Male : 1945 Arrival Date: 08/03/2022 Time: 10:16 Bed 4 Private MD: Luis King; Rodo Rankin Diagnosis: UTI/ Urinary tract infection, site not specified Presentation: 08/03 10:19 Chief complaint: Pt's reports hematuria, states "he was doing better but now he's aa5 bleeding again and I called Dr. Rankin but he is doing surgery in [place]". Coronavirus screen: At this time, the client does not indicate any symptoms associated with coronavirus-19. Ebola Screen: Patient denies travel to an Ebola-affected area in the 21 days before illness onset. Initial Sepsis Screen: Does the patient meet any 2 criteria? No. Patient's initial sepsis screen is negative. Does the patient have a suspected source of infection? No. Patient's initial sepsis screen is negative. Risk Assessment: Do you want to hurt yourself or someone else? Patient reports no desire to harm self or others. Onset of symptoms was August 03, 2022. 10:19 Method Of Arrival: Ambulatory aa5 10:19 Acuity: YUSUF 3 aa5 Triage Assessment: 11:11 General: Appears in no apparent distress. Behavior is calm. Pain: Denies pain. Neuro: ap3 Level of Consciousness is awake, alert, obeys commands, patient is at basline per family at baseline. Cardiovascular: Patient's skin is warm and dry. Respiratory: Airway is patent Respiratory effort is even, unlabored, Respiratory pattern is regular, symmetrical. : Urine is blood tinged. Historical: - Allergies: 10:21 Iodine; in shrimp; no reaction with IV iodine; aa5 - PMHx: 10:21 BPH; Dementia; Diabetes - NIDDM; Hypertension; Alzheimer's disease; aa5 - Immunization history:: Adult Immunizations unknown. - Social history:: Smoking status: Patient denies any tobacco usage or history of. Screenin:45 [facility] ED Fall Risk Assessment (Adult) History of falling in the last 3 months, ap3 including since admission Yes- single mechanical fall (1 pt) Confusion or Disorientation Yes (5 pts) Intoxicated or Sedated No (0 pts) Impaired Gait Yes (1 pt) Mobility Assist Device Used No (0 pt) Altered Elimination No (0 pt) Score/Fall Risk Level 3 or more points = High Risk Oriented to surroundings, Maintained a safe environment, Educated pt \\T\\ family on fall prevention, incl call for assistance when getting out of bed, Assessed \\T\\ reinforced patient's understanding of fall precautions, Provided non-skid footwear, Hourly rounding (assess needs \\T\\ fall precautionary measures) done, Utilized family, sitter, or virtual knit goods mender as indicated. Abuse screen: Denies threats or abuse. Nutritional screening: No deficits noted. Tuberculosis screening: No symptoms or risk factors identified. Assessment: 10:44 General: provided patient with urinal and eduction on providing a proper urine sample.. ap3 11:50 Reassessment: Attempted [address] catheter, unable to advance due to what appears vg1 to be scared tissue. Margie GIANG came to room to attempt and was unable to advance as well. Margie GIANG stated to place a herron catheter to monitor output until further notice. Vital Signs: 10:19 BP 157 / 58; Pulse 72; Resp 18 S; Temp 97.7(TE); Pulse Ox 99% on R/A; Weight 78.02 kg aa5 (R); Height 5 ft. 11 in. (180.34 cm) (R); 11:49 BP 159 / 74; Pulse 59; Pulse Ox 100% on R/A; kc6 12:34 BP 157 / 83; Pulse 65; Pulse Ox 100% on R/A; ap3 10:19 Body Mass Index 23.99 (78.02 kg, 180.34 cm) aa5 ED Course: 10:16 Patient arrived in ED. as 10:16 Luis King MD is Private Physician. as 10:16 Rodo Rankin MD is Private Physician. as 10:19 Arm band placed on. aa5 10:21 Triage completed. aa5 10:22 Jameel Hanson PA is PHCP. cp 10:22 Gideon Mendoza MD is Attending Physician. cp 10:44 Kelly Wen, SOLOMON is Primary Nurse. ap3 10:45 Patient has correct armband on for positive identification. Bed in low position. Call ap3 light in reach. Side rails up X2. Adult w/ patient. Pulse ox on. NIBP on. Door closed. Noise minimized. Warm blanket given. 11:10 Basic Metabolic Panel Sent. bc6 11:10 CBC with Diff Sent. bc6 11:10 Urine Microscopic Only Sent. ap3 11:10 Magnesium Sent. bc6 11:10 PT-INR Sent. bc6 11:10 Initial lab(s) drawn, by me, sent to lab. Inserted saline lock: 20 gauge in left bc6 antecubital area, using aseptic technique. 11:55 Herron cath inserted, using sterile technique, 12 Fr., by me, balloon inflated, to vg1 gravity drainage, returned bloody urine. Patient tolerated well. 13:55 No provider procedures requiring assistance completed. IV discontinued, intact, ap3 bleeding controlled, No redness/swelling at site. Pressure dressing applied. 14:13 Rodo Rankin MD is Referral Physician. cp Administered Medications: 13:54 Drug: Nitrofurantoin 200 mg Route: PO; ap3 13:55 Drug: Rocephin (cefTRIAXone) 2 grams Route: IV; Rate: calculated rate; Site: left ap3 antecubital; Medication: 10:45 VIS not applicable for this client. ap3 Outcome: 14:14 Discharge ordered by . cp 14:20 Discharged to home ambulatory, with family. ap3 14:20 Condition: good 14:20 Discharge instructions given to patient, family, Instructed on discharge instructions, follow up and referral plans. medication usage, Demonstrated understanding of instructions, follow-up care, medications, Prescriptions given X 1. 14:20 Patient left the ED. ap3 Signatures: Dianna Sanchez Audri, RN RN aa5 Jameel Hanson PA PA cp Kelly Wen RN RN ap3 Leila Tate RN RN vg1 Ashley Cantor RN RN kc6 Kimberlyn Guerrero 6 Corrections: (The following items were deleted from the chart) 12:00 12:00 Herron cath inserted, using sterile technique, ap3 ap3 12:05 12:00 Herron cath inserted, using sterile technique, 12 Fr., by mn, balloon inflated, to vg1 gravity drainage, Patient tolerated well. vg1
--- NOTE | 2022-08-03 14:15 | EDPHYS ---
Physician Documentation [facility] Name: Negro Chavez Age: 76 yrs Sex: Male : 1945 Arrival Date: 08/03/2022 Time: 10:16 Bed 4 Private MD: Luis King; Rodo Rankin ED Physician Gideon Mendoza HPI: 08/03 10:37 This 76 yrs old Male presents to ER via Ambulatory with complaints of Urinary Problem. cp 10:37 The patient presents with hematuria. Onset: The symptoms/episode began/occurred this cp morning. Associated signs and symptoms: The patient has no apparent associated signs or symptoms. 10:37 Patient currently taking prescribed Vantin for UTI. cp Historical: - Allergies: 10:21 Iodine; in shrimp; no reaction with IV iodine; aa5 - PMHx: 10:21 BPH; Dementia; Diabetes - NIDDM; Hypertension; Alzheimer's disease; aa5 - Immunization history:: Adult Immunizations unknown. - Social history:: Smoking status: Patient denies any tobacco usage or history of. ROS: 10:40 Constitutional: Negative for body aches, chills, fever, poor PO intake. cp 10:40 Eyes: Negative for injury, pain, redness, and discharge. cp 10:40 Cardiovascular: Negative for chest pain, palpitations. 10:40 Respiratory: Negative for cough, shortness of breath, wheezing. 10:40 Abdomen/GI: Negative for abdominal pain, nausea, vomiting, and diarrhea, constipation. 10:40 : Positive for hematuria, Negative for flank pain, testicular pain 10:40 Neuro: Negative for altered mental status, dizziness, headache, weakness. 10:40 All other systems are negative. cp Exam: 10:45 Constitutional: The patient appears in no acute distress, alert, awake, cp non-diaphoretic, non-toxic, well developed, well nourished. 10:45 Head/Face: Normocephalic, atraumatic. cp 10:45 Eyes: Periorbital structures: appear normal, Conjunctiva: normal, no exudate, no injection, Sclera: no appreciated abnormality, Lids and lashes: appear normal, bilaterally. 10:45 ENT: External ear(s): are unremarkable, Nose: is normal, Mouth: Lips: moist, Oral mucosa: pink and intact, moist, Posterior pharynx: Airway: no evidence of obstruction, patent. 10:45 Chest/axilla: Inspection: normal. 10:45 Cardiovascular: Rate: normal, Edema: is not appreciated, JVD: is not appreciated. 10:45 Respiratory: the patient does not display signs of respiratory distress, Respirations: normal, no use of accessory muscles, no retractions, labored breathing, is not present, Breath sounds: are clear throughout, no decreased breath sounds, no stridor, no wheezing. 10:45 Abdomen/GI: Inspection: abdomen appears normal, Bowel sounds: active, all quadrants, Palpation: abdomen is soft and non-tender, in all quadrants. 10:45 Back: pain, is absent, ROM is normal. 10:45 Neuro: Orientation: no acute changes, per family, Mentation: no acute changes, per cp family, Motor: moves all fours, strength is normal. 12:15 ECG was reviewed by the Attending Physician. cp Vital Signs: 10:19 BP 157 / 58; Pulse 72; Resp 18 S; Temp 97.7(TE); Pulse Ox 99% on R/A; Weight 78.02 kg aa5 (R); Height 5 ft. 11 in. (180.34 cm) (R); 11:49 BP 159 / 74; Pulse 59; Pulse Ox 100% on R/A; kc6 12:34 BP 157 / 83; Pulse 65; Pulse Ox 100% on R/A; ap3 10:19 Body Mass Index 23.99 (78.02 kg, 180.34 cm) aa5 MDM: 10:33 Patient medically screened. cp 14:00 Management of patient was discussed with the following: Safety Patrol Officer: DR Rankin, cp discussed results of today's labs, exam findings and urine culture report. Ron Rodriguezlaverne continued and patient may be discharged to f/u in clinic. 14:13 Data reviewed: vital signs, nurses notes, lab test result(s). cp 14:13 Differential diagnosis: UTI, urinary retention, prostatitis, urethritis, sepsis. cp Consideration of Admission/Observation Escalation of care including admission/observation considered. I considered the following discharge prescriptions or medication management in the emergency department Medications were administered in the Emergency Department. See MAR. Historians other than the Patient: Spouse/Significant Other: provides HPI. Care significantly affected by the following chronic conditions: Diabetes, Hypertension, dementia. Counseling: I had a detailed discussion with the patient and/or guardian regarding: the historical points, exam findings, and any diagnostic results supporting the discharge/admit diagnosis, lab results, the need for outpatient follow up, a urologist, to return to the emergency department if symptoms worsen or persist or if there are any questions or concerns that arise at home. 08/03 10:44 Order name: Basic Metabolic Panel; Complete Time: 13:04 cp 08/03 13:04 Interpretation: Normal except: GLUC 127; GFR 74. cp 08/03 10:44 Order name: CBC with Diff; Complete Time: 13:04 cp 08/03 13:04 Interpretation: Normal except: RBC 3.84; HGB 9.1; HCT 28.3; MCV 73.7; MCH 23.6; PLT cp 498; RDW 16.5; MPV 7.0; BASO% 1.4. 08/03 10:44 Order name: Magnesium; Complete Time: 13:04 08/03 10:44 Order name: PT-INR; Complete Time: 13:04 08/03 10:44 Order name: Ptt, Activated; Complete Time: 13:04 cp 08/03 10:44 Order name: Urine Microscopic Only; Complete Time: 13:04 08/03 13:05 Interpretation: Abnormal: UWBC >50; URBC >50; UBACT 20-50. cp 08/03 10:44 Order name: EKG; Complete Time: 10:45 08/03 10:44 Order name: Cardiac monitoring; Complete Time: 12:30 08/03 10:44 Order name: EKG - Nurse/Tech; Complete Time: 12:30 08/03 10:44 Order name: IV Saline Lock; Complete Time: 11:10 cp 08/03 11:04 Order name: Urine Dipstick-Ancillary; Complete Time: 11:12 EDNJ 08/03 11:12 Interpretation: Normal except: UGLUC 1+; UKET 1+; UBLD 3+; UPROT 3+; UESTR 3+. cp 08/03 11:21 Order name: Urine Culture EDNJ 08/03 10:44 Order name: Labs collected and sent; Complete Time: 11:10 08/03 10:44 Order name: O2 Per Protocol; Complete Time: 10:46 cp 08/03 10:44 Order name: O2 Sat Monitoring; Complete Time: 10:46 cp 08/03 10:44 Order name: Bladder Scanner: pre and post void; Complete Time: 11: cp 08/03 10:44 Order name: Urine Dipstick-Ancillary (obtain specimen); Complete Time: 11: cp 08/03 11:13 Order name: [place]-Three way; Complete Time: 11:58 cp EC:15 Rate is 64 beats/min. Rhythm is regular, Paced. QRS interval is prolonged at 168 msec. cp QT interval is normal. T waves are Inverted in lead aVR. Interpreted by me. Reviewed by me. Administered Medications: 13:54 Drug: Nitrofurantoin 200 mg Route: PO; ap3 13:55 Drug: Rocephin (cefTRIAXone) 2 grams Route: IV; Rate: calculated rate; Site: left ap3 antecubital; Disposition: 14:33 Co-signature as Attending Physician, Gideon Mendoza MD I reviewed the patient's care rt provided by the Advanced Practice Provider and agree with the diagnosis and treatment plan. Disposition Summary: 08/03/22 14:14 Discharge Ordered Location: Home cp Problem: new cp Symptoms: have improved cp Condition: Stable cp Diagnosis - UTI/ Urinary tract infection, site not specified cp Followup: cp - With: Rodo Rankin MD - When: 1 - 2 days - Reason: Recheck today's complaints Discharge Instructions: - Discharge Summary Sheet cp - Urinary Tract Infection, Adult cp Forms: - Medication Reconciliation Form cp - Thank You Letter cp - Antibiotic Education cp - Prescription Opioid Use cp Prescriptions: - cefpodoxime 200 mg Oral Tablet - take 1 tablet by ORAL route every 12 hours for 14 days with food; 14 tablet; cp Refills: 0, Product Selection Permitted Signatures: Dispatcher [employer] Nathaly Stevens RN RN aa5 Jameel Hanson PA PA cp Kelly Wen RN RN ap3 Gideon Mendoza MD MD rt Corrections: (The following items were deleted from the chart) 11:59 11:13 Bladder Irrigation ordered. cp ap3
[2022-08-03 14:24] VITALS: TEMP 97.7
[2022-08-03 14:25] VITALS: O2SAT 100
[2022-08-03 14:27] VITALS: BP 157/83
== END 2022-08-03 14:20 | disposition home or self-care (01) ==
LOC: ER 10:12
DX: N39.0 Urinary tract infection, site not specified (principal); I10 Essential (primary) hypertension; G30.9 Alzheimer's disease, unspecified; F02.80 Dementia in other diseases classified elsewhere, unspecified severity, without behavioral disturbance, psychotic disturbance, mood disturbance, and anxiety; Z91.013 Allergy to seafood
CPT/HCPCS: 93005; 85025; 87086; 80048; 36415; 83735; 85610; 85730; 51702; 96374; 99284; J0696; 81003; 81015; 87088

== ENCOUNTER 2022-09-02 20:44 | Inpatient (IN) | payer OTHER ==
--- OUTSIDE RECORDS SUMMARY | 2022-09-02 20:51 | XMS REPORT | Continuity of Care Document ---
:1945 Author Organization [facility] t Address [address] [facility] [address] [address] [place] [address] Care Team Providers Name Role Phone Luis King MD Primary Care Physician Luis King Attending Clinician Unavailable Casi Gordon MD Attending Clinician Monique Johnson MA Attending Clinician Unavailable Berna Bob MA Attending Clinician Unavailable Prosper Otto NP Attending Clinician [phone] Lyndsay Cheng MD Attending Clinician CHASE GALLAGHER Attending Clinician Unavailable All Gomez MD Attending Clinician ALL GOMEZ Attending Clinician Unavailable MARY HONG Attending Clinician Unavailable Melania Pillai Attending Clinician Physician, Non Associated Attending Clinician Unavailable Payers Payer Name Policy Type Policy Number Effective Date Expiration Date S ouredu AETNA MEDICARE 53 [id number] 2021 Common S pirit 00:00:00 - [facility] AETNA MEDICARE 53 [id number] Common S pirit PPO - [facility] MEDICARE PLAN [id number] PPO - AETNA AETNA MEDICARE [id number] HMO POS PPO 00:00:00 Problems Condition [...] 11-13 11:00:00 l 11/13/2016 00:00: Paul snowden MH [facility] 00 F/U 1 F/U 1 Diagnosis Active 2016-11-07 Mem oria MONTH MONTH - 10:02:00 l Active 00:00: [place] 09/19/2016 00 MH [facility] MODERATE MODERATE Diagnosis Active 2016-09-04 Memoria DAVID DAVID 3 09:00:00 l Active 00:00: [place] 08/24/2016 00 MH [facility] DAVID DAVID Diagnosis Active 2016-08-17 Mem oria Active 08-08 08:28:00 l 08/08/2016 00:00: Paul snowden MH [facility] 00 Diabetes Diabetes Problem Resolve 2017-01-12 Memoria mellitus mellitus d 00:14:12 l (disorder) (disorder) He rmseth Resolved Problem 01/12/2017 type 2 MH TIR[facility] [...] emoria (disorder) (disorder) d 00:14:12 l Resolved [place] Problem 01/12/2017 recently had 3 syncopal episodes. 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 [id number] Acute Problem Common cystitis [facility] with - [facility] hematuria [facility] Disorder Bladder Problem Common of urinary disorder Spir it bladder [facility] [id number] Postproced Problem Co mmon ural male Spirit fossa [facility] naviculari [facility] Nephropath Nephropath Problem C ommon y, y, Spirit obstructiv obstructiv - [facility] e e [facility] Lower Benign Problem Common urinary localized Spirit tract hyperplasi - [facility] symptoms a of St due to prostate [facility] benign with Medical prostatic urinary Center hypertroph retention y [id number] S/P TURP Problem Comm on [facility] [id number] OAB Problem Common (overactiv Spirit e bladder) [facility] [id number] BPH loc w Problem Com mon urin Spirit obs/LUTS [facility] [id number] Gross Problem Common hematuria [facility] [id number] Postproced Problem C ommon [id number] ural male Spirit urethral - [facility] meatal [facility] [id number] Incomplete Problem Co mmon emptying Spirit of bladder [facility] [id number] Urinary Problem Commo n retention [facility] No known No known Disease [...] (Muscle rs Pain) Sulfa Propensi Active Other [facility] Antibiot ty to 5-19 [...] Center ics) (Muscle Pain) Iodine Propensi Active [facility] ty to 4-21 College adverse 00:00: of reaction 00 Medicin s to e drug Iodine Drug Active Hives IV Iodine [facility] 00 is Center allergic to shrimp but has had tests with iodine in the past without issues - 12/07/20 [place], RN IODINE Allergy Active High Hives SLE 10-13 00:00: 00 463 Drug Active Unknown Common allergy Spirit - [facility] iodine iodine Active Keila Black NO KNOWN Allergy Active [facility] ALLERGIE S Social History Social Habit Start Date Stop Date Quantity Comments Source History of Common Spirit - Tobacco Use [facility] Tobacco use and 2021-08-10 2021-08-10 Smokeless tobacco Me [facility] exposure 00:00:00 00:00:00 non-user Hospital Alcohol intake 2021-03-07 2021-03-07 Current [facility] lege of 00:00:00 00:00:00 non-drinker of Medicine alcohol (finding) Social History 2016-03-12 2016-03-12 [facility] Elly hall 08:02:05 08:02:05 Sex [birth year] At [birth year] Rastaf[facility] 00:00:00 00:00:00 Hospital Smoking Status Start Date Stop Date Source Never Smoker [facility] Medications Ordered Filled Start Stop Current Ordering Indication Dosage Frequency Signature Comments Components Source Medication Medication Date Date Medication? Clinician (SIG) Name Name Cefpodoxime Cefpodoxime 2021-06 No 1{table BID Cefpodoxim Proxetil Proxetil 06-30 t_with_ e Proxetil 200 MG 200 MG 00:00: 00:00 food} 200 MG 00 :00 Cefpodoxime Cefpodoxime 2021-06- No 1{table BID Cefpodoxim Proxetil Proxetil 06-30 t_with_ e Proxetil 200 MG 200 MG 00:00: 00:00 food} 200 MG 00 :00 Cefpodoxime Cefpodoxime 2021-06- No 1{table BID Cefpodoxim Proxetil Proxetil 06-30 t_with_ e Proxetil 200 MG 200 MG 00:00: 00:00 food} 200 MG 00 :00 Cefpodoxime Cefpodoxime 2021-06- No 1{table BID Cefpodoxim Proxetil Proxetil 06-30 t_with_ e Proxetil 200 MG 200 MG 00:00: 00:00 food} 200 MG 00 :00 Cefpodoxime Cefpodoxime 2021-06- No 1{table BID Cefpodoxim Proxetil Proxetil 06-30 t_with_ e Proxetil 200 MG 200 [...] 1{table BID Trospium Chloride 20 Chloride 20 0- 02-28 t} Chloride MG MG 00:00: 00:00 20 MG 00 :00 Trospium Trospium 2021-06- No 1{table QD Trospium Chloride 20 Chloride 20 0- 12-30 t_at_be Chloride MG MG 00:00: 00:00 dtime_o 20 MG 00 :00 n_an_em pty_sto mach} Trospium Trospium 2021-06- No 1{table QD Trospium Chloride 20 Chloride 20 0- 12-30 t_at_be Chloride MG MG 00:00: 00:00 dtime_o 20 MG 00 :00 n_an_em pty_sto mach} gentamicin Yes [id number] 80mg Me thodi (GARAMYCIN) 02-14 st injection 20:15: Hospita 80 mg 00 l gentamicin Yes [id number] 80mg Me thodi (GARAMYCIN) 02-14 st injection 20:15: Hospita 80 mg 00 l gentamicin Yes [id number] 80mg Me thodi (GARAMYCIN) 02-14 st injection 20:15: Hospita 80 mg 00 l gentamicin Yes [id number] 80mg Me thodi (GARAMYCIN) 02-14 st injection 20:15: Hospita 80 mg 00 l gentamicin Yes [id number] 80mg Me thodi (GARAMYCIN) 02-14 st injection 20:15: Hospita 80 mg 00 l cefTRIAXone 2021- No [id number] 1g Methodi (ROCEPHIN) 02-14 st injection 1 20:15: 20:14 Hospi ta g 00 :00 l cefTRIAXone 2021- No [id number] 1g [facility] (ROCEPHIN) 02-14 st injection 1 20:15: 20:14 Hospi ta g 00 :00 l cefTRIAXone 2021- No [id number] 1g [facility] (ROCEPHIN) 02-1418 st injection 1 20:15: 20:14 Hospi ta g 00 :00 l cefTRIAXone 2021- No [id number] 1g [facility] (ROCEPHIN) 8-23 10-18 st injection 1 20:15: 20:14 Hospi ta g 00 :00 l cefTRIAXone 2021- No [id number] 1g [facility] (ROCEPHIN) 02-14 st injection 1 [...] QD Take 1 Me thodi n 02-[address] (Levaquin) 00:00: 04:59 (750 mg Hos lauren 750 MG 00 :00 total) by l tablet mouth daily for 5 days. levoFLOXaci 2021- No 750mg QD Take 1 Me thodi n 02-[address] (Levaquin) 00:00: 04:59 (750 mg Hos lauren 750 MG 00 :00 total) by l tablet mouth daily for 5 days. levoFLOXaci 2021-2021- No 750mg QD Take 1 Me thodi n 02-[address] (Levaquin) 00:00: 04:59 (750 mg Hos lauren 750 MG 00 :00 total) by l tablet mouth daily for 5 days. levoFLOXaci 2021-2021- No 750mg QD Take 1 Me thodi n - 05-[address] (Levaquin) 00:00: 04:59 (750 mg Hos lauren 750 MG 00 :00 total) by l tablet mouth daily for 5 days. levoFLOXaci 2021- No 750mg QD Take 1 Me thodi n - 05-[address] (Levaquin) 00:00: 04:59 (750 mg Hos lauren 750 MG 00 :00 total) by l tablet mouth daily for 5 days. levoFLOXaci 2021- No 750mg QD Take 1 Oh normodi n 4-17 11- tablet st (Levaquin) 00:00: 04:59 (750 mg Hos lauren 750 MG 00 :00 total) by l tablet mouth daily for 5 days. levoFLOXaci 2021- No 750mg QD Take 1 Oh normodi n 4-17 11- tablet st (Levaquin) 00:00: 04:59 (750 mg Hos lauren 750 MG 00 :00 total) by l tablet mouth daily for 5 days. levoFLOXaci 2021- No 750mg QD Take 1 Me thodi n 4-17 11- tablet st (Levaquin) 00:00: 04:59 (750 mg Hos lauren 750 MG 00 :00 total) by l tablet mouth daily for 5 days. cefTRIAXone 2021- No [id number] 1g [facility] (ROCEPHIN) 09-05 st injection 1 17:15: 17:14 Hospi ta g 00 :00 l cefTRIAXone 2021- No [id number] 1g [facility] (ROCEPHIN) 09-05 st injection 1 17:15: 17:14 Hospi ta g 00 :00 l cefTRIAXone 2021- No [id number] 1g [facility] (ROCEPHIN) 09-05- st injection 1 17:15: 17:14 Hospi ta g 00 :00 l cefTRIAXone 2021- No [id number] 1g [facility] (ROCEPHIN) 09-05 st injection 1 17:15: 17:14 Hospi ta g 00 :00 l cefTRIAXone 2021- No [id number] 1g [facility] (ROCEPHIN) 09-05 st injection 1 [...] then morning of procedure until gone. sulfamethox 2021-0 2- No 1{tbl} Q.5D Take 1 M ethodi azole-trime 08-[address] thoprim 00:00: 05:59 mouth 2 Hospit a (BACTRIM 00 :00 (two) l DS) 800-160 times a mg per day for 5 tablet days. Start the day prior to biopsy. levoFLOXaci 2021-0 2021- No 750mg QD Take 1 Me thodi n 08-[address] (Levaquin) 00:00: 05:59 (750 mg Hos lauren 750 MG 00 :00 total) by l tablet mouth daily for 5 days. Take one tablet the night before procedure, then morning of procedure until gone. sulfamethox 2021-0 2021- No 1{tbl} Q.5D Take 1 M ethodi azole-trime 08-[address] thoprim 00:00: 05:59 mouth 2 Hospit a (BACTRIM 00 :00 (two) l DS) 800-160 times a mg per day for 5 tablet days. Start the day prior to biopsy. levoFLOXaci 2021-2021- No 750mg QD Take 1 Me thodi n 08-[address] (Levaquin) 00:00: 05:59 (750 mg Hos lauren 750 MG 00 :00 total) by l tablet mouth daily for 5 days. Take one tablet the night before procedure, then morning of procedure until gone. sulfamethox 2021-0 2021- No 1{tbl} Q.5D Take 1 M ethodi azole-trime 08-[address] thoprim 00:00: 05:59 mouth 2 Hospit a (BACTRIM 00 :00 (two) l DS) 800-160 times a mg per day for 5 tablet days. Start the day prior to biopsy. levoFLOXaci 2-0 2022- No 750mg QD Take 1 Me thodi n 2-08-[address] (Levaquin) 00:00: 05:59 (750 mg [...] 2,000 unit capsule capsule calcium Yes 1334mg Q.[id number] Take 1,334 Methodi acetate 2-[id number] (PHOSLO) 13:29: 3D mouth 3 Hospit a 667 mg 13 (three) l capsule times a day with meals. aspirin Yes Adult Low Metho di (ADULT [...] 2,000 unit capsule capsule calcium Yes 1334mg Q.[id number] Take 1,334 Methodi acetate 2-[id number] (PHOSLO) 13:29: 3D mouth 3 Hospit a 667 mg 13 (three) l capsule times a day with meals. aspirin Yes Adult Low Metho di (ADULT LOW 2-[address] DOSE 13:29: Aspirin Hospita ASPIRIN) 81 13 l MG enteric coated tablet multivitami Yes Take by Met jhonnyi n with 2-[address] minerals 13:29: [...] unit capsule capsule calcium 0 Yes 1334mg Q.[id number] Take 1,334 Methodi acetate 2-[id number] (PHOSLO) 13:29: 3D mouth 3 Hospit a 667 mg 13 (three) l capsule times a day with meals. aspirin Yes Adult Low Metho di (ADULT [...] l D3) 2,000 unit capsule capsule calcium 2022-0 Yes 1334mg Q.[id number] Take 1,334 Methodi acetate 2-[id number] (PHOSLO) 13:29: 3D mouth 3 Hospit a 667 mg 13 (three) l capsule times a day with meals. aspirin 2021-0 Yes Adult Low Metho di (ADULT LOW [...] unit capsule capsule calcium 0 Yes 1334mg Q.[id number] Take 1,334 Methodi acetate 2-[id number] (PHOSLO) 13:29: 3D mouth 3 Hospit a 667 mg 13 (three) l capsule times a day with meals. Insulin 0 Yes Inject Dougie NPH, 9-13 into the [employer] Human,, 09:27: skin. of [place], 38 Medicin (NOVOLIN N e FLEXPEN) 100 UNIT/ML SUPN aspirin 325 2020-0 Yes 325mg Take 325 B aylor mg tablet 9-13 mg by [place] 09:27: mouth of 38 daily. Medicin e Tamsulosin Yes Take by [facility] or HCl 0.4 MG - mouth. [place] CAPS 09:27: of 38 Medicin e Multiple Yes Take by [facility] Vitamins-Mi - mouth. Colleg e nerals 09:27: of (CARY MULTI 38 Medicin MEN OR) e Cyanocobala Yes Take by [place] julius min - mouth. [place] (VITAMIN B 09:27: of 12 OR) 38 Medicin e Turmeric Yes Take by [facility] (QC TUMERIC - mouth. Colleg e COMPLEX) 09:27: of 500 MG CAPS 38 Medicin e Red Yeast Yes Take by [facility] 500 - mouth. [place] MG/0.5GM 09:27: of POWD 38 Medicin e Ames-3 Yes Take by [facility] 1000 MG - mouth. [place] CAPS 09:27: of 38 Medicin e donepezil [...] Take 1,000 Dougie (GLUCOPHAGE 9-13 mg by [place] ) 1000 MG 09:27: mouth 2 of tablet 38 times Medicin daily e (with meals). olmesartan 2020-0 Yes 40mg Take 40 mg B [facility]ylor (BENICAR) 03-07 by mouth Colleg e 40 MG 09:27: daily. of tablet 38 Medicin e Insulin 0 Yes Inject [facility] NPH, 03-07 into the [place] Human,, 09:27: skin. of [place], 38 Medicin (NOVOLIN N e FLEXPEN) 100 UNIT/ML SUPN aspirin 325 0 Yes 325mg Take 325 B aylor mg tablet 9-13 mg by [place] 09:27: mouth of 38 daily. Medicin e Tamsulosin 0 Yes Take by [facility] or HCl 0.4 MG - mouth. [place] CAPS 09:27: of 38 Medicin e Multiple Yes Take by [facility] Vitamins-Mi 9-13 mouth. [facility]g e nerals 09:27: of (CARY MULTI 38 Medicin MEN OR) e Cyanocobala Yes Take by [place] julius min -13 mouth. [place] (VITAMIN B 09:27: of 12 OR) 38 Medicin e Turmeric Yes Take by [facility] (QC TUMERIC 9-13 mouth. Colleg e COMPLEX) 09:27: of 500 MG CAPS 38 Medicin e Red Yeast Yes Take by [facility] 500 9-13 mouth. [place] MG/0.5GM 09:27: of POWD 38 Medicin e [place]-3 Yes Take by [facility] 1000 MG -13 mouth. [place] CAPS 09:27: of 38 Medicin e donepezil Yes 10mg Take 10 mg [facility] (ARICEPT) 9-13 by mouth Colleg e 10 MG 09:27: two times of tablet 38 daily. Medicin e memantine Yes 10mg Take 10 mg [facility] (NAMENDA) 9-13 by mouth Colleg e 10 MG 09:27: two times of tablet 38 daily. Medicin e metformin Yes 1000mg Take 1,000 [facility] (GLUCOPHAGE 9-13 mg by [place] ) 1000 MG 09:27: mouth 2 of [...] continue ONETOUCH 2017-06 Yes USE STRIPS Met [employer] BLUE 2-[address] TEST STRIP [...] tablet 00 times a l day. donepezil 2017- Yes 10mg Q.5D Take 10 mg Me [facility] (ARICEPT) 1-[address] 10 MG 00:00: (two) Hospita tablet 00 times a l day. tamsulosin 2017-06 Yes .4mg QD Take 0.4 Met hodi (FLOMAX) 1-[address] 0.4 mg 00:00: mouth Hospita capsule 00 daily. l olmesartan2017-06 Yes 1{tbl} QD Take 1 Me thodi hydrochloro 1-[address] thiazide 00:00: mouth Hospita (BENICAR 00 daily. l HCT) 20-12.5 mg per tablet tamsulosin 2017-06 Yes .4mg QD Take 0.4 Met hodi (FLOMAX) 1-[address] 0.4 mg 00:00: mouth Hospita capsule 00 daily. l olmesartan2017-06 Yes 1{tbl} QD Take 1 Me thodi hydrochloro 1-[address] thiazide 00:00: mouth Hospita (BENICAR 00 daily. l HCT) 20-12.5 mg per tablet tamsulosin 2017-06 Yes .4mg QD Take 0.4 Met hodi (FLOMAX) 1-[address] 0.4 mg 00:00: mouth Hospita capsule 00 daily. l olmesartan2017-06 Yes 1{tbl} QD Take 1 Me thodi hydrochloro 1-[address] thiazide 00:00: mouth Hospita (BENICAR 00 daily. l HCT) 20-12.5 mg per tablet tamsulosin 2017-06 Yes .4mg QD Take 0.4 Met hodi (FLOMAX) 1-[address] 0.4 mg 00:00: mouth Hospita capsule 00 daily. l olmesartan2017-06 Yes 1{tbl} QD Take 1 Me thodi [...] pneumococcal 2016-03-12 Completed [facility] 13-valent vaccine 22:35:00 [place] pneumococcal 2016-03-12 Completed [facility] 13-valent vaccine 22:35:00 [place] pneumococcal 2016-03-12 Completed [facility] 13-valent vaccine 22:35:00 [place] pneumococcal 2016-03-12 Completed [facility] 13-valent vaccine 22:35:00 [place] pneumococcal 2016-03-12 Completed [facility] 13-valent vaccine 22:35:00 [place] Vital Signs Vital Name Observation Time Observation Value Comments Source height 2022-06-28 13:30:00 71 [in_i] [facility] weight 2022-06-28 13:30:00 171 [lb_av] [facility] temperature 2022-06-28 13:30:00 98.0 [degF] [facility] bmi 2022-06-28 13:30:00 23.85 kg/m2 [facility] oximetry 2022-06-28 13:30:00 96 % [facility] respiratory rate 2022-06-28 13:30:00 18 /min Comm on [facility] blood pressure 2022-06-28 13:30:00 142 mm[Hg] Common [facility] - systolic [facility] blood pressure 2022-06-28 13:30:00 68 mm[Hg] Common [facility] - diastolic [facility] height 2022-05-26 12:45:00 71 [in_i] [facility] weight 2022-05-26 12:45:00 172.4 [lb_av] Common [facility] temperature 2022-05-26 12:45:00 98 [degF] [facility] bmi 2022-05-26 12:45:00 24.04 kg/m2 [facility] oximetry 2022-05-26 12:45:00 98 % [facility] respiratory rate 2022-05-26 12:45:00 16 /min Comm on [facility] blood pressure 2022-05-26 12:45:00 184 mm[Hg] Common [facility] - systolic [facility] blood pressure 2022-05-26 12:45:00 88 mm[Hg] [facility] - diastolic [facility] height 2022-05-24 13:45:00 71 [in_i] Common S pirit [facility] weight 2022-05-24 13:45:00 171 [lb_av] Common S pirit [facility] temperature 2022-05-24 13:45:00 97.9 [degF] Common S pirit - [facility] bmi 2022-05-24 13:45:00 23.85 kg/m2 Common S [facility]irit - [facility] oximetry 2022-05-24 13:45:00 99 % Common S pirit [facility] respiratory rate 2022-05-24 13:45:00 18 /min Comm on [facility] blood pressure 2022-05-24 13:45:00 181 mm[Hg] Common [facility] - systolic [facility] blood pressure 2022-05-24 13:45:00 77 mm[Hg] [facility] - diastolic [facility] height 2022-04-21 10:45:00 71 [in_i] Common S pirit [facility] weight 2022-04-21 10:45:00 177.4 [lb_av] Common [facility] temperature 2022-04-21 10:45:00 98 [degF] Common S pirit [facility] bmi 2022-04-21 10:45:00 24.74 kg/m2 [facility] S pirit [facility] oximetry 2022-04-21 10:45:00 96 % Common S pirit [facility] respiratory rate 2022-04-21 10:45:00 18 /min Comm on [facility] blood pressure 2022-04-21 10:45:00 145 mm[Hg] [facility] - systolic [facility] blood pressure 2022-04-21 10:45:00 65 mm[Hg] Common [facility] - diastolic [facility] Systolic blood 2021-03-07 14:30:00 162 mm[Hg] [facility] pressure Medicine Diastolic blood 2021-03-07 14:30:00 73 mm[Hg] [facility] Heart rate 2021-03-07 14:30:00 65 /min [facility] Body height 2021-03-07 14:26:00 180.3 cm [facility] Body weight 2021-03-07 14:26:00 85.276 kg [facility] BMI 2021-03-07 14:26:00 26.22 kg/m2 [facility] BMI Calculated 2017-01-09 16:43:00 Memori al [place] Weight 2017-01-09 16:43:00 [facility] [place] Systolic (mm Hg) 2017-01-09 16:43:00 Yoav rial [place] Diastolic (mm Hg) 2017-01-09 16:43:00 Mem orial [place] Heart Rate 2017-01-09 16:43:00 [facility] [place] Respitory Rate 2017-01-09 16:43:00 Memori al [place] Height 2017-01-09 16:43:00 180.34 cm [facility] [place] Height 2016-11-07 15:08:00 180.34 cm [facility] [place] BMI Calculated 2016-11-07 15:08:00 Memori al [place] Weight 2016-11-07 15:08:00 [facility] [place] Heart Rate 2016-11-07 15:08:00 [facility] [place] Respitory Rate 2016-11-07 15:08:00 Memori al [place] Systolic (mm Hg) 2016-11-07 15:08:00 Yoav rial [place] Diastolic (mm Hg) 2016-11-07 15:08:00 Mem orial [place] Procedures Procedure Date / Time Performed Performing Clinician [facility] e BIOPSY PROSTATE 2022-02-16 00:00:00 Casi Gordon spital POC URINALYSIS DIPSTICK 2022-02-14 20:09:25 Casi Gordon [facility] CYTOLOGY 2021-09-07 04:00:00 Casi Gordon spital (NON-GYNECOLOGICAL) REQUEST POC URINALYSIS DIPSTICK 2021-09-05 17:19:00 Casi Gordon [facility] CT ABDOMEN W WO 2021-08-27 19:36:34 Prosper Otto spital CONTRAST PELVIS W WO Christy CONTRAST POC CREATININE 2021-08-27 18:39:00 Casi Gordon Ho spital ESTIMATED GFR 2021-08-27 18:39:00 Casi Gordon Ho spital 4K PSA TOTAL + FREE 2021-08-19 00:00:00 [facility] REFLEX > 3.0 TO 4KSCORE Christy URINALYSIS SCREEN AND 2021-08-10 20:20:00 [place] [facility] MICROSCOPY, WITH REFLEX Christy TO CULTURE [id number] 2021-08-10 20:19:00 [place] Prosper Rastafari margetal Christy PROSTATE SCORE 4K 2021-08-10 20:15:00 [place] [facility] (SERUM) URINE CULTURE 2021-08-10 20:09:00 [place] [facility] POC URINALYSIS DIPSTICK 2021-08-10 20:08:00 [facility] Christy Endoscopy<sup>1</sup> [facility] Procedure<sup>4</sup> [facility] Plan of Care Planned Activity Planned Date Details Comments Source Future Scheduled 2022-07-27 Hepatitis C screening [facility] Test 16:01:09 (procedure) [code = 264468226] Future Scheduled 2022-07-27 COLONOSCOPY SCREENING [facility] Test 16:01:09 [code = COLONOSCOPY SCREENING] Future Scheduled 2022-07-27 SHINGLES VACCINES (1 Met [facility] Test 16:01:09 of 2) [code = SHINGLES VACCINES (1 of 2)] Future Scheduled 2022-07-27 65+ [facility]CCAL [facility] 16:01:09 VACCINE (2 - PPSV23 if available, else PCV20) [code = 65+ PNEUMOCOCCAL VACCINE (2 - PPSV23 if available, else PCV20)] Future Scheduled 2022-07-27 COVID-19 VACCINE (3 - [facility] Test 16:01:09 Booster for Moderna series) [code = COVID-19 VACCINE (3 - Booster for Moderna series)] Future Scheduled 2022-07-27 INFLUENZA VACCINE Method [facility] Test 16:01:09 [code = INFLUENZA VACCINE] Future Scheduled 2022-07-27 Hepatitis C screening [facility] Test 16:01:09 (procedure) [code = [id number]] Future Scheduled 2022-07-27 COLONOSCOPY SCREENING [facility] Test 16:01:09 [code = COLONOSCOPY SCREENING] Future Scheduled 2022-07-27 SHINGLES VACCINES (1 Met [facility] Test 16:01:09 of 2) [code = SHINGLES VACCINES (1 of 2)] Future Scheduled 2022-07-27 65+ [facility]AL [facility] Test 16:01:09 VACCINE (2 - PPSV23 if available, else PCV20) [code = 65+ PNEUMOCOCCAL VACCINE (2 - PPSV23 if available, else PCV20)] Future Scheduled 2022-07-27 COVID-19 VACCINE (3 - [facility] Test 16:01:09 Booster for Moderna series) [code = COVID-19 VACCINE (3 - Booster for Moderna series)] Future Scheduled 2022-07-27 INFLUENZA VACCINE Method [facility] Test 16:01:09 [code = INFLUENZA VACCINE] Future Scheduled 2022-07-27 Hepatitis C screening [facility] Test 16:01:09 (procedure) [code = [id number]] Future Scheduled 2022-07-27 COLONOSCOPY SCREENING [facility] Test 16:01:09 [code = COLONOSCOPY SCREENING] Future Scheduled 2022-07-27 SHINGLES VACCINES (1 Met [facility] Test 16:01:09 of 2) [code = SHINGLES VACCINES (1 of 2)] Future Scheduled 2022-07-27 65+ PNEUMOCOCCAL [facility] 16:01:09 VACCINE (2 - PPSV23 if available, else PCV20) [code = 65+ PNEUMOCOCCAL VACCINE (2 - PPSV23 if available, else PCV20)] Future Scheduled 2022-07-27 COVID-19 VACCINE (3 - Me [facility] Test 16:01:09 Booster for Moderna series) [code = COVID-19 VACCINE (3 - Booster for Moderna series)] Future Scheduled 2022-07-27 [facility]ZA [facility]ACCINE [facility] 16:01:09 [code = INFLUENZA VACCINE] [...] Future Scheduled 2022-04-28 HEPATITIS B VACCINES Met [facility] Test 12:49:32 (1 of 3 - 3-dose series) [code = HEPATITIS B VACCINES (1 of 3 - 3-dose series)] Future Scheduled 2022-04-28 Hepatitis C screening [facility] Test 12:49:32 (procedure) [code = 263235598] Future Scheduled 2022-04-28 COLONOSCOPY SCREENING [facility] Test 12:49:32 [code = COLONOSCOPY SCREENING] Future Scheduled 2022-04-28 SHINGLES VACCINES (1 Met [facility] Test 12:49:32 of 2) [code = SHINGLES VACCINES (1 of 2)] Future Scheduled 2022-04-28 65+ P[facility]UMOCOCCAL [facility] Test 12:49:32 VACCINE (2 - PPSV23 if available, else PCV20) [code = 65+ PNEUMOCOCCAL VACCINE (2 - PPSV23 if available, else PCV20)] Future Scheduled 2022-04-28 COVID-19 VACCINE (3 - [facility] Test 12:49:32 Booster for Moderna series) [code = COVID-19 VACCINE (3 - Booster for Moderna series)] Future Scheduled 2022-04-28 INFLUENZA VACCINE Method [facility] Test 12:49:32 [code = INFLUENZA VACCINE] Future Scheduled 2022-04-17 HEPATITIS B VACCINES Met [facility] Test 08:58:53 (1 of 3 - 3-dose series) [code = HEPATITIS B VACCINES (1 of 3 - 3-dose series)] Future Scheduled 2022-04-17 [facility] Test 08:58:53 (procedure) [code = 646393197] Future Scheduled 2022-04-17 COLONOSCOPY SCREENING [facility] Test 08:58:53 [code = COLONOSCOPY SCREENING] Future Scheduled 2022-04-17 SHINGLES VACCINES (1 Met [facility] Test 08:58:53 of 2) [code = SHINGLES VACCINES (1 of 2)] Future Scheduled 2022-04-17 65+ PNEUMOCOCCAL [facility] Test 08:58:53 VACCINE (2 - PPSV23 if available, else PCV20) [code = 65+ PNEUMOCOCCAL VACCINE (2 - PPSV23 if available, else PCV20)] Future Scheduled 2022-04-17 COVID-19 VACCINE (3 - [facility] Test 08:58:53 Booster for Moderna series) [...] enter SCREENING] Future Scheduled 2021-03-07 Screening for [facility] of Test 09:26:59 malignant neoplasm of Medici ne colon (procedure) [code = 284308639] Future Scheduled 2021-03-07 COVID-19 Vaccine (1) [facility] of Test 09:26:59 [code = COVID-19 Medicine Vaccine (1)] Future Scheduled 2021-03-07 TETANUS SHOT (ADULT) [facility] of Test 09:26:59 [code = TETANUS SHOT Medicin e (ADULT)] Future Scheduled 2021-03-07 BMI FOLLOW UP PLAN [facility] of Test 09:26:59 [code = BMI FOLLOW UP Medici ne PLAN] Future Scheduled 2021-03-07 Hepatitis C screening [facility] of Test 09:26:59 (procedure) [code = Medicine [id number]] Future Scheduled 2021-03-07 ZOSTER VACCINE (1 of [facility] of Test 09:26:59 2) [code = ZOSTER Medicine VACCINE (1 of 2)] Future Scheduled 2021-03-07 FALL SCREEN [code = [facility] of Test 09:26:59 FALL SCREEN] Medicine Future Scheduled 2021-03-07 PNEUMOVAX >=65 [facility] of Test 09:26:59 (PPSV23) [code = Medicine PNEUMOVAX >=65 (PPSV23)] Future Scheduled 2021-03-07 MEDICARE AWV (Initial) B [facility] of Test 09:26:59 [code = MEDICARE AWV Medicin e (Initial)] Future Scheduled 2021-03-07 FLU VACCINE > 6 MONTHS B [facility] of Test 09:26:59 [code = FLU VACCINE > Medici ne 6 MONTHS] Future Scheduled 2021-03-07 Screening for [facility] of Test 09:26:59 malignant neoplasm of Medici ne colon (procedure) [code = 164871578] Future Scheduled 2021-03-07 COVID-19 Vaccine (1) [facility] of Test 09:26:59 [code = COVID-19 Medicine Vaccine (1)] Future Scheduled 2021-03-07 TETANUS SHOT (ADULT) [employer] of Test 09:26:59 [code = TETANUS SHOT Medicin e (ADULT)] Future Scheduled 2021-03-07 BMI FOLLOW UP PLAN [facility] of Test 09:26:59 [code = BMI FOLLOW UP Medici ne PLAN] Future Scheduled 2021-03-07 Hepatitis C screening [facility] Test 09:26:59 (procedure) [code = Medicine [id number]] Future Scheduled 2021-03-07 ZOSTER VACCINE (1 of [facility] of Test 09:26:59 2) [code = ZOSTER Medicine VACCINE (1 of 2)] Future Scheduled 2021-03-07 FALL SCREEN [code = [facility] of Test 09:26:59 FALL SCREEN] Medicine Future Scheduled 2021-03-07 PNEUMOVAX >=65 [facility] l[facility] of Test 09:26:59 (PPSV23) [code = Medicine PNEUMOVAX >=65 (PPSV23)] Future Scheduled 2021-03-07 MEDICARE AWV (Initial) B [facility] of Test 09:26:59 [code = MEDICARE AWV Medicin e (Initial)] Future Scheduled 2021-03-07 FLU VACCINE > 6 MONTHS B [facility] of Test 09:26:59 [code = FLU [...] Medica l Center colon (procedure) [code = 327070266] Future Scheduled [address] [facility] Test 00:[facility]:00 malignant neoplasm of [facility] Center colon (procedure) [code = 044576243] Future Scheduled [address] [facility] Test 00:00:00 malignant neoplasm of [facility] Center colon (procedure) [code = 367135075] Future Scheduled 1947 [facility]oid[facility] [address] [facility] Test 00:00:00 (combo) [code = CT Medical C enter Colonography (combo)] Future Scheduled [address] [facility] Test 00:00:00 malignant neoplasm of [facility] Center colon (procedure) [code = 125929640] Future Scheduled [address] [facility] Test 00:00:00 malignant neoplasm of [facility] Center colon (procedure) [code = 052507322] Future Scheduled [address] [facility] Test 00:00:00 malignant neoplasm of [facility] Center colon (procedure) [code = 891418347] Future Scheduled [address] [facility] Test 00:00:00 malignant neoplasm of [facility] Center colon (procedure) [code = 052214084] Future Scheduled 1947 S[facility]oidoscopy [facility] Future Scheduled [address] [facility] Test 00:00:00 (combo) [code = CT Medical C enter Colonography (combo)] Future Scheduled [address] [facility] Test 00:00:00 malignant neoplasm of [facility]ica [facility] Center colon (procedure) [code = 439628126] Future Scheduled [address] [facility] Test 00:00:00 malignant neoplasm of [facility]ica [facility] Center colon (procedure) [code = 066713747] Future Scheduled [address] [facility] Test 00:00:00 malignant neoplasm of [facility] Center colon (procedure) [code = 008735320] Future Scheduled [address] [facility] Test 00:00:00 malignant neoplasm of [facility] Center colon (procedure) [code = 396590751] Future Scheduled 1947 Sigmoidoscopy [facility] Future Scheduled [address] [facility] Test 00:00:00 (combo) [code = CT Medical C enter Colonography (combo)] Future Scheduled [address] [facility] Test 00:00:00 malignant neoplasm of Medica l Center colon (procedure) [code = 540011856] Future Scheduled [address] [facility] Test 00:00:00 malignant neoplasm of Medica l Center colon (procedure) [code = 841927317] Future Scheduled [address] [facility] Test 00:00:00 malignant neoplasm of [facility]ica [facility] Center colon (procedure) [code = 808196498] Future Scheduled [address] [facility] Test 00:00:00 malignant neoplasm of [facility] Center colon (procedure) [code = 536870285] Future Scheduled 1947 S[facility]oidoscopy [facility] Cent[facility] r Future Scheduled [address] [facility] 00:00:00 (combo) [code = CT Medical C enter Colonography (combo)] Future Scheduled [address] [facility] Test 00:00:00 malignant neoplasm of Medica l Center colon (procedure) [code = 886452696] Future Scheduled [address] [facility] Test 00:00:00 malignant neoplasm of [facility]ica [facility] Center colon (procedure) [code = 569574956] Future Scheduled 1947 S[facility]oidoscopy [facility]code [facility] 00:[facility]] [facility] Cent[facility] r Future Scheduled [address] [facility] Test 00:00:00 (combo) [code = CT Medical C enter Colonography (combo)] Future Scheduled [address] [facility] Test 00:00:00 malignant neoplasm of Medica l Center colon (procedure) [code = 453979726] Future Scheduled [address] [facility] Test 00:00:00 malignant neoplasm of [facility]ica [facility] Center colon (procedure) [code = 980746454] Future Scheduled [address] [facility] Test 00:00:00 malignant neoplasm of Medica l Center colon (procedure) [code = 960879365] Encounters Start End Encounter Admission Attending Care Care Encounter Source Date/Time Date/Time Type Type Clinicians Facility Department ID 2022-06-01 [facility] [id number] Common 10:39:[address] [place] [address] - [facility] 2022-05-09 [facility] [id number] 2 Common 08:34:[id number] [facility] 2022-04-21 Outpatient Christine, STLMLC STLMLC [id number] 2 Common 10:14:[id number] [facility] 2022-07-31 2022-07-31 (TEL) STLMLC STLMLC [id number] Co mmon 00:00:00 00:00:[address] [facility] 2022-06-28 2022-06-28 OFFICE STLMLC STLMLC [id number] Co mmon 00:00:00 00:00:00 VISIT EST Spir it PT LEVEL 3 [facility] 2022-06-23 2022-06-23 (TEL) STLMLC STLMLC [id number] Co mmon 00:00:00 00:00:[address] [facility] 2022-06-23 2022-06-23 (ESTPT) STLMLC STLMLC [id number] Co mmon 00:00:00 00:00:00 Sg song [facility] 2022-06-23 2022-06-23 (TEL) STLMLC STLMLC [id number] Co mmon 00:00:00 00:00:[address] [facility] 2022-06-05 2022-06-05 Postop STLMLC STLMLC [id number] Co mmon 00:00:00 00:00:[address] [facility] 2022-05-31 2022-05-31 OFFICE STLMLC STLMLC [id number] Co mmon 00:00:00 00:00:00 VISIT [facility] PT [facility] LEVEL 1 [facility] 2022-05-26 2022-05-26 OFFICE STLMLC STLMLC [id number] Co mmon 00:00:00 00:00:00 VISIT EST Spir it PT LEVEL 3 [facility] 2022-05-24 2022-05-24 Postop STLMLC STLMLC [id number] Co mmon 00:00:00 00:00:[address] [facility] 2022-05-24 2022-05-24 (TEL) STLMLC STLMLC [id number] Co mmon 00:00:00 00:00:[address] [facility] 2022-05-15 2022-05-15 Postop STLMLC STLMLC [id number] Co mmon 00:00:00 00:00:[address] [facility] 2022-05-08 2022-05-08 (TEL) STLMLC STLMLC [id number] Co mmon 00:00:00 00:00:[address] [facility] 2022-04-24 2022-04-24 (TEL) STLMLC STLMLC [id number] Co mmon 00:00:00 00:00:[address] [facility] 2022-04-21 2022-04-21 OFFICE STLMLC STLMLC [id number] Co mmon 00:00:00 00:00:00 VISIT [facility] LEVEL 4 [facility] 2022-04-17 2022-04-17 Telephone Miles, 1.2.840.1 [id number] 2100 889070 [facility] 00:00:00 00:00:[address] 3.430.2.7 Hospit a .3.557810 l .8 2022-04-17 2022-04-17 Telephone Miles, 1.2.840.1 [id number] 2100 900053 Method[facility] 00:00:00 00:00:[address] 3.430.2.7 Hospit a .3.227982 l .8 2022-02-18 2022-02-18 Orders Miles, 1.2.840.1 [id number] 778540 3606 Methodi 00:00:00 00:00:00 Only Casi Romero 07786.1.[address] 3.430.2.7 Hospit a .3.979415 l .8 2022-02-18 2022-02-18 Orders Miles, 1.2.840.1 [id number] 531706 3483 Methodi 00:00:00 00:00:00 Only Casi Romero 93284.1.[address] 3.430.2.7 Hospit a .3.412563 l .8 2022-02-17 2022-02-17 Telephone Miles, 1.2.840.1 [id number] 2099 303224 Methodi 00:00:00 00:00:[address] 3.430.2.7 Hospit a .3.758238 l .8 2022-02-17 2022-02-17 Telephone Miles, 1.2.840.1 [id number] 2099 892448 [facility]i 00:00:00 00:00:[address] 3.430.2.7 Hospit a .3.614301 l .8 2022-02-15 2022-02-15 Telephone Miles, 1.2.840.1 [id number] 2099 648021 [facility]i 00:00:00 00:00:[address] 3.430.2.7 Hospit a .3.066548 l .8 2022-02-15 2022-02-15 Telephone Miles, 1.2.840.1 [id number] 2099 207628 Methodi 00:00:00 00:00:[address] 3.430.2.7 Hospit a .3.005621 l .8 2022-02-14 2022-02-14 Office Miles, 1.2.840.1 [id number] 737127 3790 Methodi 14:45:00 15:15:00 Visit Casi Romero 35633.1.[address] 3.430.2.7 Hospit a .3.690203 l .8 2022-02-14 2022-02-14 Office Miles, 1.2.840.1 [id number] 754824 8328 Methodi 14:45:00 15:15:00 Visit Casi Romero 13407.1.[address] 3.430.2.7 Hospit a .3.517818 l .8 2022-02-14 2022-02-14 Outpatient MILES, [facility] [id number] [place] [address] 00:00:00 00:00:[address] 2022-02-14 2022-02-14 Travel 1.2.840.1 1.2.522.514 3067 530470 Methodi 00:00:00 00:00:[address] 3.430.2.7 0.2.7.3.698 Ho spita .3.034831 084.8 l .8 2022-02-14 2022-02-14 Travel 1.2.840.1 1.2.232.234 1672 574641 Methodi 00:00:00 00:00:[address] 3.430.2.7 0.2.7.3.698 Ho spita .3.127055 084.8 l .8 2022-02-10 2022-02-10 Orders Johnson, 1.2.840.1 [id number] 60852 Methodi 00:00:00 00:00:00 Only Monique 89210.1.[address] 3.430.2.7 Hospit a .3.227634 l .8 2022-02-10 2022-02-10 Orders Johnson, 1.2.840.1 [id number] 22425 Methodi 00:00:00 00:00:00 Only Monique 65305.1.[address] 3.430.2.7 Hospit a .3.426169 l .8 2022-02-09 2022-02-09 Telephone Miles, 1.2.840.1 [id number] 2099559 Methodi 00:00:00 00:00:[address] 3.430.2.7 Hospit a .3.533751 l .8 2022-02-09 2022-02-09 Telephone Miles, 1.2.840.1 [id number] 2099559 Methodi 00:00:00 00:00:00 C[address] 3.430.2.7 Hospit a .3.246611 l .8 2021-12-19 2021-12-19 Telephone Miles, 1.2.840.1 [id number] 2099 238424 Methodi 00:00:00 00:00:[address] 3.430.2.7 Hospit a .3.972658 l .8 2021-12-19 2021-12-19 Telephone Miles, 1.2.840.1 [id number] 2099 285136 Methodi 00:00:00 00:00:00 [address] 3.430.2.7 Hospit a .3.743573 l .8 2021-12-06 2021-12-06 Telephone Miles, 1.2.840.1 [id number] 2099 263177 [facility]i 00:00:00 00:00:[address] 3.430.2.7 Hospit a .3.083743 l .8 2021-12-06 2021-12-06 Telephone Miles, 1.2.840.1 [id number] 2099 690301 Methodi 00:00:00 00:00:[address] 3.430.2.7 Hospit a .3.843727 l .8 2021-10-18 2021-10-18 Telephone Johnson, 1.2.840.1 [id number] 821 9694340 Methodi 00:00:00 00:00:[address] 3.430.2.7 Hospit a .3.126938 l .8 2021-10-18 2021-10-18 Telephone Johnson, 1.2.840.1 [id number] 947 9114519 Methodi 00:00:00 00:00:[address] 3.430.2.7 Hospit a .3.224563 l .8 2021-10-10 2021-10-10 Ancillary Miles, 1.2.840.1 [id number] 2099 967667 Methodi 11:00:00 11:30:00 Procedure Casi Romero 33465.1.1 [address] t 3.430.2.7 Hospit a .3.231516 l .8 2021-10-10 2021-10-10 Ancillary Miles, 1.2.840.1 [id number] 2100 649582 Methodi 11:00:00 11:30:00 Procedure Casi Romero 52697.1.1 268 s t 3.430.2.7 Hospit a .3.605633 l .8 2021-10-10 2021-10-10 Outpatient MILES, [facility] [id number] [place] 00:00:00 00:00:00 CASI [facility] 2021-10-10 2021-10-10 Travel 1.2.840.1 1.2.495.647 2163 565643 Methodi 00:00:00 00:00:[address] 3.430.2.7 0.2.7.3.698 Ho spita .3.201378 084.8 l .8 2021-10-10 2021-10-10 Travel 1.2.840.1 1.2.643.624 3707 232418 Methodi 00:00:00 00:00:[address] 3.430.2.7 0.2.7.3.698 Ho spita .3.190362 084.8 l .8 2021-09-05 2021-09-13 Procedure Miles, 1.2.840.1 [id number] 2099 441514 Methodi 10:15:00 10:43:48 visit Casi Romero 67102.1.[address] 3.430.2.7 Hospit a .3.421394 l .8 2021-09-05 2021-09-13 Procedure Miles, 1.2.840.1 [id number] 2099 699338 Methodi 10:15:00 10:43:48 visit Casi Romero 20731.1.[address] 3.430.2.7 Hospit a .3.399801 l .8 2021-09-06 2021-09-06 Lab Miles, 1.2.840.1 756471524 021795 9958 Methodi 14:55:00 15:00:[address] 3.430.2.7 Hospit a .3.318787 l .8 2021-09-06 2021-09-06 [facility], 1.2.840.1 [id number] 1802 Methodi 14:55:00 15:00:[address] 3.430.2.7 Hospit a .3.119993 l .8 2021-09-05 2021-09-05 Travel 1.2.840.1 1.2.814.419 6717 759803 Methodi 00:00:00 00:00:[address] 3.430.2.7 0.2.7.3.698 Ho spita .3.290316 084.8 l .8 2021-09-05 2021-09-05 Travel 1.2.840.1 1.2.573.038 8796 380944 Methodi 00:00:00 00:00:[address] 3.430.2.7 0.2.7.3.698 Ho spita .3.931603 084.8 l .8 2021 2021 Telephone Paulino 1.2.840.1 [id number] 321 [id number] Methodi 00:00:00 00:00:[address] 3.430.2.7 Hospit a .3.190485 l .8 2021-08-30 2021-08-30 Telephone Paulino 1.2.840.1 [id number] 487 [id number] Methodi 00:00:00 00:00:[address] 3.430.2.7 Hospit a .3.226020 l .8 2021-08-27 2021-08-27 [facility].2.840.1 [id number] 33008 77648 Methodi 11:45:26 23:59:00 Encounter Casi Romero 77300.1.1 388 [address] t 3.430.2.7 Hospit a .3.339830 l .8 2021-08-27 2021-08-27 Travel 1.2.840.1 1.2.499.646 8929 688999 Methodi 00:00:00 00:00:[address] 3.430.2.7 0.2.7.3.698 Ho spita .3.066366 084.8 l .8 2021-08-10 2021-08-19 Office Casi Gordon. 1.2.840.1 [id number] 4 [id number] Methodi 13:30:00 11:55:24 Visit Prosper Otto 60403.1.[address] 3.430.2.7 Hospit a .3.744704 l .8 2021-08-19 2021-08-19 Orders Clarita 1.2.840.1 [id number] Methodi 00:00:00 00:00:00 Only Prosper 14301.1.[address] Christy 3.430.2.7 Hospit a .3.920441 l .8 2021-08-15 2021-08-15 Travel 1.2.840.1 1.2.381.619 5528 657923 Methodi 00:00:00 00:00:[address] 3.430.2.7 0.2.7.3.698 Ho spita .3.234976 084.8 l .8 2021-08-15 2021-08-15 Transcribe Evan 1.2.840.1 [id number] 020 5832556 Methodi 00:00:00 00:00:00 Murta[address] Romero [address] 3.430.2.7 Hospit a .3.218512 l .8 2021-08-15 2021-08-15 Orders Clarita 1.2.840.1 [id number] 89129 59839 Methodi 00:00:00 00:00:00 Only Prosper 62456.1.[address] Christy 3.430.2.7 Hospit a .3.151953 l .8 2021-08-11 2021-08-11 Telephone Miles, 1.2.840.1 [id number] 2099 944967 Methodi 00:00:00 00:00:00 Casi Romero [address] 3.430.2.7 Hospit a .3.638069 l .8 2021-08-10 2021-08-10 Orders Prosper, 1.2.840.1 [id number] 492326 7828 Methodi 00:00:00 00:00:00 Only Lyndsay 66617.1.[address] 3.430.2.7 Hospit a .3.091155 l .8 2021-08-10 2021-08-10 Travel 1.2.840.1 1.2.237.995 4323 639966 Methodi 00:00:00 00:00:[address] 3.430.2.7 0.2.7.3.698 Ho spita .3.351908 084.8 l .8 2021-07-28 2021-07-28 Telephone Miles, 1.2.840.1 [id number] 2100 094355 Methodi 00:00:00 00:00:00 Casi Romero [address]44.1.[address] 3.430.2.7 Hospit a .3.084522 l .8 2021-03-07 2021-03-07 Outpatient CHASE GALLAGHER [facility] [id number] [facility] 09:23:05 16:11:08 Michelle Medicamanda israel 2021-03-07 2021-03-07 Office GomezAll [facility] 1.2.840.114 [id number] [facility] 09:22:13 09:52:13 Visit AMBULATOR 350.1.13.21 College Y 0.2.7.2.686 of 760.6543471 Medi lia 850 e 2020-12-07 2020-12-07 Outpatient SOCORRO GOMEZ [facility] [id number] [facility] 00:00:00 00:00:00 2020-12-07 2020-12-07 Outpatient ROHINI HONGH [facility] [id number] [facility] 00:00:00 00:00:00 MARY 2017-01-09 2017-01-10 Outpatient nullFlavo TIRR [id number] [facility]oria 15:53:00 04:59:00 r [facility] 03 [facility] 2017-01-09 2017-01-10 Outpatient nullFlavo T[facility]R [id number] Memoria 15:53:00 04:59:00 r [facility] 03 [facility] 2017-01-09 2017-01-09 [facility] [id number] 10:53:00 23:59:00 a, Melania 03 Dain 2016-11-07 2016-11-08 Outpatient nullFlavo T[facility]R [id number] Memoria 14:54:00 04:59:00 r [facility] 02 [facility] 2016-11-07 2016-11-08 Outpatient nullFlavo T[facility]R [id number] Memoria 14:54:00 04:59:00 r [facility] 02 [facility] 2016-11-07 2016-11-07 [facility] [id number] 09:54:00 23:59:00 a, Melania 02 Dain 2016-09-04 2016-09-04 Outpatient nullFlavo [facility]R [id number] Memoria 01:00:00 13:00:00 r [facility] 01 [facility] 2016-09-04 2016-09-04 Outpatient nullFlavo TIRR [id number] Memoria 01:00:00 13:00:00 r [facility] 01 [facility] 2016-09-03 2016-09-04 [facility] [id number] 20:00:00 08:00:00 a, Melania Dain 2016-08-17 2016-08-17 Outpatient nullFlavo [facility]R [id number] Memoria 02:00:00 14:00:00 r [facility] 00 [facility] 2016-08-17 2016-08-17 Outpatient nullFlavo TIRR [id number] Memoria 02:00:00 14:00:00 r [facility] 00 [facility] 2016-08-16 2016-08-17 Outpatient Physician, MHTIRR MHTIRR [id number] 20:00:00 08:00:00 Non 00 Associated 2016-05-16 2016-05-16 Outpatient CHRIS PEREZ [id number] Memoria 14:00:00 14:00:00 01 gita Black 2016-05-16 2016-05-16 Outpatient CHRIS PEREZ [id number] Memoria 14:00:00 14:00:00 01 gita Black 2016-03-27 2016-03-27 Outpatient CHRIS PEREZ [id number] [facility]oria 14:15:00 14:15:00 00 gita Wayne 2016-03-27 2016-03-27 Outpatient CHRIS PEREZ [id number] [facility] 14:15:00 14:15:00 00 gita Black Results Test Description Test Time Test Comments Results Result Comments Source POC urinalysis dipstick 2022-02-14 20:09:25 Test Item Value Reference Range Interpretation Comme nts Color urine, POC (test code = Yellow 9018112) Clarity urine, POC (test code = Clear 2370923) Glucose urine, POC (test code = Negative Negative 9256574) Bilirubin urine, POC (test code = Negative Negative 4101221) Ketones urine, POC (test code = Negative Negative 8204112) Specific gravity urine, POC (test >/=1.030 1.005-1.030 code = 9924380) Blood urine, POC (test code = Trace Negative A 7794239) pH urine, POC (test code = See_Comment [Automated message] The 0133461) system which ge nerated this result transmit imani reference range: 5.0, 5.5 , 6.0, 6.5, 7.0, 7.5, 8.0, 8.5. The reference range was not used to interpret th is result as normal/abnormal . Protein urine, POC (test code = 3+ Negative A >=606 3094774) Urobilinogen urine, POC (test <2.0 See_Comment [Automated message] The code = 5264296) system which generated this result transmit imani reference range: <=2.0. T he reference range was not u sed to interpret this result as normal/abnormal . Nitrite urine, POC (test code = Negative Negative 1332057) Leukocyte esterase urine, POC Negative Negative (test code = 0740214) Lab Interpretation (test code = Abnormal 76241-6) [facility] urinalysis [id number] 20:09:25 Test Item Value Reference Range Interpretation Comments Color urine, POC (test Yellow code = 1450929) Clarity urine, POC (test Clear code = 0083932) Glucose urine, POC (test Negative Negative code = 7896421) Bilirubin urine, POC Negative Negative (test code = 1298592) Ketones urine, POC (test Negative Negative code = 3382760) Specific gravity urine, >/=1.030 1.005-1.030 POC (test code = 0390082) Blood urine, POC (test Trace Negative A code = 8959826) pH urine, POC (test code 5.5 See_Comment [A utomated message] = 6032960) The system [employer] generated this result transmitted ref erence range: 5.0, 5.5 , 6.0, 6.5, 7.0, 7.5, 8.0, 8.5. The refere nce range was not u sed to interpret this result as normal/abnor mal. Protein urine, POC (test 3+ Negative A >=3 00 code = 5161722) Urobilinogen urine, POC <2.0 <=2.0 (test code = 8004904) Nitrite urine, POC (test Negative Negative code = 8283143) Leukocyte esterase Negative Negative urine, POC (test code = 5475756) Lab Interpretation (test Abnormal code = 13135-1) [facility] urinalysis [id number] 20:09:25 Test Item Value Reference Range Interpretation Comments Color urine, POC (test Yellow code = 3799966) Clarity urine, POC (test Clear code = 1047270) Glucose urine, POC (test Negative Negative code = 5619519) Bilirubin urine, POC Negative Negative (test code = 2803163) Ketones urine, POC (test Negative Negative code = 4733256) Specific gravity urine, >/=1.030 1.005-1.030 POC (test code = 4812668) Blood urine, POC (test Trace Negative A code = 2688420) pH urine, POC (test code 5.5 See_Comment [A utomated message] = 3973266) The system [employer] generated this result transmitted ref erence range: 5.0, 5.5 , 6.0, 6.5, 7.0, 7.5, 8.0, 8.5. The refere nce range was not u sed to interpret this result as normal/abnor mal. Protein urine, POC (test 3+ Negative A >=3 00 code = 8005085) Urobilinogen urine, POC <2.0 <=2.0 (test code = 2600667) Nitrite urine, POC (test Negative Negative code = 9738049) Leukocyte esterase Negative Negative urine, POC (test code = 3654645) Lab Interpretation (test Abnormal code = 80987-6) [facility] urinalysis [id number] 20:09:25 Test Item Value Reference Range Interpretation Comments Color urine, POC (test Yellow code = 1022397) Clarity urine, POC (test Clear code = 7647558) Glucose urine, POC (test Negative Negative code = 5844809) Bilirubin urine, POC Negative Negative (test code = 0188557) Ketones urine, POC (test Negative Negative code = 1916298) Specific gravity urine, >/=1.030 1.005-1.030 POC (test code = 8437893) Blood urine, POC (test Trace Negative A code = 2476671) pH urine, POC (test code See_Comment [A utomated message] = 5606306) The system [employer] generated this result transmitted ref erence range: 5.0, 5.5 , 6.0, 6.5, 7.0, 7.5, 8.0, 8.5. The refere nce range was not u sed to interpret this result as normal/abnor mal. Protein urine, POC (test 3+ Negative A >=3 00 code = 6570288) Urobilinogen urine, POC <2.0 See_Comment [Au tomated message] (test code = 8316520) The [employer] stem which generated this result transmitted ref erence range: <=2.0. T he reference range was not used to int erpret this result as normal/abnormal . Nitrite urine, POC (test Negative Negative code = 9398349) Leukocyte esterase Negative Negative urine, POC (test code = 7677018) Lab Interpretation (test Abnormal code = 79041-3) [facility] urinalysis [id number] 20:09:25 Test Item Value Reference Range Interpretation Comments Color urine, POC (test Yellow code = 9430983) Clarity urine, POC (test Clear code = 4174081) Glucose urine, POC (test Negative Negative code = 2044327) Bilirubin urine, POC Negative Negative (test code = 8589165) Ketones urine, POC (test Negative Negative code = 5203011) Specific gravity urine, >/=1.030 1.005-1.030 POC (test code = 2237001) Blood urine, POC (test Trace Negative A code = 0210007) pH urine, POC (test code 5.5 See_Comment [A utomated message] = 2934743) The system [employer] generated this result transmitted ref erence range: 5.0, 5.5 , 6.0, 6.5, 7.0, 7.5, 8.0, 8.5. The refere nce range was not u sed to interpret this result as normal/abnor mal. Protein urine, POC (test 3+ Negative A >=3 00 code = 6459304) Urobilinogen urine, POC <2.0 <=2.0 (test code = 1624931) Nitrite urine, POC (test Negative Negative code = 4605682) Leukocyte esterase Negative Negative urine, POC (test code = 2994218) Lab Interpretation (test Abnormal code = 27696-2) [facility] [id number] 19:37:24 Test Item Value Reference Range Interpretation Comments Case number (test code = [id number]) Cytology See link below for (non-gynecological) PDF Lab Report report (test code = 1178) Result status (test code This is Final Report = 4266270) [id number] [facility] [id number] 19:37:24 Test Item Value Reference Range Interpretation Comments Case number (test code = [id number]) Cytology See link below for (non-gynecological) PDF Lab Report report (test code = 1178) Result status (test code This is Final Report = 3593157) for [id number] [facility] [id number] 19:37:24 Test Item Value Reference Range Interpretation Comments Case number (test code = [id number]) Cytology See link below for (non-gynecological) PDF Lab Report report (test code = 1178) Result status (test code This is Final Report = 0365568) for [id number] [facility] [id number] 19:37:24 Test Item Value Reference Range Interpretation Comments Case number (test code = [id number]) Cytology See link below for (non-gynecological) PDF Lab Report report (test code = 1178) Result status (test code This is Final Report = 5240198) for [id number] [facility] [id number] 19:37:24 Test Item Value Reference Range Interpretation Comments Case number (test code = [id number]) Cytology See link below for (non-gynecological) PDF Lab Report report (test code = 1178) Result status (test code This is Final Report = 0591528) for [id number] Prostate Score (Serum)2021-08-12 22:32:00 Test Item [...] disease. ASSAY INFORMATION: Method Electrochemilum inescence Immunoassay (Fit Steps) NO TE: This assay has no bi [...] mg biotin. [Automa imani message] The system [employer] generated this result tra nsmitted reference range : <=4.00. The reference r aric was not used to interpr et this result as mona l/abnormal. PSA, free (test 3.29 ng/mL Not Estab. NOTE: Result s cannot be code = 22354-7) interpreted as absolute evidence of the presence or absence of danial gnant disease. Values obtained with different assay methods or kits cannot be used interchang eably. ASSAY INFORMATION: Me thod Electrochemilum inescence Immunoassay (Fit Steps). N OTE: This assay has no bi [...] yrs) <or=10 49. 2% 57.5% 64.5% 11-18 26 .9% 33.9% 40.8% 19-25 18. 3% 23.9% 29.7% [...] loeloped and its performance characteristics were determined byNasza-klasa.pl. I t has not been cleared by [...] NEGATIVE Lab Interpretation Abnormal (test code = 08140-1) [facility] Prostate Score (Serum)2021-08-12 22:32:00 Test Item Value [...] ASSAY INFORMATION: Method Electrochemilum inescence Immunoassay ([employer]) NO TE: This assay has no bi [...] NOTE: Result s cannot be code = 85364-4) interpreted as absolute evidence of the presence or absence of danial gnant disease. Values obtained with different assay methods or kits cannot be used interchang eably. ASSAY INFORMATION: Me thod Electrochemilum inescence Immunoassay (R [employer]). N OTE: This assay has no bi [...] yrs) <or=10 49. 2% 57.5% 64.5% 11-18 26 .9% 33.9% 40.8% 19-25 18. 3% 23.9% 29.7% >25 9.1% 12.2% 15.8% *probability of finding prostate cancer by needle biopsy NOTE: Ca lculation of percent FREE PS A may not be possible when t he value for TOTAL PSA is in the low normal range. T hese guidelines are for assays performed using the [employer] E602 immunoassa y system.(01/2015; V8.0) 4K score (test 26 % A Evaluation: E LEVATED RISK code = 5999) This test was d celi and its performance characteristics were determined byNasza-klasa.pl. I t has not been cleared by the U.S.Food and Dr ug Administration. The FDA has determined that such clearance or ap proval is not necessary. This test isused for clin ical purposes. It sh ould not be regarded as inv estigational or for research .This lab has been approv ed by [facility] and justin diallo as a high [...] NEGATIVE Lab Interpretation Abnormal (test code = 99408-1) [facility] Prostate Score (Serum)2021-08-12 22:32:00 Test Item Value Reference Interpretation Comments Range PSA, total (test 16.73 ng/mL <=4.00 H NOTE: NCCN code = 4197) Guidelines(2.20 21)recommend repeat testing every 2-4 years if PSA is <1 ng/mL and every 1-2 y ears if PSA is 1-3 ng/mL i n men aged 45 to 75 years. A PSA value of 1.00 ng/mL s elects for the upper range of PSA values. Men who have a PSA above the media n for their age group are a t a higher risk for prosta te cancer and for the agg ressive form of the disease. The higher above the media n, the greater the ris k. NOTE: The PSA assay shoul d not be the only test used for diagnostic purp oses. Additional eval uation using JORGE ALBERTO, ultrasound , TUR or similar procedu res may be used for this p urpose. Predictions of disease recurrence shou ld not be based solely up on values obtained from s erial PSA values obtained on the patient.NOTE: V alues obtained with d ifferent assay methods o r kits cannot be used interchangeably .NOTE: Results cannot be interpreted as absolute evidence of the presence or absence of danial gnant disease. ASSAY INFORMATION: Method Electrochemilum inescence Immunoassay ([employer]) NO TE: This assay has no bi [...] NOTE: Result s cannot be code = 46670-1) interpreted as absolute evidence of the presence or absence of danial gnant disease. Values obtained with different assay methods or kits cannot be used interchang eably. ASSAY INFORMATION: Me thod Electrochemilum inescence Immunoassay (R Iddiction mGaadi). N OTE: This assay has no bi [...] guidelines are for assays performed using the [employer] E602 immunoassa y system.(01/2015; V8.0) 4K score (test 26 % A Evaluation: E LEVATED RISK code = 5999) This test was d celi and its performance characteristics were determined byNasza-klasa.pl. I t has not been cleared by [...] NEGATIVE Lab Interpretation Abnormal (test code = 94781-9) [facility] Prostate Score (Serum)2021-08-12 22:32:00 Test Item Value [...] disease. ASSAY INFORMATION: Method Electrochemilum inescence Immunoassay (Fit Steps) NO TE: This assay has no bi [...] mg biotin. [Automa imani message] The system [employer] generated this result tra nsmitted reference range : <=4.00. The reference r aric was not used to interpr et this result as mona l/abnormal. PSA, free (test 3.29 ng/mL Not Estab. NOTE: Result s cannot be code = 17884-1) interpreted as absolute evidence of the presence or absence of danial gnant disease. Values obtained with different assay methods or kits cannot be used interchang eably. ASSAY INFORMATION: Me thod Electrochemilum inescence Immunoassay (Fit Steps). N OTE: This assay has no bi [...] 64.5% 11-18 26. 9% 33.9% 40.8% 19-25 18 .3% 23.9% 29.7% >25 9.1% 12.2% 15.8% *probability [...] loeloped and its performance characteristics were determined byNasza-klasa.pl. I t has not been cleared by [...] NEGATIVE Lab Interpretation Abnormal (test code = 89986-6) [facility]2022-02-17 00:51:35 Test Item Value Reference Range Interpretation Comments Urine culture (test SEE COMMENT Bacteriu erasmo screen code = 7568854) negative. [facility]2022-02-17 00:51:35 Test Item Value Reference Range Interpretation Comments Urine culture (test SEE COMMENT Bacteriu erasmo screen code = 5432344) negative. [facility] [id number] 00:51:35 Test Item Value Reference Range Interpretation Comments Urine culture (test SEE COMMENT Bacteriu erasmo screen code = 7781605) negative. [facility] [id number] 00:51:35 Test Item Value Reference Range Interpretation Comments Urine culture (test SEE COMMENT Bacteriu erasmo screen code = 1039424) negative. [facility] BLADDER SCAN/[id number] 20:19:00 Test Item Value Reference Range Interpretation Comments PVR volume (test code = 5766) [facility]/[id number] 20:19:00 Test Item Value Reference Range Interpretation Comments PVR volume (test code = 5766) [facility][id number] 20:19:00 Test Item Value Reference Range Interpretation Comments PVR volume (test code = 5766) [facility]/[id number] 20:19:00 Test Item Value Reference Range Interpretation Comments PVR volume (test code = 5766) 3 ml [facility], BRAIN, WITH IV [id number] 17:09:00Unlisted Reason for Exam - Click Yes and Enter Reason Below->YesUnlisted Reason for Exam- >B12 deficiency,Late onset Alzheimer's disease without [facility] 1945 Sex: MFINAL [...] left thalamic lacunar infarct Signed: Mary Hong [facility] Verified Date/Time: 12/08/2020 17:09:05 RAD, CHEST, 2 [id number] 14:30:00Reason for Exam:->Vitamin b12 deficiency (non anemic)Reason for Exam:->Late onset alzheimers disease without behavioral disturbanceCODY [facility] : 1945 Sex: MFINAL [...] Wu Verified Date/Time: 12/07/2020 14:30:55 Reading Location: [facility] Reading Room [address] [place] [address] Electronically signed by: VANNESSA WU MD on12/07/2020 02:30 PM
[2022-09-02 21:24] LABS: Absolute Lymphocytes (CBC) 0.3 K/uL (0.7-4.9); Hematocrit 24.8 % (39.6-49.0); MCV 70.4 fL (80-100); MPV 7.3 fL (7.6-11.3); RBC Red Blood Cell Count 3.53 M/uL (4.33-5.43)
[2022-09-02 21:31] LABS: Protime INR 1.07
[2022-09-02 22:00] LABS: SARS-COV-2 RT PCR NEGATIVE (NEGATIVE)
[2022-09-02 22:06] LABS: Blood Morphology Comment NOTED (NOT SEEN); Platelet Estimate INCR; White Blood Cell Scan OK (OK)
[2022-09-02 22:07] LABS: Anisocytosis 1+; Hypochromasia 1+; Ovalocytes 1+; Teardrop Cell 1+
--- NOTE | 2022-09-02 22:16 | RAD REPORT ---
EXAM DESCRIPTION: CT - Head Brain Wo Cont - 09/02/2022 10:07 pm CLINICAL HISTORY: Declining state;Syncope COMPARISON: Ct Stroke Brain Wo Cont dated 04/18/2022; Head Brain Wo Cont dated 01/20/2022 TECHNIQUE: All CT scans are performed using dose optimization technique as appropriate and may inclu de automated exposure control or mA/KV adjustment according to patient size. FINDINGS: No intracranial hemorrhage, hydrocephalus or extra-axial fluid collection.No areas of brai n edema or evidence of midline shift. Chronic small vessel ischemic changes. Cerebral atrophy. Mucous retention cysts in the right and left maxillary sinus. The calvarium is intact. IMPRESSION: No acute intracranial abnormality.
[2022-09-02 22:20] LABS: Albumin 3.4 g/dL (3.4-5.0); Bilirubin Total 0.4 mg/dL (0.2-1.0); Potassium 3.7 mmol/L (3.5-5.1); Protein, Total 6.3 g/dL (6.4-8.2)
[2022-09-02 22:24] LABS: Albumin 3.4 g/dL (3.4-5.0); Bilirubin Direct 0.1 mg/dL (0-0.2); Bilirubin Total 0.4 mg/dL (0.2-1.0); Magnesium 2.2 mg/dL (1.6-2.4); Potassium 3.7 mmol/L (3.5-5.1); Protein, Total 6.3 g/dL (6.4-8.2)
[2022-09-02 22:26] LABS: Troponin High Sensitivity 95.7 pg/mL (<58.9)
[2022-09-02] MEDS ORDERED: ACETAMINOPHEN 650MG/RECT SUPP PR ONE (22:29)
[2022-09-03] MEDS ORDERED: CEFTRIAXONE 1000 MG/VIAL ONE (00:06)
[2022-09-03] MEDS ORDERED: MELATONIN 5 MG TABLET PO ONE (00:08)
[2022-09-03 00:36] LABS: Urine Blood 1+ (Negative); Urine Glucose Negative (Negative); Urine Protein 3+ (Negative); Urine Specific Gravity >=1.030 (1.005-1.030)
[2022-09-03 01:05] LABS: Urine Bacteria <20 /HPF (<20); Urine Mucus Slight /HPF (None Seen)
[2022-09-03] MEDS: ALBUTEROL 2.5 MG/3 ML NEB SOL NEB SCH ×4 (01:35→21:10)
[2022-09-03 01:42] VITALS: BMI 25.2
[2022-09-03] MEDS ORDERED: NA CHLORIDE 0.9% 250 ML ONE (01:56)
[2022-09-03] MEDS ORDERED: ACETAMINOPHEN 650MG/RECT SUPP PR PRN (04:30)
[2022-09-03] MEDS: HALOPERIDOL LACT 5 MG/ML INJ IM PRN ×2 (06:39→18:17)
[2022-09-03] MEDS: INSULIN -REGULAR HUMAN 50 UNIT/0.5 ML ML SQ SCH ×4 (07:30→20:13)
[2022-09-03 08:52] LABS: Absolute Lymphocytes (CBC) 1.7 K/uL (0.7-4.9); Hematocrit 28.1 % (39.6-49.0); MCV 72.4 fL (80-100); MPV 7.1 fL (7.6-11.3); RBC Red Blood Cell Count 3.88 M/uL (4.33-5.43)
[2022-09-03 08:56] LABS: Protime INR 1.15
[2022-09-03 09:09] LABS: Albumin 3.1 g/dL (3.4-5.0); Bilirubin Total 0.6 mg/dL (0.2-1.0); Magnesium 2.3 mg/dL (1.6-2.4); Phosphorus 3.5 mg/dL (2.5-4.9); Potassium 3.5 mmol/L (3.5-5.1); Protein, Total 6.3 g/dL (6.4-8.2)
[2022-09-03] MEDS: TAMSULOSIN 0.4 MG SR CAP PO SCH (10:00)
[2022-09-03] MEDS: CEFTRIAXONE 1,000 MG in NA CHLORIDE 0.9% 50 ML IVPB SCH ×2 (10:00→20:13)
[2022-09-03] MEDS: AZITHROMYCIN IV 500 MG in NA CHLORIDE 0.9% 250 ML IVPB SCH (10:08)
[2022-09-03] MEDS: METFORMIN HCL 500 MG TAB PO SCH (17:02)
[2022-09-03] MEDS ORDERED: HALOPERIDOL LACT 5 MG/ML INJ IM PRN (21:03)
--- NOTE | 2022-09-03 21:19 | PN ---
Date of Progress Note: 09/03/2022 Clinically, his disorientation and mental status are the same. However, according to the family, sin ce he had the Haldol by far and away, this is the least irritable and movement disorders that he has exhibited. He got a unit of blood. His hemoglobin is now back to the prior readings and according t o his , she has taken him off his Alzheimer's medication and seems to be little better; however, his white count was elevated at 19,000. He is placed on a sliding scale and maintained on his metfor min, blood pressure medicine, and Flomax. We will repeat the blood work in the morning and depending on that, we will decide his disposition. HR/MODL Voice ID: [id number] Report ID: [id number]
[2022-09-04] MEDS: HALOPERIDOL LACT 5 MG/ML INJ IM PRN ×2 (01:58→09:56)
[2022-09-04] MEDS: ALBUTEROL 2.5 MG/3 ML NEB SOL NEB SCH ×3 (02:00→14:04)
[2022-09-04 07:03] LABS: Absolute Lymphocytes (CBC) 1.8 K/uL (0.7-4.9); Lymphocytes % 15.7 % (15.3-44.8); MCV 71.7 fL (80-100); MPV 7.5 fL (7.6-11.3)
[2022-09-04] MEDS: INSULIN -REGULAR HUMAN 50 UNIT/0.5 ML ML SQ SCH ×2 (07:30→11:30)
[2022-09-04 07:32] LABS: Albumin 3.1 g/dL (3.4-5.0); Bilirubin Total 0.4 mg/dL (0.2-1.0); Potassium 3.8 mmol/L (3.5-5.1); Protein, Total 6.3 g/dL (6.4-8.2)
[2022-09-04] MEDS: TAMSULOSIN 0.4 MG SR CAP PO SCH (07:56)
[2022-09-04] MEDS: METFORMIN HCL 500 MG TAB PO SCH (07:56)
[2022-09-04] MEDS: CEFTRIAXONE 1,000 MG in NA CHLORIDE 0.9% 50 ML IVPB SCH (07:57)
[2022-09-04] MEDS: AZITHROMYCIN IV 500 MG in NA CHLORIDE 0.9% 250 ML IVPB SCH (08:42)
[2022-09-04] MEDS ORDERED: POTASSIUM CL SA 10 MEQ TAB PO ONE (09:00)
[2022-09-04] MEDS ORDERED: hydroCHLOROthiazide 12.5 MG CAP PO SCH (09:00)
[2022-09-04] MEDS ORDERED: VALSARTAN 160 MG TAB PO SCH (09:00)
[2022-09-04 09:44] VITALS: O2SAT 99
[2022-09-04 12:27] VITALS: BP 163/74; TEMP 98.8
--- NOTE | 2022-09-04 13:04 | EKG ---
Test Date: 2022-09-03 Test Time: 09:07:16 Photograph Developer: CHAI MEASUREMENT RESULTS: Intervals: Rate: 63 MD: 160 QRSD: 82 QT: 398 QTc: 407 [place]: P: 43 MD: 160 QRS: -20 T: -1 INTERPRETIVE STATEMENTS: Normal sinus rhythm Nonspecific ST and T wave abnormality Abnormal ECG Compared to ECG 09/02/2022 21:26:03 ST (T wave) deviation now present Myocardial infarct finding no longer present Electronically Signed On 09-04-22 13:02:36 CDT by Thai Chan
--- NOTE | 2022-09-04 13:06 | EKG ---
Test Date: 2022-09-02 Test Time: 21:26:03 Carpenter General: NISHANT MEASUREMENT RESULTS: Intervals: Rate: 79 UT: 140 QRSD: 84 QT: 374 QTc: 428 Bear: P: 45 UT: 140 QRS: -24 T: 47 INTERPRETIVE STATEMENTS: Normal sinus rhythm Anteroseptal infarct, age undetermined Abnormal ECG Compared to ECG 08/03/2022 12:12:07 Myocardial infarct finding now present Ventricular-paced complex(es) or rhythm no longer present Electronically Signed On 09-04-22 13:03:09 CDT by Thai Chan
--- NOTE | 2022-09-04 13:35 | RAD REPORT ---
EXAM DESCRIPTION: XR Chest, 1 View CLINICAL HISTORY: The patient is 77 years old and is Male; syncope TECHNIQUE: Frontal view of the chest. COMPARISON: No relevant prior studies available. FINDINGS: LUNGS: Unremarkable. No consolidation. PLEURAL SPACE: Unremarkable. No pneumothorax. HEART: Unremarkable. No cardiomegaly. MEDIASTINUM: Unremarkable. BONES/JOINTS: Mild degenerative change of the bones is noted. VASCULATURE: Atherosclerosis of the aorta is present. TUBES, LINES AND DEVICES: Left-sided pacemaker is present. UPPER ABDOMEN: Unremarkable as visualized. IMPRESSION: No acute cardiopulmonary process. Electronically signed by: Judy Melgoza MD 09/02/2022 11:45 PM [employer] Due to temporary technical issues with the PACS/Fluency reporting system, reports are being signed by the in house radiologists without review as a courtesy to insure prompt reporting. The interpreting radiologist is fully responsible for the content of the report.
--- NOTE | 2022-09-04 16:13 | CON ---
Date of Consultation: 09/04/2022 Reason For Consultation: Elevated troponin. History Of Present Illness: A 77-year-old male with advanced dementia, hypertension, dyslipidemia, t ype 2 diabetes, who was brought into the emergency room due to altered mental status. The patient de nied having any chest pain. Troponin was checked, was elevated, and so I was consulted. I evaluated him by bedside. He denies having any chest pain and family were at bedside. I had a long discussio n with them and they decided for conservative management. Past Medical History: As outlined above in HPI. Medications: Refer to reconciliation sheet for detailed list. Allergies: IODINE. Family History: No premature coronary artery disease or cancer. Social History: He does not smoke or drink. Does not use any drugs. Review of Systems: All systems reviewed and they were negative except what mentioned in HPI. Physical Examination: Vital Signs: Reviewed. Head and Neck: Pupils are equal, reactive to light. Intact eye movements. No JVD. No cervical lym phadenopathy. Neck is supple. Thyroid is not enlarged. Lungs: Clear to auscultation bilaterally. No rhonchi, wheezing, or crackles. No accessory muscle u se. Heart: Regular rate and rhythm. No extra sounds. Abdomen: Soft, nontender. Bowel sounds positive. No organomegaly. No masses or hernia. No rigidi ty or rebound. Extremities: No clubbing or cyanosis. Intact pulses. Skin: No rash. Neurologic: Alert, awake. No acute focal deficits appreciated. Investigations: BUN 14, creatinine 1.07. Troponin 1921, down from 3719. Assessment And Recommendations: 1.Elevated troponin. This is non-ST elevation myocardial infarction. I had a long discussion with the family. Due to advanced dementia, they decided for medical management. As such, I recommend to put him on metoprolol extended release 25 mg daily, titrate up for heart rate to be around 60, and re commend aspirin 81 mg daily, Plavix 75 mg daily and Lipitor 40 mg at bedtime as a medical management and follow up as an outpatient. We will titrate medications based on his symptoms. I believe being conservative and avoid aggressive and invasive measures is reasonable in this patient due to advanced dementia. SR/MODL Voice ID: [id number] Report ID: [id number]
--- NOTE | 2022-09-04 18:18 | PN ---
Date of Progress Note: 09/04/2022 Patient is eating much better. Clinically, there is no change mentally as he has improved. He has b een more active. Sedation has been much better using Haldol. Advantages and disadvantages of the dr maki were explained to the family and they are going to think about as far as an outpatient basis usage . and chest x-ray with minimal inflammation. White count has now stabilized. Cardiac wo rkup did show increased enzymes with some acute changes. He was consulted with Cardiology and the kurt basurto feel conservative treatment is probably best at this stage and avoiding any invasive procedures. He will be discharged, therefore. Continue antibiotics p.o. Keflex and Zithromax and follow up in 1 week. At which time, decision may be made as far as use of the Haldol. HR/MODL Voice ID: [id number] Report ID: [id number]
== END 2022-09-04 15:25 | disposition home or self-care (01) | DRG 282 ==
LOC: ER 20:44 → ERHOLD 23:31 → 4TH 23:56
PROVIDERS: ADMIT Family Medicine; ATTEND Family Medicine
PROC: 30233N1 Transfusion of Nonautologous Red Blood Cells into Peripheral Vein, Percutaneous Approach (ICD-10-PCS; principal; 2022-09-03)
DX: I21.4 Non-ST elevation (NSTEMI) myocardial infarction (principal); I10 Essential (primary) hypertension; E78.5 Hyperlipidemia, unspecified; E11.9 Type 2 diabetes mellitus without complications; G30.9 Alzheimer's disease, unspecified; F02.80 Dementia in other diseases classified elsewhere, unspecified severity, without behavioral disturbance, psychotic disturbance, mood disturbance, and anxiety; Z79.84 Long term (current) use of oral hypoglycemic drugs; Z91.048 Other nonmedicinal substance allergy status; Z79.899 Other long term (current) drug therapy; Z20.822 Contact with and (suspected) exposure to COVID-19
CPT/HCPCS: 0240U; 36415; 70450; 71045; 80048; 80053; 80076; 81003; 81015; 82947; 83605; 83735; 83880; 84100; 84484; 85025; 85610; 85730; 86850; 86900; 86901; 87040; 87077; 87086; 87088; 87186; 93005; 94640; 94760; 96374; 97116; 97161; 99285; J1630; J1815; J7050; J7613; P9016